=== PATIENT | female | born 1940 ===

== ENCOUNTER 2017-11-16 21:51 | Observation (INO) | payer MEDICARE, MEDICAID ==
[2017-11-16 22:05] VITALS: BMI 26.2
--- NOTE | 2017-11-16 22:09 | ED PDOC ---
Arrival/HPI - General Time Seen by Provider: 11/16/17 22:01 Historian: Patient, Family - History of Present Illness Narrative History of Present Illness (Text): 11/16/17 22:09 Desire Lay is a 76 year old female, whose past medical historoy includes thrombocytopenia, who presents to the Emergency department brought in by EMS accompanied by daughter complaining of chest pain. As per daughter, patient has been experiencing left-sided chest pain radiating to her left arm with associated palpitations. Daughter notes patient recently finished a course of prednisolone for her thrombocytopenia. Patient denies any fever, chills, shortness of breath, nausea, vomiting, diarrhea, urinary symptoms, back pain, neck pain, headache, dizziness, or any other complaints. Symptom Onset: Gradual Symptom Course: Unchanged Activities at Onset: Light Context: Home Past Medical History - Provider Review Nursing Documentation Reviewed: Yes - Infectious Disease Hx of Infectious Diseases: None - Past Medical History Past Medical History: Unable to Obtain - Cardiac Hx Cardiac Disorders: No - Pulmonary Hx Respiratory Disorders: No - Neurological Hx Neurological Disorder: No - HEENT Hx HEENT Disorder: No - Endocrine/Metabolic Hx Endocrine Disorders: No - Hematological/Oncological Hx Blood Disorders: No - Integumentary Hx Dermatological Disorder: No - Musculoskeletal/Rheumatological Hx Musculoskeletal Disorders: No Hx Falls: No - Gastrointestinal Hx Gastrointestinal Disorders: No - Genitourinary/Gynecological Hx Genitourinary Disorders: No - Psychiatric Hx Psychophysiologic Disorder: No Hx Substance Use: No - Past Surgical History Past Surgical History: Unable to Obtain - Surgical History Hx Orthopedic Surgery: Yes - Anesthesia Hx Anesthesia: Yes Hx Anesthesia Reactions: No Hx Malignant Hyperthermia: No - Suicidal Assessment Feels Threatened In Home Enviroment: No Family/Social History - Physician Review Nursing Documentation Reviewed: Yes Family/Social History: Unknown Family HX Smoking Status: Never Smoked Hx Alcohol Use: No Hx Substance Use: No Allergies/Home Meds Allergies/Adverse Reactions: Allergies amoxicillin Allergy (Verified 11/16/17 22:13) SHORTNESS OF BREATH ciprofloxacin Allergy (Verified 11/16/17 22:13) SHORTNESS OF BREATH Penicillins Allergy (Verified 11/16/17 22:13) SHORTNESS OF BREATH Home Medications: Home Meds Medication Instructions Recorded Confirmed No Known Home Med 11/16/17 11/16/17 Review of Systems - Physician Review All systems were reviewed & negative as marked: Yes - Review of Systems Constitutional: Normal. absent: Fevers Eyes: Normal ENT: Normal Respiratory: Normal. absent: SOB Cardiovascular: Chest Pain, Palpitations Gastrointestinal: Normal. absent: Abdominal Pain, Diarrhea, Nausea, Vomiting Genitourinary Female: Normal. absent: Dysuria, Frequency, Hematuria, Urine Output Changes Musculoskeletal: Normal. absent: Back Pain, Neck Pain Skin: Normal. absent: Rash Neurological: Normal. absent: Headache, Dizziness Endocrine: Normal Hemo/Lymphatic: Normal Psychiatric: Normal Physical Exam Vital Signs Reviewed: Yes Vital Signs Temp Pulse Resp BP Pulse Ox 11/16/17 23:36 98 H 108/53 L 11/16/17 23:23 137 H 142/88 11/16/17 21:53 98.5 F 96 H 16 136/88 98 Temperature: Afebrile Blood Pressure: Normal Pulse: Regular Respiratory Rate: Normal Appearance: Positive for: Well-Appearing, Non-Toxic, Comfortable Pain Distress: None Mental Status: Positive for: Alert and Oriented X 3 - Systems Exam Head: Present: Atraumatic, Normocephalic Pupils: Present: PERRL Extroacular Muscles: Present: EOMI Conjunctiva: Present: Normal Mouth: Present: Moist Mucous Membranes Neck: Present: Normal Range of Motion Respiratory/Chest: Present: Clear to Auscultation, Good Air Exchange. No: Respiratory Distress, Accessory Muscle Use Cardiovascular: Present: Regular Rate and Rhythm, Normal S1, S2. No: Murmurs Abdomen: Present: Normal Bowel Sounds. No: Tenderness, Distention, Peritoneal Signs Back: Present: Normal Inspection Upper Extremity: Present: Normal Inspection. No: Cyanosis, Edema Lower Extremity: Present: Normal Inspection. No: Edema Neurological: Present: GCS=15, CN II-XII Intact, Speech Normal Skin: Present: Warm, Dry, Normal Color. No: Rashes Psychiatric: Present: Alert, Oriented x 3, Normal Insight, Normal Concentration Medical Decision Making ED Course and Treatment: 11/16/17 22:09 Impression: 76 year old female brought in for chest pain radiating to left arm and palpitations. Plan: -- EKG -- Chest X-ray -- Labs, cardiac enzymes -- Reassess and disposition Prior Visits: Notes and results from previous visits were reviewed. On 08/10/2015, pt was seen in the Emergency department for abdominal pain. Pt was d/c home. Progress Notes: Reviewed EKG, NSR at 98 bpm. NSR at [address] bpm[address] Non-specific ST/T wave changes, 11/16/17 22:59 Pt noted to be in a fib, Cardizem ordered. 11/16/17 23:33 CXR reviewed, shows no acute processes. 11/17/17 00:[address] Carter, who is aware and agrees with plan. Accepts pt in to her service. Pt will be admitted to Telemetry for new onset atrial fibrillation and chest pain. Requests Dr. Moreland on consult. No anti-coagulation at this time, secondary to pt's thrombocytopenia. 11/17/17 00:58 Reviewed repeat EKG, NSR at [address]-segment elevations or depressions, no T-wave inversions, normal intervals. - Lab Interpretations Lab Results: 11/16/17 22:19 11/16/17 22:19 Lab Results 11/16/17 22:19: PT 10.9, INR 1.00, APTT 28.3 11/16/17 22:19: Sodium 142, Potassium 4.2, Chloride 107, Carbon Dioxide 27, Anion Gap 13, BUN 18, Creatinine 0.9, Est GFR ( Amer) > 60, Est GFR (Non- Af Amer) > 60, Random Glucose 146 H, Calcium 9.5, Total Bilirubin 0.3, AST 34, ALT 36, Alkaline Phosphatase 104, Lactate Dehydrogenase 462, Total Creatine Kinase 49, Troponin I < 0.01, Total Protein 7.4, Albumin 3.8, Globulin 3.6, Albumin/Globulin Ratio 1.1 11/16/17 22:19: WBC 5.7, RBC 3.55, Hgb 11.3 L, Hct 35.1 L, MCV 98.9, MCH 31.8, MCHC 32.2, RDW 14.1, Plt Count 24 L*, MPV 10.2, Gran % 42.5 L, Lymph % (Auto) 51.5 H, Prentiss % (Auto) 5.5, Eos % (Auto) 0.5 L, Baso % (Auto) 0.0, Gran # 2.40, Lymph # 2.9, Prentiss # 0.3, Eos # 0.0, Baso # 0.00 I have reviewed the lab results: Yes - RAD Interpretation Radiology Orders: 11/16/17 22:21 CHEST PORTABLE [RAD] Stat Service Or Work Dispatcher: ED Physician - EKG Interpretation Interpreted by ED Physician: Yes Type: 12 lead EKG - Medication Orders Current Medication Orders: diltiaZEM IVPB 100mg in NS (Cardizem 100mg In Ns) 100 mls @ 5 mls/hr IV .Q20H PRN; Protocol; 5 MG/HR PRN Reason: TITRATE PER MD ORDER Last Admin: 11/16/17 23:36 Dose: 5 mls/hr eMAR Start Stop Document 11/16/17 23:36 AD (Rec: 11/16/17 23:37 AD [id number]) Intravenous Solution Start Date 11/16/17 Start Time 23:36 JAN Pulse and Blood Pressure Document 11/16/17 23:36 AD (Rec: 11/16/17 23:37 AD [id number]) Pulse Pulse Rate (60-90 beats/min) 98 Blood Pressure Blood Pressure (100/60-150/90 mm Hg) 108/53 Discontinued Medications Diltiazem HCl (Cardizem) 10 mg IVP ONCE ONE Stop: 11/16/17 22:59 Last Admin: 11/16/17 23:23 Dose: 10 mg IVP Administration Document 11/16/17 23:23 AD (Rec: 11/16/17 23:24 AD [id number]) Charges for Administration # of IVP Administrations 1 MAR Pulse and Blood Pressure Document 11/16/17 23:23 AD (Rec: 11/16/17 23:24 AD [id number]) Pulse Pulse Rate (60-90 beats/min) 137 Blood Pressure Blood Pressure (100/60-150/90 mm Hg) 142/88 - Scribe Statement The provider has reviewed the documentation as recorded by the Enrico Barrera Provider Scribe Attestation: All medical record entries made by the Sajanibalfredo were at my direction and personally dictated by me. I have reviewed the chart and agree that the record accurately reflects my personal performance of the history, physical exam, medical decision making, and the department course for this patient. I have also personally directed, reviewed, and agree with the discharge instructions and disposition. Disposition/Present on Arrival - Present on Arrival Any Indicators Present on Arrival: No History of DVT/PE: No History of Uncontrolled Diabetes: No Urinary Catheter: No History of Decub. Ulcer: No History Surgical Site Infection Following: None - Disposition Have Diagnosis and Disposition been Completed?: Yes Diagnosis: New onset atrial fibrillation, Chest pain Disposition: HOSPITALIZED Disposition Time: 00:34 Patient Plan: Admission Patient Problems: Current Active Problems Problem Status Onset Chest pain Acute New onset atrial fibrillation Acute Condition: STABLE
[2017-11-16 22:51] LABS: EOS % 0.5 % (1.5-5.0); GRAN % 42.5 % (50.0-68.0); HEMATOCRIT 35.1 % (36.0-48.0); LYMPH # 2.9 (1.2-3.4); LYMPH % 51.5 % (22.0-35.0); MEAN CELL VOLUME 98.9 fl (80.0-105.0); MEAN CORPUSCULAR HEMOGLOBIN 31.8 pg (25.0-35.0); MEAN CORPUSCULAR HGB CONC 32.2 g/dl (31.0-37.0); MEAN PLATELET VOLUME 10.2 fl (7.0-11.0); MONO # 0.3 (0.1-0.6); MONO % 5.5 % (1.0-6.0); RED CELL DISTRIBUTION WIDTH 14.1 % (11.5-14.5); WHITE BLOOD COUNT 5.7 10^3/ul (4.5-11.0)
[2017-11-16 22:55] LABS: ALB/GLOB RATIO 1.1 (1.1-1.8); ALKALINE PHOSPHATASE 104 U/L (38-126); ALT/SGPT 36 U/L (7-56); AST/SGOT 34 U/L (14-36); BILIRUBIN,TOTAL 0.3 mg/dL (0.2-1.3); BLOOD UREA NITROGEN 18 mg/dL (7-21); CALCIUM 9.5 mg/dL (8.4-10.5); CARBON DIOXIDE 27 mmol/L (21-33); CHLORIDE 107 mmol/L (98-107); GFR AFRICAN-AMERICAN > 60; GLUCOSE,RANDOM 146 mg/dL (70-110); POTASSIUM 4.2 mmol/L (3.6-5.0); SODIUM 142 mmol/L (132-148); TOTAL PROTEIN 7.4 g/dL (5.8-8.3)
[2017-11-16 22:58] LABS: PARTIAL THROMBOPLASTIN TIME 28.3 Seconds (25.1-36.5)
[2017-11-16] MEDS ORDERED: diltiaZEM IVPB 100mg in NS 100 ML IV PRN (22:59)
[2017-11-16 23:07] LABS: TROPONIN I < 0.01 ng/mL
[2017-11-16 23:08] LABS: PLATELET COUNT 24 10^3/uL (120.0-450.0)
--- NOTE | 2017-11-17 08:28 | RAD ---
HISTORY: pain COMPARISON: Comparison was made with prior study dated 08/10/2015 FINDINGS: LUNGS: No active pulmonary disease. PLEURA: No significant pleural effusion identified, no pneumothorax apparent. CARDIOVASCULAR: Normal. OSSEOUS STRUCTURES: No significant abnormalities. VISUALIZED UPPER ABDOMEN: Normal. OTHER FINDINGS: None. IMPRESSION: No active disease.
--- NOTE | 2017-11-17 11:56 | CARD ---
APPROVED REPORT EKG Measurement Heart [id number] <Conclusion> Atrial fibrillation with rapid ventricular response, new Nonspecific ST and T wave abnormality
[2017-11-17] MEDS ORDERED: Iohexol 350 MG/100 ML VIAL ONE (12:56)
--- NOTE | 2017-11-17 12:58 | CON ---
DATE: 11/17/2017 CONSULT SERVICE: Cardiology. CONSULTING PHYSICIAN: Marina Moreland MD REASON FOR CONSULTATION: Atrial fibrillation and neck pain. BRIEF CLINICAL HISTORY: This is a 76-year-old female with a past medical history of possibly spinal stenosis, back problem, history of back surgery, and history of severe thrombocytopenia for many years brought by the family because of the patient was having palpitation, denies any chest pain. The patient was found to be in AFib, converted to normal sinus. Now, the patient is in normal sinus. PAST MEDICAL HISTORY: Significant for abdominal pain off and on, severe thrombocytopenia from 2013, history of GI bleed, history of bloody diarrhea in the past, history of hypokalemia, history of, as mentioned, severe thrombocytopenia. Previous cardiac workup as follows; the patient had echo in 2013 that showed an ejection fraction of 55%, trace mitral regurgitation, tricuspid regurgitation and RV systolic pressure 38. PAST SURGICAL HISTORY: History is significant for back problem, history of metal plate in the back. Last echo as mentioned 10/24/2014 that showed ejection fraction of 55%, trace mitral regurgitation, mild tricuspid regurgitation and RV systolic pressure 38. REVIEW OF SYSTEMS: As per HPI. CURRENT MEDICATION: At home, no known medication at home, takes only p.r.n. Tylenol. ALLERGIES: TO AMOXICILLIN, CIPROFLOXACIN, AND TO PENICILLIN. PHYSICAL EXAMINATION: As follows: VITAL SIGNS: Temperature afebrile, heart rate 72, and blood pressure 105/60. HEENT: PERRLA. Extraocular muscles are intact. NECK: Supple. No carotid bruits. No thyromegaly. CHEST: Clear to auscultation. HEART: S1 and S2 regular. ABDOMEN: Soft. EXTREMITIES: Clubbing and cyanosis negative. LABORATORY DATA: WBC 5.7, hemoglobin 11.7, hematocrit 35.1, and platelet count 24. Sodium 140, potassium 4.2, chloride 107, carbon dioxide 27, anion gap of 13, BUN 18, and creatinine 0.9, and troponin is 0.01, negative. EKG: AFib with rapid ventricular rate, repeat EKG converted to normal sinus. IMPRESSION: Paroxysmal atrial fibrillation converted to normal sinus, severe thrombocytopenia which is present since 10/25/2014, platelet count was 46. I discussed with the patient's daughter and son, Tomas, in detail about the patient condition. The patient's family is completely aware of the severe condition of thrombocytopenia, being seen by Hematology at [facility] and was told medical treatment, no aggressive treatment and was told to monitor closely. The patient admitted with a palpitation, converted to normal sinus, though the patient complained lot of pain in the neck. RECOMMENDATION: So far no evidence of [place], we will get echo to assess LV function and also get a stress test. We will put low dose of beta-kevin, lipid profile, TSH and hemoglobin A1c. The patient discussed about going on the stress test, the patient preferred to go tomorrow because of lot of neck pain. We will schedule for tomorrow stress. We will keep n.p.o. after 12 midnight for a stress test in the morning. Marina Moreland MD
--- NOTE | 2017-11-17 16:20 | CT ---
PROCEDURE: CT Abdomen and Pelvis with contrast HISTORY: L side pain COMPARISON: None. TECHNIQUE: Contrast dose: 100 ML OMNIPAQUE 350 Radiation dose: Total exam DLP = 252.43 mGy-cm. This CT exam was performed using one or more of the following dose reduction techniques: Automated exposure control, adjustment of the mA and/or kV according to patient size, and/or use of iterative reconstruction technique. FINDINGS: LOWER THORAX: Unremarkable. LIVER: Unremarkable. No gross lesion or ductal dilatation. GALLBLADDER AND BILE DUCTS: Unremarkable. PANCREAS: Unremarkable. No gross lesion or ductal dilatation. SPLEEN: Normal size. Stable 1.6 cm rounded low-density lesion within the medial aspect of the spleen. Likely epidermoid cyst, hemangioma or lymphangioma. ADRENALS: Unremarkable. No mass. KIDNEYS AND URETERS: Unremarkable. No hydronephrosis. No solid mass. VASCULATURE: Unremarkable. No aortic aneurysm. BOWEL: Unremarkable. No obstruction. No gross mural thickening. APPENDIX: Normal appendix. PERITONEUM: Unremarkable. No free fluid. No free air. LYMPH NODES: Unremarkable. No enlarged lymph nodes. BLADDER: Unremarkable. REPRODUCTIVE: Status post hysterectomy BONES: There is increasing central compression deformity of the L1 and L2 vertebrae with new Schmorl's node of the superior L2 vertebra and increasing compression deformity of the superior L1 vertebral endplate. Stable mild anterior wedge compression deformity of the T9 vertebra. New mild inferior endplate Schmorl's node of the T10 vertebra. Stable grade 1 retrolisthesis at L2-3. No spondylolysis. OTHER FINDINGS: None. IMPRESSION: No acute abnormality. Stable cystic lesion of the spleen. Increasing central compression deformity of L1 and L2 vertebrae. New Schmorl's node T10 vertebra.
--- NOTE | 2017-11-17 21:15 | HP ---
HISTORY OF PRESENT ILLNESS: The patient is a 76-year-old who came to emergency room because of feeling dizzy. She has shortness of breath. She was having chest discomfort, it is going on for sometime, but got worse last night, so she came to emergency room for further evaluation. She complain of chest pain radiating from the left to her left arm. She was complaining of shortness of breath. She also complain of abdominal pain that is cramping. She denies any fever or chills. No history of cough or congestion. She does have abdominal pain. PAST MEDICAL HISTORY: Significant for hypertension and thrombocytopenia. ALLERGIES: SHE IS ALLERGIC TO AMOXICILLIN AND CIPROFLOXACIN. MEDICATIONS AT HOME: She states she only take Tylenol at home. SOCIAL HISTORY: She lives with her daughter. Denies smoking or drinking. She used to be smoker in the past, mostly one pack a day. PHYSICAL EXAMINATION: GENERAL: She is awake, alert, oriented, and communicative. VITAL SIGNS: She is afebrile, pulse 73, respirations 19, and blood pressure 99/50. LUNGS: Bilateral fair airflow. No rhonchi or crackle. HEART: S1 and S2 audible. ABDOMEN: Soft, left upper quadrant discomfort. No rebound or guarding. NEUROLOGIC: She is awake, alert, oriented, and communicative. LABORATORY DATA: WBC 5.7, hemoglobin 11.3, hematocrit 35.1, and platelets . PT 10.9 and INR 1.0. Chemistry; sodium 142, potassium 4.2, chloride 107, CO2 of 27, BUN 18, creatinine 0.9, and blood sugar of 146. Her EKG shows atrial fibrillation with rapid ventricular response. ASSESSMENT: 1, New onset atrial fibrillation. 2. History of thrombocytopenia. 3. Abdominal pain, etiology unclear. 4. Questionable hypertension. PLAN: She has been started on beta-kevin. She is schedule to have stress test done tomorrow and also we will order for CT scan of the abdomen and pelvis with p.o. contrast and the patient will get echocardiogram in a.m. We will follow up the patient in a.m. and out of bed to chair. Shabana Carter MD
[2017-11-18 01:04] VITALS: TEMP 98.1; O2SAT 97
[2017-11-18 05:54] LABS: EOS % 0.7 % (1.5-5.0); GRAN % 38.9 % (50.0-68.0); HEMATOCRIT 32.8 % (36.0-48.0); LYMPH # 3.1 (1.2-3.4); LYMPH % 53.9 % (22.0-35.0); MEAN CELL VOLUME 98.2 fl (80.0-105.0); MEAN CORPUSCULAR HEMOGLOBIN 32.3 pg (25.0-35.0); MEAN CORPUSCULAR HGB CONC 32.9 g/dl (31.0-37.0); MEAN PLATELET VOLUME 11.1 fl (7.0-11.0); MONO # 0.4 (0.1-0.6); MONO % 6.5 % (1.0-6.0); RED CELL DISTRIBUTION WIDTH 14.4 % (11.5-14.5); WHITE BLOOD COUNT 5.7 10^3/ul (4.5-11.0)
[2017-11-18 06:10] LABS: PLATELET COUNT 23 10^3/uL (120.0-450.0)
[2017-11-18 06:36] VITALS: BP 108/62; RESP 62
[2017-11-18 06:57] LABS: ALKALINE PHOSPHATASE 95 U/L (38-126); ALT/SGPT 37 U/L (7-56); AST/SGOT 27 U/L (14-36); BILIRUBIN,TOTAL 0.4 mg/dL (0.2-1.3); BLOOD UREA NITROGEN 14 mg/dL (7-21); CALCIUM 9.6 mg/dL (8.4-10.5); CARBON DIOXIDE 26 mmol/L (21-33); CHLORIDE 106 mmol/L (98-107); CHOLESTEROL 203 mg/dL (130-200); GFR AFRICAN-AMERICAN > 60; GLUCOSE,RANDOM 98 mg/dL (70-110); MAGNESIUM 1.7 mg/dL (1.7-2.2); PHOSPHOROUS 3.9 mg/dL (2.5-4.5); POTASSIUM 4.3 mmol/L (3.6-5.0); SODIUM 140 mmol/L (132-148); TOTAL PROTEIN 7.1 g/dL (5.8-8.3)
[2017-11-18] MEDS ORDERED: Aminophylline 25 mg/ml Inj ONE (08:56)
--- NOTE | 2017-11-18 13:26 | PN ---
DATE: 11/18/2017 REASON FOR CONSULTATION AND FOLLOWUP: Atrial fibrillation, neck pain, and chest pain with underlying coronary artery disease, cardiac evaluation. SUBJECTIVE: The patient denies any chest pain, shortness of breath, or any palpitation. Lying on the bed. Seen in noninvasive lab. Awaiting to go for stress test. PHYSICAL EXAMINATION: As follows: VITAL SIGNS: Temperature is afebrile, heart rate is 62, and blood pressure is 108/62. HEENT: PERRLA. Extraocular muscles are intact. NECK: Supple. No carotid bruits or thyromegaly. CHEST: Clear to auscultation. HEART: S1 and S2, regular. ABDOMEN Soft. EXTREMITIES: Clubbing and cyanosis negative. LABORATORY DATA: Blood workup as follows: WBC of 5.7, hemoglobin of 10.8, hematocrit of 32.8, and platelet count of 23. Chemistry shows sodium of 140, potassium of 4.3, chloride of 106, carbon dioxide of 26, anion gap of 13, BUN of 14, and creatinine of 0.9. TSH is 2.14. Triglycerides of 121, total cholesterol of 203, LDL of 129, and HDL of 52. DIAGNOSTIC DATA: EKG shows atrial fibrillation with controlled rate. Admitted with rapid ventricular rate, now rate is well controlled. IMPRESSION AND RECOMMENDATIONS: Thrombocytopenia from 2013, history of gastrointestinal bleed, and history of bloody diarrhea in the past. Previous cardiac workup shows ejection fraction of 55%, trace mitral regurgitation, trace tricuspid regurgitation and right ventricular systolic pressure of 38. Admitted with neck pain, shortness of breath, questionable history of the chest pain. Discussed with son and daughter, both were at the bedside and I agree for the stress test, we will schedule for a stress test today and echocardiography today. We will continue low-dose beta-kevin, the patient is not on anticoagulation because of severe thrombocytopenia, platelet count is 22, which is contraindicative to the anticoagulation because the patient can dye from a spontaneous bleeding even with the low platelet count and also cannot tolerate anticoagulation. We will continue beta-kevin as heart rate is tolerated, a stress test and echocardiography. Further recommendation will be made after the hospital course. We will follow with you. The patient has a history of spine surgery and metal plate in the back. Thank you Dr. Carter, for providing me the opportunity in taking care of the patient, Desire Lay. Marina Moreland MD [facility] # [id number]
[2017-11-18 15:27] VITALS: PULSE 69
--- NOTE | 2017-11-18 18:49 | CARD ---
APPROVED REPORT EXAM: Two-dimensional and M-mode echocardiogram with Doppler and color Doppler. INDICATION Chest Pain PAF/LVFX 2D DIMENSIONS Left Atrium (2D)3.5 (1.6-4.0cm)IVSd0.9 (0.7-1.1cm) LVDd3.3 (3.9-5.9cm)PWd0.9 (0.7-1.1cm) LVDs2.3 (2.5-4.0cm)FS (%) 31.0 % LVEF (%)60.0 (>50%) M-Mode DIMENSIONS Aortic Root2.80 (2.2-3.7cm)Aortic Cusp Exc.1.60 (1.5-2.0cm) Aortic Valve AoV Peak Slblfblk124.0cm/Neolle Peak GR.5mmHg Mitral Valve MV E Vllhifqm62.0cm/sMV A Srhivuvj28.7cm/sE/A ratio0.8 TDI Lateral E' Peak V10.90cm/sMedial E' Peak V7.90cm/sE/Lateral E'5.4 E/Medial E'7.5 Pulmonary Valve PV Peak Yktytygu14.6cm/sPV Peak Grad.2mmHg Tricuspid Valve TR Peak Pwzyxtqm492lk/sRAP EZHBVFNI91teNkRC Peak Gr.32mmHg [id number] LEFT VENTRICLE The left ventricle is normal size. There is normal left ventricular wall thickness. The left ventricular function is normal.EF-60-65% There is normal LV segmental wall motion. Transmitral Doppler flow pattern is Grade III-reversible restrictive diastolic dysfunction. No left ventricle thrombus noted on this study. There is no ventricular septal defect visualized. There is no left ventricular aneurysm. There is no mass noted in the left ventricle. RIGHT VENTRICLE The right ventricle is normal size. There is normal right ventricular wall thickness. The right ventricular systolic function is normal. ATRIA The left atrium size is normal. The right atrium size is normal. The interatrial septum is intact with no evidence for an atrial septal defect. AORTIC VALVE The aortic valve is thickened but opens well. There is trace aortic regurgitation. There is no aortic valvular stenosis. There is no aortic valvular vegetation. MITRAL VALVE The mitral valve is thickened but opens well. Mitral regurgitation is trace to mild. There is no mitral valve stenosis. There is no evidence of mitral valve prolapse. TRICUSPID VALVE The tricuspid valve leaflets are thickened , but open well. There is moderate tricuspid regurgitation.RVSP_42 mmof h g. There is no tricuspid valve stenosis. There is no tricuspid valve prolapse or vegetation. PULMONIC VALVE The pulmonic valve is not well visualized. There is no pulmonic valvular regurgitation. There is no pulmonic valvular stenosis. GREAT VESSELS The aortic root is normal in size. The ascending aorta is normal in size. The pulmonary artery is normal. The IVC is normal in size and collapses >50% with inspiration. PERICARDIAL EFFUSION There is no pleural effusion. There is no pericardial effusion. <Conclusion> Normal chamber Size. EF-60-65 There is trace aortic regurgitation. Mitral regurgitation is trace to mild. There is moderate tricuspid regurgitation.RVSP_42 mmof h g. The IVC is normal in size and collapses >50% with inspiration. There is no pericardial effusion.
--- NOTE | 2017-11-18 20:09 | CARD ---
APPROVED REPORT Protocol: LEXISCAN Test Type: Lexiscan Sestamibi Stress Test Attending Physician: Dr. Marina Leavitt Referring Physician: Dr. Shabana Carter Test Indications: Chest Pain Height:4 ft 9 in Weight:113lbs Medications: Lopressor Medical History: 76 y/o female with a history of atrial fibrillation, osteoporosis Target HR: 144 bpm Resting ECG: RSR. Resting Heart Rate: 67 bpm Resting Blood Pressure: 112/70mmHg Submaximum (85%): 122 bpm PROCEDURE Pharmacologic stress testing was performed using 0.4mg per 5ml of regadenoson given intravenously over 7-10 seconds. Reversal agent aminophyline 100 mg, given intravenously for Other. POST EXERCISE Reason for Termination: Protocol completed Target HR: No Max HR: 66 bpm 66% of Maximum Predicted HR: 144 bpm Exercise duration: 00:31 min:sec, 0 Stage Exercise capacity: 1.0METs Max Blood Pressure: 118/70mmHg Blood Pressure response to exercise: normal resting BP - appropriate response Heart Rate response to exercise: appropriate Chest Pain: No, none Angina index: 0 Arrhythmia: No, none ST Change: No, none Deviation: 0 mm INTERPRETATION Stress EKG Conclusion: IV LEXISCAN NUCLEAR STRESS TEST NEGATIVE FOR CHEST PAIN AND NEGATIVE FOR ST-T CHANGES. NUCLEAR SCAN REPORT PENDING. Signed by Marina Leavitt Electronically Approved: 11/18/2017 10:49:30 EXAM: Myocardial Perfusion REST/STRESS Stress Test Type: Pharmacologic Imaging Protocol Rest Spect myocardial perfusion imaging was performed in supine position 45 minutes following the injection of 10.6 mCi of Tc-99 Myoview. At peak stress, the patient was injected intravenously with 30.7mCi of Tc-99 tetrofosmin after an infusion time of 0 minutes and 10 seconds. Gated Stress Spect was performed 60 minutes after intravenous Tc-99 Myoview injection. The images were gated to evaluate regional wall motion and calculate ventricular ejection fraction.Images were reconstructed using backfilter projection method in short horizontal and verticle long axis. Spect slices were generated. LV Perfusion The quality of the study is good. The left ventricle is normal in size. The right ventricle is unremarkable. The lung uptake is within normal limits. The distribution of tracer reveals normal uptake pattern throughout the LV myocardium on the stress study. The rest myocardial perfusion study shows no significant change. Wall Motion Wall motion study shows good contractility of the left ventricle. LVEF = 81%. Conclusion 1. Normal SPECT myocardial perfusion study. 2. Normal gated wall motion of the left ventricle.
--- NOTE | 2017-11-19 03:47 | DS ---
HISTORY OF PRESENT ILLNESS: The patient is a 76-year-old, seen and examined. No nausea or vomiting. No diarrhea. No chest pain. No shortness of breath. Eating and tolerating. She was in brief episode of atrial fibrillation and has been in sinus rhythm since then. She has been beta-kevin doing well with that. PHYSICAL EXAMINATION: GENERAL: She is awake, alert, oriented, and communicative. VITAL SIGNS: She is afebrile. Pulse is 62, respirations are 20, and blood pressure is 108/62. LUNGS: Bilateral good airflow. No rhonchi or crackle. HEART: S1 and S2, audible. ABDOMEN: Soft and nontender. No rebound and no guarding. NEUROLOGIC: The patient is awake, alert, oriented, and communicative. LABORATORY DATA: WBC is 5.7, hemoglobin is 10.8, hematocrit is 32.8, and platelets of 23. Chemistry: Sodium of 140, potassium of 4.3, chloride of 106, CO2 of 26, BUN of 14, creatinine of 0.9, and blood sugar of 152. LFTs are within normal limit. Stress test is pending. ASSESSMENT AND PLAN 1. Brief episode of paroxysmal atrial fibrillation. 2. History of hypertension. 3. Thrombocytopenia. 4. History of gastrointestinal bleed in the remote past that is why the patient has not been started on anticoagulant. PLAN: I will discussed with Dr. Moreland because of her high risk age and being thrombocytopenic. She is not on anticoagulant. We will might discharge her on metoprolol 12.5 mg b.i.d. If it is okay with Cardiology and the patient was advised to follow up with her PMD. The patient's family was also told that the patient has small cystic lesion in the spleen and that warranted follow up CT scan in 6 months to reassess the size of that lesion. If it is increasing in size this need to be resected. They understand that and they will follow with you. Shabana Carter MD
== END 2017-11-18 17:51 | disposition home or self-care (01) ==
LOC: ED 21:51 → ERH 11-17 00:31 → INTOOBSV 11-17 00:31 → ERH 11-17 01:29 → 2RSO 11-17 03:11
PROVIDERS: ADMIT Internal Medicine; ATTEND Internal Medicine
DX: I48.0 Paroxysmal atrial fibrillation (principal); D69.6 Thrombocytopenia, unspecified; I10 Essential (primary) hypertension; Z87.891 Personal history of nicotine dependence; Z88.1 Allergy status to other antibiotic agents; Z88.0 Allergy status to penicillin; R40.2412 Glasgow coma scale score 13-15, at arrival to emergency department; R10.9 Unspecified abdominal pain; I08.1 Rheumatic disorders of both mitral and tricuspid valves
CPT/HCPCS: 36415; 71010; 74177; 78452; 80053; 80061; 82550; 82948; 83036; 83615; 83735; 84100; 84443; 84484; 85025; 85610; 85730; 93005; 93017; 93306; 96374; 99285; A9502; G0378; Q9967

== ENCOUNTER 2017-11-28 21:46 | Inpatient (IN) | payer MEDICARE, MEDICAID ==
--- NOTE | 2017-11-28 22:17 | ED PDOC ---
Arrival/HPI - General Chief Complaint: Dizziness/Lightheaded Time Seen by Provider: 11/28/17 21:53 Historian: Patient, Family - History of Present Illness Narrative History of Present Illness (Text): 11/28/17 22:17 Desire Lay is a 76 year old female, whose past medical history includes hypertension and thrombocytopenia, who presents to the Emergency department brought in by EMS accompanied by daughter complaining of chest discomfort today. As per daughters, patient has been experiencing mid-sternal chest discomfort with associated persistent dizziness and palpitations. Daughter notes patient has experienced similar symptoms in the past and was recently admitted on 11/17/17. Patient denies any fever, chills, shortness of breath, nausea, vomiting, diarrhea, back pain, neck pain, headache, or any other complaints. Symptom Onset: Gradual Symptom Course: Unchanged Activities at Onset: Light Context: Home Past Medical History - Provider Review Nursing Documentation Reviewed: Yes - Infectious Disease Hx of Infectious Diseases: None - Past Medical History Past Medical History: Unable to Obtain - Cardiac Hx Cardiac Disorders: No Hx Atrial Fibrillation: Yes Hx Hypertension: Yes - Pulmonary Hx Respiratory Disorders: No - Neurological Hx Neurological Disorder: No - HEENT Hx HEENT Disorder: No - Renal Hx Renal Disorder: No - Endocrine/Metabolic Hx Endocrine Disorders: No - Hematological/Oncological Hx Blood Disorders: No Other/Comment: thrombocytopenia - Integumentary Hx Dermatological Disorder: No - Musculoskeletal/Rheumatological Hx Arthritis: Yes - Gastrointestinal Hx Gastrointestinal Disorders: No - Genitourinary/Gynecological Hx Genitourinary Disorders: No - Psychiatric Hx Psychophysiologic Disorder: No Hx Substance Use: No - Past Surgical History Past Surgical History: Unable to Obtain - Surgical History Hx Orthopedic Surgery: Yes - Anesthesia Hx Anesthesia: Yes Hx Anesthesia Reactions: No Hx Malignant Hyperthermia: No - Suicidal Assessment Feels Threatened In Home Enviroment: No Family/Social History - Physician Review Nursing Documentation Reviewed: Yes Family/Social History: Unknown Family HX Smoking Status: Never Smoked Hx Alcohol Use: No Hx Substance Use: No Allergies/Home Meds Allergies/Adverse Reactions: Allergies amoxicillin Allergy (Verified 11/16/17 22:13) SHORTNESS OF BREATH ciprofloxacin Allergy (Verified 11/16/17 22:13) SHORTNESS OF BREATH Penicillins Allergy (Verified 11/16/17 22:13) SHORTNESS OF BREATH Home Medications: Home Meds Medication Instructions Recorded Confirmed Metoprolol Tartrate [Lopressor] 12.5 mg PO DAILY 11/28/17 11/28/17 Review of Systems - Physician Review All systems were reviewed & negative as marked: Yes - Review of Systems Constitutional: Normal. absent: Fevers Eyes: Normal ENT: Normal Respiratory: Normal. absent: SOB, Cough, Sputum Cardiovascular: Chest Pain, Palpitations Gastrointestinal: Normal. absent: Abdominal Pain, Diarrhea, Nausea, Vomiting Genitourinary Female: Normal. absent: Dysuria, Frequency, Hematuria Musculoskeletal: Normal. absent: Back Pain, Neck Pain Skin: Normal. absent: Rash Neurological: Dizziness. absent: Headache Endocrine: Normal Hemo/Lymphatic: Normal Psychiatric: Normal Physical Exam Vital Signs Reviewed: Yes Vital Signs Temp Pulse Resp BP Pulse Ox 11/28/17 23:46 68 18 119/74 100 11/28/17 21:46 98.3 F 76 18 132/52 L 98 Temperature: Afebrile Blood Pressure: Normal Pulse: Regular Respiratory Rate: Normal Appearance: Positive for: Well-Appearing, Non-Toxic, Comfortable Pain Distress: None Mental Status: Positive for: Alert and Oriented X 3 Finger Stick Blood Glucose: 128 - Systems Exam Head: Present: Atraumatic, Normocephalic Pupils: Present: PERRL Extroacular Muscles: Present: EOMI Conjunctiva: Present: Normal Mouth: Present: Moist Mucous Membranes Neck: Present: Normal Range of Motion Respiratory/Chest: Present: Clear to Auscultation, Good Air Exchange. No: Respiratory Distress, Accessory Muscle Use Cardiovascular: Present: Regular Rate and Rhythm, Normal S1, S2. No: Murmurs Abdomen: Present: Normal Bowel Sounds. No: Tenderness, Distention, Peritoneal Signs Back: Present: Normal Inspection Upper Extremity: Present: Normal Inspection. No: Cyanosis, Edema Lower Extremity: Present: Normal Inspection. No: Edema Neurological: Present: GCS=15, CN II-XII Intact, Speech Normal Skin: Present: Warm, Dry, Normal Color. No: Rashes Psychiatric: Present: Alert, Oriented x 3, Normal Insight, Normal Concentration Medical Decision Making ED Course and Treatment: 11/28/17 22:17 Impression: 76 year old female complaining of chest pain, dizziness, and palpitations today. Plan: -- CT Head w/o contrast -- EKG -- Chest X-ray -- Labs, cardiac enzymes -- Reassess and disposition Prior Visits: Notes and results from previous visits were reviewed. On 11/16/2017, pt was seen in the Emergency department for left-sided chest pain and palpitations. Pt was admitted to the hospital for further evaluation. Progress Notes: EKG reviewed, NSR at [address]-segment elevations or depressions, no T-wave inversions, normal intervals. 11/28/17 23:30 Reviewed radiology, Chest X-ray shows no acute processes. CT Head shows: Hardware along the inferior occipital region extending into cervical spine. Upper cervical spine deformity incompletely imaged. Mild frontal atrophy. No intracranial hemorrhage or edema. Mild mucosal thickening right sphenoid sinus. IMPRESSION: Partial opacification right sphenoid sinus that could be chronic versus representing early developing mild acute sinusitis. 11/28/17 23:[address] Leo, covering for Dr. Carter, who is aware and agrees with plan. Accepts pt in to her service. Pt will go to Telemetry observation for chest pain, palpitations, and dizziness. - Lab Interpretations Lab Results: 11/28/17 22:17 11/28/17 22:17 Lab Results 11/28/17 22:17: WBC 5.8, RBC 3.36 L, Hgb 10.8 L, Hct 32.9 L, MCV 97.9, MCH 32.1 , MCHC 32.8, RDW 14.0, Plt Count 22 L*, MPV 10.3 11/28/17 22:17: Sodium 140, Potassium 3.9, Chloride 102, Carbon Dioxide 28, Anion Gap 14, BUN 17, Creatinine 0.8, Est GFR ( Amer) > 60, Est GFR (Non- Af Amer) > 60, Random Glucose 137 H, Calcium 9.9, Total Bilirubin 0.2, AST 31, ALT 30, Alkaline Phosphatase 101, Lactate Dehydrogenase 457, Total Creatine Kinase 49, Troponin I 0.08 D, Total Protein 7.6, Albumin 4.1, Globulin 3.6, Albumin/Globulin Ratio 1.1 11/28/17 22:17: PT 11.3, INR 1.04, APTT 28.2 I have reviewed the lab results: Yes - RAD Interpretation Radiology Orders: 11/28/17 22:18 HEAD W/O CONTRAST [CT] Stat 11/28/17 22:19 CHEST PORTABLE [RAD] Stat Health Educator: ED Physician, Radiologist - EKG Interpretation Interpreted by ED Physician: Yes Type: 12 lead EKG - Scribe Statement The provider has reviewed the documentation as recorded by the Sajanibalfredo Barrera Provider Scribe Attestation: All medical record entries made by the Scribe were at my direction and personally dictated by me. I have reviewed the chart and agree that the record accurately reflects my personal performance of the history, physical exam, medical decision making, and the department course for this patient. I have also personally directed, reviewed, and agree with the discharge instructions and disposition. Disposition/Present on Arrival - Present on Arrival Any Indicators Present on Arrival: No History of DVT/PE: No History of Uncontrolled Diabetes: No Urinary Catheter: No History of Decub. Ulcer: No History Surgical Site Infection Following: None - Disposition Have Diagnosis and Disposition been Completed?: Yes Diagnosis: Chest pain, Dizziness Disposition: HOSPITALIZED Disposition Time: 01:22 Patient Plan: Observation Condition: STABLE Discharge Instructions (ExitCare): Chest Pain (ED) Referrals: Jasbir Mosley, [Primary Care Provider] - Follow up with primary Forms: [employer] (Bulgarian)
[2017-11-28 22:29] LABS: HEMOGLOBIN 10.8 g/dL (12.0-16.0); MEAN CELL VOLUME 97.9 fl (80.0-105.0); MEAN CORPUSCULAR HEMOGLOBIN 32.1 pg (25.0-35.0); MEAN CORPUSCULAR HGB CONC 32.8 g/dl (31.0-37.0); MEAN PLATELET VOLUME 10.3 fl (7.0-11.0); RBC 3.36 10^6/uL (3.5-6.1); WHITE BLOOD COUNT 5.8 10^3/ul (4.5-11.0)
[2017-11-28 22:35] LABS: PLATELET COUNT 22 10^3/uL (120.0-450.0)
[2017-11-28 22:52] LABS: TROPONIN I 0.08 ng/mL
[2017-11-28 23:02] LABS: INR 1.04 (0.93-1.08); PARTIAL THROMBOPLASTIN TIME 28.2 Seconds (25.1-36.5); PROTHROMBIN TIME 11.3 SECONDS (9.4-12.5)
[2017-11-28 23:06] LABS: ALBUMIN 4.1 g/dL (3.0-4.8); BLOOD UREA NITROGEN 17 mg/dL (7-21); CALCIUM 9.9 mg/dL (8.4-10.5); GFR AFRICAN-AMERICAN > 60; GFR NON-AFRICAN AMERICAN > 60
[2017-11-28 23:07] LABS: ALB/GLOB RATIO 1.1 (1.1-1.8); ALT/SGPT 30 U/L (7-56); AST/SGOT 31 U/L (14-36)
--- NOTE | 2017-11-28 23:23 | CT ---
EXAM: CT Head Without Intravenous Contrast EXAM DATE/TIME: 11/28/2017 10:18 PM CLINICAL HISTORY: 76 years old, female; Signs and symptoms; Dizziness; Additional info: Dizzy TECHNIQUE: Axial computed tomography images of the head/brain without intravenous contrast. All CT scans at this facility use one or more dose reduction techniques, viz.: automated exposure control; ma/kV adjustment per patient size (including targeted exams where dose is matched to indication; i.e. head); or iterative reconstruction technique. COMPARISON: No relevant prior studies available. FINDINGS: Hardware along the inferior occipital region extending into cervical spine. Upper cervical spine deformity incompletely imaged. Mild frontal atrophy. No intracranial hemorrhage or edema. Mild mucosal thickening right sphenoid sinus. IMPRESSION: Partial opacification right sphenoid sinus that could be chronic versus representing early developing mild acute sinusitis.
[2017-11-29 04:21] LABS: BASO # 0.01 K/mm3 (0.0-2.0); BASO % 0.2 % (0.0-3.0); EOS % 0.6 % (1.5-5.0); GRAN # 1.76 (1.4-6.5); GRAN % 34.5 % (50.0-68.0); LYMPH # 2.9 (1.2-3.4); LYMPH % 56.9 % (22.0-35.0); MEAN CELL VOLUME 97.8 fl (80.0-105.0); MEAN CORPUSCULAR HEMOGLOBIN 31.8 pg (25.0-35.0); MEAN CORPUSCULAR HGB CONC 32.6 g/dl (31.0-37.0); MONO # 0.4 (0.1-0.6); MONO % 7.8 % (1.0-6.0); RBC 3.14 10^6/uL (3.5-6.1); RED CELL DISTRIBUTION WIDTH 14.1 % (11.5-14.5); WHITE BLOOD COUNT 5.1 10^3/ul (4.5-11.0)
[2017-11-29 04:28] LABS: PLATELET COUNT 19 10^3/uL (120.0-450.0)
[2017-11-29 04:30] LABS: BLOOD UREA NITROGEN 15 mg/dL (7-21); CALCIUM 9.5 mg/dL (8.4-10.5); GFR AFRICAN-AMERICAN > 60; GFR NON-AFRICAN AMERICAN > 60; MAGNESIUM 1.5 mg/dL (1.7-2.2)
[2017-11-29] MEDS ORDERED: Magnesium Sulfate 1 gm in D5W 1 GM/100 ML BAG IVPB ONE (04:37)
[2017-11-29 04:39] LABS: TROPONIN I 0.06 ng/mL
--- NOTE | 2017-11-29 08:53 | HP ---
HISTORY OF PRESENT ILLNESS: Mrs. Lay is 76-year-old female admitted to the hospital with chest discomfort. She has history of anemia and thrombocytopenia; platelet count has declined significantly to 19,000 today. She denies any radiation of pain to arm. No nausea. No vomiting. No epigastric pain. No headache. No dizziness. No episodes of bleeding from any site. CAT scan of the head is unremarkable done in the ED. She also has chronic anemia, hemoglobin has been steadily declining for past few years since 2014. She has not required any blood transfusion. She has history of hypertension, blood pressure controlled with current medications. PAST MEDICAL HISTORY: Hypertension, anemia, thrombocytopenia, and osteoarthritis. PAST SURGICAL HISTORY: Orthopedic surgery. FAMILY HISTORY: Noncontributory. PERSONAL HISTORY: Never smoked. No history of alcohol abuse. SOCIAL HISTORY: Lives at home with daughter. ALLERGIES: AMOXICILLIN, CIPROFLOXACIN, AND PENICILLIN. HOME MEDICATIONS: Metoprolol 12.5 mg p.o. daily. REVIEW OF SYSTEMS: As per HPI. The 12-point rest of systems is reviewed and negative. PHYSICAL EXAMINATION: GENERAL: Comfortable in bed in no acute distress. VITAL SIGNS: Temperature 98.3, heart rate 76 per minute, respiratory rate 18 per minute, blood pressure 130/50, and pulse oximetry is 98% room air. HEENT: Pallor positive. NECK: Supple. No lymphadenopathy. CHEST: Air entry present and equal bilateral. No added sounds. CARDIOVASCULAR: S1 and S2 normal. No murmur. No gallop. ABDOMEN: Soft and nontender. No hepatosplenomegaly. EXTREMITIES: No edema. SKIN: No petechiae. No rash. PSYCHIATRIC: Alert and oriented x3. No focal sensory motor deficit. LABORATORY DATA AND IMAGING STUDIES: CAT scan of the head, no intracranial abnormality and chronic sinus disease. White count 5.8, hemoglobin 10.8, hematocrit 32.9, and platelet 22,000. Sodium 140, potassium 3.9, BUN 17, creatinine 0.8, glucose 137, and magnesium 1.5. Troponin 0.08. ASSESSMENT: 1. Chest pain. 2. Thrombocytopenia. 3. Anemia. 4. Hypomagnesemia. PLAN: She will be admitted to telemetry monitoring. We will draw serial troponins; 2 sets of troponin are negative. We will draw another set in 6 hours. Very likely anemia, thrombocytopenia, platelet count, and hemoglobin have declined significantly over past few years. Platelet count recent repeated is 19,000, very likely she has MDS. She will need bone marrow aspiration biopsy to establish the diagnosis. We will send iron studies, B12, and folate level. We will continue Lopressor for hypertension and monitor blood pressure. Annie Leo MD SHANNAN
[2017-11-29 09:09] LABS: BLOOD UREA NITROGEN 14 mg/dL (7-21); CALCIUM 9.4 mg/dL (8.4-10.5); GFR AFRICAN-AMERICAN > 60; GFR NON-AFRICAN AMERICAN > 60
[2017-11-29 09:15] LABS: BASO # 0.01 K/mm3 (0.0-2.0); BASO % 0.2 % (0.0-3.0); EOS % 0.7 % (1.5-5.0); GRAN # 2.05 (1.4-6.5); GRAN % 45.1 % (50.0-68.0); HEMOGLOBIN 10.2 g/dL (12.0-16.0); LYMPH # 2.2 (1.2-3.4); LYMPH % 47.6 % (22.0-35.0); MEAN CELL VOLUME 98.2 fl (80.0-105.0); MEAN CORPUSCULAR HEMOGLOBIN 31.2 pg (25.0-35.0); MEAN CORPUSCULAR HGB CONC 31.8 g/dl (31.0-37.0); MEAN PLATELET VOLUME 11.3 fl (7.0-11.0); MONO # 0.3 (0.1-0.6); MONO % 6.4 % (1.0-6.0); RBC 3.27 10^6/uL (3.5-6.1); WHITE BLOOD COUNT 4.5 10^3/ul (4.5-11.0)
[2017-11-29 09:20] LABS: PLATELET COUNT 21 10^3/uL (120.0-450.0)
[2017-11-29 09:21] LABS: TROPONIN I 0.05 ng/mL
[2017-11-29 11:12] LABS: IRON 97 ug/dL (45-180)
[2017-11-29 11:22] LABS: % IRON SATURATION 33 % (20-55); TOTAL IRON BINDING CAPACITY 295 ug/dL (265-497)
--- NOTE | 2017-11-29 14:23 | CON ---
DATE: 11/29/2017 CHIEF COMPLAINT: Dizziness. HISTORY OF PRESENT ILLNESS: This is a 76-year-old woman with a past medical history of hypertension, history of anemia, chronic thrombocytopenia, and osteoarthritis, who came with decline in platelet count significantly to 19,000, was consulted for dizziness. She says when she takes the blood pressure pill, she gets lightheaded and feels like she is going to fall back but otherwise no spinning sensation of the room. She denies any headache, any change in sense of vision, taste, or smell. No focal weakness of the extremities. She moves all extremities. No paresthesia of the extremities. Sometimes when she gets panicked, she gets palpitations and she gets lightheadedness. Otherwise, no acute events overnight. Her blood pressures are stable, a little bit on the lower side of 103/63. CAT scan of the head showed no acute intracranial abnormalities. PAST MEDICAL HISTORY: She has hypertension, anemia, thrombocytopenia, and osteoarthritis. PAST SURGICAL HISTORY: Orthopedic surgery. FAMILY HISTORY: Noncontributory. PERSONAL HISTORY: No illicit drug use, smoking or EtOH abuse. ALLERGIES: AMOXICILLIN, CIPROFLOXACIN, AND PENICILLIN. HOME MEDICATIONS: Reviewed by nursing reconciliation sheet. PHYSICAL EXAMINATION: VITAL SIGNS: Temperature 98, pulse rate 72, blood pressure 103/60, respiratory rate 18, oxygen saturation 96% by room air. GENERAL: The patient is seen up in bed, in no acute distress. HEENT: Atraumatic and normocephalic. PERRLA. Extraocular muscles intact. NECK: Supple. No JVD. No adenopathy noted. LUNGS: Clear to auscultation. No adventitious sounds. HEART: S1 and S2 normal rate and rhythm. No murmurs, rubs or gallops. ABDOMEN: Soft, nontender, nondistended. Bowel sounds are present. EXTREMITIES: No clubbing. No cyanosis. Peripheral pulses 2+ felt bilaterally. NEURO: The patient is alert, oriented to person, place, month and year. Speech is fluent without any errors. Cranial nerves II through XII are intact. Motor exam, moves all extremities equally. Toes are downgoing bilaterally. Sensation to light touch, pinprick, proprioception, vibration intact. DTRs are 2+ throughout. Coordination: [id number] intact. Gait is deferred for now. LABORATORY DATA: WBC 4.5, hemoglobin 10.2, hematocrit 32.1, platelet count of 19. Sodium is 138, potassium is 4.2, chloride 104, carbon dioxide 26, BUN of 14, creatinine 0.8, random glucose 115. ASSESSMENT AND PLAN: This is a 76-year-old woman with history of chronic thrombocytopenia, hypertension, osteoarthritis, who presented with platelet count of 19 and some mild dizziness and chest tightness. She mentions that she gets dizzy after she takes her blood pressure pill and also gets panicked and gets anxiety episodes and has palpitations. At this time, there is no focal or neurologic deficit. Her CAT scan of the head showed no acute intracranial abnormality. Her blood pressure systolic and diastolic on lower side for height and weight. I feel like that she gets dizziness from a transient cerebral hypoperfusion from taking her blood pressure pills along with mild anxiety affect. 1. At this time, hold her metoprolol for now and keep her systolic blood pressure between 120s or 130s. 2. Out of bed to chair. 3. Holter monitor. 4. Carotid Doppler. 5. Possible myelodysplastic syndrome, follow up with Hematology. Thank you for this consult. Atilio Braun MD
--- NOTE | 2017-11-29 15:35 | CARD ---
APPROVED REPORT EKG Measurement Heart [id number] <Conclusion> Normal sinus rhythm Normal ECG
--- NOTE | 2017-11-29 15:38 | CARD ---
APPROVED REPORT EKG Measurement Heart [id number] <Conclusion> Normal sinus rhythm Normal ECG
--- NOTE | 2017-11-29 16:12 | RAD ---
HISTORY: fever COMPARISON: Comparison chest 11/16/2017. Comparison also made with CT chest dated 08/10/2015. FINDINGS: LUNGS: Mild biapical pleural thickening and probable -fibrotic/scarring changes in both lung apices. PLEURA: No significant pleural effusion identified, no pneumothorax apparent. CARDIOVASCULAR: Normal. OSSEOUS STRUCTURES: Re- demonstrated are inferior margins of bilateral cervical spine fixation hardware. VISUALIZED UPPER ABDOMEN: Normal. OTHER FINDINGS: None. IMPRESSION: Biapical pleural thickening with mild upper lobe scarring/ fibrotic changes.
[2017-11-29 21:47] LABS: FERRITIN 65.7 ng/mL
[2017-11-29 22:17] LABS: FOLATE 17.3 ng/mL
[2017-11-30 12:32] LABS: BASO # 0.01 K/mm3 (0.0-2.0); BASO % 0.2 % (0.0-3.0); EOS % 0.7 % (1.5-5.0); GRAN # 2.21 (1.4-6.5); HEMOGLOBIN 10.2 g/dL (12.0-16.0); LYMPH # 2.8 (1.2-3.4); LYMPH % 51.1 % (22.0-35.0); MEAN CELL VOLUME 98.8 fl (80.0-105.0); MEAN CORPUSCULAR HEMOGLOBIN 31.7 pg (25.0-35.0); MEAN CORPUSCULAR HGB CONC 32.1 g/dl (31.0-37.0); MEAN PLATELET VOLUME 10.4 fl (7.0-11.0); MONO # 0.4 (0.1-0.6); RBC 3.22 10^6/uL (3.5-6.1); WHITE BLOOD COUNT 5.5 10^3/ul (4.5-11.0)
[2017-11-30 12:38] LABS: PLATELET COUNT 22 10^3/uL (120.0-450.0)
[2017-11-30 12:44] LABS: BLOOD UREA NITROGEN 16 mg/dL (7-21); CALCIUM 9.6 mg/dL (8.4-10.5); GFR AFRICAN-AMERICAN > 60; GFR NON-AFRICAN AMERICAN > 60
--- NOTE | 2017-11-30 18:02 | CON ---
DATE: 11/30/2017 REASON FOR CONSULTATION: Atrial flutter, admitted with dizziness and cardiac evaluation. BRIEF CLINICAL HISTORY: This 76-year-old female with past medical history significant for spinal stenosis, back problems, history of back surgery, history of severe thrombocytopenia for many years, brought by the family because of patient states that there is some palpitation in the chest, severe dizziness, and some chest discomfort. The patient was found to be in the atrial flutter at a rate of 220 to telemetry, converted to normal sinus. Now, the patient is in normal sinus. PAST MEDICAL HISTORY: Significant for abdominal pain off and on, severe thrombocytopenia since 2013, history of GI bleed, history of bloody diarrhea in the past, hypokalemia, and severe thrombocytopenia with platelet count of 21. RECENT CARDIAC WORKUP: As follows; the patient had his stress test on 11/18/2017, that shows normal SPECT myocardial perfusion study with ejection fraction reported 81% dated 11/18/2017. The patient had echocardiography on 11/17/2017, trace aortic regurgitation, trace to mild mitral regurgitation, moderate tricuspid regurgitation with RV systolic pressure of 42. EKG showed normal sinus, but telemetry strip shows atrial flutter at rate of 200. SOCIAL HISTORY: Denies any history of alcohol abuse. CURRENT MEDICATIONS: At home, metoprolol tartrate 12.5 mg b.i.d. possibly. ALLERGIES: AMOXICILLIN, CIPROFLOXACIN, AND PENICILLIN. REVIEW OF SYSTEMS: As per HPI. PHYSICAL EXAMINATION: VITAL SIGNS: Temperature 99, heart rate 79, and blood pressure 128/65. HEENT: PERRLA. Intact. NECK: Supple. No carotid bruits or thyromegaly. CHEST: Clear to auscultation. HEART: S1 and S2 regular. ABDOMEN: Soft. EXTREMITIES: Clubbing or cyanosis negative. LABORATORY DATA: Blood workup shows WBC 4.1, hemoglobin 10.2, hematocrit 32.1, and platelet count 21. IMPRESSION: Dizziness, hypertension, severe thrombocytopenia, gastrointestinal bleed in the past, back surgery, paroxysmal atrial fibrillation, documented thrombocytopenia since 2013, cardiac workup previously twice noninvasive in 2013, and most recently 10 days ago was negative, though the patient had paroxysmal atrial fibrillation, trace to mild mitral regurgitation, trace to mild aortic stenosis, moderate tricuspid regurgitation, recent stress test on 11/18/2017, negative ejection fraction 70%. RECOMMENDATIONS: Not a candidate for anticoagulation because severe thrombocytopenia, recent platelet count of 21. Recommend increase beta kevin to 25 b.i.d., monitor in Telemetry, repeat Holter, supplement electrolytes, keep potassium around 4, keep hemoglobin 2 and above, troponin 0.08, 0.06 undetermined range possibly secondary to atrial flutter. We will follow with you. We will get a Holter monitor. Further recommendation during hospital course. We will increase metoprolol to 25 mg b.i.d. with a holding parameters and we will follow with you. We will repeat TSH level if not done within the last 1 week to 10 days on admission. Old chart reviewed. The patient has hemoglobin A1c on 11/18/2017 at 6.4, and the patient's TSH 2.14 on 11/18/2017 and also the patient's lipid profile on 11/18/2017; triglyceride 121, cholesterol 103, LDL 129, and HDL 52. Plan is to increase metoprolol 25 mg b.i.d., put 10 mg of Lipitor, not a candidate for anticoagulation with a severe thrombocytopenia. We will get TSH and lipid again in the morning. I will put a Holter monitor. We will also do the bilateral carotid duplex. If the patient's rate is not well controlled on beta kevin, may consider catheter based ablation, but again the patient's severe thrombocytopenia that would be a little bit risk for preprocedure complication. We will try to treat it medically. Thank you Dr. Leo for providing us the opportunity in taking care of Desire Lay. Marina Moreland MD
--- NOTE | 2017-11-30 18:47 | CP.PCM.PN ---
Subjective - Date & Time of Evaluation Date of Evaluation: 11/30/17 Time of Evaluation: 12:00 - Subjective Subjective: 11/30/2017 HISTORY OF PRESENT ILLNESS: Mrs. Lay is 76-year-old female admitted to the hospital with chest discomfort. She has history of anemia and thrombocytopenia; platelet count has declined significantly to 19,000 today. She denies any radiation of pain to arm. No nausea. No vomiting. No epigastric pain. No headache. No dizziness. No episodes of bleeding from any site. CAT scan of the head is unremarkable done in the ED. She also has chronic anemia, hemoglobin has been steadily declining for past few years since 2013. She has not required any blood transfusion. She has history of hypertension, blood pressure controlled with current medications. No bleeding from any site. PAST MEDICAL HISTORY: Hypertension, anemia, thrombocytopenia, and osteoarthritis. PAST SURGICAL HISTORY: Orthopedic surgery. FAMILY HISTORY: Noncontributory. PERSONAL HISTORY: Never smoked. No history of alcohol abuse. SOCIAL HISTORY: Lives at home with daughter. ALLERGIES: AMOXICILLIN, CIPROFLOXACIN, AND PENICILLIN. HOME MEDICATIONS: Metoprolol 12.5 mg p.o. daily. REVIEW OF SYSTEMS: As per HPI. The 12-point rest of systems is reviewed and negative. PHYSICAL EXAMINATION: GENERAL: Comfortable in bed in no acute distress. VITAL SIGNS: reviewed.. HEENT: Pallor positive. NECK: Supple. No lymphadenopathy. CHEST: Air entry present and equal bilateral. No added sounds. CARDIOVASCULAR: S1 and S2 normal. No murmur. No gallop. ABDOMEN: Soft and nontender. No hepatosplenomegaly. EXTREMITIES: No edema. SKIN: No petechiae. No rash. PSYCHIATRIC: Alert and oriented x3. No focal sensory motor deficit. LABORATORY DATA AND IMAGING STUDIES: CAT scan of the head, no intracranial abnormality and chronic sinus disease. White count 5.8, hemoglobin 10.8, hematocrit 32.9, and platelet 22,000. Sodium 140, potassium 3.9, BUN 17, creatinine 0.8, glucose 137, and magnesium 1.5. Troponin 0.08. ASSESSMENT: 1. Chest pain. 2. Thrombocytopenia. 3. Anemia. 4. Hypomagnesemia. 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 Discussed at length with the family bedside. She need bone marrow aspiration, biopsy for evaluation. Family agreed for that. Procedure scheduled for bedside tomorrow. ACS ruled out. CBC, BMP am ordered. Family had lot of questions, all answered to their satisfaction. Annie Leo MD Objective - Vital Signs/Intake and Output Vital Signs (last 24 hours): Temp Pulse Resp BP Pulse Ox 97.9 F 65 19 111/65 96 11/30/17 18:00 11/30/17 18:16 11/30/17 18:00 11/30/17 18:16 11/30/17 06:00 Intake and Output: 11/30/17 11/30/17 06:59 18:59 Intake Total 300 540 Balance 300 540 - Medications Medications: Current Medications Atorvastatin Calcium (Lipitor) 20 mg PO DIN [facility] Last Admin: 11/30/17 18:16 Dose: 20 mg Lidocaine HCl (Lidocaine 1% (20ml)) 0 ml IJ ONCE ONE Stop: 12/01/17 07:01 Metoprolol Tartrate (Lopressor) 25 mg PO BID [facility] Last Admin: 11/30/17 18:16 Dose: 25 mg - Labs Labs: 11/30/17 12:20 11/30/17 12:20 PT 11.3 SECONDS (9.4-12.5) 11/28/17 22:17 INR 1.04 (0.93-1.08) 11/28/17 22:17 APTT 28.2 Seconds (25.1-36.5) 11/28/17 22:17
[2017-12-01 06:18] LABS: BASO # 0.01 K/mm3 (0.0-2.0); BASO % 0.2 % (0.0-3.0); EOS % 0.7 % (1.5-5.0); GRAN # 2.73 (1.4-6.5); GRAN % 47.3 % (50.0-68.0); HEMOGLOBIN 10.3 g/dL (12.0-16.0); LYMPH # 2.6 (1.2-3.4); MEAN CELL VOLUME 97.9 fl (80.0-105.0); MEAN CORPUSCULAR HEMOGLOBIN 31.5 pg (25.0-35.0); MEAN CORPUSCULAR HGB CONC 32.2 g/dl (31.0-37.0); MONO # 0.4 (0.1-0.6); MONO % 6.8 % (1.0-6.0); RBC 3.27 10^6/uL (3.5-6.1); WHITE BLOOD COUNT 5.8 10^3/ul (4.5-11.0)
[2017-12-01 06:34] LABS: PLATELET COUNT 19 10^3/uL (120.0-450.0)
[2017-12-01 06:35] LABS: BLOOD UREA NITROGEN 17 mg/dL (7-21); CALCIUM 9.8 mg/dL (8.4-10.5); GFR AFRICAN-AMERICAN > 60; GFR NON-AFRICAN AMERICAN > 60
[2017-12-01] MEDS ORDERED: Lidocaine 1% Inj (20ml) IJ ONE (07:00)
--- NOTE | 2017-12-01 13:17 | PN ---
DATE: 12/01/2017 REASON FOR CONSULTATION AND FOLLOWUP: Atrial flutter, admitted with dizziness and cardiac evaluation. SUBJECTIVE: She denies any chest pain, but complain of pain in the left leg, son is at the bedside. Denies any chest pain or palpitation today. OBJECTIVE/PHYSICAL EXAMINATION: As follows: GENERAL: Not in apparent distress, lying flat. VITAL SIGNS: Temperature is afebrile, heart rate is 60, and blood pressure is 104/48. HEENT: PERRLA, intact. NECK: Supple. No carotid bruits or thyromegaly. CHEST: Clear to auscultation. HEART: S1 and S2 regular. ABDOMEN: Soft. EXTREMITIES: Clubbing and cyanosis negative. LABORATORY DATA: Blood workup as follows: WBC of 5.8, hemoglobin of 10.7, hematocrit of 32.0, and platelet count of 19. Chemistry showed sodium of 130, potassium of 4.0, chloride of 104, carbon dioxide of 26, anion gap of 17, and BUN of 0.9. IMPRESSION: Paroxysmal atrial fibrillation, negative stress test, severe thrombocytopenia since 2013, not a candidate for long-term anticoagulation, complained of pain in the leg and no significant swelling noted. The patient had a stress test on 11/18/2017, reported ejection fraction of 81% and no reversible ischemia. The patient had echocardiography on 11/17/2017, trace aortic regurgitation, trace to mild mitral regurgitation, moderate tricuspid regurgitation with right ventricular systolic pressure of 42. A little bump in the troponin is indeterminate and most likely secondary to tachycardia. RECOMMENDATIONS: We will wait for the Holter monitor to continue, interim continue, and continue metoprolol 25 mg b.i.d. We will monitor Holter again, not candidate for long-term anticoagulation, discussed with the son. We also get lower extremity Duplex to rule out any DVT. The patient is not on DVT prophylaxis because of severe thrombocytopenia. Will monitor the lab. Marina Moreland MD
--- NOTE | 2017-12-01 18:31 | US ---
PROCEDURE: Left upper extremity venous ultrasound HISTORY: Arm pain and swelling. Evaluate for deep venous thrombosis. PHYSICIAN(S): Mejia Renee MD. FINDINGS: The visualized leftinternal jugular vein is small but otherwise normal and compressible. No evidence of obstruction or thrombus is seen. The visualized segments of the left subclavian vein are patent with normal waveforms. No sonographic evidence of obstruction or thrombosis is seen. The visualized deep venous system of the proximal leftupper extremity is sonographically normal and compressible. IMPRESSION: 1. No sonographic evidence for deep venous thrombosis in the visualized segments of the left upper extremity.
--- NOTE | 2017-12-01 18:32 | US ---
HISTORY: Leg pain and swelling. Evaluate for DVT PHYSICIAN(S): Mejia Renee MD. TECHNIQUE: Duplex sonography and color-flow Doppler with graded compression were used to evaluate the deep venous systems of both lower extremities. FINDINGS: The visualized deep venous systems of both lower extremities are sonographically normal and compressible. Normal wave forms and augmentation are seen. There is no sonographic evidence for deep venous thrombosis in the visualized segments of both lower extremities. IMPRESSION: No sonographic evidence for deep venous thrombosis in the visualized segments of both lower extremities.
--- NOTE | 2017-12-01 18:42 | US ---
PROCEDURE: Bilateral carotid artery duplex ultrasound HISTORY: Carotid stenosis PHYSICIAN(S): Mejia Renee MD. TECHNIQUE: Duplex sonography and color-flow Doppler were used to evaluate the carotid bifurcations and limited segments of the vertebral arteries bilaterally. The exam is somewhat limited by tortuous vessels FINDINGS: There is mild smooth heterogeneous plaque noted at the carotid bifurcations bilaterally. The peak systolic velocity in the proximal right internal carotid artery is 85 cm/sec. This corresponds to a 20 to 39% proximal right ICA stenosis. Normal systolic velocities are noted in the proximal right external carotid artery. There is antegrade flow in the right vertebral artery. The peak systolic velocity in the proximal left internal carotid artery is 80 cm/sec. This corresponds to a 20 to 39% proximal left ICA stenosis. Normal systolic velocities are noted in the proximal left external carotid artery. There is antegrade flow in the dominant left vertebral artery. IMPRESSION: 1. Bilateral 20-39% proximal ICA stenoses. 2. Antegrade flow in both vertebral arteries.
--- NOTE | 2017-12-01 21:46 | CP.PCM.PN ---
Subjective - Date & Time of Evaluation Date of Evaluation: 12/01/17 Time of Evaluation: 17:00 - Subjective Subjective: SUBJECTIVE : Comfortable, no distress. B/L carotid doppler did not show significant stenosis. B/L lower ext doppler negative for DVT. She is on holter monitor as per cardiology. Anemia, thrombocytopenia. Plt count stable at 20, no bleeding. PAST MEDICAL HISTORY: Hypertension, anemia, thrombocytopenia, and osteoarthritis. PAST SURGICAL HISTORY: Orthopedic surgery. FAMILY HISTORY: Noncontributory. PERSONAL HISTORY: Never smoked. No history of alcohol abuse. SOCIAL HISTORY: Lives at home with daughter. ALLERGIES: AMOXICILLIN, CIPROFLOXACIN, AND PENICILLIN. HOME MEDICATIONS: Metoprolol 12.5 mg p.o. daily. REVIEW OF SYSTEMS: As per HPI. The 12-point rest of systems is reviewed and negative. PHYSICAL EXAMINATION: GENERAL: Comfortable in bed in no acute distress. VITAL SIGNS: reviewed.. HEENT: Pallor positive. NECK: Supple. No lymphadenopathy. CHEST: Air entry present and equal bilateral. No added sounds. CARDIOVASCULAR: S1 and S2 normal. No murmur. No gallop. ABDOMEN: Soft and nontender. No hepatosplenomegaly. EXTREMITIES: No edema. SKIN: No petechiae. No rash. PSYCHIATRIC: Alert and oriented x3. No focal sensory motor deficit. LABORATORY DATA AND IMAGING STUDIES: CAT scan of the head, no intracranial abnormality and chronic sinus disease. White count 5.8, hemoglobin 10.8, hematocrit 32.9, and platelet 22,000. Sodium 140, potassium 3.9, BUN 17, creatinine 0.8, glucose 137, and magnesium 1.5. Troponin 0.08. ASSESSMENT: 1. Chest pain. 2. Thrombocytopenia. 3. Anemia. 4. Hypomagnesemia. 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 Discussed at length with the family bedside. She need bone marrow aspiration, biopsy for evaluation. Family agreed for that. Procedure scheduled for bedside tomorrow. On holter monitor as per cardiology. carotid doppler negative for stenosis. Annie Leo MD Objective - Vital Signs/Intake and Output Vital Signs (last 24 hours): Temp Pulse Resp BP Pulse Ox 98.2 F 78 18 108/76 96 12/01/17 17:47 12/01/17 18:49 12/01/17 17:47 12/01/17 18:49 12/01/17 06:00 Intake and Output: 12/01/17 12/02/17 18:59 06:59 Intake Total 300 Output Total 600 Balance -300 - Medications Medications: Current Medications Acetaminophen (Tylenol 325mg Tab) 650 mg PO Q6H PRN PRN Reason: Pain, Mild (1-3) Last Admin: 12/01/17 12:56 Dose: 650 mg Atorvastatin Calcium (Lipitor) 20 mg PO DIN [facility] Last Admin: 12/01/17 17:50 Dose: 20 mg Metoprolol Tartrate (Lopressor) 25 mg PO BID [facility] Last Admin: 12/01/17 18:49 Dose: 25 mg - Labs Labs: 12/01/17 05:30 12/01/17 05:30 PT 11.3 SECONDS (9.4-12.5) 11/28/17 22:17 INR 1.04 (0.93-1.08) 11/28/17 22:17 APTT 28.2 Seconds (25.1-36.5) 11/28/17 22:17
[2017-12-02 06:24] LABS: BASO # 0.01 K/mm3 (0.0-2.0); BASO % 0.2 % (0.0-3.0); EOS % 0.6 % (1.5-5.0); GRAN # 2.81 (1.4-6.5); GRAN % 58.9 % (50.0-68.0); LYMPH # 1.7 (1.2-3.4); LYMPH % 34.9 % (22.0-35.0); MEAN CORPUSCULAR HEMOGLOBIN 31.5 pg (25.0-35.0); MEAN CORPUSCULAR HGB CONC 32.2 g/dl (31.0-37.0); MEAN PLATELET VOLUME 10.1 fl (7.0-11.0); MONO # 0.3 (0.1-0.6); MONO % 5.4 % (1.0-6.0); RBC 3.49 10^6/uL (3.5-6.1); RED CELL DISTRIBUTION WIDTH 13.9 % (11.5-14.5); WHITE BLOOD COUNT 4.8 10^3/ul (4.5-11.0)
[2017-12-02 06:52] LABS: BLOOD UREA NITROGEN 18 mg/dL (7-21); CALCIUM 9.8 mg/dL (8.4-10.5); GFR AFRICAN-AMERICAN > 60; GFR NON-AFRICAN AMERICAN > 60
[2017-12-02] MEDS ORDERED: Vancomycin 1 g Inj IVPB STA (08:28)
[2017-12-02] MEDS ORDERED: Meropenem IV 1 gm in NS 50 ML IVPB SCH ×2 (08:30→10:00)
[2017-12-02 08:39] LABS: PLATELET COUNT 20 10^3/uL (120.0-450.0)
--- NOTE | 2017-12-02 09:18 | PN ---
DATE: 12/02/2017 SUBJECTIVE: The patient has no complaints of any chest pain. No headache or dizziness. PHYSICAL EXAMINATION: VITAL SIGNS: Temperature is 98, pulse 62, blood pressure 104/54, respirations 19. GENERAL: The patient is lying in bed, flat, comfortable. HEENT: No oral lesion. Anicteric sclerae. Moist mucosa. NECK: No JVD, adenopathy, or thyromegaly. CARDIOVASCULAR: S1 and S2, regular. No murmurs, rubs, or gallops. LUNGS: Clear to auscultation bilaterally. No wheeze, rales, or rhonchi. ABDOMEN: Bowel sounds are positive, soft, nontender and nondistended. EXTREMITIES: No cyanosis, clubbing or edema. LABORATORY DATA: Reviewed. ASSESSMENT: 1. Chest pain. 2. Thrombocytopenia. 3. Hypomagnesemia. 4. Anemia. PLAN: The patient is currently comfortable. The patient is being followed by Dr. Moreland for chest pain. The patient is on Lipitor for dyslipidemia and she is going to continue with metoprolol. The patient is on Tylenol. A solid culture monitor has been placed. The patient has a upper extremity ultrasound that was done that showed no evidence of DVT. The patient is on Lipitor for dyslipidemia. Lane Hutchins MD
--- NOTE | 2017-12-02 09:55 | RAD ---
HISTORY: fever COMPARISON: 11/28/2017 FINDINGS: LUNGS: No evidence of pneumonia PLEURA: No significant pleural effusion identified, no pneumothorax apparent. CARDIOVASCULAR: The heart is normal in size. Aortic tortuosity. OSSEOUS STRUCTURES: No significant abnormalities. VISUALIZED UPPER ABDOMEN: Normal. OTHER FINDINGS: None. IMPRESSION: No active disease.
[2017-12-02] MEDS: POLYETHYLENE GLYCOL 3350 17 GM/Dose PACKET PO SCH ×2 (10:05→18:34)
[2017-12-02 11:36] LABS: PH,URINE 6.5 (4.7-8.0); URINE BILIRUBIN NEGATIVE (NEGATIVE); URINE BLOOD SMALL (NEGATIVE); URINE GLUCOSE (UA) NEGATIVE (NEGATIVE); URINE LEUKOCYTE ESTERASE LARGE Leu/uL (NEGATIVE); URINE NITRATE NEGATIVE (NEGATIVE); URINE PROTEIN 30 mg/dL (<30 mg/dL); URINE UROBILINOGEN 0.2 E.U./dL (<1 E.U./dL)
[2017-12-02 11:37] LABS: URINE APPEARANCE TURBID (CLEAR); URINE COLOR YELLOW (YELLOW)
[2017-12-02 11:40] LABS: URINE BACTERIA MANY (NEG); URINE RBC 0 - 2 /hpf (0-2); URINE WBC TNTC /hpf (0-6)
--- NOTE | 2017-12-02 13:17 | CP.PCM.CON ---
History of Present Illness - History of Present Illness History of Present Illness: 76 year old female with PMH of HTN, chronic thrombocytopenia, atrial fibrillation was initially brought in by family members because of increased heart rate and chest discomfort. The patient is currently being worked for [employer] and is in the hospital for a day now. This morning the patient developed fever and Infectious diseases consult is requested to further evaluate and manage. The patient is complaining of some dry cough. She has no chest pain currently, no headache, no sore throat, no abdominal pain, no dysphagia, no diarrhea, no dysuria, no blurring of vision, no rhinorrhea. Review of Systems - Review of Systems All systems: reviewed and no additional remarkable complaints except (as per HPI ) Past Patient History - Infectious Disease Hx of Infectious Diseases: None - Past Social History Smoking Status: Never Smoked - CARDIAC Hx Cardiac Disorders: No Hx Atrial Fibrillation: Yes Hx Hypertension: Yes - PULMONARY Hx Respiratory Disorders: No - NEUROLOGICAL Hx Neurological Disorder: No - HEENT Hx HEENT Problems: No - RENAL Hx Chronic Kidney Disease: No - ENDOCRINE/METABOLIC Hx Endocrine Disorders: No - HEMATOLOGICAL/ONCOLOGICAL Hx Blood Disorders: No Other/Comment: thrombocytopenia - INTEGUMENTARY Hx Dermatological Problems: No - MUSCULOSKELETAL/RHEUMATOLOGICAL Hx Falls: No - GASTROINTESTINAL Hx Gastrointestinal Disorders: No - GENITOURINARY/GYNECOLOGICAL Hx Genitourinary Disorders: No - PSYCHIATRIC Hx Psychophysiologic Disorder: No Hx Substance Use: No - SURGICAL HISTORY Hx Orthopedic Surgery: Yes - ANESTHESIA Hx Anesthesia: Yes Hx Anesthesia Reactions: No Hx Malignant Hyperthermia: No Meds Allergies/Adverse Reactions: Allergies Allergy/AdvReac Type Severity Reaction Status Date / Time amoxicillin Allergy SHORTNESS Verified 11/16/17 22:13 OF BREATH ciprofloxacin Allergy SHORTNESS Verified 11/16/17 22:13 OF BREATH Penicillins Allergy SHORTNESS Verified 11/16/17 22:13 OF BREATH - Medications Medications: Current Medications Acetaminophen (Tylenol 325mg Tab) 650 mg PO Q4H PRN PRN Reason: Pain, Mild (1-3) Last Admin: 12/02/17 08:45 Dose: 650 mg Atorvastatin Calcium (Lipitor) 20 mg PO DIN [facility] Last Admin: 12/01/17 17:50 Dose: 20 mg Meropenem (Merrem Iv 1 Gm Premix) 50 mls @ 100 mls/hr IVPB Q8H [facility] PRN Reason: Protocol Vancomycin HCl 1.25 gm/ Sodium (Chloride) 250 mls @ 167 mls/hr IVPB STAT STA Stop: 12/02/17 10:07 Metoprolol Tartrate (Lopressor) 25 mg PO BID [facility] Last Admin: 12/01/17 18:49 Dose: 25 mg Polyethylene Glycol (Miralax) 17 gm PO BID [facility] Physical Exam - Constitutional Appears: Non-toxic - Head Exam Head Exam: NORMAL INSPECTION - ENT Exam ENT Exam: Mucous Membranes Moist - Neck Exam Neck exam: Negative for: Meningismus - Respiratory Exam Respiratory Exam: Decreased Breath Sounds - Cardiovascular Exam Cardiovascular Exam: +S1, +S2 - GI/Abdominal Exam GI & Abdominal Exam: Soft. absent: Tenderness Results - Vital Signs Recent Vital Signs: Last Vital Signs Temp 103 F H 12/02/17 08:45 Pulse 94 H 12/02/17 06:00 Resp 19 12/02/17 06:00 BP 142/62 12/02/17 06:00 Pulse Ox 95 12/02/17 06:00 - Labs Result Diagrams: 12/02/17 06:00 12/02/17 06:00 Labs: Laboratory Results - last 24 hr 12/02/17 12/02/17 12/02/17 06:00 06:00 08:30 WBC 4.8 RBC 3.49 L Hgb 11.0 L Hct 34.2 L MCV 98.0 MCH 31.5 MCHC 32.2 RDW 13.9 Plt Count 20 L* MPV 10.1 Gran % 58.9 Lymph % (Auto) 34.9 Garza % (Auto) 5.4 Eos % (Auto) 0.6 L Baso % (Auto) 0.2 Gran # 2.81 Lymph # 1.7 Garza # 0.3 Eos # 0.0 Baso # 0.01 Sodium 140 Potassium 4.3 Chloride 102 Carbon Dioxide 26 Anion Gap 16 BUN 18 Creatinine 0.9 Est GFR ( Amer) > 60 Est GFR (Non-Af Amer) > 60 Random Glucose 107 Lactic Acid 1.4 Calcium 9.8 Assessment & Plan - Assessment and Plan (Free Text) Plan: Assessment Systemic Inflammatory Response Syndrome, R/O sepsis from respiratory tract infection, R/O bacteremia HTN chronic thrombocytopenia atrial fibrillation Plan Started the patient on Vancomycin and Azactam pending blood, urine cx, PCT, rapid Influenza test, CXR will monitor clinically discussed with family members
--- NOTE | 2017-12-02 13:28 | PN ---
DATE: 12/02/2017 REASON FOR CONSULTATION AND FOLLOWUP: Atrial flutter, admitted with dizziness. cardiac evaluation, fever, and cough. SUBJECTIVE: The patient had fever last night and feel pain in the left leg and left arm. Coughing. OBJECTIVE: GENERAL: In mild distress. T-max 103, fever. VITAL SIGNS: As follows, temperature 103, heart rate 94, and blood pressure 142/62. HEENT: PERRLA intact. NECK: Supple. No carotid bruits or thyromegaly. CHEST: Clear to auscultation. HEART: S1 and S2 regular. ABDOMEN: Soft. EXTREMITIES: Clubbing and cyanosis negative. LABORATORY DATA: Blood workup as follows: WBC , hemoglobin 11, hematocrit 34.2, and platelet count 20. Chemistry showed sodium 140, potassium 4.3, chloride 102, carbon dioxide 26, anion gap 16, BUN 18, and creatinine 0.9. IMPRESSION: Fever, rule out early pneumonia, supraventricular tachycardia, severe thrombocytopenia, complaining of pain in the left leg, yesterday underwent lower extremity duplex scan. No sonographic evidence of deep vein thrombosis. The patient is not on anticoagulation, not on deep vein thrombosis prophylaxis because of severe thrombocytopenia, platelet runs 18-20 since 2013. The patient had a stress test on 11/20/2017, reported ejection fraction 81%. No reversible ischemia. The patient did echocardiography on 11/17/2017, trace aortic regurgitation, mitral regurgitation, moderate tricuspid regurgitation with right ventricular systolic pressure of 42. Little bump in the troponin is indeterminate and most likely secondary to tachycardia and supraventricular tachycardia two to three times. In the last 48 hours, patient had no further arrhythmia noted. Hemodynamically, the patient is stable, but today the patient had fever and chills. We will do the blood cultures, we will send the blood cultures, stat urine culture, chest x-ray. We will start antibiotic. We will follow with you. Discontinue Telemetry. Thank you Dr. Hutchins for providing us the opportunity in taking care of the patient, Desire Lay. Discussed with broad-spectrum antibiotic, blood culture. In the interim, continue metoprolol. Discussed with the son and daughter. We will start also Cardizem. The patient can tolerate. Blood pressure is elevated. Discontinue Telemetry. No arrhythmia noted since last 48 hours. We will follow with you. Marina Moreland MD
[2017-12-02] MEDS: guaiFENesin 200 mg/10 ml Syrup UD PO PRN ×2 (14:20→21:24)
[2017-12-02] MEDS: Aztreonam 1 Gm in NS 100mL 100 ML IVPB SCH ×2 (15:00→21:53)
--- NOTE | 2017-12-03 01:25 | CP.PCM.PN ---
Subjective - Date & Time of Evaluation Date of Evaluation: 12/03/17 Time of Evaluation: 18:00 - Subjective Subjective: 12/02/2017 SUBJECTIVE : Tor[place] fever today. Still having episodes of bradycardia. Comfortable, no distress. B/L carotid doppler did not show significant stenosis. B/L lower ext doppler negative for DVT. Bllod counts stable. PAST MEDICAL HISTORY: Hypertension, anemia, thrombocytopenia, and osteoarthritis. PAST SURGICAL HISTORY: Orthopedic surgery. FAMILY HISTORY: Noncontributory. PERSONAL HISTORY: Never smoked. No history of alcohol abuse. SOCIAL HISTORY: Lives at home with daughter. ALLERGIES: AMOXICILLIN, CIPROFLOXACIN, AND PENICILLIN. HOME MEDICATIONS: Metoprolol 12.5 mg p.o. daily. REVIEW OF SYSTEMS: As per HPI. The 12-point rest of systems is reviewed and negative. PHYSICAL EXAMINATION: GENERAL: Comfortable in bed in no acute distress. VITAL SIGNS: reviewed.. HEENT: Pallor positive. NECK: Supple. No lymphadenopathy. CHEST: Air entry present and equal bilateral. No added sounds. CARDIOVASCULAR: S1 and S2 normal. No murmur. No gallop. ABDOMEN: Soft and nontender. No hepatosplenomegaly. EXTREMITIES: No edema. SKIN: No petechiae. No rash. PSYCHIATRIC: Alert and oriented x3. No focal sensory motor deficit. LABORATORY DATA AND IMAGING STUDIES: CAT scan of the head, no intracranial abnormality and chronic sinus disease. White count 5.8, hemoglobin 10.8, hematocrit 32.9, and platelet 22,000. Sodium 140, potassium 3.9, BUN 17, creatinine 0.8, glucose 137, and magnesium 1.5. Troponin 0.08. ASSESSMENT: 1. Chest pain. 2. Thrombocytopenia. 3. Anemia. 4. Hypomagnesemia. 5. Fever PLAN: fever , new onset , on IV antibiotics. cultures pending. 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 I will defer bone marrow as she is unstable cardiac lee and spiked fever. Blood counts stable now. Platelet count stable around 20k, no bleeding. Annie Leo MD Objective - Vital Signs/Intake and Output Vital Signs (last 24 hours): Temp Pulse Resp BP Pulse Ox 99.5 F 67 20 100/55 L 95 12/02/17 22:25 12/02/17 21:25 12/02/17 17:36 12/02/17 21:25 12/02/17 06:00 - Medications Medications: Current Medications Acetaminophen (Tylenol 325mg Tab) 650 mg PO Q4H PRN PRN Reason: Pain, Mild (1-3) Last Admin: 12/02/17 21:25 Dose: 650 mg Atorvastatin Calcium (Lipitor) 20 mg PO DIN [facility] Last Admin: 12/02/17 17:33 Dose: 20 mg Diltiazem HCl (Cardizem) 30 mg PO QID [facility] Last Admin: 12/02/17 21:25 Dose: 30 mg Guaifenesin (Robitussin) 200 mg PO Q6H PRN PRN Reason: Cough and congestion Last Admin: 12/02/17 21:24 Dose: 200 mg Aztreonam (Azactam 1 Gm) 100 mls @ 100 mls/hr IVPB Q8 [facility] PRN Reason: Protocol Stop: 12/09/17 14:01 Last Admin: 12/02/17 21:53 Dose: 100 mls/hr Metoprolol Tartrate (Lopressor) 25 mg PO BID [facility] Last Admin: 12/02/17 18:32 Dose: 25 mg Polyethylene Glycol (Miralax) 17 gm PO BID [facility] Last Admin: 12/02/17 18:34 Dose: 17 gm - Labs Labs: 12/02/17 06:00 12/02/17 06:00 PT 11.3 SECONDS (9.4-12.5) 11/28/17 22:17 INR 1.04 (0.93-1.08) 11/28/17 22:17 APTT 28.2 Seconds (25.1-36.5) 11/28/17 22:17
[2017-12-03] MEDS: Aztreonam 1 Gm in NS 100mL 100 ML IVPB SCH ×3 (05:03→21:26)
[2017-12-03] MEDS: guaiFENesin 200 mg/10 ml Syrup UD PO PRN ×2 (05:06→13:51)
[2017-12-03] MEDS: POLYETHYLENE GLYCOL 3350 17 GM/Dose PACKET PO SCH ×2 (10:04→17:06)
--- NOTE | 2017-12-03 12:56 | CP.PCM.PN ---
Subjective - Date & Time of Evaluation Date of Evaluation: 12/03/17 Time of Evaluation: 11:20 - Subjective Subjective: Comfortable in bed, still with cough but less, no abdominal pain, no fevers overnight. Objective - Vital Signs/Intake and Output Vital Signs (last 24 hours): Temp Pulse Resp BP Pulse Ox 97.9 F 64 22 104/56 L 95 12/03/17 08:24 12/03/17 08:24 12/03/17 08:24 12/03/17 08:24 12/03/17 08:24 - Medications Medications: Current Medications Acetaminophen (Tylenol 325mg Tab) 650 mg PO Q4H PRN PRN Reason: Pain, Mild (1-3) Last Admin: 12/02/17 21:25 Dose: 650 mg Atorvastatin Calcium (Lipitor) 20 mg PO DIN [facility] Last Admin: 12/02/17 17:33 Dose: 20 mg Diltiazem HCl (Cardizem) 30 mg PO QID [facility] Last Admin: 12/02/17 21:25 Dose: 30 mg Guaifenesin (Robitussin) 200 mg PO Q6H PRN PRN Reason: Cough and congestion Last Admin: 12/03/17 05:06 Dose: 200 mg Aztreonam (Azactam 1 Gm) 100 mls @ 100 mls/hr IVPB Q8 [facility] PRN Reason: Protocol Stop: 12/09/17 14:01 Last Admin: 12/03/17 05:03 Dose: 100 mls/hr Metoprolol Tartrate (Lopressor) 25 mg PO BID [facility] Last Admin: 12/02/17 18:32 Dose: 25 mg Polyethylene Glycol (Miralax) 17 gm PO BID [facility] Last Admin: 12/02/17 18:34 Dose: 17 gm - Labs Labs: 12/02/17 06:00 12/02/17 06:00 PT 11.3 SECONDS (9.4-12.5) 11/28/17 22:17 INR 1.04 (0.93-1.08) 11/28/17 22:17 APTT 28.2 Seconds (25.1-36.5) 11/28/17 22:17 - Constitutional Appears: Non-toxic - Head Exam Head Exam: NORMAL INSPECTION - ENT Exam ENT Exam: Mucous Membranes Moist - Neck Exam Neck Exam: absent: Lymphadenopathy, Meningismus - Respiratory Exam Respiratory Exam: Decreased Breath Sounds - Cardiovascular Exam Cardiovascular Exam: +S1, +S2 - GI/Abdominal Exam GI & Abdominal Exam: Soft. absent: Tenderness Assessment and Plan - Assessment and Plan (Free Text) Plan: Assessment Systemic Inflammatory Response Syndrome, R/O sepsis from respiratory tract infection and UTI HTN chronic thrombocytopenia atrial fibrillation Plan continue Vancomycin and Azactam day 2; blood cx are negative, follow up urine cx ; reviewed CXR which did not show infiltrates will continue to monitor clinically
--- NOTE | 2017-12-03 13:33 | PN ---
DATE: 12/03/2017 SUBJECTIVE: The patient has no complaints of any chest pain or shortness of breath. PHYSICAL EXAMINATION: VITAL SIGNS: Temperature is 97.9, pulse of 64, blood pressure is 104/56, respirations 22. GENERAL: The patient is lying in bed, flat, comfortable. HEENT: No oral lesion. Anicteric sclerae. Moist mucosa. NECK: No JVD, adenopathy, or thyromegaly. CARDIOVASCULAR: S1 and S2, regular. No murmurs, rubs, or gallops. LUNGS: Clear to auscultation bilaterally. No wheeze, rales, or rhonchi. ABDOMEN: Bowel sounds are positive, soft, nontender and nondistended. EXTREMITIES: no cyanosis, clubbing or edema. LABORATORY DATA: White count is 4.8, hemoglobin is 11, platelet count is 20, creatinine is 0.9. ASSESSMENT: 1. Chest pain. 2. Thrombocytopenia. 3. Hypomagnesemia. 4. Anemia, not otherwise specified. 5. PENICILLIN ALLERGY AND CIPRO ALLERGY. 6. Fever, new. PLAN: The patient is currently comfortable. She is on aztreonam for antibiotics. Blood cultures have been negative. The patient has severe thrombocytopenia. She is going to continue on metoprolol. She is on Lipitor for dyslipidemia. Patient is on a heart-healthy diet. Patient is being seen by Hematology, Dr. Leo. Patient had a low-grade temperature of 103 yesterday. We will wait further input from ID regarding the patient's fever. Blood cultures have been ordered as well as urine cultures. We will repeat blood work tomorrow. We will get physical therapy to evaluate the patient and see if the patient qualifies for TCU. Lane Hutchins MD
--- NOTE | 2017-12-03 22:56 | PN ---
DATE: 12/03/2017 REASON FOR CONSULTATION: Atrial flutter, admitted with dizziness, cardiac evaluation. SUBJECTIVE: Now, the patient is in normal sinus, cough, fever. The patient's family is at the bedside. Denies any chest pain, shortness of breath or any palpitation. PHYSICAL EXAMINATION: GENERAL: The patient is in no apparent distress. VITAL SIGNS: Temperature 99.8. heart rate 62, blood pressure 108/59. HEENT: PERRLA intact. NECK: Supple. No carotid bruits or thyromegaly. CHEST: Clear to auscultation. HEART: S1 and S2, regular. ABDOMEN: Soft. EXTREMITIES: Clubbing and cyanosis negative. LABORATORY DATA: Blood workup as follow: WBC 4.8, hemoglobin 11, hematocrit 34.4, and platelet count 20. Chemistry shows sodium 140, potassium 4.3, chloride 102, carbon dioxide 26, anion gap 16, BUN 18, and creatinine 0.9. IMPRESSION: Severe thrombocytopenia from 2013, paroxysmal atrial fibrillation, converted to normal sinus, since she had no further activity, no further arrhythmia noted. Duplex lower extremity, no evidence of deep venous thrombosis noted. Platelet of 18,000-20,000 since 2013. Last stress test on 11/20/2017 reported normal, no reversible ischemia. The patient's echocardiogram on 11/17/2017, trace aortic regurgitation, trace mitral and mild tricuspid regurgitation, right ventricular systolic pressure of 42. On admission, little bump in the troponin, most likely from the tachycardia. Last 48 hours, no further arrhythmia noted. Hemodynamically stable. Chest x-ray did not show any active disease, we will discontinue telemetry. Repeat chest x-ray in the morning, PA and lateral. We will get also magnesium and phosphorous level in the morning. Thank you Dr. Hutchins for providing us this opportunity in taking care of the patient, Alireza. Marina Moreland MD
[2017-12-04] MEDS: Aztreonam 1 Gm in NS 100mL 100 ML IVPB SCH ×3 (05:54→22:22)
[2017-12-04 06:19] LABS: MEAN CELL VOLUME 97.8 fl (80.0-105.0); MEAN CORPUSCULAR HEMOGLOBIN 31.6 pg (25.0-35.0); MEAN CORPUSCULAR HGB CONC 32.4 g/dl (31.0-37.0); MEAN PLATELET VOLUME 10.6 fl (7.0-11.0); RBC 3.16 10^6/uL (3.5-6.1); RED CELL DISTRIBUTION WIDTH 14.3 % (11.5-14.5); WHITE BLOOD COUNT 4.1 10^3/ul (4.5-11.0)
[2017-12-04 06:29] LABS: PLATELET COUNT 17 10^3/uL (120.0-450.0)
[2017-12-04 07:43] LABS: ALBUMIN 3.7 g/dL (3.0-4.8); ALT/SGPT 33 U/L (7-56); AST/SGOT 46 U/L (14-36); BLOOD UREA NITROGEN 16 mg/dL (7-21); CALCIUM 8.8 mg/dL (8.4-10.5); GFR AFRICAN-AMERICAN > 60; GFR NON-AFRICAN AMERICAN > 60; MAGNESIUM 1.8 mg/dL (1.7-2.2)
--- NOTE | 2017-12-04 09:50 | RAD ---
HISTORY: F/U pneumonia and compare COMPARISON: 12/02/2017 TECHNIQUE: Chest PA and lateral FINDINGS: LUNGS: No active pulmonary disease. PLEURA: No significant pleural effusion identified. No pneumothorax apparent. CARDIOVASCULAR: Normal. OSSEOUS STRUCTURES: No significant abnormalities. VISUALIZED UPPER ABDOMEN: Normal. OTHER FINDINGS: None. IMPRESSION: No active disease.
[2017-12-04] MEDS: POLYETHYLENE GLYCOL 3350 17 GM/Dose PACKET PO SCH ×2 (10:40→18:00)
--- NOTE | 2017-12-04 11:08 | PN ---
DATE: SUBJECTIVE: The patient has no complaints of any headache, dizziness. No nausea, no vomiting. PHYSICAL EXAMINATION: VITAL SIGNS: Temperature is 99.8, pulse 66, blood pressure 130/60, respirations 20. GENERAL: The patient is lying in bed, flat, comfortable. HEENT: No oral lesion. Anicteric sclerae. Moist mucosa. NECK: No JVD, adenopathy, or thyromegaly. CARDIOVASCULAR: S1 and S2, regular. No murmurs, rubs, or gallops. LUNGS: Clear to auscultation bilaterally. No wheeze, rales, or rhonchi. ABDOMEN: Bowel sounds are positive, soft, nontender and nondistended. EXTREMITIES: No cyanosis, clubbing or edema. LABS: White count of 4.1, hemoglobin 10.0, platelet count is 17. Creatinine is 0.9. ASSESSMENT: 1. Chest pain, resolved. 2. Constipation. 3. Thrombocytopenia. 4. Hypomagnesemia, improved. 5. Penicillin allergy. 6. Anemia, not otherwise specified. 7. Fever/thirst. PLAN: The patient is going to be on vancomycin and Azactam. The patient's blood cultures are negative. Urine cultures are negative. She is waiting for bone marrow biopsy to be done. The patient is being followed by Dr. Moreland, is also being followed by Dr. Momin for the fever. I will get GI evaluation for the patient's constipation. Lane Hutchins MD
[2017-12-04] MEDS ORDERED: Amikacin 500 MG in Dextrose 5% In Water 100 ML IVPB ONE (11:45)
--- NOTE | 2017-12-04 12:38 | CP.PCM.PN ---
Subjective - Date & Time of Evaluation Date of Evaluation: 12/04/17 Time of Evaluation: 11:25 - Subjective Subjective: Patient still having fevers, still with cough, but slowly improving, not in distress, no diarrhea. Objective - Vital Signs/Intake and Output Vital Signs (last 24 hours): Temp Pulse Resp BP Pulse Ox 102.2 F H 83 19 125/69 93 L 12/04/17 09:02 12/04/17 10:39 12/04/17 09:02 12/04/17 10:39 12/04/17 09:02 Intake and Output: 12/04/17 12/04/17 06:59 18:59 Intake Total 240 Balance 240 - Medications Medications: Current Medications Acetaminophen (Tylenol 325mg Tab) 650 mg PO Q4H PRN PRN Reason: Pain, Mild (1-3) Last Admin: 12/04/17 06:28 Dose: 650 mg Atorvastatin Calcium (Lipitor) 20 mg PO DIN [facility] Last Admin: 12/03/17 17:06 Dose: 20 mg Diltiazem HCl (Cardizem) 30 mg PO QID [facility] Last Admin: 12/04/17 10:39 Dose: 30 mg Guaifenesin (Robitussin) 200 mg PO Q6H PRN PRN Reason: Cough and congestion Last Admin: 12/03/17 13:51 Dose: 200 mg Aztreonam (Azactam 1 Gm) 100 mls @ 100 mls/hr IVPB Q8 [facility] PRN Reason: Protocol Stop: 12/09/17 14:01 Last Admin: 12/04/17 05:54 Dose: 100 mls/hr Amikacin Sulfate 500 mg/ (Dextrose) 102 mls @ 204 mls/hr IVPB ONCE ONE PRN Reason: Protocol Stop: 12/04/17 12:14 Metoprolol Tartrate (Lopressor) 25 mg PO BID [facility] Last Admin: 12/04/17 10:39 Dose: 25 mg Polyethylene Glycol (Miralax) 17 gm PO BID [facility] Last Admin: 12/04/17 10:40 Dose: 17 gm - Labs Labs: 12/04/17 06:00 12/04/17 06:00 PT 11.3 SECONDS (9.4-12.5) 11/28/17 22:17 INR 1.04 (0.93-1.08) 11/28/17 22:17 APTT 28.2 Seconds (25.1-36.5) 11/28/17 22:17 - Constitutional Appears: Non-toxic - Head Exam Head Exam: NORMAL INSPECTION - ENT Exam ENT Exam: Mucous Membranes Moist - Neck Exam Neck Exam: absent: Lymphadenopathy, Meningismus - Respiratory Exam Respiratory Exam: Decreased Breath Sounds - Cardiovascular Exam Cardiovascular Exam: +S1, +S2 - GI/Abdominal Exam GI & Abdominal Exam: Soft. absent: Tenderness Assessment and Plan - Assessment and Plan (Free Text) Plan: Assessment Systemic Inflammatory Response Syndrome, R/O sepsis from respiratory tract infection and UTI HTN chronic thrombocytopenia atrial fibrillation Plan continue Azactam day 3; blood cx are negative, urine cx showing E. coli - will give a dose of IV Amikacin and repeat blood and urine cx; reviewed CXR which did not show infiltrates will add Doxycycline will continue to monitor clinically
--- NOTE | 2017-12-04 15:05 | CT ---
PROCEDURE: CT Chest, Abdomen and Pelvis without intravenous contrast HISTORY: fevers COMPARISON: Comparison is made with previous CT of the abdomen and pelvis with contrast dated 11/17/2017 CT of the chest abdomen and pelvis dated 08/10/2015 TECHNIQUE: Axial and reformatted coronal and sagittal CT images of the chest abdomen and pelvis were obtained without IV or oral contrast administration. Radiation dose: Total exam DLP = 510.20 mGy-cm. This CT exam was performed using one or more of the following dose reduction techniques: Automated exposure control, adjustment of the mA and/or kV according to patient size, and/or use of iterative reconstruction technique. FINDINGS: CT CHEST WITHOUT CONTRAST: LUNGS: Again noted are bilateral lung apices opacities associated with mild bronchiectasis without significant interval change since the previous exam likely represent scar tissue. . No evidence of pneumonia or mass lesion in the lungs. MEDIASTINUM: Unremarkable. Normal caliber aorta and pulmonary arterial trunk. Normal size heart. LYMPH NODES: Prominent precarinal lymph node measures 1.6 centimeter in the transverse diameter is again noted. No evidence of mediastinal lymphadenopathy otherwise. PLEURA: Unremarkable. No pneumothorax. No pleural fluid. BONES: Again noted is diffuse osteopenia. There are age indeterminate mild compression deformity at T9 and T10 vertebral bodies. OTHER FINDINGS: None. CT ABDOMEN AND PELVIS: LIVER: Diffuse low-attenuation of the liver is again noted suggestive of hepatic steatosis. GALLBLADDER AND BILE DUCTS: The gallbladder is mildly distended without CT evidence of acute cholecystitis. PANCREAS: Unremarkable. No gross lesion or ductal dilatation. SPLEEN: Again noted is low-attenuation lesion at the inferior aspect of the spleen measures 1.9 centimeter. ADRENALS: Unremarkable. No mass. KIDNEYS AND URETERS: Unremarkable. No hydronephrosis. No solid mass. VASCULATURE: Unremarkable. No aortic aneurysm. BOWEL: Unremarkable. No obstruction. No gross mural thickening. APPENDIX: No evidence of appendicitis. PERITONEUM: Unremarkable. No free fluid. No free air. LYMPH NODES: Unremarkable. No enlarged lymph nodes. BLADDER: Unremarkable. REPRODUCTIVE: The patient is status post hysterectomy. BONES: Diffuse osteopenia noted. Mild compression deformity associated with large Schmorl nodes noted at L1 and L2. Mild compression deformity of L4 is also noted. OTHER FINDINGS: None. IMPRESSION: No evidence of acute pathology in the chest abdomen and pelvis. Diffuse moderate osteopenia associated with mild compression deformity at the lower thoracic and in the lumbar spine. Otherwise no significant interval change noted compared to the previous exams.
[2017-12-04] MEDS ORDERED: Sodium Chloride 0.9% 1,000 ML IV STA (15:50)
[2017-12-04 16:15] LABS: VENOUS BLOOD GAS BASE EXCESS 1.1 mmol/L (0.0-2.0); VENOUS BLOOD GAS PO2 63 mm/Hg (30-55); VENOUS BLOOD PH 7.44 (7.32-7.43)
--- NOTE | 2017-12-04 17:31 | CP.PCM.CON ---
<Rona Zayas - Last Filed: 12/04/17 17:28> History of Present Illness - History of Present Illness History of Present Illness: Seen and examined at bedside earlier today, daughters at bedside, patient mainly speak Ghanaian. Request for GI consult this for constipation. HPI: This is a 76-year-old female with a past medical history of hypertension, thrombocytopenia, anemia, and peptic ulcer disease is Ghanaian-speaking and history obtained from patient's daughters who were at bedside. The patient was brought to the emergency room with complaints of chest discomfort. She had a CAT scan of the head which was negative for bleed or infarct. According to patient's family the patient has not had a bowel movement since admission. They report that the patient prior to admission had no difficulty in bowel movements, never required use of laxatives. They feel that the patient has not been active and still may contributing to her constipation. This patient was recently discharged on November 18, 2017 for atrial fibrillation, the patient on admission had complaints of shortness of breath, chest pain, the patient was found to be in rapid atrial fibrillation. As per the family the patient had noted a few weeks ago blood on tissue. And denies any further episodes of melena or bright red blood per rectum. The patient did have an endoscopy and colonoscopy with Dr. Perez at [facility] about 5 years ago or more was found to have hemorrhoids and duodenum they do not recall colon polyps. Her endoscopy was okay but she did have a history of peptic ulcer disease in the past. The patient denies any nausea, vomiting, or abdominal pain. Denies any episodes of dyspepsia. In review of the patient's chart she had a CT scan done in October 2017 and that reported a cystic lesion in the spleen and follow-up CT scan was recommended in 6 months time. Patient denies any weight loss or loss of appetite or any difficulty swallowing. The patient is noted to have fevers, she went for a chest x-ray today which was negative. The patient was given a Fleet enema last night and reported to have a small bowel movement. No reports of melena or bright red blood. Past medical history: Hypertension, anemia, thrombocytopenia: According to the daughters the patient does follow [facility] in [place] they are unsure of the doctor's name, osteoarthritis, peptic ulcer disease. Surgical history: Orthopedic surgery, hysterectomy Family history: Noncontributory Allergies: Amoxicillin, ciprofloxacin and penicillin Social history: Denies smoking, EtOH or drug use, lives at home with daughter Medications: Reviewed as per MAR ROS: Systems reviewed with positive finding see HPI Past Patient History - Infectious Disease Hx of Infectious Diseases: None - Past Social History Smoking Status: Never Smoked - CARDIAC Hx Cardiac Disorders: No Hx Atrial Fibrillation: Yes Hx Hypertension: Yes - PULMONARY Hx Respiratory Disorders: No - NEUROLOGICAL Hx Neurological Disorder: No - HEENT Hx HEENT Problems: No - RENAL Hx Chronic Kidney Disease: No - ENDOCRINE/METABOLIC Hx Endocrine Disorders: No - HEMATOLOGICAL/ONCOLOGICAL Hx Blood Disorders: No Other/Comment: thrombocytopenia - INTEGUMENTARY Hx Dermatological Problems: No - MUSCULOSKELETAL/RHEUMATOLOGICAL Hx Falls: No - GASTROINTESTINAL Hx Gastrointestinal Disorders: No - GENITOURINARY/GYNECOLOGICAL Hx Genitourinary Disorders: No - PSYCHIATRIC Hx Psychophysiologic Disorder: No Hx Substance Use: No - SURGICAL HISTORY Hx Orthopedic Surgery: Yes - ANESTHESIA Hx Anesthesia: Yes Hx Anesthesia Reactions: No Hx Malignant Hyperthermia: No Meds Allergies/Adverse Reactions: Allergies Allergy/AdvReac Type Severity Reaction Status Date / Time amoxicillin Allergy SHORTNESS Verified 11/16/17 22:13 OF BREATH ciprofloxacin Allergy SHORTNESS Verified 11/16/17 22:13 OF BREATH Penicillins Allergy SHORTNESS Verified 11/16/17 22:13 OF BREATH - Medications Medications: Current Medications Acetaminophen (Tylenol 325mg Tab) 650 mg PO Q4H PRN PRN Reason: Pain, Mild (1-3) Last Admin: 12/04/17 06:28 Dose: 650 mg Atorvastatin Calcium (Lipitor) 20 mg PO DIN [facility] Last Admin: 12/03/17 17:06 Dose: 20 mg Diltiazem HCl (Cardizem) 30 mg PO QID [facility] Last Admin: 12/04/17 10:39 Dose: 30 mg Doxycycline Hyclate (Doryx) 100 mg PO Q12 [facility] PRN Reason: Protocol Guaifenesin (Robitussin) 200 mg PO Q6H PRN PRN Reason: Cough and congestion Last Admin: 12/03/17 13:51 Dose: 200 mg Aztreonam (Azactam 1 Gm) 100 mls @ 100 mls/hr IVPB Q8 [facility] PRN Reason: Protocol Stop: 12/09/17 14:01 Last Admin: 12/04/17 05:54 Dose: 100 mls/hr Metoprolol Tartrate (Lopressor) 25 mg PO BID [facility] Last Admin: 12/04/17 10:39 Dose: 25 mg Polyethylene Glycol (Miralax) 17 gm PO BID [facility] Last Admin: 12/04/17 10:40 Dose: 17 gm Physical Exam - Constitutional Appears: No Acute Distress - Head Exam Head Exam: NORMOCEPHALIC - Eye Exam Eye Exam: Normal appearance. absent: Scleral icterus - ENT Exam ENT Exam: Mucous Membranes Moist - Neck Exam Neck exam: Positive for: Normal Inspection - Respiratory Exam Respiratory Exam: Decreased Breath Sounds, NORMAL BREATHING PATTERN. absent: Respiratory Distress - Cardiovascular Exam Cardiovascular Exam: +S1, +S2 - GI/Abdominal Exam GI & Abdominal Exam: Normal Bowel Sounds, Soft. absent: Guarding, Organomegaly , Rebound, Tenderness - Rectal Exam Rectal Exam: absent: Bloody Stool Additional comments: attempted rectal exam but patient losing stool from rectum, noted brown pasty stool - Extremities Exam Extremities exam: Positive for: pedal pulses present. Negative for: calf tenderness, pedal edema - Neurological Exam Neurological exam: Alert, Oriented x3 (Elizabeth) - Skin Skin Exam: Dry, Warm Results - Vital Signs Recent Vital Signs: Last Vital Signs Temp 102.2 F H 12/04/17 09:02 Pulse 83 12/04/17 10:39 Resp 19 12/04/17 09:02 BP 125/69 12/04/17 10:39 Pulse Ox 93 L 12/04/17 09:02 - Labs Result Diagrams: 12/04/17 06:00 12/04/17 06:00 Labs: Laboratory Results - last 24 hr 12/04/17 12/04/17 06:00 06:00 WBC 4.1 L RBC 3.16 L Hgb 10.0 L Hct 30.9 L MCV 97.8 MCH 31.6 MCHC 32.4 RDW 14.3 Plt Count 17 L* MPV 10.6 Sodium 137 Potassium 4.0 Chloride 102 Carbon Dioxide 25 Anion Gap 14 BUN 16 Creatinine 0.9 Est GFR ( Amer) > 60 Est GFR (Non-Af Amer) > 60 Random Glucose 105 Calcium 8.8 Phosphorus 3.0 Magnesium 1.8 Total Bilirubin 0.4 AST 46 H D ALT 33 Alkaline Phosphatase 77 Total Protein 7.3 Albumin 3.7 Globulin 3.6 Albumin/Globulin Ratio 1.0 L Assessment & Plan - Assessment and Plan (Free Text) Assessment: Assessment: Constipation Fever UTI, positive Escherichia coli Splenic cystic lesion Thrombocytopenia, Hypertension Anemia History of peptic ulcer disease Plan: Continue bowel regimen and MiraLAX twice a day Patient on IV antibiotics as per ID Pending bone marrow biopsy Monitor H&H heart healthy diet follow-up CT scan of abdomen chest and pelvis Thank you for this consult and for allowing us to participate in your patient's care, further recommendations based on clinical course. Seen and discussed with Dr. Baca. <Hina Baca V - Last Filed: 12/05/17 00:20> Meds - Medications Medications: Current Medications Acetaminophen (Tylenol 325mg Tab) 650 mg PO Q4H PRN PRN Reason: Pain, Mild (1-3) Last Admin: 12/04/17 13:47 Dose: 650 mg Atorvastatin Calcium (Lipitor) 20 mg PO DIN [facility] Last Admin: 12/04/17 18:03 Dose: 20 mg Diltiazem HCl (Cardizem) 30 mg PO QID [facility] Last Admin: 12/04/17 22:20 Dose: 30 mg Doxycycline Hyclate (Doryx) 100 mg PO Q12 [facility] PRN Reason: Protocol Last Admin: 12/04/17 22:20 Dose: 100 mg Guaifenesin (Robitussin) 200 mg PO Q6H PRN PRN Reason: Cough and congestion Last Admin: 12/03/17 13:51 Dose: 200 mg Aztreonam (Azactam 1 Gm) 100 mls @ 100 mls/hr IVPB Q8 [facility] PRN Reason: Protocol Stop: 12/09/17 14:01 Last Admin: 12/04/17 22:22 Dose: 100 mls/hr Metoprolol Tartrate (Lopressor) 25 mg PO BID [facility] Last Admin: 12/04/17 18:03 Dose: 25 mg Polyethylene Glycol (Miralax) 17 gm PO BID [facility] Last Admin: 12/04/17 18:00 Dose: Not Given Results - Vital Signs Recent Vital Signs: Last Vital Signs Temp 97.6 F 12/04/17 16:00 Pulse 86 12/04/17 22:20 Resp 16 12/04/17 16:00 BP 144/77 12/04/17 22:20 Pulse Ox 94 L 12/04/17 16:00 - Labs Result Diagrams: 12/04/17 06:00 12/04/17 06:00 Labs: Laboratory Results - last 24 hr 12/04/17 12/04/17 12/04/17 06:00 06:00 13:00 WBC 4.1 L RBC 3.16 L Hgb 10.0 L Hct 30.9 L MCV 97.8 MCH 31.6 MCHC 32.4 RDW 14.3 Plt Count 17 L* MPV 10.6 pO2 VBG pH VBG pCO2 VBG HCO3 VBG Total CO2 VBG O2 Sat (Calc) VBG Base Excess VBG Potassium Glucose Lactate FiO2 Sodium 137 Potassium 4.0 Chloride 102 Carbon Dioxide 25 Anion Gap 14 BUN 16 Creatinine 0.9 Est GFR ( Amer) > 60 Est GFR (Non-Af Amer) > 60 Random Glucose 105 Lactic Acid Calcium 8.8 Phosphorus 3.0 Magnesium 1.8 Total Bilirubin 0.4 AST 46 H D ALT 33 Alkaline Phosphatase 77 Total Protein 7.3 Albumin 3.7 Globulin 3.6 Albumin/Globulin Ratio 1.0 L Procalcitonin 0.16 L Venous Blood Potassium Urine Color Urine Appearance Urine pH Ur Specific Dieterich Urine Protein Urine Glucose (UA) Urine Ketones Urine Blood Urine Nitrate Urine Bilirubin Urine Urobilinogen Ur Leukocyte Esterase Urine RBC Urine WBC Ur Epithelial Cells Urine Bacteria 12/04/17 12/04/17 12/04/17 16:10 16:10 17:10 WBC RBC Hgb Hct MCV MCH MCHC RDW Plt Count MPV pO2 63 H VBG pH 7.44 H VBG pCO2 37.0 L VBG HCO3 25.1 VBG Total CO2 26.2 VBG O2 Sat (Calc) 96.5 H VBG Base Excess 1.1 VBG Potassium 4.0 Glucose 160 H Lactate 1.1 FiO2 21.0 Sodium 133.0 Potassium Chloride 103.0 Carbon Dioxide Anion Gap BUN Creatinine Est GFR ( Amer) Est GFR (Non-Af Amer) Random Glucose Lactic Acid 1.0 Calcium Phosphorus Magnesium Total Bilirubin AST ALT Alkaline Phosphatase Total Protein Albumin Globulin Albumin/Globulin Ratio Procalcitonin Venous Blood Potassium 4.0 Urine Color Yellow Urine Appearance Sl cloudy Urine pH 6.0 Ur Specific Dieterich 1.020 Urine Protein Trace H Urine Glucose (UA) Negative Urine Ketones Negative Urine Blood Small H Urine Nitrate Negative Urine Bilirubin Negative Urine Urobilinogen 0.2 Ur Leukocyte Esterase Negative Urine RBC 1 - 3 Urine WBC 0 - 2 Ur Epithelial Cells 1 - 3 Urine Bacteria Few Attending/Attestation - Attestation I have personally seen and examined this patient.: Yes I have fully participated in the care of the patient.: Yes I have reviewed all pertinent clinical information: Yes Notes (Text): aThis is an addendum to GI progress report dictated by Rona Zayas APN.The patient was seen and examined earlier. Medical records, lab studies, imagings were reviewed. Last 24 hours events reviewed. Agreed with the above treatment plan as outlined in Rona Zayas APN's notes the with the addition of the following This is an addendum to GI progress report dictated by Rona Zayas APN.The patient was seen and examined earlier. Medical records, lab studies, imagings were reviewed. Last 24 hours events reviewed. Agreed with the above treatment plan as outlined in Rona Zayas APN's notes the with the addition of the following on examination abdomen soft no masses continue antibiotics as per ID The patient's constipation and urosepsis Follow-up the CT scan 12/05/17 00:18
[2017-12-04 19:46] LABS: URINE BILIRUBIN NEGATIVE (NEGATIVE); URINE BLOOD SMALL (NEGATIVE); URINE GLUCOSE (UA) NEGATIVE (NEGATIVE); URINE LEUKOCYTE ESTERASE NEGATIVE Leu/uL (NEGATIVE); URINE NITRATE NEGATIVE (NEGATIVE); URINE PROTEIN TRACE mg/dL (<30 mg/dL); URINE UROBILINOGEN 0.2 E.U./dL (<1 E.U./dL)
[2017-12-04 19:58] LABS: URINE APPEARANCE SL CLOUDY (CLEAR); URINE COLOR YELLOW (YELLOW)
[2017-12-04 20:29] LABS: URINE WBC 0 - 2 /hpf (0-6)
[2017-12-04 20:30] LABS: URINE BACTERIA FEW (NEG)
[2017-12-05] MEDS: Aztreonam 1 Gm in NS 100mL 100 ML IVPB SCH ×3 (05:27→23:00)
[2017-12-05 08:32] LABS: ALBUMIN 3.4 g/dL (3.0-4.8); ALT/SGPT 42 U/L (7-56); AST/SGOT 52 U/L (14-36); BLOOD UREA NITROGEN 16 mg/dL (7-21); CALCIUM 8.4 mg/dL (8.4-10.5); GFR AFRICAN-AMERICAN > 60; GFR NON-AFRICAN AMERICAN > 60
[2017-12-05 08:33] LABS: HEMOGLOBIN 9.5 g/dL (12.0-16.0); MEAN CORPUSCULAR HEMOGLOBIN 31.7 pg (25.0-35.0); MEAN CORPUSCULAR HGB CONC 32.3 g/dl (31.0-37.0); MEAN PLATELET VOLUME 11.6 fl (7.0-11.0); RED CELL DISTRIBUTION WIDTH 14.2 % (11.5-14.5); WHITE BLOOD COUNT 4.8 10^3/ul (4.5-11.0)
[2017-12-05 08:40] LABS: PLATELET COUNT 14 10^3/uL (120.0-450.0)
[2017-12-05] MEDS: POLYETHYLENE GLYCOL 3350 17 GM/Dose PACKET PO SCH ×2 (09:46→18:38)
--- NOTE | 2017-12-05 10:21 | PN ---
DATE: 12/05/2017 SUBJECTIVE: The patient has no complaints of any chest pain, no shortness of breath and no headache. PHYSICAL EXAMINATION: VITAL SIGNS: Temperature is 97.9, pulse of 79, blood pressure is 120/64, and respirations of 18. GENERAL: The patient is lying in bed, flat, comfortable. HEENT: No oral lesion. Anicteric sclerae. Moist mucosa. NECK: No JVD, adenopathy, or thyromegaly. CARDIOVASCULAR: S1 and S2, regular. No murmurs, rubs, or gallops. LUNGS: Clear to auscultation bilaterally. No wheeze, rales, or rhonchi. ABDOMEN: Bowel sounds are positive, soft, nontender and nondistended. EXTREMITIES: no cyanosis, clubbing or edema. LABORATORY DATA: White count of 4.1, hemoglobin is 10, and creatinine is 0.9. DIAGNOSTIC DATA: CT of the chest, abdomen and pelvis done shows no evidence of acute pathology in the chest, abdomen and pelvis. There is diffuse moderate osteopenia associated with mild compression deformities. ASSESSMENT: 1. Chest pain, resolved. 2. Constipation. 3. Thrombocytopenia. 4. Anemia. 5. Hypomagnesemia, improved. 6. PENICILLIN ALLERGY. 7. Fever. 8. Atrial flutter. 9. Urinary tract infection secondary to Escherichia coli. PLAN: The patient is currently comfortable. The patient is being followed by Hematology/Oncology and GI. The patient is on Cardizem for her atrial flutter. The patient is receiving Lipitor for dyslipidemia. She is on Miralax for constipation. She is on her Robitussin. The patient is on Tylenol as needed. She is on aztreonam for antibiotics because of the fever. The patient does have urinary tract infection with Escherichia coli. Lane Hutchins MD
--- NOTE | 2017-12-05 12:55 | CP.PCM.PN ---
Subjective - Date & Time of Evaluation Date of Evaluation: 12/05/17 Time of Evaluation: 11:50 - Subjective Subjective: Still feels weak, cough is a bit improved, had fever yesterday. Objective - Vital Signs/Intake and Output Vital Signs (last 24 hours): Temp Pulse Resp BP Pulse Ox 97.9 F 79 18 120/64 94 L 12/05/17 06:00 12/05/17 06:00 12/05/17 06:00 12/05/17 06:00 12/05/17 06:00 Intake and Output: 12/05/17 12/05/17 06:59 18:59 Intake Total 1200 Output Total 4 Balance 1196 - Medications Medications: Current Medications Acetaminophen (Tylenol 325mg Tab) 650 mg PO Q4H PRN PRN Reason: Pain, Mild (1-3) Last Admin: 12/05/17 09:49 Dose: 650 mg Atorvastatin Calcium (Lipitor) 20 mg PO DIN [facility] Last Admin: 12/04/17 18:03 Dose: 20 mg Diltiazem HCl (Cardizem) 30 mg PO QID [facility] Last Admin: 12/05/17 09:46 Dose: 30 mg Doxycycline Hyclate (Doryx) 100 mg PO Q12 [facility] PRN Reason: Protocol Last Admin: 12/05/17 09:46 Dose: 100 mg Guaifenesin (Robitussin) 200 mg PO Q6H PRN PRN Reason: Cough and congestion Last Admin: 12/03/17 13:51 Dose: 200 mg Aztreonam (Azactam 1 Gm) 100 mls @ 100 mls/hr IVPB Q8 [facility] PRN Reason: Protocol Stop: 12/09/17 14:01 Last Admin: 12/05/17 05:27 Dose: 100 mls/hr Metoprolol Tartrate (Lopressor) 25 mg PO BID [facility] Last Admin: 12/05/17 09:46 Dose: 25 mg Polyethylene Glycol (Miralax) 17 gm PO BID [facility] Last Admin: 12/05/17 09:46 Dose: 17 gm - Labs Labs: 12/05/17 07:50 12/05/17 07:50 PT 11.3 SECONDS (9.4-12.5) 11/28/17 22:17 INR 1.04 (0.93-1.08) 11/28/17 22:17 APTT 28.2 Seconds (25.1-36.5) 11/28/17 22:17 - Constitutional Appears: Chronically Ill - Head Exam Head Exam: NORMAL INSPECTION - Neck Exam Neck Exam: absent: Meningismus - Respiratory Exam Respiratory Exam: Decreased Breath Sounds - Cardiovascular Exam Cardiovascular Exam: +S1, +S2 - GI/Abdominal Exam GI & Abdominal Exam: Soft. absent: Tenderness Assessment and Plan - Assessment and Plan (Free Text) Plan: Assessment Systemic Inflammatory Response Syndrome, R/O sepsis from respiratory tract infection and UTI HTN chronic thrombocytopenia and anemia, R/O MDS atrial fibrillation Plan continue Azactam day 4 and added Doxycycline; blood cx are negative, urine cx showing E. coli - gave a dose of IV Amikacin and follow up repeat blood and urine cx; reviewed CXR which did not show infiltrates follow up plan for bone marrow biopsy will continue to monitor clinically
[2017-12-05] MEDS ORDERED: Sodium Chloride 0.9% 500 ML IV STA (15:52)
--- NOTE | 2017-12-05 16:43 | CP.PCM.PCO ---
Assessment and Plan - Assessment and Plan (Free Text) Assessment: Spoke to daughter Ms. Hunt. Informed regarding her health status. Will transfuse PRBC for Hb less stacie 8gm/dl, Plt less than 15k or bleeding. Further work up for pancytopenia when stable.
--- NOTE | 2017-12-05 19:06 | PN ---
DATE: 12/05/2017 REASON FOR CONSULTATION AND FOLLOWUP: Atrial flutter, admitted with dizziness. cardiac evaluation. SUBJECTIVE: The patient converted to normal sinus. No fever. Family is at the bedside, concerned about the patient's condition. OBJECTIVE: GENERAL: Not in apparent distress. VITAL SIGNS: As follows, temperature afebrile, heart rate 97, and blood pressure 126/88. HEENT: PERRLA intact. NECK: Supple. No carotid bruits or thyromegaly. CHEST: Clear to auscultation. HEART: S1 and S2 regular. ABDOMEN: Soft. EXTREMITIES: Clubbing and cyanosis negative. LABORATORY DATA: Blood workup as follows: WBC 4.8, hemoglobin 9.5, hematocrit 29.4, and platelet count 14. Chemistry showed sodium 130, potassium 3.9, chloride 109, carbon dioxide of 25, anion gap 14, BUN 16, and creatinine 0.8. Total protein 7.0, albumin 3.5, albumin globulin ratio 1. Urine culture grow a Escherichia coli. Blood cultures negative. IMPRESSION: Fever, chills, sepsis, possibly urinary tract infection, possible upper respiratory tract infection, severe thrombocytopenia since year 2013, paroxysmal atrial fibrillation converted to normal sinus, not a candidate for long-term anticoagulation, severe thrombocytopenia,high risk for bleeding, he will be put on anticoagulation. Platelet count is runs between 18 to 20,000 since 2013. Last stress test on 11/20/2017 reported normal, no reversible ischemia. The patient's echocardiogram on 11/17/2017, has trace aortic regurgitation, trace mitral regurgitation and mild tricuspid regurgitation, right ventricular systolic pressure of 42. On admission, bump in the troponin, most likely secondary to tachycardia and atrial fibrillation since then the patient has been stable. Repeat chest x-ray remains negative. CAT scan of the abdomen; no evidence of acute pathology noted. As mentioned last stress test on 11/18/2017, showed normal myocardial perfusion study. RECOMMENDATION: Continue broad spectrum antibiotics as per ID. Continue Cardizem CD 30 mg 4 times a day, continue metoprolol, rate is well controlled, blood pressure well controlled. We will change Cardizem to CD from tomorrow if the blood pressure is tolerated. We will follow with you. Thank you Dr. Hutchins for providing us the opportunity in taking care of the patient, Desire Lay. Repeat blood cultures remains negative. Marina Moreland MD [facility] # [id number]
[2017-12-05] MEDS ORDERED: Sodium Chloride 0.9% 1,000 ML IV STA (20:02)
--- NOTE | 2017-12-05 20:06 | CP.PCM.CON ---
Past Patient History - Infectious Disease Hx of Infectious Diseases: None - Past Social History Smoking Status: Never Smoked - CARDIAC Hx Cardiac Disorders: No Hx Atrial Fibrillation: Yes Hx Hypertension: Yes - PULMONARY Hx Respiratory Disorders: No - NEUROLOGICAL Hx Neurological Disorder: No - HEENT Hx HEENT Problems: No - RENAL Hx Chronic Kidney Disease: No - ENDOCRINE/METABOLIC Hx Endocrine Disorders: No - HEMATOLOGICAL/ONCOLOGICAL Hx Blood Disorders: No Other/Comment: thrombocytopenia - INTEGUMENTARY Hx Dermatological Problems: No - MUSCULOSKELETAL/RHEUMATOLOGICAL Hx Falls: No - GASTROINTESTINAL Hx Gastrointestinal Disorders: No - GENITOURINARY/GYNECOLOGICAL Hx Genitourinary Disorders: No - PSYCHIATRIC Hx Psychophysiologic Disorder: No Hx Substance Use: No - SURGICAL HISTORY Hx Orthopedic Surgery: Yes - ANESTHESIA Hx Anesthesia: Yes Hx Anesthesia Reactions: No Hx Malignant Hyperthermia: No Meds Allergies/Adverse Reactions: Allergies Allergy/AdvReac Type Severity Reaction Status Date / Time amoxicillin Allergy SHORTNESS Verified 11/16/17 22:13 OF BREATH ciprofloxacin Allergy SHORTNESS Verified 11/16/17 22:13 OF BREATH Penicillins Allergy SHORTNESS Verified 11/16/17 22:13 OF BREATH - Medications Medications: Current Medications Acetaminophen (Tylenol 325mg Tab) 650 mg PO Q4H PRN PRN Reason: Pain, Mild (1-3) Last Admin: 12/05/17 09:49 Dose: 650 mg Atorvastatin Calcium (Lipitor) 20 mg PO DIN [facility] Last Admin: 12/05/17 18:38 Dose: 20 mg Diltiazem HCl (Cardizem) 30 mg PO QID [facility] Stop: 12/05/17 23:59 Last Admin: 12/05/17 13:29 Dose: 30 mg Diltiazem HCl (Cardizem Cd) 120 mg PO DAILY [facility] Doxycycline Hyclate (Doryx) 100 mg PO Q12 [facility] PRN Reason: Protocol Last Admin: 12/05/17 09:46 Dose: 100 mg Guaifenesin (Robitussin) 200 mg PO Q6H PRN PRN Reason: Cough and congestion Last Admin: 12/03/17 13:51 Dose: 200 mg Aztreonam (Azactam 1 Gm) 100 mls @ 100 mls/hr IVPB Q8 [facility] PRN Reason: Protocol Stop: 12/09/17 14:01 Last Admin: 12/05/17 13:29 Dose: 100 mls/hr Sodium Chloride (Sodium Chloride 0.9%) 1,000 mls @ 999 mls/hr IV .Q1H1M [facility] Stop: 12/05/17 21:02 Metoprolol Tartrate (Lopressor) 25 mg PO BID [facility] Last Admin: 12/05/17 09:46 Dose: 25 mg Polyethylene Glycol (Miralax) 17 gm PO BID [facility] Last Admin: 12/05/17 18:38 Dose: 17 gm Results - Vital Signs Recent Vital Signs: Last Vital Signs Temp 97.5 F L 12/05/17 18:29 Pulse 59 L 12/05/17 18:29 Resp 20 12/05/17 18:29 BP 70/39 L 12/05/17 18:29 Pulse Ox 94 L 12/05/17 06:00 - Labs Result Diagrams: 12/06/17 01:45 12/05/17 07:50 Labs: Laboratory Results - last 24 hr 12/02/17 12/04/17 12/05/17 08:30 17:10 07:50 WBC 4.8 RBC 3.00 L Hgb 9.5 L Hct 29.4 L MCV 98.0 MCH 31.7 MCHC 32.3 RDW 14.2 Plt Count 14 L* MPV 11.6 H Sodium Potassium Chloride Carbon Dioxide Anion Gap BUN Creatinine Est GFR ( Amer) Est GFR (Non-Af Amer) Random Glucose Calcium Total Bilirubin AST ALT Alkaline Phosphatase Total Protein Albumin Globulin Albumin/Globulin Ratio Urine RBC 1 - 3 Urine WBC 0 - 2 Ur Epithelial Cells 1 - 3 Urine Bacteria Few Influenza Type A Ab 1:32 H Influenza Type B Ab <1:8 Blood Type Antibody Screen BBK History Checked 12/05/17 12/05/17 07:50 11:25 WBC RBC Hgb Hct MCV MCH MCHC RDW Plt Count MPV Sodium 136 Potassium 3.9 Chloride 101 Carbon Dioxide 25 Anion Gap 14 BUN 16 Creatinine 0.8 Est GFR ( Amer) > 60 Est GFR (Non-Af Amer) > 60 Random Glucose 95 Calcium 8.4 Total Bilirubin 0.4 AST 52 H ALT 42 Alkaline Phosphatase 75 Total Protein 7.0 Albumin 3.4 Globulin 3.5 Albumin/Globulin Ratio 1.0 L Urine RBC Urine WBC Ur Epithelial Cells Urine Bacteria Influenza Type A Ab Influenza Type B Ab Blood Type O POSITIVE Antibody Screen Negative BBK History Checked Patient has bt
[2017-12-06] MEDS: guaiFENesin 200 mg/10 ml Syrup UD PO PRN ×2 (02:10→11:05)
[2017-12-06 02:25] LABS: GRAN # 1.26 (1.4-6.5); GRAN % 42.3 % (50.0-68.0); LYMPH # 1.6 (1.2-3.4); LYMPH % 53.7 % (22.0-35.0); MEAN CELL VOLUME 99.2 fl (80.0-105.0); MEAN CORPUSCULAR HEMOGLOBIN 31.9 pg (25.0-35.0); MEAN CORPUSCULAR HGB CONC 32.1 g/dl (31.0-37.0); MEAN PLATELET VOLUME 9.4 fl (7.0-11.0); MONO # 0.1 (0.1-0.6); RBC 2.48 10^6/uL (3.5-6.1); RED CELL DISTRIBUTION WIDTH 14.7 % (11.5-14.5)
[2017-12-06 02:28] LABS: HEMOGLOBIN 7.9 g/dL (12.0-16.0)
--- NOTE | 2017-12-06 04:04 | CP.PCM.CON ---
History of Present Illness - History of Present Illness History of Present Illness: History of Present Illness: The patient is a 76 year old woman with a history of paroxysmal atrial fibrillation, moderate tricuspid regurgitation (RVSP=42mmHg), chronic anemia and chronically worsening thrombocytopenia (since 2013), admitted to [facility] for chest pain, dizziness and palpitations. Of note, her recent cardiac work-up completed last month (including a stress test) was essentially normal. Her current hospital course has been complicated by a-fib with RVR, UTI, dry cough and fevers. She was started on oral Cardiazem QID and Metoprolol by cardiology. She was also started on empiric IV antibiotics after which her fevers subsided (for past 30hrs). Once her acute cardiac and infectious issues fully resolve, a bone marrow biopsy is anticipated to investigate the underlying etiology of her chronic thrombocytopenia. Yesterday late afternoon, she suddenly became hypotensive (SBP=70s) and therefore an ICU evaluation was requested. She was given a total of 2L of NS IV boluses yesterday evening with moderate improvement of SBP into the upper 80s and low 90s. However, after receiving the IVF boluses, she became hypoxic on room air (O2 sat=84%), requiring 2L O2 via NC. Despite being hypontensive and hypoxic, she appears comfortable and in no acute distress at this time. Current Medications: Please refer to [facility] Allergies: PCN, Amoxicillin, Cipro Past Medical History: Per HPI Past Surgical History: Per HPI Family History: Non-contributory Social History: Remote history of intermittent tobacco use; Denies alcohol or illicit drug use Review of Systems: 14 bodily systems reviewed and found to be negative except as noted in the HPI Assessment and Plan: The patient is a 76 year old woman with a history of paroxysmal atrial fibrillation, moderate tricuspid regurgitation, chronic anemia and chronically worsening thrombocytopenia, now being upgraded to the ICU due to hypotension and hypoxia. 1. Hypotension: -ddx: Sepsis vs Bleeding vs Med Side Effect -given proximity of isolated hypotension to recent intake of Cardizem and Metoprolol, the latter appears to be the most likely etiology -however, will re-check procalcitonin, VBG and CBC to rule out alternative etiologies -recent CT-A/P done yesterday was normal -patient received 2L of NS IVF boluses this evening -will monitor BP closely in ICU -cardiology already on board and have held anti-hypertensive meds temporarily 2. Acute Hypoxia: -resolved with 2L O2 via NC -likely due to rapid IVF boluses given for treatment of hypotension -stat CXR shows evidence of new pulmonary congestion -because pressures are low-normal (SBP=80-90s), will hold off on giving Lasix -consider Lasix IV x1, once blood pressures normalize 3. Chronic Thrombocytopenia: -possibly due to MDS -hematology already on board -bone marrow biopsy planned once acute cardiac and infectious issues resolve -s/p 2units platelets transfused earlier today; will check post-transfusion CBC -per hematology, transfuse to keep platelets>14 or for acute bleeding 4. Chronic Anemia -hematology already on board -no signs of overt GI bleeding -per hematology, transfuse to keep Hgb>8.0 or for acute bleeding 5. Paroxysmal Atrial Fibrillation: -not on anticoagulation due to history of severe thrombocytopenia -cards on board and have temporarily held antihypertensive meds 6. UTI: -continue empiric IV antibiotics -lactic acid and procalcitonin also negative; however, will recheck both -ID already on board -patient afebrile since afternoon of 12/04/17 7. Upper Respiratory Infection: -all imaging thus far has been negative -lactic acid and procalcitonin also negative; however, will recheck both -ID already on board -continue empiric IV antibiotics -patient afebrile since afternoon of 12/04/17 -if fevers recur, then would consider empiric treatment with Tamiflu DVT PPx: SCDs GI PPx: Protonix Past Patient History - Infectious Disease Hx of Infectious Diseases: None - Past Social History Smoking Status: Never Smoked - CARDIAC Hx Cardiac Disorders: No Hx Atrial Fibrillation: Yes Hx Hypertension: Yes - PULMONARY Hx Respiratory Disorders: No - NEUROLOGICAL Hx Neurological Disorder: No - HEENT Hx HEENT Problems: No - RENAL Hx Chronic Kidney Disease: No - ENDOCRINE/METABOLIC Hx Endocrine Disorders: No - HEMATOLOGICAL/ONCOLOGICAL Hx Blood Disorders: No Other/Comment: thrombocytopenia - INTEGUMENTARY Hx Dermatological Problems: No - MUSCULOSKELETAL/RHEUMATOLOGICAL Hx Falls: No - GASTROINTESTINAL Hx Gastrointestinal Disorders: No - GENITOURINARY/GYNECOLOGICAL Hx Genitourinary Disorders: No - PSYCHIATRIC Hx Psychophysiologic Disorder: No Hx Substance Use: No - SURGICAL HISTORY Hx Orthopedic Surgery: Yes - ANESTHESIA Hx Anesthesia: Yes Hx Anesthesia Reactions: No Hx Malignant Hyperthermia: No Meds Allergies/Adverse Reactions: Allergies Allergy/AdvReac Type Severity Reaction Status Date / Time amoxicillin Allergy SHORTNESS Verified 11/16/17 22:13 OF BREATH ciprofloxacin Allergy SHORTNESS Verified 11/16/17 22:13 OF BREATH Penicillins Allergy SHORTNESS Verified 11/16/17 22:13 OF BREATH - Medications Medications: Current Medications Acetaminophen (Tylenol 325mg Tab) 650 mg PO Q4H PRN PRN Reason: Pain, Mild (1-3) Last Admin: 12/05/17 09:49 Dose: 650 mg Atorvastatin Calcium (Lipitor) 20 mg PO DIN [facility] Last Admin: 12/05/17 18:38 Dose: 20 mg Diltiazem HCl (Cardizem Cd) 120 mg PO DAILY [facility] Doxycycline Hyclate (Doryx) 100 mg PO Q12 [facility] PRN Reason: Protocol Last Admin: 12/05/17 23:07 Dose: 100 mg Guaifenesin (Robitussin) 200 mg PO Q6H PRN PRN Reason: Cough and congestion Last Admin: 12/06/17 02:10 Dose: 200 mg Aztreonam (Azactam 1 Gm) 100 mls @ 100 mls/hr IVPB Q8 [facility] PRN Reason: Protocol Stop: 12/09/17 14:01 Last Admin: 12/05/17 23:00 Dose: 100 mls/hr Metoprolol Tartrate (Lopressor) 25 mg PO BID [facility] Last Admin: 12/05/17 09:46 Dose: 25 mg Polyethylene Glycol (Miralax) 17 gm PO BID [facility] Last Admin: 12/05/17 18:38 Dose: 17 gm Results - Vital Signs Recent Vital Signs: Last Vital Signs Temp 98.2 F 12/06/17 00:00 Pulse 77 12/05/17 20:52 Resp 20 12/05/17 18:29 BP 101/50 L 12/05/17 20:52 Pulse Ox 95 12/05/17 21:00 - Labs Result Diagrams: 12/06/17 01:45 12/05/17 07:50 Labs: Laboratory Results - last 24 hr 12/02/17 12/05/17 12/05/17 08:30 07:50 07:50 WBC 4.8 RBC 3.00 L Hgb 9.5 L Hct 29.4 L MCV 98.0 MCH 31.7 MCHC 32.3 RDW 14.2 Plt Count 14 L* MPV 11.6 H Gran % Lymph % (Auto) Curry % (Auto) Eos % (Auto) Baso % (Auto) Gran # Lymph # Curry # Eos # Baso # Sodium 136 Potassium 3.9 Chloride 101 Carbon Dioxide 25 Anion Gap 14 BUN 16 Creatinine 0.8 Est GFR ( Amer) > 60 Est GFR (Non-Af Amer) > 60 POC Glucose (mg/dL) Random Glucose 95 Calcium 8.4 Total Bilirubin 0.4 AST 52 H ALT 42 Alkaline Phosphatase 75 Total Protein 7.0 Albumin 3.4 Globulin 3.5 Albumin/Globulin Ratio 1.0 L Influenza Type A Ab 1:32 H Influenza Type B Ab <1:8 Blood Type Antibody Screen BBK History Checked 12/05/17 12/06/17 12/06/17 11:25 01:30 01:45 WBC 3.0 L D RBC 2.48 L Hgb 7.9 L Hct 24.6 L MCV 99.2 MCH 31.9 MCHC 32.1 RDW 14.7 H Plt Count 63 L MPV 9.4 Gran % 42.3 L Lymph % (Auto) 53.7 H Curry % (Auto) 4.0 Eos % (Auto) 0.0 L Baso % (Auto) 0.0 Gran # 1.26 L Lymph # 1.6 Curry # 0.1 Eos # 0.0 Baso # 0.00 Sodium Potassium Chloride Carbon Dioxide Anion Gap BUN Creatinine Est GFR ( Amer) Est GFR (Non-Af Amer) POC Glucose (mg/dL) 104 Random Glucose Calcium Total Bilirubin AST ALT Alkaline Phosphatase Total Protein Albumin Globulin Albumin/Globulin Ratio Influenza Type A Ab Influenza Type B Ab Blood Type O POSITIVE Antibody Screen Negative BBK History Checked Patient has bt
[2017-12-06 05:06] LABS: BASO # 0.01 K/mm3 (0.0-2.0); BASO % 0.3 % (0.0-3.0); GRAN # 1.54 (1.4-6.5); GRAN % 44.9 % (50.0-68.0); LYMPH # 1.8 (1.2-3.4); LYMPH % 52.8 % (22.0-35.0); MEAN CELL VOLUME 99.2 fl (80.0-105.0); MEAN CORPUSCULAR HGB CONC 32.3 g/dl (31.0-37.0); MEAN PLATELET VOLUME 8.5 fl (7.0-11.0); MONO # 0.1 (0.1-0.6); RBC 2.5 10^6/uL (3.5-6.1); RED CELL DISTRIBUTION WIDTH 14.6 % (11.5-14.5); WHITE BLOOD COUNT 3.4 10^3/ul (4.5-11.0)
[2017-12-06 05:39] LABS: VENOUS BLOOD GAS PO2 27 mm/Hg (30-55); VENOUS BLOOD PH 7.27 (7.32-7.43)
[2017-12-06 05:58] LABS: ALB/GLOB RATIO 0.9 (1.1-1.8); ALBUMIN 2.9 g/dL (3.0-4.8); ALT/SGPT 103 U/L (7-56); AST/SGOT 155 U/L (14-36); BLOOD UREA NITROGEN 18 mg/dL (7-21); GFR AFRICAN-AMERICAN > 60; GFR NON-AFRICAN AMERICAN > 60; MAGNESIUM 1.7 mg/dL (1.7-2.2)
[2017-12-06] MEDS ORDERED: Potassium Phosphate 15 MMOLE in Dextrose 5% In Water 250 ML IVPB ONE (06:05)
[2017-12-06] MEDS: Aztreonam 1 Gm in NS 100mL 100 ML IVPB SCH ×3 (06:53→21:58)
--- NOTE | 2017-12-06 08:27 | RAD ---
HISTORY: evaluate for pulmonary vascular congestion COMPARISON: No prior. FINDINGS: LUNGS: Diffuse bilateral interstitial infiltrates/fibrosis. PLEURA: No significant pleural effusion identified, no pneumothorax apparent. CARDIOVASCULAR: Normal. Atherosclerotic aorta. OSSEOUS STRUCTURES: No significant abnormalities. VISUALIZED UPPER ABDOMEN: Normal. OTHER FINDINGS: None. IMPRESSION: Diffuse bilateral interstitial infiltrates/fibrosis.
[2017-12-06 08:29] LABS: B-TYPE NATRIURETIC PEPTIDE 2000 pg/mL (0-450)
--- NOTE | 2017-12-06 08:33 | RAD ---
PROCEDURE: CHEST RADIOGRAPH, 1 VIEW HISTORY: comparison of congestion from previous study COMPARISON: None available. FINDINGS: LUNGS: Diffuse bilateral interstitial infiltrates, right greater than left. PLEURA: No pneumothorax or pleural fluid seen. CARDIOVASCULAR: Normal. OSSEOUS STRUCTURES: No significant abnormalities. VISUALIZED UPPER ABDOMEN: Normal. OTHER FINDINGS: None. IMPRESSION: Diffuse bilateral interstitial infiltrates, right greater than left.
--- NOTE | 2017-12-06 08:34 | PN ---
DATE: SUBJECTIVE: The patient has no complaints of any chest pain or shortness of breath. She has headache. She was transferred to the ICU because of hypotension. She had improved with fluid boluses. Did speak to the carpet inspector finished on the case. OBJECTIVE: VITAL SIGNS: Overnight, temperature is 98.2, pulse is 77, blood pressure is 101/50, respirations are 20. GENERAL: The patient is lying in bed, flat, comfortable. HEENT: No oral lesion. Anicteric sclerae. Moist mucosa. NECK: No JVD, adenopathy, or thyromegaly. CARDIOVASCULAR: S1 and S2, regular. No murmurs, rubs, or gallops. LUNGS: Clear to auscultation bilaterally. No wheeze, rales, or rhonchi. ABDOMEN: Bowel sounds are positive, soft, nontender and nondistended. EXTREMITIES: no cyanosis, clubbing or edema. LABORATORY DATA: White count of 3.4, hemoglobin 8, platelets 52. Creatinine 0.8. ASSESSMENT: 1. Hypotension, improved. 2. Thrombocytopenia. 3. Constipation. 4. Anemia, most likely secondary to myelodysplastic syndrome. 5. Hypomagnesemia, improved. 6. PENICILLIN ALLERGY. 7. Atrial flutter. 8. Urinary tract infection secondary to Escherichia coli. PLAN: The patient is currently comfortable. One unit of transfusion has been ordered by Dr. Weems. The patient is currently on Lipitor for dyslipidemia. She is being followed by Dr. Moreland. The patient is on Tylenol p.r.n. Dr. Leo did speak to the patient's family. TCU evaluation has been . Lane Hutchins MD
[2017-12-06 08:52] LABS: ARTERIAL BLOOD GAS PCO2 28 mm/Hg (35-45); ARTERIAL BLOOD GAS PH 7.38 (7.35-7.45)
[2017-12-06 08:58] LABS: ARTERIAL BLOOD GAS O2 SAT 99.4 % (95-98); ARTERIAL BLOOD GAS TCO2 17.5 mmol.L (22-28)
[2017-12-06 09:00] LABS: ARTERIAL BLOOD GAS HCO3 16.6 mmol/L (21-28)
[2017-12-06] MEDS: POLYETHYLENE GLYCOL 3350 17 GM/Dose PACKET PO SCH ×2 (09:52→17:41)
[2017-12-06] MEDS ORDERED: diltiaZEM 120 mg/24 Hours CD Cap PO SCH (10:00)
--- NOTE | 2017-12-06 10:29 | CP.PCM.PN ---
Subjective - Date & Time of Evaluation Date of Evaluation: 12/06/17 Time of Evaluation: 09:50 - Subjective Subjective: Noted events overnight. Patient upgraded to ICU after bouts of fluid-responsive hypotension. Patient transfused platelets and being transfused pRBC. No fevers overnight. Objective - Vital Signs/Intake and Output Vital Signs (last 24 hours): Temp Pulse Resp BP Pulse Ox 98.2 F 77 20 101/50 L 95 12/06/17 00:00 12/05/17 20:52 12/05/17 18:29 12/05/17 20:52 12/05/17 21:00 - Medications Medications: Current Medications Acetaminophen (Tylenol 325mg Tab) 650 mg PO Q4H PRN PRN Reason: Pain, Mild (1-3) Last Admin: 12/05/17 09:49 Dose: 650 mg Atorvastatin Calcium (Lipitor) 20 mg PO DIN [facility] Last Admin: 12/05/17 18:38 Dose: 20 mg Diltiazem HCl (Cardizem Cd) 120 mg PO DAILY [facility] Doxycycline Hyclate (Doryx) 100 mg PO Q12 [facility] PRN Reason: Protocol Last Admin: 12/05/17 23:07 Dose: 100 mg Guaifenesin (Robitussin) 200 mg PO Q6H PRN PRN Reason: Cough and congestion Last Admin: 12/06/17 02:10 Dose: 200 mg Aztreonam (Azactam 1 Gm) 100 mls @ 100 mls/hr IVPB Q8 [facility] PRN Reason: Protocol Stop: 12/09/17 14:01 Last Admin: 12/06/17 06:53 Dose: 100 mls/hr Potassium Phosphate 15 mmole/ (Dextrose) 255 mls @ 42.5 mls/hr IVPB ONCE ONE Stop: 12/06/17 12:04 Last Admin: 12/06/17 06:54 Dose: 42.5 mls/hr Metoprolol Tartrate (Lopressor) 25 mg PO BID [facility] Oseltamivir Phosphate (Tamiflu Cap) 75 mg PO BID [facility] PRN Reason: Protocol Stop: 12/11/17 07:19 Polyethylene Glycol (Miralax) 17 gm PO BID [facility] Last Admin: 12/05/17 18:38 Dose: 17 gm - Labs Labs: 12/06/17 04:50 12/06/17 04:50 PT 11.3 SECONDS (9.4-12.5) 11/28/17 22:17 INR 1.04 (0.93-1.08) 11/28/17 22:17 APTT 28.2 Seconds (25.1-36.5) 11/28/17 22:17 - Constitutional Appears: Chronically Ill - Head Exam Head Exam: NORMAL INSPECTION - ENT Exam ENT Exam: Mucous Membranes Moist - Neck Exam Neck Exam: absent: Meningismus - Respiratory Exam Respiratory Exam: Decreased Breath Sounds - Cardiovascular Exam Cardiovascular Exam: +S1, +S2 - GI/Abdominal Exam GI & Abdominal Exam: Soft. absent: Tenderness Assessment and Plan - Assessment and Plan (Free Text) Plan: Assessment Systemic Inflammatory Response Syndrome, R/O sepsis from respiratory tract infection and UTI; new onset fluid-responsive hypotension, etiology to be determined HTN chronic thrombocytopenia and anemia, R/O MDS atrial fibrillation Plan continue Azactam day 5, Doxycycline day 2 and will add Vancomycin since her kidney is normal at the moment - will monitor; blood cx are negative, urine cx showing E. coli - follow up repeat blood and urine cx; reviewed CXR showing interstitial infiltrates probably edema; although rapid Influenza test is negative, because of Flu season, patient has been started on Tamiflu follow up plan for bone marrow biopsy will continue to monitor clinically
[2017-12-06] MEDS: Vancomycin 1gm in NS 250ml 1 GM/250 ML BAG IVPB SCH ×2 (11:05→23:00)
--- NOTE | 2017-12-06 12:55 | PN ---
DATE: REASON FOR CONSULTATION: Atrial flutter, admitted with dizziness, cardiac evaluation, last night became hypotensive, moved to ICU. SUBJECTIVE: The patient is in ICU 128, bed 4. Denies any chest pain, shortness of breath or any palpitation. Family, the daughter is at the beside. OBJECTIVE: GENERAL: Not in apparent distress. VITAL SIGNS: As follows; temperature afebrile, heart rate 78, and blood pressure 114/56. HEENT: PERRLA. Extraocular muscles intact. NECK: Supple. No carotid bruits or thyromegaly. CHEST: Clear to auscultation. HEART: S1 and S2 regular. ABDOMEN: Soft. EXTREMITIES: Clubbing and cyanosis negative. LABORATORY DATA: Blood workup as follows; WBC 3.5, hemoglobin 8, hematocrit 24.8, and platelet count 52. Sodium 140, potassium 3.8, chloride of 112, carbon dioxide 25, anion gap of 10, BUN 18, and creatinine 0.8. BNP 2000. IMPRESSION AND PLAN: A 76-year-old female with past medical history of chronic thrombocytopenia since 2013, runs between 18 to 20,000 platelet count. Has recently stress test 11/20/2017, reported normal. Last echo 11/17/2017, trace aortic regurgitation, mitral regurgitation and mild tricuspid regurgitation, right ventricular systolic pressure of 42. Admitted with dizziness, syncope, found to be one episode of atrial fibrillation/flutter,converted to normal sinus. The patient has not started anticoagulation because of severe thrombocytopenia. Platelet count in the range of 20. Yesterday, the patient became hypotensive. Platelet count was 4 and moved to ICU, 2 units of platelets were given, now the patient is fairly stable. The patient was on Cardizem CD 120 mg and metoprolol was held because of low blood pressure. The patient came in with coughing, initial impression was pneumonia, but the patient had upper respiratory tract infection, but no definite pneumonia are noted on chest x-ray, but urine culture grew Escherichia coli positive. The patient is being treated with IV antibiotic. Discussed in length yesterday twice with son before transferring to the ICU and this morning again in ICU discussed with the daughter. I explained the patient's overall condition, prognosis and all the comorbidities, family understood. Now the plan is to discontinue Cardizem because the family says every time she get the Cardizem, she does not feel good. We will start low dose of beta-kevin again at 12.5 b.i.d. to prevent go back into atrial fibrillation/flutter and monitor electrolytes, monitor blood pressure. If remain stable, possibly the patient can be transferred out to telemetry. Monitor hemoglobin and hematocrit. If the hemoglobin goes below 8, consider packed RBC transfusion. Thank you Dr. Hutchins for providing us the opportunity in taking of Desire Lay . No further cardiac workup is planned at this time. With holding parameter, we will restart metoprolol, hold for heart rate less than 60 and SBP less than 110. We will follow with you. Marina Moreland MD
--- NOTE | 2017-12-06 13:29 | CARD ---
APPROVED REPORT Reason for Test: PAF Hookup date: 2017-12-02 Scan date: 2017-12-04 Recording time: 23 HR 59 MIN Heart Rate Data Total Beats: [id number] Min HR: 36 BPM at 1:25AM Avg HR: 63 BPM Max HR: 92 BPM at 9:36AM Ventricular Ectopy Total VE Beats: 37 (0.0%) Couplets: 2 Events Single/Interp PVC: 3/30 Supraventricular Ectopy Total VE Beats: 241 (0.3%) Atrial Runs: 2 Beats: 37 Longest: 31 Fastest: 156 BPM Atrial Pairs: 1 Events Longest R-R: 1.8 sec at 1:42 AM Single PAC's: 202 Conclusion SINUS RHYTHM / SINUS BRADYCARDIA MINIMUM HR 36 BPM MAXIMUM HR 92 BPM VERY RARE APC'S, ISOLATED PAIRED, ABERRANT 2 SVE RUNS, LONGEST 31 BEATS, MAX RATE 156 BPM ISOLATED VPC'S, PAIRED, INTERPOLATED DIARY WAS NOT AVAILABLE.
[2017-12-06 20:22] LABS: HEMOGLOBIN 9.9 g/dL (12.0-16.0); MEAN CELL VOLUME 94.9 fl (80.0-105.0); MEAN CORPUSCULAR HEMOGLOBIN 31.3 pg (25.0-35.0); MEAN PLATELET VOLUME 9.3 fl (7.0-11.0); RBC 3.16 10^6/uL (3.5-6.1); RED CELL DISTRIBUTION WIDTH 16.1 % (11.5-14.5); WHITE BLOOD COUNT 3.9 10^3/ul (4.5-11.0)
--- NOTE | 2017-12-06 21:48 | PN ---
SUBJECTIVE: This patient was seen in the intensive care unit today. Previous events were noticed. He is on isolation for flu. ID note was reviewed. The patient is on liquid diet, tolerating, the family was at bedside. PHYSICAL EXAMINATION VITAL SIGNS: Temperature 99.2, pulse 81, blood pressure 139/64, respiration is 14. HEENT: Atraumatic, anicteric. NECK: Supple. HEART: S1 and S2 heard. LUNGS: Bilateral air entry present. ABDOMEN: Soft, there is no tenderness. EXTREMITIES: No cyanosis. No clubbing. LABORATORY DATA: Hemoglobin 8.0, hematocrit 24.8, WBC 3.4, platelets 52, the patient did receive platelets of 2 units and 1 unit of packed RBCs. Chemistry showed BNP over 2000, AST 155, ALT 103. IMPRESSION: Episode of hypotension now improved; has thrombocytopenia; history of constipation; sepsis, urosepsis, on antibiotics as per ID; presently, on isolation for flu; history of atrial fibrillation, atrial flutter before. Would recommend: 1. Continue the antibiotics as per ID. 2. Follow up of the hemoglobin and hematocrit. No obvious gastrointestinal bleeding noticed. 3. Elevated LFTs, probably secondary to hepatic congestion, follow up on that. We will slowly advance her diet as tolerated. Thank you very much for allowing us to participate in the care of the patient. Hina Baca MD [facility]
--- NOTE | 2017-12-06 22:39 | CON ---
DATE: 12/06/2017 HISTORY OF PRESENT ILLNESS: The patient is a 76-year-old lady with history of paroxysmal atrial fibrillation, chronic anemia, and chronic thrombocytopenia, who was admitted to [facility] (Former[facility] on 11/29/2017 for some chest pain, dizziness, palpitations. Of note, her cardiac workup completed last month was fairly normal. During the current hospital stay, she was found to have AFib with RVR, UTI and some fevers. She was treated for severe urosepsis and started on empiric IV antibiotics. She was also on metoprolol and Cardizem for AFib with RVR. In a couple days after started antibiotics, her fever subsided and sepsis resolved. However, thrombocytopenia persist. That was enough of a concern that Hematology Service was called and bone marrow biopsy was contemplated to rule out MDS. Yesterday, before the procedure was planned, the patient become hypotensive and ICU consult was called. Despite 2 liters of normal saline IV boluses, borderline hypotension persisted. The patient was transferred to ICU for overnight observation. Earlier today, the patient regained hemodynamic stability and has been hemodynamically stable for at least 5 to 6 hours with blood pressure ranging between 105 to 150 systolic. No fever, no chills, no sweats, no nausea, no vomiting, no diarrhea, no constipation. PAST MEDICAL HISTORY: AFib, tricuspid regurgitation, chronic anemia and thrombocytopenia. ALLERGIES: PENICILLIN, AMOXICILLIN, CIPRO. PAST SURGICAL HISTORY: None. FAMILY HISTORY: Noncontributory. SOCIAL HISTORY: The patient has remote history of intermittent tobacco use. Denies alcohol or illicit drug abuse. REVIEW OF SYSTEMS: Review of 12-organ system other than mentioned in history of present illness is negative. PHYSICAL EXAMINATION VITAL SIGNS: Blood pressure 154/86, heart rate 70, oxygen saturation 97% on 2 liters nasal cannula, respiratory rate varies between 25 and 30. HEENT: Head and neck atraumatic. LUNGS: Clear to auscultation bilaterally. HEART: Regular rate and rhythm. S1, S2 normal. ABDOMEN: Soft, nontender, nondistended. MUSCULOSKELETAL: No C/C/E. NEUROLOGIC: The patient moves all extremities spontaneously. SKIN: Moist. PSYCHIATRIC: The patient is alert and oriented x3. LABORATORY DATA: WBC 3.4, hemoglobin 8, platelet count 52. Chloride 112, carbon dioxide 25, BUN 18, creatinine 0.8, glucose 96, AST 155, ALT 103. ProBNP 2,000. MEDICATIONS: Tylenol p.r.n., Lipitor, aztreonam, Cardizem CD, doxycycline, Robitussin p.r.n., metoprolol, Tamiflu, and vancomycin. ASSESSMENT AND PLAN: This is a 76-year-old lady with transient hypotension, which was completely resolved after 2 liters of normal saline. She does not have end organ dysfunction that could be attributed to hypoperfusion state. She was mentating well. She does not have chest pain. Her heart rate is controlled. She does not have renal insufficiency. Her creatinine is within normal limits. At present time, she is hemodynamically stable. I agree with continuing antibiotics, judicious fluid management. She is pancytopenic, however, it is related to her underlying hematologic disease for which bone marrow biopsy was already planned. We would continue target euvolemia, euglycemia, normothermia and oxygen saturation more than 90%. Deep venous thrombosis and gastrointestinal prophylaxis. ccm time 40 min Brandon Lyon MD [facility]
[2017-12-07] MEDS: Aztreonam 1 Gm in NS 100mL 100 ML IVPB SCH ×3 (05:00→21:15)
--- NOTE | 2017-12-07 09:50 | PN ---
DATE: 12/04/2017 LOCATION: The patient is in room 368, bed 1. REASON FOR CONSULTATION: Atrial flutter admitted with dizziness, now the patient is in sinus rhythm. SUBJECTIVE: The patient denies any chest pain, shortness of breath, palpitation at present. PHYSICAL EXAMINATION VITAL SIGNS: Blood pressure 125/69, respirations 19, temperature 102.2 and pulse 83. HEENT: Head is normocephalic. Eyes: Pupils normal. Conjunctivae slightly pale. NECK: Carotids are equal. THORAX: AP diameter normal. LUNGS: No rales. CARDIOVASCULAR: S1 and S2. ABDOMEN: Soft and nontender. No organomegaly. Bowel sounds normal. EXTREMITIES: No clubbing. No cyanosis. LABORATORY DATA: WBC 4.1, hemoglobin 10.0, hematocrit 30.9 and platelets 17. Sodium 137, potassium 4.0, BUN 16, creatinine 0.9, calcium 8.8, phosphorus 3.0 and magnesium 1.8. Repeat chest x-ray had no significant abnormality. CAT scan of abdomen, pelvis and chest showed osteopenia. Otherwise no significant abnormality. DIAGNOSES: Severe thrombocytopenia since 2013, paroxysmal atrial fibrillation now converted to sinus rhythm, duplex lower extremity, no evidence of deep venous thrombosis. Last test done in 11/20/2017 was normal. Echocardiogram in 11/17/2017 trace aortic regurgitation, trace mitral regurgitation and mild tricuspid regurgitation, right ventricular systolic pressure 42 mmHg. On admission, very slight bump in the troponin most likely related to her tachycardia. PLAN: The patient already converted to sinus rhythm. The patient on Cardizem 30 mg p.o. q.i.d., Doryx 100 mg p.o. q.12 hours, Lipitor 20 mg daily and metoprolol 25 b.i.d. We will continue present therapy. We will follow with you. Marina Leavitt MD
--- NOTE | 2017-12-07 10:08 | PN ---
DATE: 12/05/2017 SUBJECTIVE: This patient was seen and evaluated today. The patient is tolerating the diet. No complaints of any abdominal pain. PHYSICAL EXAMINATION VITAL SIGNS: Temperature is 97, pulse is 79, blood pressure 120/64. HEENT: Atraumatic, anicteric. NECK: Supple. HEART: S1, S2 heard. LUNGS: Bilateral air entry present. ABDOMEN: Soft. No tenderness. EXTREMITIES: No cyanosis or clubbing. LABORATORY DATA: Hemoglobin 9.5, hematocrit 25.4. WBC 4.8, platelets 14,000, BUN 16, creatinine 0.8. The CT of the abdomen and pelvis was reviewed. The patient has moderate amount of stool present in the colon. Otherwise, no acute etiology. Urinalysis and urine cultures does show E. coli. Clinically, it is more suggestive of urosepsis. The patient is thrombocytopenic, awaiting for platelets infusion, being followed by the loading unit operator crimping. The patient has history of paroxysmal atrial fibrillation. The patient had mildly elevated troponin on admission. Continue the antibiotics as per ID. Hematological followup. The patient has been on MiraLax for constipation. Thank you very much for allowing us to participate in the care of the patient. Hina Baca MD
[2017-12-07] MEDS: POLYETHYLENE GLYCOL 3350 17 GM/Dose PACKET PO SCH ×2 (10:10→17:23)
[2017-12-07] MEDS: Vancomycin 1gm in NS 250ml 1 GM/250 ML BAG IVPB SCH ×2 (10:11→22:28)
--- NOTE | 2017-12-07 11:30 | CP.PCM.PN ---
Subjective - Date & Time of Evaluation Date of Evaluation: 12/07/17 Time of Evaluation: 10:40 - Subjective Subjective: Having some nausea and vomiting, no fevers overnight. Objective - Vital Signs/Intake and Output Vital Signs (last 24 hours): Temp Pulse Resp BP Pulse Ox 98.4 F 65 32 H 137/65 98 12/07/17 05:00 12/07/17 08:10 12/07/17 08:10 12/07/17 08:00 12/07/17 08:10 Intake and Output: 12/07/17 12/07/17 06:59 18:59 Intake Total 1160 Output Total 400 Balance 760 - Medications Medications: Current Medications Acetaminophen (Tylenol 325mg Tab) 650 mg PO Q4H PRN PRN Reason: Pain, Mild (1-3) Last Admin: 12/05/17 09:49 Dose: 650 mg Atorvastatin Calcium (Lipitor) 20 mg PO DIN [facility] Last Admin: 12/05/17 18:38 Dose: 20 mg Diltiazem HCl (Cardizem Cd) 120 mg PO DAILY [facility] Doxycycline Hyclate (Doryx) 100 mg PO Q12 BREANNE PRN Reason: Protocol Last Admin: 12/06/17 21:57 Dose: 100 mg Guaifenesin (Robitussin) 200 mg PO Q6H PRN PRN Reason: Cough and congestion Last Admin: 12/06/17 11:05 Dose: 200 mg Aztreonam (Azactam 1 Gm) 100 mls @ 100 mls/hr IVPB Q8 BREANNE PRN Reason: Protocol Stop: 12/09/17 14:01 Last Admin: 12/07/17 05:00 Dose: 100 mls/hr Vancomycin HCl (Vancomycin 1gm) 1 gm in 250 mls @ 167 mls/hr IVPB Q12H BREANNE PRN Reason: Protocol Last Admin: 12/06/17 23:00 Dose: 167 mls/hr Metoprolol Tartrate (Lopressor) 12.5 mg PO BID [facility] Last Admin: 12/06/17 17:36 Dose: 12.5 mg Oseltamivir Phosphate (Tamiflu Cap) 75 mg PO BID [facility] PRN Reason: Protocol Stop: 12/11/17 07:19 Last Admin: 12/06/17 17:36 Dose: 75 mg Polyethylene Glycol (Miralax) 17 gm PO BID [facility] Last Admin: 12/06/17 17:41 Dose: Not Given - Labs Labs: 12/06/17 20:15 12/06/17 04:50 PT 11.3 SECONDS (9.4-12.5) 11/28/17 22:17 INR 1.04 (0.93-1.08) 11/28/17 22:17 APTT 28.2 Seconds (25.1-36.5) 11/28/17 22:17 - Constitutional Appears: Chronically Ill - Head Exam Head Exam: NORMAL INSPECTION - ENT Exam ENT Exam: Mucous Membranes Moist - Neck Exam Neck Exam: absent: Meningismus - Respiratory Exam Respiratory Exam: Decreased Breath Sounds - Cardiovascular Exam Cardiovascular Exam: +S1, +S2 - GI/Abdominal Exam GI & Abdominal Exam: Soft. absent: Tenderness Assessment and Plan - Assessment and Plan (Free Text) Plan: Assessment Systemic Inflammatory Response Syndrome, R/O sepsis from respiratory tract infection and UTI; new onset fluid-responsive hypotension, etiology to be determined HTN chronic thrombocytopenia and anemia, R/O MDS atrial fibrillation Plan continue Azactam day 6, and Vancomycin day 2; will hold Doxycycline day 3 because of nausea; blood cx are negative, urine cx showing E. coli - follow up repeat blood and urine cx; reviewed CXR showing interstitial infiltrates probably edema; although rapid Influenza test is negative, the titers are elevated and also because of Flu season, patient has been started on Tamiflu follow up plan for bone marrow biopsy will continue to monitor clinically
--- NOTE | 2017-12-07 14:21 | PN ---
DATE: 12/07/2017 REASON FOR CONSULTATION AND FOLLOWUP: Atrial flutter, admit dizziness, cardiac evaluation, possible flu now. The patient is moved to ICU. SUBJECTIVE: The patient denies any chest pain, shortness of breath, or any palpitations. PHYSICAL EXAMINATION: GENERAL: Not in apparent distress. VITAL SIGNS: As follows: Temperature afebrile, heart rate 73 and blood pressure 139/63. HEENT: PERRLA. Extraocular muscles intact. NECK: Supple. No carotid bruits or thyromegaly. CHEST: Clear to auscultation. HEART: S1, S2, regular. ABDOMEN: Soft. EXTREMITIES: Clubbing and cyanosis negative. LABORATORY DATA: Blood workup as follows: WBC 8.9, hemoglobin 9.9, hematocrit 30, and platelet count of 38. Chemistry shows sodium 143, potassium 3.0, chloride 101, carbon dioxide 25, anion gap of 10, BUN 18, and creatinine 0.8. IMPRESSION: A 76-year-old female with past medical history significant for chronic thrombocytopenia since 2013, runs between 18 to 20,000 count. A recent stress test dated 11/18/2017 reported normal. Last echo dated 10/2017 showed trace aortic regurgitation, trace mitral regurgitation, mild tricuspid regurgitation, RV systolic pressure of 42. Admits to dizziness, syncope, one episode of flutter, cannot be anticoagulated because of severe thrombocytopenia, but the patient converted to normal sinus rhythm on beta-kevin. She was in the floor, became hypotensive, moved to ICU, antigen positive for flu. The patient is being treated for possible flu. The patient was Cardizem, held because of the low blood pressure, on beta-kevin. CVS status is stable. Continue broad-spectrum antibiotic. Continue treatment for flu. We will resume back 12.5 of metoprolol twice b.i.d. and as the blood pressure is tolerated, we did increase to 25 b.i.d. if the blood pressure is stable and once the blood pressure goes up, we can resume back Cardizem. Cardizem was discontinued because the patient becomes hypotensive because . We will follow with you. Thank you Dr. Hutchins, for providing us the opportunity in taking care of the patient, Desire Lay. Marina Moreland MD
--- NOTE | 2017-12-08 00:06 | PN ---
DATE: 12/07/2017 SUBJECTIVE: The patient was seen and evaluated earlier today. The patient's family was at bedside. She was on isolation for flu. The patient is nauseous, had vomited once. PHYSICAL EXAMINATION: VITAL SIGNS: Temperature 98.6, pulse 74, blood pressure 140/86, O2 saturation 97, respirations 23. HEENT: Atraumatic, anicteric. NECK: Supple. CARDIOPULMONARY: Heart S1, S2 heard. LUNGS: Bilateral air entry present. ABDOMEN: Soft. No tenderness. EXTREMITIES: No cyanosis, no clubbing. NEUROLOGIC: Alert, oriented. Moves all the extremities. LABORATORY DATA: Hemoglobin 9.9, hematocrit 30.0, WBC count 3.9, platelet count 38, and manual platelet count only 48. Chemistry shows AST 155, ALT 103. IMPRESSION: This is a 76 year old patient who is admitted with constipation, sepsis, urosepsis. The patient had a hypotensive episode, transferred to the unit. Drop in blood count, has been transfused a unit of packed red blood cells, hemoglobin stable. The patient is on isolation for Tamiflu. The patient has been on Tamiflu and also doxycycline, Azactam, and vancomycin. The patient is very nauseous, vomited, could be drug induced. The patient is off the proton pump inhibitors and also H2 blockers in view of the thrombocytopenia. RECOMMENDATIONS: 1. Continue the antibiotics as per ID. The patient was given Zofran. The another reasonable approach is to start the patient on Carafate; however, in view of the patient on doxycycline and other p.o. medications, Carafate has to be spaced out. 2. We will continue to closely follow up her care and suggest further management based on the clinical course. 3. We will discuss with Dr. Leo regarding thrombocytopenia in this patient. Thank you very much for allowing us to participate in the care of this patient. Hina Baca MD [facility]
--- NOTE | 2017-12-08 01:26 | PN ---
DATE: SUBJECTIVE: The patient is comfortable. She denies any chest pain. No shortness of breath. No headaches. No dizziness. PHYSICAL EXAMINATION: VITAL SIGNS: Temperature is 98.6, pulse is 66, blood pressure 140/86, and respirations 20. GENERAL: The patient is lying in bed, flat, comfortable. HEENT: No oral lesion. Anicteric sclerae. Moist mucosa. NECK: No JVD, adenopathy, or thyromegaly. CARDIOVASCULAR: S1 and S2, regular. No murmurs, rubs, or gallops. LUNGS: Clear to auscultation bilaterally. No wheeze, rales, or rhonchi. ABDOMEN: Bowel sounds are positive, soft, nontender and nondistended. EXTREMITIES: No cyanosis, clubbing or edema. LABORATORY DATA: Reviewed. ASSESSMENT: 1. Hypotension, resolved. 2. Thrombocytopenia. 3. Constipation. 4. 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 5. Hypomagnesemia, resolved. 6. PENICILLIN ALLERGY. 7. Atrial flutter. 8. Urinary tract infection secondary to Escherichia coli. PLAN: The patient is currently comfortable. She is on aztreonam for fever she was having. The patient is also on vancomycin. The patient is receiving Cardizem. She is going to continue with metoprolol. The patient was on IV fluids because of the low phosphorous and replaced. The patient is on a liquid diet. Overall, prognosis is guarded. Lane Hutchins MD
[2017-12-08] MEDS: Aztreonam 1 Gm in NS 100mL 100 ML IVPB SCH ×3 (04:59→23:44)
[2017-12-08 07:15] LABS: ALBUMIN 3.1 g/dL (3.0-4.8); ALT/SGPT 69 U/L (7-56); AST/SGOT 85 U/L (14-36); BLOOD UREA NITROGEN 10 mg/dL (7-21); CALCIUM 8.8 mg/dL (8.4-10.5); GFR AFRICAN-AMERICAN > 60; GFR NON-AFRICAN AMERICAN > 60
[2017-12-08 07:18] LABS: HEMOGLOBIN 9.8 g/dL (12.0-16.0); MEAN CELL VOLUME 94.7 fl (80.0-105.0); MEAN CORPUSCULAR HEMOGLOBIN 30.8 pg (25.0-35.0); MEAN CORPUSCULAR HGB CONC 32.6 g/dl (31.0-37.0); MEAN PLATELET VOLUME 10.2 fl (7.0-11.0); RBC 3.18 10^6/uL (3.5-6.1); RED CELL DISTRIBUTION WIDTH 15.5 % (11.5-14.5)
[2017-12-08 07:42] LABS: PLATELET COUNT 27 10^3/uL (120.0-450.0)
[2017-12-08] MEDS ORDERED: Potassium Chloride 20 mEq ER Tab PO ONE ×2 (07:53→15:00)
--- NOTE | 2017-12-08 08:04 | PN ---
DATE: 12/08/2017 SUBJECTIVE: The patient has no complaints of any chest pain. No shortness of breath. No headaches. PHYSICAL EXAMINATION: VITAL SIGNS: Temperature is 98.6, pulse of 66, blood pressure 140/86, respirations 23. GENERAL: The patient is lying in bed, flat, comfortable. HEENT: No oral lesion. Anicteric sclerae. Moist mucosa. NECK: No JVD, adenopathy, or thyromegaly. CARDIOVASCULAR: S1 and S2, regular. No murmurs, rubs, or gallops. LUNGS: Clear to auscultation bilaterally. No wheeze, rales, or rhonchi. ABDOMEN: Bowel sounds are positive, soft, nontender and nondistended. EXTREMITIES: no cyanosis, clubbing or edema. LABORATORY DATA: White count of 4.0, hemoglobin 9.8, platelet count is 27. ASSESSMENT: 1. Thrombocytopenia. 2. Hypotension, resolved. 3. Constipation. 4. Anemia secondary to myelodysplastic syndrome, most likely. 5. Hypomagnesemia. 6. Atrial flutter. 7. Urinary tract infection secondary to Escherichia coli. 8. Penicillin allergy. PLAN: The patient is currently comfortable. She had a repeat culture, which was negative. The patient has been going to need a bone marrow biopsy. I spoke with Dr. Leo. She is scheduled a bone marrow biopsy for tomorrow. The patient is on metoprolol. She is going to continue with Tamiflu. She is receiving vancomycin for antibiotic. She is on liquid diet. I will advance her diet to a heart-healthy diet. Lane Hutchins MD
[2017-12-08 08:29] LABS: MAGNESIUM 1.5 mg/dL (1.7-2.2)
[2017-12-08] MEDS ORDERED: Magnesium Sulfate 2 GM in Sodium Chloride 0.9% 100 ML IVPB ONE (09:05)
[2017-12-08] MEDS: guaiFENesin 200 mg/10 ml Syrup UD PO PRN (09:20)
[2017-12-08] MEDS: Vancomycin 1gm in NS 250ml 1 GM/250 ML BAG IVPB SCH ×2 (09:28→09:46)
[2017-12-08] MEDS: POLYETHYLENE GLYCOL 3350 17 GM/Dose PACKET PO SCH (09:28)
--- NOTE | 2017-12-08 10:51 | CP.PCM.PN ---
Subjective - Date & Time of Evaluation Date of Evaluation: 12/08/17 Time of Evaluation: 08:00 - Subjective Subjective: Patient has less nausea, no fevers overnight, not in distress, afebrile, breathing a little better. Still with poor appetite. Objective - Vital Signs/Intake and Output Vital Signs (last 24 hours): Temp Pulse Resp BP Pulse Ox 98.6 F 66 23 140/86 97 12/07/17 18:00 12/08/17 02:00 12/07/17 15:20 12/07/17 17:18 12/07/17 15:20 Intake and Output: 12/07/17 12/08/17 18:59 06:59 Intake Total 450 Output Total 1001 Balance -551 - Medications Medications: Current Medications Acetaminophen (Tylenol 325mg Tab) 650 mg PO Q4H PRN PRN Reason: Pain, Mild (1-3) Last Admin: 12/05/17 09:49 Dose: 650 mg Atorvastatin Calcium (Lipitor) 20 mg PO DIN [facility] Last Admin: 12/05/17 18:38 Dose: 20 mg Diltiazem HCl (Cardizem Cd) 120 mg PO DAILY [facility] Diltiazem HCl (Cardizem) 30 mg PO TID [facility] Last Admin: 12/07/17 17:18 Dose: 30 mg Doxycycline Hyclate (Doryx) 100 mg PO Q12 [facility]NE PRN Reason: Protocol Last Admin: 12/07/17 10:10 Dose: 100 mg Guaifenesin (Robitussin) 200 mg PO Q6H PRN PRN Reason: Cough and congestion Last Admin: 12/06/17 11:05 Dose: 200 mg Aztreonam (Azactam 1 Gm) 100 mls @ 100 mls/hr IVPB Q8 BREANNE PRN Reason: Protocol Stop: 12/09/17 14:01 Last Admin: 12/08/17 04:59 Dose: 100 mls/hr Vancomycin HCl (Vancomycin 1gm) 1 gm in 250 mls @ 167 mls/hr IVPB Q12H BREANNE PRN Reason: Protocol Last Admin: 12/07/17 22:28 Dose: 167 mls/hr Metoprolol Tartrate (Lopressor) 12.5 mg PO BID [facility] Last Admin: 12/07/17 17:18 Dose: 12.5 mg Oseltamivir Phosphate (Tamiflu Cap) 75 mg PO BID [facility] PRN Reason: Protocol Stop: 12/11/17 07:19 Last Admin: 12/07/17 17:22 Dose: 75 mg Polyethylene Glycol (Miralax) 17 gm PO BID [facility] Last Admin: 12/07/17 17:23 Dose: Not Given - Labs Labs: 12/06/17 20:15 12/06/17 04:50 PT 11.3 SECONDS (9.4-12.5) 11/28/17 22:17 INR 1.04 (0.93-1.08) 11/28/17 22:17 APTT 28.2 Seconds (25.1-36.5) 11/28/17 22:17 - Constitutional Appears: Chronically Ill - Head Exam Head Exam: NORMAL INSPECTION - ENT Exam ENT Exam: Mucous Membranes Moist - Neck Exam Neck Exam: absent: Lymphadenopathy, Meningismus - Respiratory Exam Respiratory Exam: Decreased Breath Sounds - Cardiovascular Exam Cardiovascular Exam: +S1, +S2 - GI/Abdominal Exam GI & Abdominal Exam: Soft. absent: Tenderness Assessment and Plan - Assessment and Plan (Free Text) Plan: Assessment Systemic Inflammatory Response Syndrome, R/O sepsis from respiratory tract infection and UTI; new onset fluid-responsive hypotension, multifactorial HTN chronic thrombocytopenia and anemia, R/O MDS atrial fibrillation Plan continue Azactam day 7, and Vancomycin day 3; will hold Doxycycline (S/P 3 days ) because of nausea; blood cx are negative, urine cx showing E. coli - follow up repeat blood and urine cx; reviewed CXR showing interstitial infiltrates probably edema; although rapid Influenza test is negative, the titers are elevated and also because of Flu season, patient has been started on Tamiflu ( day 3 of 5) follow up plan for bone marrow biopsy will continue to monitor clinically
--- NOTE | 2017-12-08 11:07 | CP.PCM.PN ---
<Rona Zayas - Last Filed: 12/08/17 11:05> Subjective - Date & Time of Evaluation Date of Evaluation: 12/08/17 Time of Evaluation: 10:00 - Subjective Subjective: S&E at bedside, chart reviewed. Had episode of loose stool x1 yesterday, no further episode yet today. no N/V or abdominal pain. No reports of overt GI bleeding. Objective - Vital Signs/Intake and Output Vital Signs (last 24 hours): Temp Pulse Resp BP Pulse Ox 98.6 F 64 16 125/67 100 12/07/17 18:00 12/08/17 09:26 12/08/17 09:10 12/08/17 09:26 12/08/17 09:10 - Medications Medications: Current Medications Acetaminophen (Tylenol 325mg Tab) 650 mg PO Q4H PRN PRN Reason: Pain, Mild (1-3) Last Admin: 12/05/17 09:49 Dose: 650 mg Atorvastatin Calcium (Lipitor) 20 mg PO DIN [facility] Last Admin: 12/05/17 18:38 Dose: 20 mg Diltiazem HCl (Cardizem Cd) 120 mg PO DAILY [facility] Diltiazem HCl (Cardizem) 30 mg PO TID [facility] Last Admin: 12/08/17 09:21 Dose: 30 mg Doxycycline Hyclate (Doryx) 100 mg PO Q12 BREANNE PRN Reason: Protocol Last Admin: 12/07/17 10:10 Dose: 100 mg Guaifenesin (Robitussin) 200 mg PO Q6H PRN PRN Reason: Cough and congestion Last Admin: 12/08/17 09:20 Dose: 200 mg Aztreonam (Azactam 1 Gm) 100 mls @ 100 mls/hr IVPB Q8 BREANNE PRN Reason: Protocol Stop: 12/09/17 14:01 Last Admin: 12/08/17 04:59 Dose: 100 mls/hr Vancomycin HCl (Vancomycin 1gm) 1 gm in 250 mls @ 167 mls/hr IVPB Q12H [facility]ANNE PRN Reason: Protocol Last Admin: 12/08/17 09:46 Dose: Not Given Metoprolol Tartrate (Lopressor) 12.5 mg PO BID [facility] Last Admin: 12/08/17 09:26 Dose: 12.5 mg Oseltamivir Phosphate (Tamiflu Cap) 75 mg PO BID [facility] PRN Reason: Protocol Stop: 12/11/17 07:19 Last Admin: 12/08/17 09:20 Dose: 75 mg Polyethylene Glycol (Miralax) 17 gm PO BID [facility] Last Admin: 12/08/17 09:28 Dose: Not Given Potassium Chloride (K-Dur 20 Meq Er Tab) 40 meq PO ONCE ONE Stop: 12/08/17 15:01 - Labs Labs: 12/08/17 06:30 12/08/17 06:30 PT 11.3 SECONDS (9.4-12.5) 11/28/17 22:17 INR 1.04 (0.93-1.08) 11/28/17 22:17 APTT 28.2 Seconds (25.1-36.5) 11/28/17 22:17 - Constitutional Appears: No Acute Distress - Eye Exam Eye Exam: Normal appearance. absent: Scleral icterus - ENT Exam ENT Exam: Mucous Membranes Moist - Respiratory Exam Respiratory Exam: Decreased Breath Sounds. absent: Respiratory Distress, NORMAL BREATHING PATTERN - Cardiovascular Exam Cardiovascular Exam: +S1, +S2 - GI/Abdominal Exam GI & Abdominal Exam: Soft, Normal Bowel Sounds. absent: Guarding, Tenderness, Rebound - Extremities Exam Extremities Exam: absent: Calf Tenderness - Neurological Exam Neurological Exam: Alert, Awake, Oriented x3 - Skin Skin Exam: Dry, Warm Assessment and Plan - Assessment and Plan (Free Text) Assessment: Assessment: S/P Hypotension Elevated LFT , improving Constipation Fever UTI, positive Escherichia coli Aflutter Splenic cystic lesion Thrombocytopenia, Hypertension Anemia History of peptic ulcer disease Plan: Hold Miralax for diarrhea stool cdiff IV antibiotics as per ID Plan for bone marrow biopsy tomorrow Monitor H&H heart healthy diet monitor LFT monitor for overt GI bleeding Seen and discussed with Dr. Baca. <Hina Baca V - Last Filed: 12/08/17 20:30> Objective - Vital Signs/Intake and Output Vital Signs (last 24 hours): Temp Pulse Resp BP Pulse Ox 97.9 F 79 25 H 111/61 100 12/08/17 08:00 12/08/17 17:33 12/08/17 11:00 12/08/17 17:33 12/08/17 11:00 Intake and Output: 12/08/17 12/09/17 18:59 06:59 Intake Total 750 Output Total 800 Balance -50 - Medications Medications: Current Medications Acetaminophen (Tylenol 325mg Tab) 650 mg PO Q4H PRN PRN Reason: Pain, Mild (1-3) Last Admin: 12/05/17 09:49 Dose: 650 mg Atorvastatin Calcium (Lipitor) 20 mg PO DIN [facility] Last Admin: 12/05/17 18:38 Dose: 20 mg Diltiazem HCl (Cardizem Cd) 120 mg PO DAILY [facility] Diltiazem HCl (Cardizem) 30 mg PO TID [facility] Last Admin: 12/08/17 17:33 Dose: 30 mg Doxycycline Hyclate (Doryx) 100 mg PO Q12 BREANNE PRN Reason: Protocol Last Admin: 12/07/17 10:10 Dose: 100 mg Guaifenesin (Robitussin) 200 mg PO Q6H PRN PRN Reason: Cough and congestion Last Admin: 12/08/17 09:20 Dose: 200 mg Aztreonam (Azactam 1 Gm) 100 mls @ 100 mls/hr IVPB Q8 [facility] PRN Reason: Protocol Stop: 12/09/17 14:01 Last Admin: 12/08/17 13:00 Dose: 100 mls/hr Vancomycin HCl (Vancomycin 1gm) 1 gm in 250 mls @ 167 mls/hr IVPB Q12H BREANNE PRN Reason: Protocol Last Admin: 12/08/17 09:46 Dose: Not Given Metoprolol Tartrate (Lopressor) 12.5 mg PO BID [facility] Last Admin: 12/08/17 17:33 Dose: 12.5 mg Oseltamivir Phosphate (Tamiflu Cap) 75 mg PO BID [facility] PRN Reason: Protocol Stop: 12/11/17 07:19 Last Admin: 12/08/17 17:32 Dose: 75 mg - Labs Labs: 12/08/17 06:30 12/08/17 06:30 PT 11.3 SECONDS (9.4-12.5) 11/28/17 22:17 INR 1.04 (0.93-1.08) 11/28/17 22:17 APTT 28.2 Seconds (25.1-36.5) 11/28/17 22:17 Attending/Attestation - Attestation I have personally seen and examined this patient.: Yes I have fully participated in the care of the patient.: Yes I have reviewed all pertinent clinical information, including history, physical exam and plan: Yes Notes (Text): This is an addendum to GI progress report dictated by Rona Zayas APN.The patient was seen and examined earlier. Medical records, lab studies, imagings were reviewed. Last 24 hours events reviewed. Agreed with the above treatment plan as outlined in Rona Zayas APN's notes the with the addition of the following Denies any abdominal pain Had an episode of loose bowel movement Physical examination abdomen soft no tenderness Had loose bowel movements will discontinue MiraLAX, stool for C. difficile Continue antibiotics as per ID Thrombocytopenia follow-up as per plant guard 12/08/17 20:29
--- NOTE | 2017-12-08 13:46 | PN ---
DATE: 12/08/2017 REASON FOR CONSULTATION: Followup atrial flutter, admitted with dizziness, converted to normal sinus, acute flu possibly thrombocytopenia, rule out MDS. SUBJECTIVE: The patient denies any chest pain, shortness of breath, or any palpitation. OBJECTIVE: GENERAL: Not in apparent distress. VITAL SIGNS: As follows, temperature afebrile, heart rate 66, blood pressure 144/86. HEENT: PERRLA intact. NECK: Supple. No carotid bruits or thyromegaly. CHEST: Clear to auscultation. HEART: S1 and S2 regular. ABDOMEN: Soft. EXTREMITIES: Clubbing and cyanosis negative. LABORATORY DATA: WBC 4, hemoglobin 9.8, hematocrit 30.1, and platelet count 27. Sodium 141, potassium 3.3, chloride 106, carbon dioxide of 29, anion gap 10, BUN 10, and creatinine 0.6, magnesium 1.5. IMPRESSION: Hypomagnesemia, hypokalemia, hypotension, resolved; severe thrombocytopenia since 2013, rule out myelodysplastic disorder syndrome. On admission, the patient was dizzy, one episode of atrial fibrillation, atrial flutter converted to normal sinus. Most recent stress test was negative for ischemia dated on 11/20/2017. Most recent echo shows trace mitral regurgitation, mild tricuspid regurgitation, right ventricular systolic pressure of 42, preserved left ventricular function. The patient was n the floor, got hypotensive, moved to ICU. Most likely, these symptoms happened secondary to possibly flu, is being treated for the flu. Cardizem was held because the patient dropped the blood pressure and hypotension resolved. History of severe thrombocytopenia since 2013, anemia, rule out myelodysplastic syndrome. RECOMMENDATIONS: Continue broad spectrum antibiotics as per ID. Resume back Cardizem p.o. 30 mg t.i.d. Cardizem CD on hold. Low-dose beta-kevin for bone marrow biopsy tomorrow. Discussed with the family. Discussed with daughter. The patient denies any chest pain, shortness of breath or any palpitation. Thank you Dr. Hutchins for providing us the opportunity in taking care of the patient, Desire Lay. Marina Moreland MD cc: Dr. Hutchins.
[2017-12-08 15:33] VITALS: BMI 25.5
[2017-12-08] MEDS ORDERED: Pneumococcal 23-Valent Vaccine IM ONE (15:33)
[2017-12-08] MEDS ORDERED: Influenza Vaccine 60 mcg/0.5 mL SYR (4YR UP) IM ONE (15:33)
[2017-12-09] MEDS: Vancomycin 1gm in NS 250ml 1 GM/250 ML BAG IVPB SCH ×2 (01:32→11:17)
[2017-12-09] MEDS: Aztreonam 1 Gm in NS 100mL 100 ML IVPB SCH ×2 (05:38→15:23)
[2017-12-09 08:14] VITALS: RESP 18; TEMP 98; O2SAT 99
--- NOTE | 2017-12-09 13:24 | PQF SEPSIS ---
This form is a permanent part of the medical record Dr. Franklin, Your documentation consistently notes SIRS r/o sepsis from upper respiratory infection and UTI. Please specify if sepsis was present on admission or at any time during admission, was it ruled out? Clarification of your documentation is requested to better reflect the severity of illness and intensity of treatment of your patient. Indicators present [x] Temp < 96.8 or > 100.4 [x] WBC count > 12,000/mm3 or <000/mm3 or 10% immature neutrophils [x] Heart Rate > 90 [x] Respiratory Rate > 20 [x] Fever or hypothermia [] Chills [] Positive blood cultures [x] Hypotension [] Metabolic acidosis (Elevated lactate level, anion gap or reduced blood pH) [] Acute confusion /Altered Mental Status [] Shock [] Other: [] Location in the medical record that reflects the above clinical findings: [] Treatment Provided: [] PHYSICIAN'S RESPONSE Based on your medical judgment of the clinical indicators outlined above, are you treating this patient for a known or suspected: [x] Sepsis / Septicemia Please specify organism if known [] [] SIRS (Systemic Inflammatory Response Syndrome) [] Severe Sepsis (Sepsis with Associated Organ Dysfunction) [] Fever of Unknown Origin [] Other, please indicate: [] [] If Unable to Determine, please check the box, sign and date. Present On Admission (POA) Indicator: [] Present at the time of admission [] Not present at the time of admission [] Clinically Undetermined In responding to this query, please exercise your independent professional judgment. The fact that a question is asked does not imply that any particular answer is desired or expected. Thank you for your clarification on this documentation. If you have any questions please call:[ ] * Thank you, [ ]Ronit Hartman [facility] #[id number] [place]
[2017-12-09] MEDS ORDERED: Potassium Chloride 20 mEq ER Tab PO ONE (14:20)
[2017-12-09 15:40] VITALS: BP 128/66; PULSE 49
--- NOTE | 2017-12-09 17:05 | CP.PCM.PN ---
Subjective - Date & Time of Evaluation Date of Evaluation: 12/09/17 Time of Evaluation: 11:45 - Subjective Subjective: Comfortable in bed, feeling better today, no more nausea, no diarrhea, breathing better, no fevers. Objective - Vital Signs/Intake and Output Vital Signs (last 24 hours): Temp Pulse Resp BP Pulse Ox 98 F 60 18 140/74 99 12/09/17 08:13 12/09/17 08:13 12/09/17 08:13 12/09/17 08:13 12/09/17 08:13 Intake and Output: 12/09/17 12/09/17 06:59 18:59 Intake Total 660 Output Total 200 Balance 460 - Medications Medications: Current Medications Acetaminophen (Tylenol 325mg Tab) 650 mg PO Q4H PRN PRN Reason: Pain, Mild (1-3) Last Admin: 12/05/17 09:49 Dose: 650 mg Atorvastatin Calcium (Lipitor) 20 mg PO DIN [facility] Last Admin: 12/05/17 18:38 Dose: 20 mg Diltiazem HCl (Cardizem Cd) 120 mg PO DAILY [facility] Diltiazem HCl (Cardizem) 30 mg PO TID [facility] Last Admin: 12/08/17 17:33 Dose: 30 mg Doxycycline Hyclate (Doryx) 100 mg PO Q12 [facility] PRN Reason: Protocol Last Admin: 12/07/17 10:10 Dose: 100 mg Guaifenesin (Robitussin) 200 mg PO Q6H PRN PRN Reason: Cough and congestion Last Admin: 12/08/17 09:20 Dose: 200 mg Aztreonam (Azactam 1 Gm) 100 mls @ 100 mls/hr IVPB Q8 [facility] PRN Reason: Protocol Stop: 12/09/17 14:01 Last Admin: 12/09/17 05:38 Dose: 100 mls/hr Vancomycin HCl (Vancomycin 1gm) 1 gm in 250 mls @ 167 mls/hr IVPB Q12H [facility]ANNE PRN Reason: Protocol Last Admin: 12/09/17 01:32 Dose: 167 mls/hr Metoprolol Tartrate (Lopressor) 12.5 mg PO BID [facility] Last Admin: 12/08/17 17:33 Dose: 12.5 mg Oseltamivir Phosphate (Tamiflu Cap) 75 mg PO BID [facility] PRN Reason: Protocol Stop: 12/11/17 07:19 Last Admin: 12/08/17 17:32 Dose: 75 mg - Labs Labs: 12/08/17 06:30 12/08/17 06:30 PT 11.3 SECONDS (9.4-12.5) 11/28/17 22:17 INR 1.04 (0.93-1.08) 11/28/17 22:17 APTT 28.2 Seconds (25.1-36.5) 11/28/17 22:17 - Constitutional Appears: Non-toxic - Head Exam Head Exam: NORMAL INSPECTION - ENT Exam ENT Exam: Mucous Membranes Moist - Neck Exam Neck Exam: absent: Lymphadenopathy, Meningismus - Respiratory Exam Respiratory Exam: Decreased Breath Sounds - Cardiovascular Exam Cardiovascular Exam: +S1, +S2 - GI/Abdominal Exam GI & Abdominal Exam: Soft. absent: Tenderness Assessment and Plan - Assessment and Plan (Free Text) Plan: Assessment Systemic Inflammatory Response Syndrome, R/O sepsis from respiratory tract infection and UTI; new onset fluid-responsive hypotension, multifactorial HTN chronic thrombocytopenia and anemia, R/O MDS atrial fibrillation Plan continue Azactam day 8, and Vancomycin day 4; will hold Doxycycline (S/P 3 days ) because of nausea; blood cx are negative, urine cx showing E. coli - follow up repeat blood and urine cx; reviewed CXR showing interstitial infiltrates probably edema; although rapid Influenza test is negative, the titers are elevated and also because of Flu season, patient has been started on Tamiflu ( day 4 of 5) follow up plan for bone marrow biopsy will continue to monitor clinically
--- NOTE | 2017-12-09 18:51 | CP.PCM.PN ---
Subjective - Date & Time of Evaluation Date of Evaluation: 12/09/17 Time of Evaluation: 11:45 - Subjective Subjective: Seen and examined at the bedside earlier today, chart reviewed. Daughter at the bedside. Patient denies further episodes of diarrhea, last BM was yesterday no reports of bleeding. Denies nausea, vomiting, or abdominal pain. Tolerating oral intake. No reports of shortness of breath chest pain fever or chills. Objective - Vital Signs/Intake and Output Vital Signs (last 24 hours): Temp Pulse Resp BP Pulse Ox 98 F 49 L 18 128/66 99 12/09/17 08:13 12/09/17 15:23 12/09/17 08:13 12/09/17 15:23 12/09/17 08:13 Intake and Output: 12/09/17 12/09/17 06:59 18:59 Intake Total 660 360 Output Total 200 1500 Balance 460 -1140 - Labs Labs: 12/08/17 06:30 12/08/17 06:30 PT 11.3 SECONDS (9.4-12.5) 11/28/17 22:17 INR 1.04 (0.93-1.08) 11/28/17 22:17 APTT 28.2 Seconds (25.1-36.5) 11/28/17 22:17 - Constitutional Appears: No Acute Distress - Eye Exam Eye Exam: Normal appearance (he). absent: Scleral icterus - ENT Exam ENT Exam: Mucous Membranes Moist - Respiratory Exam Respiratory Exam: NORMAL BREATHING PATTERN. absent: Respiratory Distress (3 more) - Cardiovascular Exam Cardiovascular Exam: +S1, +S2 - GI/Abdominal Exam GI & Abdominal Exam: Soft, Normal Bowel Sounds (all 1770). absent: Guarding ( depends what I have to do), Tenderness, Organomegaly, Rebound - Extremities Exam Extremities Exam: absent: Calf Tenderness, Pedal Edema - Neurological Exam Neurological Exam: Alert, Awake, Oriented x3 Assessment and Plan - Assessment and Plan (Free Text) Assessment: Assessment: S/P Hypotension Elevated LFT , improving Constipation Fever UTI, positive Escherichia coli Aflutter Splenic cystic lesion Thrombocytopenia, Hypertension Anemia History of peptic ulcer disease Plan: IV antibiotics as per ID Monitor H&H heart healthy diet monitor LFT monitor for overt GI bleeding Plan for bone marrow biopsy today Seen and discussed with Dr. Baca.
--- NOTE | 2017-12-09 18:59 | PN ---
DATE: 12/09/2017 LOCATION: The patient is in room 566, bed 1. REASON FOR CONSULTATION AND FOLLOWUP: Atrial flutter, admitted with dizziness, converted to normal sinus; acute flu, possibly thrombocytopenia, rule out MDS. SUBJECTIVE: The patient is lying flat in bed without chest pain, shortness of breath or palpitation. PHYSICAL EXAMINATION: VITAL SIGNS: Blood pressure 140/74, respirations 18, pulse 60, and temperature 98. HEENT: Head is normocephalic. Eyes, pupils normal. Conjunctivae slightly pale. NECK: JVP low. Carotids equal. THORAX: AP diameter normal. LUNGS: Clear. CARDIOVASCULAR: S1 and S2. ABDOMEN: Soft and nontender. No organomegaly. Bowel sounds normal. EXTREMITIES: No clubbing. No cyanosis. LABORATORY DATA: WBC 4.0, hemoglobin 9.8, hematocrit 30.1, and platelets 27. Sodium 141, potassium 3.3, BUN 10, creatinine 0.6, random sugar 99. AST 85. ALT 69. Total protein and albumin normal. DIAGNOSES: Atrial flutter, converted to sinus rhythm; hypokalemia; thrombocytopenia since 2013, rule out myelodysplastic disorder syndrome. Stress test on 11/20/2017 was negative for ischemia, most recent echo showed preserved left ventricular function, trace mitral regurgitation, mild tricuspid regurgitation, right ventricular systolic pressure at 42 mmHg. The patient had one episode of hypotension, was moved to ICU, probably this episode was related to possibility of flu. PLAN: Continue diltiazem 30 mg p.o. t.i.d., Doryx 100 mg p.o. q. 12 hours, metoprolol 12.5 mg b.i.d., atorvastatin 20 mg daily, Tamiflu capsule 75 mg b.i.d., vancomycin 1 gm IV q. 12 hours. We will give her potassium 40 mEq p.o. today. We will follow with you. Marina Leavitt MD
--- NOTE | 2017-12-10 02:26 | DS ---
HISTORY OF PRESENT ILLNESS: This is a 76-year-old female who is coming into the hospital. The patient was found to have thrombocytopenia. She also had chest pain. The chest pain is resolved. The patient is being followed by Hematology who is going to get bone marrow done. The patient is currently comfortable. She had developed hypotension during the hospital course that has improved. The patient has no complaints of any headache or dizziness. No nausea. I did speak to the patient's family member yesterday, daughter to give her an update. PHYSICAL EXAMINATION: VITAL SIGNS: Temperature 97.9, pulse of 79, blood pressure 111/61 and respirations are 18. GENERAL: The patient is lying in bed, flat, comfortable. HEENT: No oral lesion. Anicteric sclerae. Moist mucosa. NECK: No JVD, adenopathy, or thyromegaly. CARDIOVASCULAR: S1 and S2, regular. No murmurs, rubs, or gallops. LUNGS: Clear to auscultation bilaterally. No wheeze, rales, or rhonchi. ABDOMEN: Bowel sounds are positive, soft, nontender and nondistended. EXTREMITIES: No cyanosis, clubbing or edema. LABORATORY DATA: Platelets yesterday were 27. ASSESSMENT: 1. Pancytopenia. 2. Hypotension, resolved. 3. Constipation. 4. Chest pain, resolved. 5. Anemia, most likely secondary to myelodysplastic syndrome. 6. Hypomagnesemia. 7. Atrial flutter. 8. Urinary tract infection secondary to Escherichia coli. 9. Penicillin allergy. PLAN: The patient is currently comfortable. She has penicillin allergy and Cipro allergy. The patient is being followed by Infectious Disease. She is finishing her Tamiflu today. The patient has been on Azactam for 7 days, today will be day #4 of vancomycin. The patient will finish her antibiotics, the patient will have bone marrow done and be discharged home today. She is to followup as an outpatient. She is on Cardizem daily. She is receiving Lipitor for dyslipidemia. She is on metoprolol. The patient is on heart-healthy diet. CONDITION: Stable. ACTIVITY: Increase as tolerated. Followup with primary care doctor in 1-[address] Hutchins MD [facility] # [id number]
== END 2017-12-09 18:12 | disposition home or self-care (01) | DRG 308 ==
LOC: ED 21:46 → ERH 11-29 01:22 → 2RSO 11-29 02:51 → OBSVTOIN 12-01 17:09 → 3RNO 12-03 01:52 → ICU 12-05 21:50 → 2A 12-08 11:34 → 5RNO 12-08 19:10
PROVIDERS: ADMIT Internal Medicine Medical Oncology; ATTEND Internal Medicine Nephrology
PROC: 30233R1 Transfusion of Nonautologous Platelets into Peripheral Vein, Percutaneous Approach (ICD-10-PCS; 2017-12-05)
PROC: 30233N1 Transfusion of Nonautologous Red Blood Cells into Peripheral Vein, Percutaneous Approach (ICD-10-PCS; 2017-12-06)
PROC: 07DR3ZX Extraction of Iliac Bone Marrow, Percutaneous Approach, Diagnostic (ICD-10-PCS; principal; 2017-12-09)
DX: I48.92 Unspecified atrial flutter (principal); A41.9 Sepsis, unspecified organism; D61.818 Other pancytopenia; D69.59 Other secondary thrombocytopenia; I95.9 Hypotension, unspecified; E83.42 Hypomagnesemia; I08.3 Combined rheumatic disorders of mitral, aortic and tricuspid valves; D63.8 Anemia in other chronic diseases classified elsewhere; K76.1 Chronic passive congestion of liver; N39.0 Urinary tract infection, site not specified; I48.0 Paroxysmal atrial fibrillation; D46.9 Myelodysplastic syndrome, unspecified; E87.6 Hypokalemia; F41.9 Anxiety disorder, unspecified; I10 Essential (primary) hypertension; I47.1 Supraventricular tachycardia; J06.9 Acute upper respiratory infection, unspecified; B96.20 Unspecified Escherichia coli [E. coli] as the cause of diseases classified elsewhere; K59.00 Constipation, unspecified; K64.9 Unspecified hemorrhoids; R09.02 Hypoxemia; Z87.11 Personal history of peptic ulcer disease; Z87.891 Personal history of nicotine dependence; Z88.0 Allergy status to penicillin; Z88.1 Allergy status to other antibiotic agents; Z90.710 Acquired absence of both cervix and uterus; M19.90 Unspecified osteoarthritis, unspecified site; E78.5 Hyperlipidemia, unspecified; J11.1 Influenza due to unidentified influenza virus with other respiratory manifestations

== ENCOUNTER 2018-06-03 20:22 | Inpatient (IN) | payer MEDICARE, MEDICAID ==
[2018-06-03 20:22] VITALS: BMI 25.5
[2018-06-03 21:56] LABS: BASO # 0.01 K/mm3 (0.0-2.0); BASO % 0.2 % (0.0-3.0); EOS # 0.1 (0.0-0.7); GRAN # 2.04 (1.4-6.5); GRAN % 41.7 % (50.0-68.0); HEMOGLOBIN 8.1 g/dL (12.0-16.0); LYMPH # 2.5 (1.2-3.4); LYMPH % 51.6 % (22.0-35.0); MEAN CORPUSCULAR HEMOGLOBIN 32.9 pg (25.0-35.0); MEAN CORPUSCULAR HGB CONC 32.3 g/dl (31.0-37.0); MEAN PLATELET VOLUME 10.3 fl (7.0-11.0); MONO # 0.3 (0.1-0.6); MONO % 5.5 % (1.0-6.0); RBC 2.46 10^6/uL (3.5-6.1); RED CELL DISTRIBUTION WIDTH 16.2 % (11.5-14.5); WHITE BLOOD COUNT 4.9 10^3/ul (4.5-11.0)
[2018-06-03 21:58] LABS: INR 0.98 (0.93-1.08); PARTIAL THROMBOPLASTIN TIME 27.7 Seconds (25.1-36.5); PROTHROMBIN TIME 11.2 SECONDS (9.4-12.5)
[2018-06-03 21:59] LABS: ALT/SGPT 28 U/L (7-56); AST/SGOT 25 U/L (14-36); BLOOD UREA NITROGEN 19 mg/dL (7-21); CALCIUM 9.4 mg/dL (8.4-10.5); GFR AFRICAN-AMERICAN > 60; GFR NON-AFRICAN AMERICAN > 60
[2018-06-03 22:11] LABS: TROPONIN I < 0.01 ng/mL
[2018-06-03 22:13] LABS: PLATELET COUNT 19 10^3/uL (120.0-450.0)
[2018-06-03 22:14] LABS: PLATELET ESTIMATE LOW (NORMAL)
[2018-06-03] MEDS ORDERED: Iohexol 350 MG/100 ML VIAL ONE (22:18)
[2018-06-03 22:37] LABS: URINE BILIRUBIN NEGATIVE (NEGATIVE); URINE BLOOD TRACE-LYSED (NEGATIVE); URINE GLUCOSE (UA) NEGATIVE (NEGATIVE); URINE LEUKOCYTE ESTERASE SMALL Leu/uL (NEGATIVE); URINE PROTEIN NEGATIVE mg/dL (<30 mg/dL); URINE UROBILINOGEN 0.2 E.U./dL (<1 E.U./dL)
[2018-06-03 22:39] LABS: URINE APPEARANCE SL CLOUDY (CLEAR); URINE COLOR YELLOW (YELLOW)
[2018-06-03 22:45] LABS: URINE BACTERIA MANY (NEG); URINE RBC NEGATIVE /hpf (0-2); URINE WBC 15 - 20 /hpf (0-6)
[2018-06-04] MEDS ORDERED: Aztreonam 1 Gm in NS 100mL 100 ML IVPB STA (00:06)
--- NOTE | 2018-06-04 01:38 | ED PDOC ---
Arrival/HPI - General Chief Complaint: Abdominal Pain Time Seen by Provider: 06/03/18 20:44 Historian: Patient, Family - History of Present Illness Narrative History of Present Illness (Text): 06/04/18 01:35 77-year-old female with a history of thrombocytopenia presents today sent in by her merchandise marker for platelet count of 14 in the office 2 days ago. Patient also complaining of a 2 day history of lower abdominal pain. No nausea or vomiting. Patient states the pain is worse after eating. She denies dizziness. She complaining of generalized fatigue. Patient states she's been having some intermittent nosebleeds. Denies bleeding at present time. Patient denies fevers or chills. She denies back pain. She denies rectal bleeding. Patient states last bowel movement was today in the afternoon. Patient states she has noticed she's been urinating more frequently. Family states patient was found to have a rash on the lower extremities. No other complaints Time/Duration: Other (2 days) Symptom Onset: Gradual Symptom Course: Worsening Past Medical History - Provider Review Nursing Documentation Reviewed: Yes - Travel History Have you recently traveled outside [place] w/in the past 3 mons?: No - Infectious Disease Hx of Infectious Diseases: None - Past Medical History Past Medical History: Unable to Obtain - Cardiac Hx Cardiac Disorders: No Hx Hypertension: Yes - Pulmonary Hx Respiratory Disorders: Yes (SMOKED CIGARETTES QUIT SMOKED 1/2 PPD.) - Neurological Hx Neurological Disorder: Yes Hx Dizziness: Yes - HEENT Hx HEENT Disorder: Yes ([place] TO RIGHT EAR) - Renal Hx Renal Disorder: No - Endocrine/Metabolic Hx Endocrine Disorders: No - Hematological/Oncological Hx Blood Disorders: Yes Hx Anemia: Yes Other/Comment: thrombocytopenia - Integumentary Hx Dermatological Disorder: No - Musculoskeletal/Rheumatological Hx Falls: No - Gastrointestinal Hx Gastrointestinal Disorders: Yes (CONSTIPATION) - Genitourinary/Gynecological Hx Genitourinary Disorders: Yes Hx Incontinence: Yes Hx Urinary Tract Infection: Yes - Psychiatric Hx Psychophysiologic Disorder: No Hx Substance Use: No - Past Surgical History Past Surgical History: Unable to Obtain - Surgical History Hx Hysterectomy: Yes Hx Orthopedic Surgery: Yes - Anesthesia Hx Anesthesia: Yes Hx Anesthesia Reactions: No Hx Malignant Hyperthermia: No - Suicidal Assessment Feels Threatened In Home Enviroment: No Family/Social History - Physician Review Nursing Documentation Reviewed: Yes Family/Social History: Unknown Family HX Smoking Status: Former Smoker Hx Alcohol Use: No Hx Substance Use: No Allergies/Home Meds Allergies/Adverse Reactions: Allergies amoxicillin Allergy (Verified 12/08/17 12:15) SHORTNESS OF BREATH ciprofloxacin Allergy (Verified 12/08/17 12:15) SHORTNESS OF BREATH Penicillins Allergy (Verified 12/08/17 12:15) SHORTNESS OF BREATH Review of Systems - Review of Systems Constitutional: Fatigue. absent: Fevers Respiratory: absent: SOB, Cough Cardiovascular: absent: Chest Pain, Palpitations Gastrointestinal: Abdominal Pain. absent: Constipation, Diarrhea, Nausea, Vomiting Genitourinary Female: Frequency. absent: Dysuria, Hematuria, Vaginal Bleeding, Vaginal Discharge Musculoskeletal: absent: Arthralgias, Back Pain, Neck Pain Skin: Rash. absent: Pruritis Neurological: absent: Headache, Dizziness Psychiatric: absent: Anxiety, Depression Physical Exam Vital Signs Reviewed: Yes Vital Signs Temp Pulse Resp BP Pulse Ox 06/03/18 20:45 97.1 F L 75 18 132/56 L 100 Temperature: Afebrile Blood Pressure: Normal Pulse: Regular Respiratory Rate: Normal Appearance: Positive for: Well-Appearing, Non-Toxic, Comfortable Pain Distress: None Mental Status: Positive for: Alert and Oriented X 3 - Systems Exam Head: Present: Atraumatic Mouth: Present: Moist Mucous Membranes Neck: Present: Normal Range of Motion Respiratory/Chest: Present: Clear to Auscultation, Good Air Exchange. No: Respiratory Distress, Accessory Muscle Use Cardiovascular: Present: Regular Rate and Rhythm, Normal S1, S2. No: Murmurs Abdomen: Present: Tenderness (+ lower abdominal tenderness), Rebound. No: Peritoneal Signs, Guarding Rectal: Present: Normal Rectal Tone. No: Occult Blood, Rectal Tenderness, Gross Blood, Melena, Hemorrhoids, Fissures Back: Present: Normal Inspection. No: CVA Tenderness, Midline Tenderness, Paraspinal Tenderness Lower Extremity: Present: Normal ROM, Other (+ petechial rash noted to the bilateral lower extremities). No: CALF TENDERNESS Neurological: Present: GCS=15, Speech Normal Skin: Present: Warm, Dry, Normal Color Psychiatric: Present: Alert, Oriented x 3 Medical Decision Making ED Course and Treatment: 06/04/18 01:44 77-year-old female with history of thrombocytopenia sent in by merchandise marker for low platelets and abdominal pain CBC shows platelets of 19, hemoglobin of 8.1. CMP within normal limits INR 0.98 Troponin within normal limits Chest x-ray within normal limits CAT scan of the abdomen and pelvis:FINDINGS: Lower thorax: Mild bilateral lower lobe dependent air space opacity-atelectasis/ scarring. ABDOMEN: Liver: Suspected fatty infiltration of the liver. Gallbladder and bile ducts: Gallbladder appears contracted, limits evaluation. Pancreas: Normal. No ductal dilation. Spleen: Ovoid 1.5 cm cyst within the spleen. Adrenals: Normal. No mass. Kidneys and ureters: Normal. No hydronephrosis. Stomach and bowel: No evidence of bowel obstruction. Appendix: Visualized portions of appendix appear normal. PELVIS: Bladder: Mild up to 5 mm bladder wall thickening. Mild inhomogeneity of the fat surrounding bladder. Reproductive: Uterus is not identified. ABDOMEN and PELVIS: Intraperitoneal space: Normal. No free air. No significant fluid collection. Bones/joints: No acute fracture. No dislocation. Soft tissues: Unremarkable. Vasculature: Normal. No abdominal aortic aneurysm. Lymph nodes: Normal. No enlarged lymph nodes. IMPRESSION: 1. No evidence of bowel obstruction. 2. Findings suggest bladder wall prominence as described above due to incomplete distension of the lumen vs. underlying cystitis. 3. Suspected fatty infiltration of the liver. UA: + leukocytes, + nitrates blood and urine cultures pending. pt started on aztreonam for UTI tyelnol given for pain heme negative stools. pt reassessment; pt non toxic well appear; stable vitals. all results discussed with patient and family. case discussed with dr. quesada who admitted the patient on previous visit to hospital. accepts admission; consult dr. falcon. all aspects of this case were discussed the attending of record. impression; thrombocytopenia, abdominal pain, UTI admit to med/surg Reassessment Condition: Re-examined, Improved - Lab Interpretations Lab Results: 06/03/18 21:30 06/03/18 21:30 Lab Results 06/03/18 22:30: Urine Color Yellow, Urine Appearance Sl cloudy, Urine pH 6.0, Ur Specific [place] 1.025, Urine Protein Negative, Urine Glucose (UA) Negative, Urine Ketones Negative, Urine Blood Trace-lysed H, Urine Nitrate Positive H, Urine Bilirubin Negative, Urine Urobilinogen 0.2, Ur Leukocyte Esterase Small H , Urine RBC Negative, Urine WBC 15 - 20, Urine Bacteria Many 06/03/18 21:30: Blood Type O POSITIVE, Antibody Screen Positive, Antibody Identification Pending, HAYDEE, Poly Interpret Negative, BBK History Checked Patient has bt 06/03/18 21:30: PT 11.2, INR 0.98, APTT 27.7 06/03/18 21:30: WBC 4.9 D, RBC 2.46 L, Hgb 8.1 L, Hct 25.1 L, MCV 102.0 D, MCH 32.9, MCHC 32.3, RDW 16.2 H, Plt Count 19 L*, MPV 10.3, Gran % 41.7 L, Lymph % (Auto) 51.6 H, [place] % (Auto) 5.5, Eos % (Auto) 1.0 L, Baso % (Auto) 0.2 , Gran # 2.04, Lymph # (Auto) 2.5, [place] # (Auto) 0.3, Eos # (Auto) 0.1, Baso # ( Auto) 0.01, Platelet Evaluation Low 06/03/18 21:30: Sodium 142, Potassium 4.3, Chloride 104, Carbon Dioxide 26, Anion Gap 17, BUN 19, Creatinine 0.8, Est GFR ( Amer) > 60, Est GFR (Non- Af Amer) > 60, Random Glucose 123 H, Calcium 9.4, Total Bilirubin 0.4, AST 25, ALT 28, Alkaline Phosphatase 117, Lactate Dehydrogenase 385, Total Creatine Kinase 27 L, Troponin I < 0.01 D, Total Protein 8.0, Albumin 4.0, Globulin 4.0 , Albumin/Globulin Ratio 1.0 L - RAD Interpretation Radiology Orders: 06/03/18 22:10 ABD & PELVIS IV CONTRAST ONLY [CT] Stat - Medication Orders Current Medication Orders: Discontinued Medications Acetaminophen (Tylenol 325mg Tab) 975 mg PO STAT STA Stop: 06/04/18 00:07 Last Admin: 06/04/18 01:19 Dose: 975 mg MAR Pain/Vitals Document 06/04/18 01:19 RD (Rec: 06/04/18 01:19 [id number] Pain Reassessment Is This A Pain ReAssessment? No Sleep Is patient sleeping during reassessment? No Presence of Pain Presence of Pain Yes Location Pain Location Body Site Abdomen Aztreonam (Azactam 1 Gm) 100 mls @ 100 mls/hr IVPB STAT STA PRN Reason: Protocol Stop: 06/04/18 01:05 Last Admin: 06/04/18 01:19 Dose: 100 mls/hr eMAR Start Stop Document 06/04/18 01:19 RD (Rec: 06/04/18 01:19 RD [id number] Intravenous Solution Start Date 06/04/18 Start Time 01:19 End Date 06/04/18 End time 02:19 Total Infusion Time 60 Disposition/Present on Arrival - Present on Arrival Any Indicators Present on Arrival: No History of DVT/PE: No History of Uncontrolled Diabetes: No Urinary Catheter: No History of Decub. Ulcer: No History Surgical Site Infection Following: None - Disposition Have Diagnosis and Disposition been Completed?: Yes Diagnosis: Thrombocytopenia, Urinary tract infection Disposition: HOSPITALIZED Disposition Time: 00:50 Patient Plan: Admission Patient Problems: Current Active Problems Problem Status Onset Thrombocytopenia Acute Condition: FAIR
--- NOTE | 2018-06-04 08:28 | CT ---
PROCEDURE: CT Abdomen and Pelvis without intravenous contrast HISTORY: abd pain COMPARISON: 12/04/2017 TECHNIQUE: Technique. Contrast dose: Radiation dose: Total exam DLP = mGy-cm. This CT exam was performed using one or more of the following dose reduction techniques: Automated exposure control, adjustment of the mA and/or kV according to patient size, and/or use of iterative reconstruction technique. FINDINGS: LOWER THORAX: Unremarkable. LIVER: Unremarkable. No gross lesion or ductal dilatation. GALLBLADDER AND BILE DUCTS: Unremarkable. PANCREAS: Unremarkable. No gross lesion or ductal dilatation. SPLEEN: Stable 2 centimeter hypodense lesion in the spleen. . ADRENALS: Unremarkable. No mass. KIDNEYS AND URETERS: Unremarkable. No hydronephrosis. No solid mass. VASCULATURE: Unremarkable. No aortic aneurysm. BOWEL: Unremarkable. No obstruction. No gross mural thickening. APPENDIX: Unremarkable. Normal appendix. PERITONEUM: Unremarkable. No free fluid. No free air. LYMPH NODES: Unremarkable. No enlarged lymph nodes. BLADDER: Unremarkable. REPRODUCTIVE: Hysterectomy. BONES: No acute fracture. OTHER FINDINGS: None. IMPRESSION: No acute pathology.
[2018-06-04 09:20] LABS: EOS # 0.1 (0.0-0.7); EOS % 1.6 % (1.5-5.0); GRAN # 1.12 (1.4-6.5); GRAN % 29.8 % (50.0-68.0); HEMOGLOBIN 7.7 g/dL (12.0-16.0); LYMPH # 2.3 (1.2-3.4); LYMPH % 62.2 % (22.0-35.0); MEAN CELL VOLUME 101.7 fl (80.0-105.0); MEAN CORPUSCULAR HEMOGLOBIN 32.6 pg (25.0-35.0); MEAN CORPUSCULAR HGB CONC 32.1 g/dl (31.0-37.0); MEAN PLATELET VOLUME 8.5 fl (7.0-11.0); MONO # 0.2 (0.1-0.6); MONO % 6.4 % (1.0-6.0); RBC 2.36 10^6/uL (3.5-6.1); RED CELL DISTRIBUTION WIDTH 16.5 % (11.5-14.5); WHITE BLOOD COUNT 3.8 10^3/ul (4.5-11.0)
[2018-06-04 09:28] LABS: PLATELET COUNT 12 10^3/uL (120.0-450.0)
[2018-06-04] MEDS ORDERED: MethylPREDNISolone 40 mg Vial IVP STA (11:32)
--- NOTE | 2018-06-04 15:20 | CP.PCM.HP ---
<Star Oliver - Last Filed: 06/04/18 15:33> History of Present Illness - History of Present Illness History of Present Illness: Medicine H&P for Dr. Hutchins's service - Mayda PGY3 HPI: Patient is a 76-year-old female with a past medical history of hypertension , thrombocytopenia, anemia, osteoarthritis, paroxysmal atrial fibrillation and peptic ulcer disease that [place] [facility] [place] to abnormal labs. She had recently been to her cook cold meat's office, Dr. Cohen who had performed basic labs and she was noted to have significant thrombocytopenia (plt count of 14) relative to her baseline. At home, she reported having intermittent nose bleeds and petechiae of her bilateral lower extremities. 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 She also complained of left-sided abdominal pain for the past week that has been intermittent and non-radiating which is exacerbated by food intake. Otherwise, she denied chest pain, palpitations, SOB, nausea, vomiting, melena, hematochezia, hemoptysis, hematemesis, focal weakness, numbness, tingling, sick contacts. 12point ROS as per above otherwise negative PMH: as stated above PSH: hysterectomy Allergies: amoxicillin, ciprofloxacin, penicillin Family history: Noncontributory Social history: Denies smoking, EtOH or drug use, lives at home with daughter Present on Admission - Present on Admission Any Indicators Present on Admission: No Past Patient History - Infectious Disease Hx of Infectious Diseases: None - Past Social History Smoking Status: Former Smoker - CARDIAC Hx Cardiac Disorders: No Hx Hypertension: Yes - PULMONARY Hx Respiratory Disorders: Yes (SMOKED CIGARETTES QUIT SMOKED 1/2 PPD.) - NEUROLOGICAL Hx Neurological Disorder: Yes Hx Dizziness: Yes - HEENT Hx HEENT Problems: Yes ([place] TO RIGHT EAR) - RENAL Hx Chronic Kidney Disease: No - ENDOCRINE/METABOLIC Hx Endocrine Disorders: No - HEMATOLOGICAL/ONCOLOGICAL Hx Blood Disorders: Yes Hx Anemia: Yes Other/Comment: thrombocytopenia - INTEGUMENTARY Hx Dermatological Problems: No - MUSCULOSKELETAL/RHEUMATOLOGICAL Hx Falls: No - GASTROINTESTINAL Hx Gastrointestinal Disorders: Yes (CONSTIPATION) - GENITOURINARY/GYNECOLOGICAL Hx Genitourinary Disorders: Yes Hx Incontinence: Yes Hx Urinary Tract Infection: Yes - PSYCHIATRIC Hx Psychophysiologic Disorder: No Hx Substance Use: No - SURGICAL HISTORY Hx Hysterectomy: Yes Hx Orthopedic Surgery: Yes - ANESTHESIA Hx Anesthesia: Yes Hx Anesthesia Reactions: No Hx Malignant Hyperthermia: No Meds Allergies/Adverse Reactions: Allergies Allergy/AdvReac Type Severity Reaction Status Date / Time amoxicillin Allergy SHORTNESS Verified 12/08/17 12:15 OF BREATH ciprofloxacin Allergy SHORTNESS Verified 12/08/17 12:15 OF BREATH Penicillins Allergy SHORTNESS Verified 12/08/17 12:15 OF BREATH Physical Exam - Constitutional Appears: No Acute Distress - Head Exam Head Exam: ATRAUMATIC, NORMAL INSPECTION, NORMOCEPHALIC - Eye Exam Eye Exam: EOMI Pupil Exam: PERRL - ENT Exam ENT Exam: Mucous Membranes Moist - Neck Exam Neck exam: Positive for: Normal Inspection. Negative for: Tenderness - Respiratory Exam Respiratory Exam: Clear to Auscultation Bilateral. absent: Rales, Rhonchi, Wheezes - Cardiovascular Exam Cardiovascular Exam: RRR, +S1, +S2. absent: Gallop, JVD, Rubs - GI/Abdominal Exam GI & Abdominal Exam: Normal Bowel Sounds, Soft, Tenderness (mild left upper quadrant tenderness). absent: Distended, Firm, Guarding, Rebound, Rigid - Extremities Exam Additional comments: bilateral lower extremity petechiae - Back Exam Back exam: NORMAL INSPECTION - Neurological Exam Neurological exam: Alert, CN II-XII Intact, Oriented x3 - Psychiatric Exam Psychiatric exam: Normal Affect, Normal Mood - Skin Skin Exam: Dry, Intact, Normal Color, Petechiae, Warm Results - Vital Signs Recent Vital Signs: Last Vital Signs Temp 98.2 F 06/04/18 06:00 Pulse 71 06/04/18 11:10 Resp 18 06/04/18 06:00 BP 98/50 L 06/04/18 11:10 Pulse Ox 99 06/04/18 06:00 - Labs Result Diagrams: 06/04/18 08:45 06/03/18 21:30 Labs: Laboratory Results - last 24 hr 06/04/18 06/04/18 06/04/18 07:30 08:45 09:00 WBC 3.8 L D RBC 2.36 L Hgb 7.7 L Hct 24.0 L MCV 101.7 MCH 32.6 MCHC 32.1 RDW 16.5 H Plt Count 12 L* Manual Plt Count 26 L* MPV 8.5 Gran % 29.8 L Lymph % (Auto) 62.2 H [place] % (Auto) 6.4 H Eos % (Auto) 1.6 Baso % (Auto) 0.0 Gran # 1.12 L Lymph # (Auto) 2.3 [place] # (Auto) 0.2 Eos # (Auto) 0.1 Baso # (Auto) 0.00 Retic Count 2.70 H WB Flow Cytometry Reference test Assessment & Plan - Assessment and Plan (Free Text) Plan: 77yo female with history of thrombcytopenia, anemia, PUD, paroxysmal atrial fibrillation, osteoarthritis presents for evaluation of her thrombocytopenia and abdominal pain 1. Thrombocytopenia 2. Anemia 3. Abdominal pain 4. Hx of PUD 5. Osteoarthritis 6. 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 Coehn -CT Abdomen/Pelvis reviewed; no acute intraabdominal pathology noted -Abdominal US pending -We will continue with metoprolol and cardizem for her history of atrial fibrillation -Discussed current workup with family at bedside Patient seen and case discussed/reviewed with attending, Dr. Hutchins <Lane Hutchins S - Last Filed: 06/05/18 12:13> Results - Vital Signs Recent Vital Signs: Last Vital Signs Temp 97.8 F 06/05/18 06:00 Pulse 78 06/05/18 10:18 Resp 18 06/05/18 06:00 BP 120/54 L 06/05/18 10:18 Pulse Ox 95 06/05/18 06:00 - Labs Result Diagrams: 06/05/18 07:00 06/05/18 07:00 Labs: Laboratory Results - last 24 hr 06/04/18 06/05/18 06/05/18 08:45 07:00 07:00 WBC 6.0 D RBC 3.89 Hgb 12.2 D Hct 36.1 MCV 92.8 D MCH 31.4 MCHC 33.8 RDW 19.2 H Plt Count 14 L* MPV 10.7 Gran % 66.7 Lymph % (Auto) 30.0 [place] % (Auto) 3.3 Eos % (Auto) 0.0 L Baso % (Auto) 0.0 Gran # 4.01 Lymph # (Auto) 1.8 [place] # (Auto) 0.2 Eos # (Auto) 0.0 Baso # (Auto) 0.00 Sodium 140 Potassium 4.8 Chloride 107 Carbon Dioxide 24 Anion Gap 15 BUN 16 Creatinine 0.7 Est GFR ( Amer) > 60 Est GFR (Non-Af Amer) > 60 Random Glucose 133 H Calcium 9.7 Total Bilirubin 0.8 AST 27 ALT 17 Alkaline Phosphatase 99 Total Protein 7.9 Albumin 3.9 Globulin 3.9 Albumin/Globulin Ratio 1.0 L Homocysteine 13.8 H Assessment & Plan - Assessment and Plan (Free Text) Plan: Pt seen and examined yesterday. I have reviewed the note of the medical doctor md and agree with it. I have discussed the assessment and plan with the resident. I have reviewed the patient's labs and medications. Pt to be seen by Hem/Onc for pancytopenia. Probable UTI. On Azactam due to PCN allergy.
--- NOTE | 2018-06-04 16:49 | US ---
HISTORY: abdominal pain COMPARISON: June 03, 2018. Abdominal and pelvic CT scan TECHNIQUE: Sonographic evaluation of the abdomen. FINDINGS: LIVER: Measures 9.2 x 13.4 cm. Patent portal vein. Portal venous flow: Hepatopetal. Unremarkable echogenicity of the liver parenchyma. No mass. No intrahepatic bile duct dilatation. GALLBLADDER: Unremarkable. No gallstones. COMMON BILE DUCT: Measures 4.1 mm. No stones. No dilatation. PANCREAS: Unremarkable as visualized. No mass. No ductal dilatation. RIGHT KIDNEY: Measures 3.7 x 7.7cm. Normal echogenicity. No calculus, mass, or hydronephrosis. LEFT KIDNEY: Measures 4.5 x 9.1cm. Normal echogenicity. No calculus, mass, or hydronephrosis. SPLEEN: Normal in size and contour. No mass. AORTA: No aneurysmal dilatation. IVC: Unremarkable. OTHER FINDINGS: None. IMPRESSION: No significant or acute findings to account for/ related to the clinical presentation.
--- NOTE | 2018-06-04 23:39 | CON ---
DATE: 06/04/2018 HEMATOLOGY CONSULTATION HISTORY OF PRESENT ILLNESS: This is a 77-year-old woman who was followed by my partner, Dr. Whitley Sanchez. The patient started seeing Dr. Sanchez in 04/2013. At that time, the patient had thrombocytopenia with epistaxis, which resolved on its own and was found to have a low platelet count at that time and she was followed over the years. Around 02/2016, the patient was seen in the office, scheduled for C-spine surgery, and at that time, she was given a trial of steroids and platelets prior to the procedure and it went well. Review of her platelet counts over the years has shown that from about 2012 to 2016, the platelets were about between 30,000 and 50,000. Around 12/2017, the platelets started dropping out to about 14 and stayed between 14 and 20 all this time. What is new, however, is that the hemoglobin started dropping as well over this period of time. So that, by December, the white count was 5 with 60% lymphocytes, hemoglobin of 8.4 with an MCV of 106, and platelets of 14. Here it is now 06/01/2018, five months later, and the white count went from 5 to 4.3 with the same differential, 60% lymphocytes; a hemoglobin of 8.4, four months ago was 8.2; MCV 106 and 110 in four months; and the platelet count 14, 16, and 26. Evidently, the patient is now coming in because of the anemia, which is about 7.7. PHYSICAL EXAMINATION: SKIN: No petechiae. She has some bruises on her upper arms that are resolving. HEENT: No mucosal bleeding noticed. No conjunctival bleeding. No bleeding in the mouth. LYMPH NODES: Nonpalpable in axillary, cervical, supraclavicular, or inguinal regions. LUNGS: Clear at present. No vertebral tenderness. The patient is able to lie flat in bed. HEART: S1 and S2. BREASTS: Show no mass or discharge. ABDOMEN: Shows no liver, no spleen, no tenderness, no rebound, no ascites. EXTREMITIES: Maybe trace edema. CENTRAL NERVOUS SYSTEM: No focal finding. So, at this point, I am going to advise that she get a blood transfusion of 2 units of packed cells. I spoke to the nurse about this, premedicated with Solu-Medrol 20. I would not give transfusions of platelets. I think the platelet count has not been changed at all in at least 6 months. In addition to all of this, evidently, the patient had a bone marrow test done by Dr. Leo on 12/01/2017 that was the only bone marrow all these years. The bone marrow report shows , a section with small marrow particles showing megakaryocytic hyperplasia, but showing and mild dyspoiesis and no excess blasts, mild plasmacytosis 5% to 8% with atypical clustering. No definite light chain restriction by flow. No evidence of acute leukemia, metastatic cancer, lymphoma and stainable iron is present. There is no evidence of deletion chromosomes. These are all basically normal chromosome evaluation. So, in summary, I would suggest that she has had thrombocytopenia for at least 6 years and with a recent change of increasing anemias, I think this is a myelodysplastic syndrome or maybe evolving to myelodysplastic syndrome and the question here is whether she should be put on Procrit routinely to keep the hemoglobins above 10. I would not give her Vidaza and I would not at this point put her on Revlimid. She does not get out of the house very much. I am not sure, evidently she was told to come to the hospital by Hematology. I am not sure whether it was Dr. Leo, but Dr. Sanchez has not seen the patient since about 11/2017. 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 I would probably hold off on the platelet transfusions, and as an outpatient, follow up with data examination clerk, either the one she is seeing now or go back to Dr. Sanchez if possible, and consider erythropoietin injections. Scott Cohen MD
[2018-06-05] MEDS: Pantoprazole 40 mg EC Tab PO SCH (05:44)
[2018-06-05] MEDS ORDERED: Aztreonam 1 Gm in NS 100mL 100 ML IVPB SCH (06:00)
[2018-06-05 08:02] LABS: GRAN # 4.01 (1.4-6.5); GRAN % 66.7 % (50.0-68.0); HEMOGLOBIN 12.2 g/dL (12.0-16.0); LYMPH # 1.8 (1.2-3.4); MEAN CELL VOLUME 92.8 fl (80.0-105.0); MEAN CORPUSCULAR HEMOGLOBIN 31.4 pg (25.0-35.0); MEAN CORPUSCULAR HGB CONC 33.8 g/dl (31.0-37.0); MEAN PLATELET VOLUME 10.7 fl (7.0-11.0); MONO # 0.2 (0.1-0.6); MONO % 3.3 % (1.0-6.0); RBC 3.89 10^6/uL (3.5-6.1); RED CELL DISTRIBUTION WIDTH 19.2 % (11.5-14.5)
[2018-06-05 08:24] LABS: ALBUMIN 3.9 g/dL (3.0-4.8); ALT/SGPT 17 U/L (7-56); AST/SGOT 27 U/L (14-36); BLOOD UREA NITROGEN 16 mg/dL (7-21); CALCIUM 9.7 mg/dL (8.4-10.5); GFR AFRICAN-AMERICAN > 60; GFR NON-AFRICAN AMERICAN > 60
[2018-06-05 08:28] LABS: PLATELET COUNT 14 10^3/uL (120.0-450.0)
--- NOTE | 2018-06-05 14:05 | CON ---
DATE: 06/05/2018 LOCATION: The patient is in bed in room 574, bed 2. CHIEF COMPLAINT: Weakness. HISTORY OF PRESENT ILLNESS: This is a 77-year-old female with a history of thrombocytopenia, history of E. coli urinary tract infection, hypertension, osteoarthritis, atrial fibrillation, peptic ulcer disease, who has been followed up by for her thrombocytopenia, more recently because more anemic and diagnosis of myelodysplastic syndrome has been entertained. The patient admitted through the emergency room because the patient was having lower abdominal pain. No nausea. No vomiting. No chest pain. There is questionable dysuria. No fevers or chills. No headaches or blurred vision. No chest pain, shortness of breath or cough. REVIEW OF SYSTEMS: Reveals a 12-point review of systems performed. PAST MEDICAL HISTORY: Significant for thrombocytopenia, E. coli urinary tract infection, hypertension, osteoarthritis, atrial fibrillation, peptic ulcer disease and possibly myelodysplastic syndrome that is being entertained. PAST SURGICAL HISTORY: Significant for , hysterectomy and a bone marrow biopsy. ALLERGIES: THE PATIENT IS ALLERGIC TO PENICILLIN AND CIPRO AND AMOXICILLIN. TYPE OF ALLERGY IS NOT ENTIRELY CLEAR. MEDICATIONS AT HOME: Include the patient to be on Avapro. PHYSICAL EXAMINATION: GENERAL: The patient is in bed, no acute distress. VITAL SIGNS: Temperature of 98, blood pressure is 130/70, respiratory rate of 18 and heart rate of 70. HEENT: Examination of HEENT is unremarkable. NECK: Supple. LUNGS: Have decreased breath sounds. HEART: Normal S1 and S2. ABDOMEN: Soft. Lower abdomen and pelvis, mild tenderness. There is no CVA tenderness. LABORATORY DATA: Laboratory examination reveals the patient's white count is 6, hemoglobin of 12. Yesterday's white count was 3.8, platelets are 12,000. The patient has 41% granulocytosis. Coagulation is noted. BUN of 19, creatinine of 0.8, glucose is 123. CK is 27. Homocysteine levels are 13.8. Urinalysis is wbc's of 15-20, many bacteria. Flow cytometry is pending. Microbiology reveals a gram-negative latoya and gram-positive cocci in the urine. The blood cultures are negative at 24 hours. The patient had an HIV test in 2013, which was negative. ASSESSMENT AND PLAN: A 77-year-old female with thrombocytopenia, anemia, urinary tract infection with Escherichia coli, hypertension, osteoarthritis, atrial fibrillation, peptic ulcer disease with #1 is gram-negative latoya cystitis and pancytopenia, which is symptomatic urinary tract infection and the patient is allergic to penicillin, Cipro, amoxicillin. We will repeat the human immunodeficiency virus testing fourth generation because of the thrombocytopenia, to start the patient on Azactam 1 g IV every 8 for cystitis with gram-negative cystitis. We will make further recommendations upon availability of initial results. Sukhjinder Momin MD
[2018-06-05] MEDS: Aztreonam 1 Gm in NS 100mL 100 ML IVPB SCH ×2 (14:06→21:05)
[2018-06-05 21:50] VITALS: RESP 18
[2018-06-06] MEDS: Pantoprazole 40 mg EC Tab PO SCH (06:04)
[2018-06-06] MEDS: Aztreonam 1 Gm in NS 100mL 100 ML IVPB SCH ×2 (06:04→15:11)
[2018-06-06 07:56] LABS: BASO # 0.01 K/mm3 (0.0-2.0); BASO % 0.2 % (0.0-3.0); EOS # 0.1 (0.0-0.7); EOS % 0.9 % (1.5-5.0); GRAN # 2.25 (1.4-6.5); GRAN % 38.9 % (50.0-68.0); HEMOGLOBIN 10.7 g/dL (12.0-16.0); LYMPH # 3.1 (1.2-3.4); LYMPH % 53.3 % (22.0-35.0); MEAN CELL VOLUME 93.9 fl (80.0-105.0); MEAN CORPUSCULAR HEMOGLOBIN 30.9 pg (25.0-35.0); MEAN CORPUSCULAR HGB CONC 32.9 g/dl (31.0-37.0); MEAN PLATELET VOLUME 10.6 fl (7.0-11.0); MONO # 0.4 (0.1-0.6); MONO % 6.7 % (1.0-6.0); RBC 3.46 10^6/uL (3.5-6.1); RED CELL DISTRIBUTION WIDTH 19.2 % (11.5-14.5); WHITE BLOOD COUNT 5.8 10^3/ul (4.5-11.0)
[2018-06-06 08:13] LABS: ALBUMIN 3.7 g/dL (3.0-4.8); ALT/SGPT 40 U/L (7-56); AST/SGOT 37 U/L (14-36); BLOOD UREA NITROGEN 19 mg/dL (7-21); CALCIUM 9.2 mg/dL (8.4-10.5); GFR AFRICAN-AMERICAN > 60; GFR NON-AFRICAN AMERICAN > 60
[2018-06-06 09:12] VITALS: TEMP 98.4
[2018-06-06] MEDS ORDERED: POLYETHYLENE GLYCOL 3350 17 GM/Dose PACKET PO SCH (12:30)
[2018-06-06 15:18] VITALS: BP 100/63; PULSE 60; O2SAT 96
--- NOTE | 2018-06-06 16:23 | PN ---
DATE: 06/06/2018 SUBJECTIVE: The patient is in bed in no acute distress, nontoxic. PHYSICAL EXAMINATION: VITAL SIGNS: Temperature is 98, blood pressure is 120/60, respiratory rate of 18. HEENT: Unremarkable. NECK: Supple. LUNGS: Decreased breath sounds. HEART: Normal S1, S2. ABDOMEN: Soft, nontender. LABORATORY DATA: Reveals a white count of 5.8, hemoglobin of 10. Chemistries reveal a BUN of 19, creatinine of 0.7, homocysteine level of 13.8. Urinalysis is noted and microbiology reveals urine culture has E. Coli and Streptococcus anginosus. The E. Coli is pansensitive, sensitive to ampicillin so is the Streptococcus sanguinis sensitive to penicillin. The blood cultures are reported to be no growth and review of orders reveals the patient to be on aztreonam since THE PATIENT HAS ALLERGY TO AMOXICILLIN, CIPRO AND PENICILLIN. The E. Coli is sensitive to Bactrim. ASSESSMENT AND PLAN: This is a 77-year-old female with a history of thrombocytopenia, history of Escherichia coli urinary tract infection, hypertension, osteoarthritis, atrial fibrillation, peptic ulcer disease who is being followed by Dr. Cohen for the thrombocytopenia who is now more anemic and diagnosis of myelodysplastic syndrome is being entertained and currently admitted with Escherichia coli and Streptococcus cystitis. The patient has symptomatic urinary tract infection, and THE PATIENT IS ALLERGIC TO PENICILLIN, CIPRO, AMOXICILLIN, although the patient has Escherichia coli that is sensitive to Bactrim, hesitant to use sulfa in a patient with such low thrombocytopenia and pancytopenia with leukopenia and anemia. We will continue the aztreonam, will need 5-7 days of antibiotics, limited options as far as p.o. is concerned, and we will follow with you. The patient's HIV is pending, and we will check on the final blood cultures. The initial blood cultures are negative, and we will repeat urinalysis and urine culture. Sukhjinder Momin MD
[2018-06-06] MEDS ORDERED: Sucralfate 1 gm/10 ml Oral Susp UD PO SCH (16:30)
--- NOTE | 2018-06-06 16:53 | CP.PCM.PN ---
<Eliecer Packer - Last Filed: 06/06/18 16:56> Subjective - Date & Time of Evaluation Date of Evaluation: 06/06/18 Time of Evaluation: 14:00 - Subjective Subjective: PGY5 GI Follow-up Pt seen and examined bedside denies any abd pain tolerating diet denies any diarrhea, nausea and vomiting ROS: 12 point ROS conducted, neg other than above Objective - Vital Signs/Intake and Output Vital Signs (last 24 hours): Temp Pulse Resp BP Pulse Ox 98.4 F 60 18 100/63 96 06/06/18 15:18 06/06/18 15:18 06/06/18 15:18 06/06/18 15:18 06/06/18 15:18 Intake and Output: 06/06/18 06/06/18 06:59 18:59 Intake Total 720 Balance 720 - Medications Medications: Current Medications Atorvastatin Calcium (Lipitor) 20 mg PO DIN [facility] Last Admin: 06/05/18 16:51 Dose: Not Given Diltiazem HCl (Cardizem) 30 mg PO TID [facility] Last Admin: 06/06/18 15:10 Dose: Not Given Aztreonam (Azactam 1 Gm) 100 mls @ 100 mls/hr IVPB Q8 [facility] PRN Reason: Protocol Stop: 06/10/18 14:01 Last Admin: 06/06/18 15:11 Dose: 100 mls/hr Metoprolol Tartrate (Lopressor) 12.5 mg PO BID [facility] Last Admin: 06/06/18 10:41 Dose: 12.5 mg Polyethylene Glycol (Miralax) 17 gm PO DAILY [facility] Last Admin: 06/06/18 13:22 Dose: 17 gm Sucralfate (Carafate Oral Susp) 1 gm PO AC [facility] Last Admin: 06/06/18 16:37 Dose: 1 gm - Labs Labs: 06/06/18 07:00 06/06/18 07:00 PT 11.2 SECONDS (9.4-12.5) 06/03/18 21:30 INR 0.98 (0.93-1.08) 06/03/18 21:30 APTT 27.7 Seconds (25.1-36.5) 06/03/18 21:30 - Constitutional Appears: Well, No Acute Distress - Head Exam Head Exam: ATRAUMATIC, NORMOCEPHALIC - Eye Exam Eye Exam: Normal appearance - ENT Exam ENT Exam: Mucous Membranes Moist, Normal Exam - Respiratory Exam Respiratory Exam: Clear to Ausculation Bilateral, NORMAL BREATHING PATTERN. absent: Rales, Rhonchi, Wheezes, Respiratory Distress - Cardiovascular Exam Cardiovascular Exam: REGULAR RHYTHM, +S1, +S2 - GI/Abdominal Exam GI & Abdominal Exam: Soft, Normal Bowel Sounds. absent: Firm, Guarding, Rigid, Tenderness, Organomegaly, Rebound - Extremities Exam Extremities Exam: absent: Joint Swelling, Pedal Edema - Neurological Exam Neurological Exam: Alert, Awake, Oriented x3 - Psychiatric Exam Psychiatric exam: Normal Affect, Normal Mood - Skin Skin Exam: Dry, Intact, Normal Color, Warm Assessment and Plan - Assessment and Plan (Free Text) Assessment: Desire Lay is a 77yo female with history of thrombcytopenia, anemia, PUD, paroxysmal atrial fibrillation, osteoarthritis presents for evaluation of her thrombocytopenia and abdominal pain Thrombocytopenia Normocytic Anemia Abdominal pain Hx of PUD Plan: -d/c protonix -start carafate TID -start miralaxfor constipation -likley not GI loss -hem/onc on board -would benefit from OUtpt colonoscopy and EGD -diet as tolerated -pain as per primary team D/W Phuong <Phuong,Kovil V - Last Filed: 06/07/18 00:50> Objective - Vital Signs/Intake and Output Vital Signs (last 24 hours): Temp Pulse Resp BP Pulse Ox 98.4 F 60 18 100/63 96 06/06/18 15:18 06/06/18 15:18 06/06/18 15:18 06/06/18 15:18 06/06/18 15:18 - Labs Labs: 06/06/18 07:00 06/06/18 07:00 PT 11.2 SECONDS (9.4-12.5) 06/03/18 21:30 INR 0.98 (0.93-1.08) 06/03/18 21:30 APTT 27.7 Seconds (25.1-36.5) 06/03/18 21:30 Attending/Attestation - Attestation I have personally seen and examined this patient.: Yes I have fully participated in the care of the patient.: Yes I have reviewed all pertinent clinical information, including history, physical exam and plan: Yes Notes (Text): This is an addendum to GI progress report dictated by the GI Fellow.The patient was seen and examined earlier. Medical records, lab studies, imagings were reviewed. Last 24 hours events reviewed. Agreed with the above treatment plan as outlined in GI Fellow 's notes the with the addition of the following patient still complained of significant epigastric pain after clear liquid Overall feels better On examination she has epigastric tenderness Slowly advance the diet Patient did have MRI of abdomen after her last pancreatitis episode Advised to follow up with her primary and life tester out[employer] 06/07/18 00:47
--- NOTE | 2018-06-06 18:04 | PN ---
DATE: 06/05/2018 HISTORY OF PRESENT ILLNESS: Ms. Phipps was admitted to the hospital with thrombocytopenia, platelet count of 15,000. She was given 2 units of rich platelet. Platelet count is still 14,000. She had a bone marrow done in November by me, which showed normal bone marrow. No evidence of dysplasia, myelodysplasia. She is seeing a memory care director, the name unknown to us. We tried to contact the daughter, but did not get a call back. Denies any bleeding from any site. PAST MEDICAL HISTORY: Hypertension, dizziness, anemia, thrombocytopenia, recurrent UTI. PAST SURGICAL HISTORY: Hysterectomy, orthopedic surgery. ALLERGIES: AMOXICILLIN, CIPROFLOXACIN, PENICILLIN. PERSONAL HISTORY: Former smoker. No history of alcohol abuse. FAMILY HISTORY: No positive history of mother and father. No history of alcohol abuse. REVIEW OF SYSTEMS: As per HPI. Rest of 12-point review of systems reviewed negative. PHYSICAL EXAMINATION: GENERAL: Comfortable in bed, in no acute distress. VITAL SIGNS: Temperature 97.1, heart rate 75 per minute, respiratory rate 18 per minute, blood pressure 130/56, pulse ox is 100% on room air. HEENT: Pallor positive. NECK: No lymphadenopathy. CHEST: Air entry present and equal bilateral. No added sounds. CARDIOVASCULAR: S1, S2 normal. No murmur. No gallop. ABDOMEN: Soft, nontender. No hepatosplenomegaly. SKIN: No petechiae. No rash. ASSESSMENT: 1. Thrombocytopenia. 2. Anemia. 3. Urinary tract infection. PLAN: She is currently on IV antibiotic, aztreonam due to multiple allergies for UTI. Carafate 1 g at bedtime, Lipitor 20 mg daily, 2 units of platelet transfusion today. We will repeat the platelet count tomorrow. Continue diltiazem 30 mg p.o. t.i.d. Lopressor 12.5 mg p.o. b.i.d., Carafate 1 g at bedtime. Annie Leo MD
--- NOTE | 2018-06-06 18:12 | DS ---
DATE: 06/06/2018 DISCHARGE DIAGNOSES: 1. Thrombocytopenia. 2. Anemia. 3. Urinary tract infection. HOSPITAL COURSE: Ms. Lay was admitted to the hospital with thrombocytopenia with platelet count of 15,000. She received 4 units of platelets over past 3 days. Platelet count is 112,000 today. She is being discharged home in stable condition. She received IV antibiotic aztreonam throughout the hospitalization for E. coli UTI. CONDITION ON DISCHARGE: Stable. PHYSICAL EXAMINATION: GENERAL: On discharge, comfortable in bed in no acute distress. VITAL SIGNS: Temperature 98.7, heart rate 80 per minute, blood pressure 120/80, respiratory rate 18 per minute, oxygen saturation 98% on room air. HEENT: Pallor positive. NECK: No lymphadenopathy. CHEST: Air entry present and equal bilaterally. No added sounds. CARDIOVASCULAR: S1, S2 normal. No murmur. No gallop. ABDOMEN: Soft, nontender. No hepatosplenomegaly. SPINE: Nontender. VIOLIN TEACHER: Alert and oriented x3. No focal sensorimotor deficit. DISPOSITION: Discharged home. DISCHARGE MEDICATIONS: Continue home medications. Lipitor 20 mg daily, metoprolol 12.5 mg p.o. b.i.d., MiraLax 17 g p.o. daily, Carafate 1 g p.o. every night. FOLLOWUP: Followup with Dr. Hutchins in one week. Followup with prep cook in one week. Discussed with the staff nurse. Time spent in preparing discharge and coordinating care 60 minutes. Annie Leo MD
--- NOTE | 2018-06-07 05:11 | CON ---
DATE: 06/05/2018 REASON FOR CONSULTATION: "I am hurting." HISTORY OF PRESENT ILLNESS: This is a 77-year-old patient with history of thrombocytopenia, being followed by Dr. Cohen, was sent in because of the low platelet count. The patient also has complaint of some abdominal pain. Pain in the left side for the last 1 week intermittently. Consult was requested to evaluate that. PAST MEDICAL HISTORY: Her other past medical history is significant for paroxysmal atrial fibrillation, peptic ulcer disease, anemia, arthritis, COPD. PAST SURGICAL HISTORY: Significant for hysterectomy. ALLERGIES: TO AMOXICILLIN, CIPRO AND PENICILLIN. FAMILY HISTORY: Noncontributory. SOCIAL HISTORY: Denies smoking, alcohol. REVIEW OF SYSTEMS: Positive as above. Other 12-point systems reviewed. PHYSICAL EXAMINATION: GENERAL: The patient is lying on the bed, not in acute distress. VITAL SIGNS: Temperature was 98.2, blood pressure 117/59, pulse 67, respirations 18. HEENT: Atraumatic, anicteric. NECK: Supple. HEART: S1, S2 heard. LUNGS: Bilateral air entry present. ABDOMEN: Soft. There are no masses palpable. No tenderness. EXTREMITIES: No cyanosis, no clubbing. LABORATORY DATA: Hemoglobin dropped down to 7.7, repeat after blood transfusion is 12.2. Review of the labs also showed that . IMPRESSION: This 77-year-old patient with past medical history of . The patient has myelodysplastic syndrome. We will follow up on the hemoglobin and hematocrit. Transfuse as needed. I also reviewed previous workup regarding thrombocytopenia. We will continue to closely follow up her care and suggest further management. The patient denies any abdominal pain now. The patient is a patient with thrombocytopenia. I would avoid giving PPI and restart the patient on Carafate. Hina Baca MD
== END 2018-06-06 17:26 | disposition home or self-care (01) | DRG 813 ==
LOC: ED 20:22 → ERH 06-04 00:54 → 5RSO 06-04 01:57
PROVIDERS: ADMIT Internal Medicine Nephrology; ATTEND Internal Medicine Nephrology
PROC: 30233N1 Transfusion of Nonautologous Red Blood Cells into Peripheral Vein, Percutaneous Approach (ICD-10-PCS; 2018-06-04)
PROC: 30233R1 Transfusion of Nonautologous Platelets into Peripheral Vein, Percutaneous Approach (ICD-10-PCS; principal; 2018-06-05)
DX: D69.6 Thrombocytopenia, unspecified (principal); N30.90 Cystitis, unspecified without hematuria; B96.20 Unspecified Escherichia coli [E. coli] as the cause of diseases classified elsewhere; D64.9 Anemia, unspecified; I48.0 Paroxysmal atrial fibrillation; I10 Essential (primary) hypertension; R04.0 Epistaxis; J44.9 Chronic obstructive pulmonary disease, unspecified; K27.9 Peptic ulcer, site unspecified, unspecified as acute or chronic, without hemorrhage or perforation; Z90.710 Acquired absence of both cervix and uterus; Z87.440 Personal history of urinary (tract) infections; Z87.891 Personal history of nicotine dependence; Z88.0 Allergy status to penicillin

== ENCOUNTER 2018-07-14 16:41 | Inpatient (IN) | payer MEDICARE, MEDICAID ==
[2018-07-14 16:42] VITALS: BMI 25.5
--- NOTE | 2018-07-14 17:42 | ED PDOC ---
Arrival/HPI - General Chief Complaint: Abnormal Labs Time Seen by Provider: 07/14/18 16:52 Historian: Patient, Family (daughters, who translated for patient (M[place]ovan).) EM Caveat: Acuity of Condition - History of Present Illness Narrative History of Present Illness (Text): 07/14/18 17:30 A 77 y/o F w/ h/o thrombocytopenia, hypertension, dizziness, anemia, UTI, and incontinence, arrives to the emergency department after being directed by PMD to be evaluated for low platelets and hemoglobin. Patient is Moldovan-speaking and she is translated by her daughters. Per patient's daughter, the patient had her blood drawn 2 days prior and was discovered to have platelets level found to be 12 and Hemoglobin at 8. She reports having petechiae to the extremities with swelling ecchymosis to the upper arms. Patient reports also experiencing some dizziness, but denies any falls/traumas, epistaxis, abdominal pain, nausea , vomiting, vaginal bleeding/clots, chest pain, shortness of breath, palpitations, or any other complaints. Also, patient does not take any blood thinners, Aspirin, or any Plavix. She was sent to the ED for transfusion. PMD: Dr. Justice Huerta Specialist: Dr. Sanderson(hematology) 07/14/18 20:30 Past Medical History - Provider Review Nursing Documentation Reviewed: Yes - Infectious Disease Hx of Infectious Diseases: None - Past Medical History Past Medical History: Unable to Obtain - Cardiac Hx Hypertension: Yes - Pulmonary Hx Respiratory Disorders: Yes (SMOKED CIGARETTES QUIT SMOKED 1/2 PPD.) - Neurological Hx Neurological Disorder: Yes Hx Dizziness: Yes - HEENT Hx HEENT Disorder: Yes ([place] TO RIGHT EAR) - Renal Hx Renal Disorder: No - Endocrine/Metabolic Hx Endocrine Disorders: No - Hematological/Oncological Hx Blood Disorders: Yes Hx Anemia: Yes Other/Comment: thrombocytopenia - Integumentary Hx Dermatological Disorder: No - Musculoskeletal/Rheumatological Hx Falls: No - Gastrointestinal Hx Gastrointestinal Disorders: Yes (CONSTIPATION) - Genitourinary/Gynecological Hx Genitourinary Disorders: Yes Hx Incontinence: Yes Hx Urinary Tract Infection: Yes - Psychiatric Hx Psychophysiologic Disorder: No Hx Substance Use: No - Past Surgical History Past Surgical History: Unable to Obtain - Surgical History Hx Hysterectomy: Yes Hx Orthopedic Surgery: Yes - Anesthesia Hx Anesthesia: Yes Hx Anesthesia Reactions: No Hx Malignant Hyperthermia: No - Suicidal Assessment Feels Threatened In Home Enviroment: No Family/Social History - Physician Review Nursing Documentation Reviewed: Yes Family/Social History: No Known Family HX Smoking Status: Former Smoker Hx Alcohol Use: No Hx Substance Use: No Allergies/Home Meds Allergies/Adverse Reactions: Allergies amoxicillin Allergy (Verified 07/14/18 17:03) SHORTNESS OF BREATH ciprofloxacin Allergy (Verified 07/14/18 17:03) SHORTNESS OF BREATH Penicillins Allergy (Verified 07/14/18 17:03) SHORTNESS OF BREATH Home Medications: Home Meds Medication Instructions Recorded Confirmed Irbesartan [Avapro] 75 mg PO DAILY 06/04/18 06/04/18 Review of Systems - Physician Review All systems were reviewed & negative as marked: Yes - Review of Systems Constitutional: absent: Other (no falls/traumas) ENT: absent: Epistaxis Respiratory: absent: SOB Cardiovascular: absent: Chest Pain, Palpitations Gastrointestinal: absent: Abdominal Pain, Nausea, Vomiting Genitourinary Female: absent: Vaginal Bleeding Musculoskeletal: Other (petechiae and swelling to both arms and legs.) Physical Exam Vital Signs Reviewed: Yes Vital Signs Temp Pulse Resp BP Pulse Ox 07/14/18 19:48 79 18 134/54 L 98 07/14/18 17:12 140/57 L 07/14/18 17:04 98.2 F 74 18 99 07/14/18 17:03 98.2 F 74 18 99 Temperature: Afebrile Pulse: Regular Respiratory Rate: Normal Appearance: Positive for: Well-Appearing, Non-Toxic, Comfortable Pain Distress: None Mental Status: Positive for: Alert and Oriented X 3 - Systems Exam Head: Present: Atraumatic, Normocephalic Pupils: Present: PERRL Extroacular Muscles: Present: EOMI Conjunctiva: Present: Normal Mouth: Present: Moist Mucous Membranes Neck: Present: Normal Range of Motion Respiratory/Chest: Present: Clear to Auscultation, Good Air Exchange. No: Respiratory Distress, Accessory Muscle Use Cardiovascular: Present: Regular Rate and Rhythm, Normal S1, S2. No: Murmurs Abdomen: No: Tenderness, Distention, Peritoneal Signs Back: Present: Normal Inspection Upper Extremity: Present: Other (multiple ecchymosis noted bilaterally; petechiae bilaterally) Lower Extremity: Present: Other (petechiae in lower extremities b/l). No: Edema Neurological: Present: GCS=15, CN II-XII Intact, Speech Normal Skin: Present: Warm, Dry, Normal Color. No: Rashes Psychiatric: Present: Alert, Oriented x 3, Normal Insight, Normal Concentration Medical Decision Making ED Course and Treatment: 07/14/18 17:35 Impression: 77 year old female brought in for evaluation of platelets and hemoglobin level reading, with petechiae and swelling to both arms and legs as well. Differential Diagnosis included but are not limited to: ITP/TTP Myelodysplastic Syndrome Plan: -- EKG -- Chest X-ray -- Labs -- Urinalysis --Transfuse pRBCs & plts -- Reassess and disposition Prior Visits: Notes and results from previous visits were reviewed. Patient was last seen here in the emergency department on 06/04/2018 for lower abdominal pain. Progress Notes: 07/14/2018 18:45 Chest X-ray IMPRESSION: No active pulmonary disease. Dictator: Minnie Rios MD 07/14/18 19:11 Hgb noted to 7.2 w/ plts 12. Consent for transfusion products obtained from patient. Patient's family updated on findings and agree with plan for observation. Call to Dr. Calderon(hospitalist) placed. 07/14/18 19:[address] Calderon who requests hospitalist service to be paged. Call placed to Dr. Us. 07/14/18 19:[address] Us who requests call to be placed to Dr. Chavez since he last admitted the case. He states he will accept the case if Dr. Chavez refuses. Call placed to Dr. Chavez. 07/14/18 19:[address] Chavez who requests patient to be endorsed to the hospitalist service. Call back to Dr. Shi. 07/14/18 20:[address] Shi. Patient admitted to hospitalist. - Lab Interpretations Lab Results: 07/14/18 17:27 07/14/18 17:27 Lab Results 07/14/18 17:36: Blood Type O POSITIVE, Antibody Screen Positive, Antibody Identification Pending, BBK History Checked Patient has bt 07/14/18 17:27: Sodium 142, Potassium 4.1, Chloride 104, Carbon Dioxide 28, Anion Gap 15, BUN 16, Creatinine 0.8, Est GFR ( Amer) > 60, Est GFR (Non- Af Amer) > 60, Random Glucose 105, Calcium 9.1, Total Bilirubin 0.4, AST 30, ALT 27, Alkaline Phosphatase 107, Total Protein 8.3, Albumin 3.9, Globulin 4.4, Albumin/Globulin Ratio 0.9 L 07/14/18 17:27: PT 11.8, INR 1.03, APTT 27.8 07/14/18 17:27: WBC 4.2 L D, RBC 2.14 L, Hgb 7.2 L D, Hct 22.2 L, MCV 103.7 D, MCH 33.6, MCHC 32.4, RDW 17.6 H, Plt Count 13 L*, MPV 10.1, Gran % 27.5 L, Lymph % (Auto) 64.1 H, Nye % (Auto) 7.5 H, Eos % (Auto) 0.7 L, Baso % (Auto) 0.2, Gran # 1.14 L, Lymph # (Auto) 2.7, Nye # (Auto) 0.3, Eos # (Auto) 0.0, Baso # (Auto) 0.01 I have reviewed the lab results: Yes - RAD Interpretation Radiology Orders: 07/14/18 17:17 CHEST TWO VIEWS (PA/LAT) [RAD] Stat - Scribe Statement The provider has reviewed the documentation as recorded by the Scribe Ana Lilia Merida Provider Scribe Provider Scribe Attestation: All medical record entries made by the Scribe were at my direction and personally dictated by me. I have reviewed the chart and agree that the record accurately reflects my personal performance of the history, physical exam, medical decision making, and the department course for this patient. I have also personally directed, reviewed, and agree with the discharge instructions and disposition. Disposition/Present on Arrival - Present on Arrival Any Indicators Present on Arrival: No History of DVT/PE: No History of Uncontrolled Diabetes: No Urinary Catheter: No History of Decub. Ulcer: No History Surgical Site Infection Following: Orthopedic Procedures, Obstetrical/ Gynecological Surgery - Disposition Have Diagnosis and Disposition been Completed?: Yes Diagnosis: Anemia, Thrombocytopenia Disposition: HOSPITALIZED Disposition Time: 20:00 Patient Plan: Observation Patient Problems: Current Active Problems Problem Status Onset Thrombocytopenia Acute Anemia Acute Condition: STABLE Forms: brotips ([employer])
[2018-07-14 17:51] LABS: BASO # 0.01 K/mm3 (0.0-2.0); BASO % 0.2 % (0.0-3.0); EOS % 0.7 % (1.5-5.0); GRAN # 1.14 (1.4-6.5); GRAN % 27.5 % (50.0-68.0); HEMOGLOBIN 7.2 g/dL (12.0-16.0); LYMPH # 2.7 (1.2-3.4); LYMPH % 64.1 % (22.0-35.0); MEAN CELL VOLUME 103.7 fl (80.0-105.0); MEAN CORPUSCULAR HEMOGLOBIN 33.6 pg (25.0-35.0); MEAN CORPUSCULAR HGB CONC 32.4 g/dl (31.0-37.0); MEAN PLATELET VOLUME 10.1 fl (7.0-11.0); MONO # 0.3 (0.1-0.6); MONO % 7.5 % (1.0-6.0); RBC 2.14 10^6/uL (3.5-6.1); RED CELL DISTRIBUTION WIDTH 17.6 % (11.5-14.5); WHITE BLOOD COUNT 4.2 10^3/ul (4.5-11.0)
[2018-07-14 17:57] LABS: INR 1.03; PARTIAL THROMBOPLASTIN TIME 27.8 Seconds (25.1-36.5); PROTHROMBIN TIME 11.8 SECONDS (9.4-12.5)
[2018-07-14 18:03] LABS: PLATELET COUNT 13 10^3/uL (120.0-450.0)
[2018-07-14 18:07] LABS: ALB/GLOB RATIO 0.9 (1.1-1.8); ALBUMIN 3.9 g/dL (3.0-4.8); ALT/SGPT 27 U/L (7-56); AST/SGOT 30 U/L (14-36); BLOOD UREA NITROGEN 16 mg/dL (7-21); CALCIUM 9.1 mg/dL (8.4-10.5); GFR AFRICAN-AMERICAN > 60; GFR NON-AFRICAN AMERICAN > 60
--- NOTE | 2018-07-14 18:47 | RAD ---
HISTORY: COMPARISON: 12/06/2017 TECHNIQUE: Chest PA and lateral FINDINGS: LINES AND TUBES: None. LUNG AND PLEURA: The lungs are well inflated and clear. No pleural effusion or pneumothorax. HEART AND MEDIASTINUM: The heart is not enlarged. The hilar and mediastinal contours are within normal limits. SKELETAL STRUCTURES: The bony structures are within normal limits for the patient's age. VISUALIZED UPPER ABDOMEN: Normal. OTHER FINDINGS: None. IMPRESSION: No active pulmonary disease.
--- NOTE | 2018-07-14 18:48 | CARD ---
APPROVED REPORT Date of service: 07/14/2018 EKG Measurement Heart [id number] <Conclusion> Normal sinus rhythm Normal ECG
--- NOTE | 2018-07-14 21:06 | CP.PCM.HP ---
Addendum entered and electronically signed by Bev Chopra DO 07/15/18 02: 55: Bev Chopra, PGY-1, Internal Medicine History and Physical for Dr. Downing , not Dr. Us. Original Note: <Bev Chopra - Last Filed: 07/15/18 02:54> History of Present Illness - History of Present Illness History of Present Illness: Bev Chopra, PGY-1, Internal Medicine History and Physical for Dr. Us CC: abnormal labs, petechiae, bilateral upper extremity edema 77 year old female with past medical history of thrombocytopenia, dizziness, anemia, UTI, incontinence, osteoarthritis, paroxysmal atrial fibrillation, PVD presents for abnormal labs taken 9 days ago and results today, which showed platelets of 17 and Hgb of 8. Patient also complains of petechiae on bilateral lower extremities, dizziness for 1 week worse with laying back, bilateral upper extremity edema for 5 days, epistaxis 1 week ago. Patient denies chest pain, shortness of breath, heart palpitations, headache, dysuria, hematuria, blood in stool, constipation, diarrhea, nausea, vomiting, and abdominal pain. Patient has been admitted to the hospital previously for similar complaints. Patient has had a previous bone marrow biopsy which was negative for leukemia, lymphoma , and metastatic cancer. Patient is currently diagnosed with myelodysplastic syndrome as per heme/onc. 12 point ROS is negative except for what is mentioned above. 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 Solis Insurance: [employer] Present on Admission - Present on Admission Any Indicators Present on Admission: No History of DVT/PE: No History of Uncontrolled Diabetes: No Review of Systems - Constitutional Constitutional: absent: Anorexia, Chills, Fever, Headache - EENT Eyes: absent: Loss of Vision Ears: absent: Abnormal Hearing - Cardiovascular Cardiovascular: absent: Chest Pain, Dyspnea - Respiratory Respiratory: absent: Dyspnea, Hemoptysis - Gastrointestinal Gastrointestinal: absent: Abdominal Pain, Constipation, Diarrhea, Nausea, Vomiting - Genitourinary Genitourinary: absent: Dysuria, Hematuria - Musculoskeletal Musculoskeletal: absent: Numbness, Tingling - Neurological Neurological: Dizziness - Hematologic/Lymphatic Hematologic: Easy Bleeding, Easy Bruising, Other (petechiae bilateral lower extremity, edema bilateral upper extremity) Past Patient History - Infectious Disease Hx of Infectious Diseases: None - Past Social History Smoking Status: Former Smoker - CARDIAC Hx Hypertension: Yes - PULMONARY Hx Respiratory Disorders: Yes (SMOKED CIGARETTES QUIT SMOKED 1/2 PPD.) - NEUROLOGICAL Hx Neurological Disorder: Yes Hx Dizziness: Yes - HEENT Hx HEENT Problems: Yes (CABAZON TO RIGHT EAR) - RENAL Hx Chronic Kidney Disease: No - ENDOCRINE/METABOLIC Hx Endocrine Disorders: No - HEMATOLOGICAL/ONCOLOGICAL Hx Blood Disorders: Yes Hx Anemia: Yes Other/Comment: thrombocytopenia - INTEGUMENTARY Hx Dermatological Problems: No - MUSCULOSKELETAL/RHEUMATOLOGICAL Hx Falls: No - GASTROINTESTINAL Hx Gastrointestinal Disorders: Yes (CONSTIPATION) - GENITOURINARY/GYNECOLOGICAL Hx Genitourinary Disorders: Yes Hx Incontinence: Yes Hx Urinary Tract Infection: Yes - PSYCHIATRIC Hx Psychophysiologic Disorder: No Hx Substance Use: No - SURGICAL HISTORY Hx Hysterectomy: Yes Hx Orthopedic Surgery: Yes - ANESTHESIA Hx Anesthesia: Yes Hx Anesthesia Reactions: No Hx Malignant Hyperthermia: No Meds Allergies/Adverse Reactions: Allergies Allergy/AdvReac Type Severity Reaction Status Date / Time amoxicillin Allergy SHORTNESS Verified 07/14/18 17:03 OF BREATH ciprofloxacin Allergy SHORTNESS Verified 07/14/18 17:03 OF BREATH Penicillins Allergy SHORTNESS Verified 07/14/18 17:03 OF BREATH Physical Exam - Constitutional Appears: Well, Non-toxic - Head Exam Head Exam: ATRAUMATIC, NORMOCEPHALIC - Eye Exam Eye Exam: EOMI, PERRL - ENT Exam ENT Exam: Mucous Membranes Moist - Respiratory Exam Respiratory Exam: Clear to Auscultation Bilateral, NORMAL BREATHING PATTERN - Cardiovascular Exam Cardiovascular Exam: REGULAR RHYTHM, RRR - GI/Abdominal Exam GI & Abdominal Exam: Normal Bowel Sounds, Soft - Extremities Exam Additional comments: petechiae on bilateral lower extremities, edema on bilateral upper extremities, trace pitting edema of bilateral lower extremities - Neurological Exam Neurological exam: Alert, CN II-XII Intact, Normal Gait, Oriented x3 - Psychiatric Exam Psychiatric exam: Normal Affect, Normal Mood - Skin Skin Exam: Dry, Intact, Normal Color, Petechiae (bilateral lower extremities) Additional comments: bruising of left upper extremity Results - Vital Signs Recent Vital Signs: Last Vital Signs Temp 98.3 F 07/14/18 20:55 Pulse 70 07/14/18 20:55 Resp 18 07/14/18 20:55 BP 111/49 L 07/14/18 20:55 Pulse Ox 97 07/14/18 20:55 - Labs Result Diagrams: 07/14/18 17:27 07/14/18 17:27 Assessment & Plan - Assessment and Plan (Free Text) Assessment: 77 year old female with past medical history of thrombocytopenia, dizziness, anemia, UTI, incontinence, osteoarthritis, paroxysmal atrial fibrillation, PVD presents for abnormal labs taken 9 days ago and results today, which showed platelets of 17 and Hgb of 8. Iron deficiency anemia was already worked up and was normal, bone marrow biopsy was performed and showed no evidence of leukemia, lymphoma, metastatic cancer, but patient was diagnosed with MDS. Plan: Chronic Normocytic Anemia,, and Leukopenia 2/2 myelodysplastic syndrome vs. GI bleed -Per previous consult note by Dr. Cohen on admission from 05/2018, patient has presumed myelodysplastic syndrome for 6 years and was considered starting procrit on last admission, but no other medications. -Hgb: 7.2. Patient's baseline is around 10. -Patient has had chronic anemia with multiple previous transfusions. -Patient will be given IV benadryl 50, IV solumedrol 1 gm, and PO tylenol 650 mg in preparation for transfusion. -1 unit of leukoreduced PRBCs to be transfused. -Continue to monitor. Thrombocytopenia 2/2 myelodysplastic syndrome -Platelets 13 on admission. Baseline platelets is around the 14-20 since 12/2017. -PT/PTT are normal. -Patient will be given IV benadryl 50, IV solumedrol 1 gm, and PO tylenol 650 mg in preparation for transfusion. -2 unit of platelets to be transfused. -Continue to monitor -Hemo/Onc, Dr. Cohen consulted for further recommendations Leukopenia 2/2 MDS -WBC today is 4.2. WBC on last admission was 4.3. -Calculated ANC is more than 1000. Patient does not have neutropenia. -Continue to monitor. Bilateral Upper Extremity Edema 2/2 to Possible Upper Extremity Ultrasound -duplex bilateral upper extremity to rule out DVT DVT prophylaxis: SCD GI prophylaxis: pepcid 20 mg daily - Date & Time Date: 07/14/18 Time: 21:11 <Brandon Downing - Last Filed: 07/15/18 06:46> Results - Vital Signs Recent Vital Signs: Last Vital Signs Temp 97.7 F 07/15/18 03:54 Pulse 73 07/15/18 03:54 Resp 18 07/15/18 03:54 BP 145/72 07/15/18 03:54 Pulse Ox 97 07/14/18 20:55 - Labs Result Diagrams: 07/15/18 06:20 07/14/18 17:27 Labs: Laboratory Results - last 24 hr 07/15/18 07/15/18 07/15/18 06:20 06:20 06:20 WBC 1.9 L* D RBC 2.91 L Hgb 9.4 L D Hct 28.6 L MCV 98.3 D MCH 32.3 MCHC 32.9 RDW 20.3 H Plt Count 64 L MPV 10.1 Gran % 51.6 Lymph % (Auto) 44.8 H Navarro % (Auto) 3.6 Eos % (Auto) 0.0 L Baso % (Auto) 0.0 Gran # 1.00 L Lymph # (Auto) 0.9 L Navarro # (Auto) 0.1 Eos # (Auto) 0.0 Baso # (Auto) 0.00 PT 12.5 INR 1.09 APTT 28.6 Iron 246 H Attending/Attestation - Attestation I have personally seen and examined this patient.: Yes I have fully participated in the care of the patient.: Yes I have reviewed all pertinent clinical information: Yes Notes (Text): Chronic pancytopenia most likely secondary to MDS - transfuse 1PRBC and 2 bags of Platelets - avoid blood thinners - Hematology consult 07/15/18 06:44
[2018-07-14] MEDS ORDERED: DiphenhydrAMINE 50 mg/ml Inj IVP STA (22:30)
[2018-07-14] MEDS ORDERED: methylPREDNISolone 1 GM in Sodium Chloride 0.9% 250 ML IV ONE (22:30)
[2018-07-15 06:31] LABS: GRAN % 51.6 % (50.0-68.0); HEMOGLOBIN 9.4 g/dL (12.0-16.0); LYMPH # 0.9 (1.2-3.4); LYMPH % 44.8 % (22.0-35.0); MEAN CORPUSCULAR HEMOGLOBIN 32.3 pg (25.0-35.0); MEAN CORPUSCULAR HGB CONC 32.9 g/dl (31.0-37.0); MEAN PLATELET VOLUME 10.1 fl (7.0-11.0); MONO # 0.1 (0.1-0.6); MONO % 3.6 % (1.0-6.0); RBC 2.91 10^6/uL (3.5-6.1); RED CELL DISTRIBUTION WIDTH 20.3 % (11.5-14.5)
[2018-07-15 06:37] LABS: IRON 246 ug/dL (45-180)
[2018-07-15 06:38] LABS: INR 1.09; PARTIAL THROMBOPLASTIN TIME 28.6 Seconds (25.1-36.5); PROTHROMBIN TIME 12.5 SECONDS (9.4-12.5); WHITE BLOOD COUNT 1.9 10^3/ul (4.5-11.0)
[2018-07-15 06:39] LABS: MEAN CELL VOLUME 98.3 fl (80.0-105.0)
[2018-07-15 06:46] LABS: % IRON SATURATION 76 % (20-55); TOTAL IRON BINDING CAPACITY 323 ug/dL (265-497)
[2018-07-15 07:08] LABS: ALB/GLOB RATIO 0.9 (1.1-1.8); ALBUMIN 4.2 g/dL (3.0-4.8); ALT/SGPT 33 U/L (7-56); AST/SGOT 42 U/L (14-36); BLOOD UREA NITROGEN 17 mg/dL (7-21); CALCIUM 9.6 mg/dL (8.4-10.5); GFR AFRICAN-AMERICAN > 60; GFR NON-AFRICAN AMERICAN > 60
--- NOTE | 2018-07-15 11:11 | US ---
HISTORY: Arm pain and swelling. Evaluate for deep venous thrombosis. PHYSICIAN(S): Mejia Renee MD. FINDINGS: The visualized internal jugular veins are sonographically normal and compressible. No evidence of obstruction or thrombus this is seen. The visualized segments of the subclavian veins are patent with normal waveforms. No sonographic evidence of obstruction or thrombosis is seen. The visualized deep venous systems of both upper extremities proximally are sonographically normal and compressible. IMPRESSION: 1. No sonographic evidence for deep venous thrombosis in the visualized segments of both upper strategies.
[2018-07-15 12:48] LABS: FOLATE 16.3 ng/mL
--- NOTE | 2018-07-15 13:09 | CP.PCM.PN ---
<Clarence Stoo - Last Filed: 07/15/18 15:38> Subjective - Date & Time of Evaluation Date of Evaluation: 07/15/18 Time of Evaluation: 13:04 - Subjective Subjective: Internal Medicine Progress Note for Dr. Candy Soto PGY1 77F seen and evaluated at bedside this morning. No acute events overnight. Transfused 1 units and PRBCs and 2 units of platelets. Patient complains of lower extremity burning and itching. She is tolerating her diet. Patient is not ambulating since admission. Family is at bedside. Denies fever, chills, nausea, vomiting, diarrhea, shortness of breath, cough, chest pain, palpitations, abdominal pain, or urinary symptoms. Objective - Vital Signs/Intake and Output Vital Signs (last 24 hours): Temp Pulse Resp BP Pulse Ox 97.9 F 84 18 140/62 99 07/15/18 12:24 07/15/18 12:24 07/15/18 12:24 07/15/18 12:24 07/15/18 07:53 Intake and Output: 07/15/18 07/15/18 06:59 18:59 Intake Total 560 0 Balance 560 0 - Medications Medications: Current Medications Famotidine (Pepcid) 20 mg PO DAILY BREANNE Last Admin: 07/15/18 10:13 Dose: 20 mg - Labs Labs: 07/15/18 06:20 07/15/18 06:20 PT 12.5 SECONDS (9.4-12.5) 07/15/18 06:20 INR 1.09 07/15/18 06:20 APTT 28.6 Seconds (25.1-36.5) 07/15/18 06:20 - Constitutional Appears: Well, Non-toxic, No Acute Distress - Head Exam Head Exam: ATRAUMATIC, NORMAL INSPECTION, NORMOCEPHALIC - Eye Exam Eye Exam: EOMI, PERRL Additional comments: no conjunctival pallor - ENT Exam ENT Exam: Mucous Membranes Dry - Respiratory Exam Respiratory Exam: Clear to Ausculation Bilateral, NORMAL BREATHING PATTERN - Cardiovascular Exam Cardiovascular Exam: REGULAR RHYTHM, +S1, +S2. absent: Murmur - GI/Abdominal Exam GI & Abdominal Exam: Soft, Normal Bowel Sounds. absent: Tenderness - Extremities Exam Extremities Exam: absent: Pedal Edema, Tenderness - Neurological Exam Neurological Exam: Alert, Awake, Oriented x3 - Psychiatric Exam Psychiatric exam: Normal Affect, Normal Mood - Skin Skin Exam: Pallor (diffuse), Petechiae (bilateral lower extremity up to the knees) Assessment and Plan - Assessment and Plan (Free Text) Assessment: 77F, PMH of myelodysplastic syndrome, osteoarthritis, paroxysmal atrial fibrillation, peripheral vascular disease, sent to the ED by softball player with abnormal lab values (9 days prior) accompanied by new onset lower extremity petechiae. Plan: 1. Hx of Myelodysplastic Syndrome - Per previous consult note by Dr. Cohen on admission from 05/2018, patient has presumed myelodysplastic syndrome for 6 years and was considered starting procrit on last admission, but no other medications. - Heme/Onc, Dr. Cohen consulted, recommendations appreciated - Transfused 1u PRBCs, 2u Platelets - H/H 9.4/28.6 today after transfusion - Leukopenia at 1.2 - Manual platelet count 84, not thrombocytopenic - PT/PTT within normal limits - EKG normal sinus rhythm - CXR: no active pulmonary disease - Pending Direct Platelet AB, Direct Eli - PT: dependent with 24 hour care by family members, not a candidate for PT services - Pending UA - Continue to monitor 2. Upper Extremity Swelling, resolved - UE Duplex negative for DVT GI: Pepcid DVT: SCDs Diet: Heart Healthy Patient seen and case discussed with Dr. Ochoa Soto PGY1 <Candy Packer R - Last Filed: 07/16/18 16:51> Objective - Vital Signs/Intake and Output Vital Signs (last 24 hours): Temp Pulse Resp BP Pulse Ox 98 F 73 18 145/73 96 07/16/18 13:16 07/16/18 13:16 07/16/18 13:16 07/16/18 13:16 07/16/18 08:09 Intake and Output: 07/16/18 07/16/18 06:59 18:59 Intake Total 1140 325 Balance 1140 325 - Medications Medications: Current Medications Acetaminophen (Tylenol 325mg Tab) 325 mg PO Q6H PRN PRN Reason: Headache Last Admin: 07/15/18 18:31 Dose: 325 mg Famotidine (Pepcid) 20 mg PO DAILY BREANNE Last Admin: 07/16/18 10:04 Dose: 20 mg - Labs Labs: 07/16/18 05:30 PT 12.5 SECONDS (9.4-12.5) 07/15/18 06:20 INR 1.09 07/15/18 06:20 APTT 28.6 Seconds (25.1-36.5) 07/15/18 06:20 Attending/Attestation - Attestation I have personally seen and examined this patient.: Yes I have fully participated in the care of the patient.: Yes I have reviewed all pertinent clinical information, including history, physical exam and plan: Yes Notes (Text): Patient seen and examined by me at 11AM with resident 07/15/18. Case including HPI, physical exam, and assessment and plan discussed with resident. Agree with above with following additions/corrections. Patient is a 77 year old female with past medical history significant for thrombocytopenia, dizziness, anemia, UTI, incontinence, osteoarthritis, paroxysmal atrial fibrillation, peripheral vascular disease, and myelodysplastic syndrome that presented to the emergency room with abnormal labs , petechiae, and bilateral upper extremity edema. Patient states that she is feeling better. Patient's daughter at bedside. Case discussed with patient's daughter with patient's permission. Patient feels that her upper extremities are still swollen. Complains of some itching in her lower extremities. No nausea, vomiting, or abdominal pain. No headaches or dizziness. No chest pain or palpitations. No shortness of breath. No fevers or chills. No dysuria. Physical exam: General: Awake and alert sitting up in bed in no acute distress HEENT: Normocephalic atraumatic. Pupils equal reactive. Extraocular muscles intact. No scleral icterus. Oropharynx is pink and moist, no pharyngeal erythema or exudate appreciated. Neck is supple. Cardiovascular: Regular rhythm. Normal S1, S2. No murmurs, rubs, or gallops appreciated Pulmonary: Normal respiratory effort. No rhonchi, rales or wheezing appreciated. Gastrointestinal: Soft, nontender, nondistended, positive bowel sounds all 4 quadrants, no guarding. Musculoskeletal: Moves all extremities. No edema appreciated. Central nervous system: AAO 3. Dermatologic: Skin warm and dry. Positive petechiae noted on bilateral lower extremities Assessment and plan: Patient is a 77 year old female with past medical history significant for thrombocytopenia, dizziness, anemia, UTI, incontinence, osteoarthritis, paroxysmal atrial fibrillation, peripheral vascular disease, and myelodysplastic syndrome that presented to the emergency room with abnormal labs, petechiae, and bilateral upper extremity edema. 1. Pancytopenia. Likely secondary to MDS. Hematology/oncology consulted, recommendations appreciated. Patient transfused 2 units platelets and 1 unit packed red blood cells. H&H improved. With worsening leukopenia today. No signs of infection. We'll continue to monitor. Monitor CBC and transfuse as needed. 2. Upper extremity edema. None noted on exam. Bilateral upper extremity venous Dopplers negative for DVT. 3. Petechiae. Secondary to thrombocytopenia. Improving. Continue to monitor. 4. Osteoarthritis. Continue Tylenol as needed. 5. GI prophylaxis. Pepcid. Case was discussed in detail with the patient and patient's daughter at bedside regarding current diagnosis and treatment plan.
[2018-07-16 06:26] LABS: MEAN CELL VOLUME 99.2 fl (80.0-105.0); MEAN CORPUSCULAR HEMOGLOBIN 32.5 pg (25.0-35.0); MEAN CORPUSCULAR HGB CONC 32.8 g/dl (31.0-37.0); RBC 2.46 10^6/uL (3.5-6.1); RED CELL DISTRIBUTION WIDTH 21.4 % (11.5-14.5)
[2018-07-16 06:57] LABS: PLATELET COUNT 46 10^3/uL (120.0-450.0)
--- NOTE | 2018-07-16 12:21 | CON ---
Copied To: Scott Cohen MD Attending MD: Scott Cohen MD DATE: 07/16/2018 HEMATOLOGY EVALUATION This is a patient who has been followed in my office for several years with Dr. Whitley Sanchez for pancytopenia and myelodysplastic anemia. The patient was relatively stable for the last couple of years, but for the last few months, she has been having repeated admissions to the hospital for the severe anemia including this one. The son called Dr. Sanchez the day before she was admitted to the hospital at this time saying that she was weaker and was advised to go to the Emergency Room. The white count is 5. The platelet count goes up and down between 13, 64, 46. May be an element of clumping of the platelets here, but overall this has been relatively stable for the last couple of years. She has no petechiae. No bruise. No bleeding. I would not transfuse her with platelets the anemia. She came in with a 7.2 hemoglobin. This is now about 8 after the transfusions. For hemodynamic stability, she can get 1 or 2 more units of packed cells and after the hemoglobin is more stable, she would be able to be discharged. The iron levels are normal and the B12 is normal as well. So at this point, we would give her the transfusions. It is unclear whether we would be able to give her Procrit as an outpatient. We will have to figure that out with the visiting nurses, but for now, transfuse as necessary for hemodynamic stability and then, consider discharge when appropriate. Scott Cohen MD
--- NOTE | 2018-07-16 15:02 | CP.PCM.PN ---
<Emil Stephens - Last Filed: 07/16/18 15:30> Subjective - Date & Time of Evaluation Date of Evaluation: 07/16/18 Time of Evaluation: 07:30 - Subjective Subjective: Emil Stephens D.O PGY1 Internal Medicine Progress Note for Dr. Candy Packer 77F seen and evaluated at bedside. No acute events overnight. Transfused 1 units and PRBCs and 2 units of platelets. Patient repoted resolving lower extremity burning and itching. She is tolerating her diet. Patient had headache last night that resolved by one dose of Tylenol. Patient denies bleeding from nose, rectum, skin or any orifice. She denied fever, chills, nausea, vomiting, diarrhea, cough, CP, SOB, palpitations, abdominal pain, or urinary symptoms. Objective - Vital Signs/Intake and Output Vital Signs (last 24 hours): Temp Pulse Resp BP Pulse Ox 98 F 73 18 145/73 96 07/16/18 13:16 07/16/18 13:16 07/16/18 13:16 07/16/18 13:16 07/16/18 08:09 Intake and Output: 07/16/18 07/16/18 06:59 18:59 Intake Total 1140 325 Balance 1140 325 - Medications Medications: Current Medications Acetaminophen (Tylenol 325mg Tab) 325 mg PO Q6H PRN PRN Reason: Headache Last Admin: 07/15/18 18:31 Dose: 325 mg Famotidine (Pepcid) 20 mg PO DAILY BREANNE Last Admin: 07/16/18 10:04 Dose: 20 mg - Labs Labs: 07/16/18 05:30 PT 12.5 SECONDS (9.4-12.5) 07/15/18 06:20 INR 1.09 07/15/18 06:20 APTT 28.6 Seconds (25.1-36.5) 07/15/18 06:20 - Constitutional Appears: Well, No Acute Distress, Cachectic - Head Exam Head Exam: ATRAUMATIC, NORMAL INSPECTION, NORMOCEPHALIC - Eye Exam Eye Exam: EOMI, Normal appearance, PERRL Pupil Exam: NORMAL ACCOMODATION, PERRL - ENT Exam ENT Exam: Mucous Membranes Moist, Normal Exam - Neck Exam Neck Exam: Full ROM, Normal Inspection. absent: Lymphadenopathy - Respiratory Exam Respiratory Exam: Clear to Ausculation Bilateral, NORMAL BREATHING PATTERN - Cardiovascular Exam Cardiovascular Exam: REGULAR RHYTHM, +S1, +S2. absent: Murmur - GI/Abdominal Exam GI & Abdominal Exam: Soft, Normal Bowel Sounds. absent: Tenderness - Extremities Exam Additional comments: lower leg petechia. improved since last exam - Neurological Exam Neurological Exam: Alert, Awake, CN II-XII Intact, Oriented x3 - Psychiatric Exam Psychiatric exam: Normal Affect, Normal Mood - Skin Skin Exam: Dry, Intact, Rash Additional comments: lower leg petechiae. Assessment and Plan - Assessment and Plan (Free Text) Assessment: 77 y/o female with PMH of myelodysplastic syndrome, osteoarthritis, paroxysmal atrial fibrillation, peripheral vascular disease, sent to the ED by supervisor meter shop with abnormal lab values. She was found to have lower extremity petechiae. Plan: Hx of Myelodysplastic Syndrome - H/H 07/23.4 today - As per Heme/Onc Dr. Cohen recs: patient to receive 2 pRBC today 07/16 and can be discharged home once she is stable. - Manual platelet count 54. Platelet count has been low for years, no platelet transfusion at this time as per Dr Cohen - WB flow cytometry analysis:no evidence of blast population or lymphoproliferative disorder. Evidence of immuophenotye abnormal myloid maturation. - PT/PTT within normal limits - EKG normal sinus rhythm - PT: dependent with 24 hour care by family members, not a candidate for PT services - Continue to monitor DVT ppx SCDs GI ppx Pepcid Heart healthy diet Case reviewed and discussed with Dr Packer <Candy Packer R - Last Filed: 07/17/18 12:11> Objective - Vital Signs/Intake and Output Vital Signs (last 24 hours): Temp Pulse Resp BP Pulse Ox 98.0 F 73 20 161/88 H 96 07/17/18 06:00 07/17/18 06:00 07/17/18 06:00 07/17/18 06:00 07/17/18 06:00 Intake and Output: 07/17/18 07/17/18 06:59 18:59 Intake Total 1310 Balance 1310 - Labs Labs: 07/17/18 07:00 07/17/18 07:00 PT 12.5 SECONDS (9.4-12.5) 07/15/18 06:20 INR 1.09 07/15/18 06:20 APTT 28.6 Seconds (25.1-36.5) 07/15/18 06:20 Attending/Attestation - Attestation I have personally seen and examined this patient.: Yes I have fully participated in the care of the patient.: Yes I have reviewed all pertinent clinical information, including history, physical exam and plan: Yes Notes (Text): Patient seen and examined by me at 10AM with resident 07/16/18. Case including HPI, physical exam, and assessment and plan discussed with resident. Agree with above with following additions/corrections. Patient is a 77 year old female with past medical history significant for thrombocytopenia, dizziness, anemia, UTI, incontinence, osteoarthritis, paroxysmal atrial fibrillation, peripheral vascular disease, and myelodysplastic syndrome that presented to the emergency room with abnormal labs , petechiae, and bilateral upper extremity edema. Patient states that she is feeling ok. Complains of a slight headache. No change in vision. No signs of acute bleeding. States arms feel less swollen. Itching in her lower extremities improved. No nausea, vomiting, or abdominal pain. No headaches or dizziness. No chest pain or palpitations. No shortness of breath. No fevers or chills. No dysuria. Physical exam: General: Awake and alert sitting up in bed in no acute distress HEENT: Normocephalic atraumatic. Pupils equal reactive. Extraocular muscles intact. No scleral icterus. Oropharynx is pink and moist, no pharyngeal erythema or exudate appreciated. Neck is supple. Cardiovascular: Regular rhythm. Normal S1, S2. No murmurs, rubs, or gallops appreciated Pulmonary: Normal respiratory effort. No rhonchi, rales or wheezing appreciated. Gastrointestinal: Soft, nontender, nondistended, positive bowel sounds all 4 quadrants, no guarding. Musculoskeletal: Moves all extremities. No edema appreciated. Central nervous system: AAO 3. Dermatologic: Skin warm and dry. improving petechiae on bilateral lower extremities Assessment and Plan: Patient is a 77 year old female with past medical history significant for thrombocytopenia, dizziness, anemia, UTI, incontinence, osteoarthritis, paroxysmal atrial fibrillation, peripheral vascular disease, and myelodysplastic syndrome that presented to the emergency room with abnormal labs, petechiae, and bilateral upper extremity edema. 1. Pancytopenia. Likely secondary to MDS. Hematology/oncology following, recommendations appreciated. Patient transfused 2 units platelets and 1 unit packed red blood cells. H&H downtrended today. Discussed with Dr. Cohen hem/ onc. Transfuse 2 units PRBCs, no platelet transfusion needed per Dr. Cohen. Patient may be discharged after this with outpatient follow up in the office per Dr. Cohen. Leukopenia improved today. No signs of infection. Continue to monitor CBC. 2. Upper extremity edema. None noted on exam. Bilateral upper extremity venous Dopplers negative for DVT. 3. Petechiae. Secondary to thrombocytopenia. Continues to improve. Continue to monitor. 4. Osteoarthritis. Continue Tylenol as needed. 5. GI prophylaxis. Pepcid. Case was discussed in detail with the patient and regarding current diagnosis and treatment plan. Yakut speaking medical laboratory scientist present and translating.
[2018-07-17 00:47] LABS: HEMOGLOBIN 11.8 g/dL (12.0-16.0); MEAN CELL VOLUME 93.1 fl (80.0-105.0); MEAN CORPUSCULAR HEMOGLOBIN 31.4 pg (25.0-35.0); MEAN CORPUSCULAR HGB CONC 33.7 g/dl (31.0-37.0); MEAN PLATELET VOLUME 9.5 fl (7.0-11.0); RBC 3.76 10^6/uL (3.5-6.1); RED CELL DISTRIBUTION WIDTH 19.7 % (11.5-14.5); WHITE BLOOD COUNT 5.9 10^3/ul (4.5-11.0)
[2018-07-17 00:50] LABS: PLATELET COUNT 21 10^3/uL (120.0-450.0)
[2018-07-17 06:53] VITALS: BP 161/88; PULSE 73; RESP 20; TEMP 98; O2SAT 96
[2018-07-17 07:34] LABS: GRAN # 2.36 (1.4-6.5); GRAN % 39.6 % (50.0-68.0); HEMOGLOBIN 11.9 g/dL (12.0-16.0); LYMPH # 3.2 (1.2-3.4); LYMPH % 53.4 % (22.0-35.0); MEAN CORPUSCULAR HEMOGLOBIN 31.1 pg (25.0-35.0); MEAN CORPUSCULAR HGB CONC 33.1 g/dl (31.0-37.0); MONO # 0.4 (0.1-0.6); RBC 3.83 10^6/uL (3.5-6.1)
[2018-07-17 07:35] LABS: PLATELET COUNT 21 10^3/uL (120.0-450.0)
[2018-07-17 07:49] LABS: ALB/GLOB RATIO 0.9 (1.1-1.8); ALBUMIN 3.7 g/dL (3.0-4.8); ALT/SGPT 34 U/L (7-56); AST/SGOT 41 U/L (14-36); BLOOD UREA NITROGEN 25 mg/dL (7-21); GFR AFRICAN-AMERICAN > 60; GFR NON-AFRICAN AMERICAN > 60
[2018-07-17 09:11] LABS: PLATELET ESTIMATE LOW (NORMAL)
--- NOTE | 2018-07-17 11:39 | CP.PCM.DIS ---
<Emil Stephens - Last Filed: 07/17/18 12:46> Provider - Provider Date of Admission: 07/15/18 14:50 Attending physician: Candy Packer MD Primary care physician: Dr Justice Huerta Consults: Heme/onc Dr Cohen Time Spent in preparation of Discharge (in minutes): 45 Hospital Course - Lab Results Lab Results: Most Recent Lab Values WBC 6.0 10^3/ul (4.5-11.0) 07/17/18 07:00 RBC 3.83 10^6/uL (3.5-6.1) 07/17/18 07:00 Hgb 11.9 g/dL (12.0-16.0) L 07/17/18 07:00 Hct 36.0 % (36.0-48.0) 07/17/18 07:00 MCV 94.0 fl (80.0-105.0) 07/17/18 07:00 MCH 31.1 pg (25.0-35.0) 07/17/18 07:00 MCHC 33.1 g/dl (31.0-37.0) 07/17/18 07:00 RDW 20.0 % (11.5-14.5) H 07/17/18 07:00 Plt Count 21 10^3/uL (120.0-450.0) L* 07/17/18 07:00 Manual Plt Count 30 K/mm3 (120-450) L* 07/17/18 00:10 MPV 9.5 fl (7.0-11.0) 07/17/18 00:10 Gran % 39.6 % (50.0-68.0) L 07/17/18 07:00 Lymph % (Auto) 53.4 % (22.0-35.0) H 07/17/18 07:00 Storey % (Auto) 7.0 % (1.0-6.0) H 07/17/18 07:00 Eos % (Auto) 0.0 % (1.5-5.0) L 07/17/18 07:00 Baso % (Auto) 0.0 % (0.0-3.0) 07/17/18 07:00 Gran # 2.36 (1.4-6.5) 07/17/18 07:00 Lymph # (Auto) 3.2 (1.2-3.4) 07/17/18 07:00 Storey # (Auto) 0.4 (0.1-0.6) 07/17/18 07:00 Eos # (Auto) 0.0 (0.0-0.7) 07/17/18 07:00 Baso # (Auto) 0.00 K/mm3 (0.0-2.0) 07/17/18 07:00 Platelet Evaluation Low (NORMAL) 07/17/18 07:00 PT 12.5 SECONDS (9.4-12.5) 07/15/18 06:20 INR 1.09 07/15/18 06:20 APTT 28.6 Seconds (25.1-36.5) 07/15/18 06:20 Sodium 142 mmol/L (132-148) 07/17/18 07:00 Potassium 4.3 mmol/L (3.6-5.0) 07/17/18 07:00 Chloride 107 mmol/L (98-107) 07/17/18 07:00 Carbon Dioxide 26 mmol/L (21-33) 07/17/18 07:00 Anion Gap 14 (10-20) 07/17/18 07:00 BUN 25 mg/dL (7-21) H 07/17/18 07:00 Creatinine 0.7 mg/dl (0.7-1.2) 07/17/18 07:00 Est GFR ( Amer) > 60 07/17/18 07:00 Est GFR (Non-Af Amer) > 60 07/17/18 07:00 Random Glucose 107 mg/dL (70-110) 07/17/18 07:00 Calcium 9.0 mg/dL (8.4-10.5) 07/17/18 07:00 Phosphorus 3.0 mg/dL (2.5-4.5) 07/17/18 07:00 Magnesium 1.7 mg/dL (1.7-2.2) 07/15/18 06:20 Iron 246 ug/dL (45-180) H 07/15/18 06:20 TIBC 323 ug/dL (265-497) 07/15/18 06:20 % Saturation 76 % (20-55) H 07/15/18 06:20 Ferritin 420.0 ng/mL 07/15/18 06:20 Total Bilirubin 1.2 mg/dL (0.2-1.3) 07/17/18 07:00 AST 41 U/L (14-36) H 07/17/18 07:00 ALT 34 U/L (7-56) 07/17/18 07:00 Alkaline Phosphatase 81 U/L (38-126) 07/17/18 07:00 Total Protein 7.9 g/dL (5.8-8.3) 07/17/18 07:00 Albumin 3.7 g/dL (3.0-4.8) 07/17/18 07:00 Globulin 4.1 gm/dL 07/17/18 07:00 Albumin/Globulin Ratio 0.9 (1.1-1.8) L 07/17/18 07:00 Vitamin B12 468 pg/mL (239-931) 07/15/18 06:20 Folate 16.3 ng/mL 07/15/18 06:20 WB Flow Cytometry Reference test 07/15/18 08:41 Blood Type O POSITIVE 07/14/18 17:36 Antibody Screen Positive 07/14/18 17:36 Antibody Identification Anti Jka Anti S 07/14/18 17:36 Antibody Identification Anti Jka Anti S 07/14/18 17:36 HAYDEE, Poly Interpret Negative (NEGATIVE) 07/14/18 17:36 Crossmatch See Detail 07/14/18 17:36 BBK History Checked Patient has bt 07/14/18 17:36 - Hospital Course Hospital Course: On admission: 77 y/o female with PMH of myelodysplastic syndrome, osteoarthritis, paroxysmal atrial fibrillation, peripheral vascular disease, sent to the ED by bin piler with abnormal lab values accompanied by new onset lower extremity petechiae Hospital course: Patient has had chronic anemia with multiple previous transfusions. Hgb 7.2, Platelets 13, WBC 4.2, with ANP >1000. PT/PTT are normal. Patient was given IV benadryl 50, IV solumedrol 1 gm, and PO tylenol 650 mg in preparation for transfusion. transfused 1 units and PRBCs and 2 units of platelets. On 07/16/18 , H/H 8/24.4, manual platelet count 54As per Heme/Onc Dr. Cohen recommendations , patient received received 2 pRBC. WB flow cytometry analysis showed no evidence of blast population or lymphoproliferative disorder. Evidence of immuophenotype abnormal myloid maturation. Patient reported resolving lower extremity burning and itching. She was tolerating her diet. Patient denies bleeding from nose, rectum, skin or any orifice. She denied fever, chills, nausea, vomiting, diarrhea, cough, CP, SOB, palpitations, abdominal pain, or urinary symptoms. Patient had bilateral upper extremity edema, duplex bilateral upper extremity to rule out DVT, result was negative. Upon Discharge: Patient to follow up with your bin piler Dr. Cohen after discharge Patient to follow up with your primary medical doctor within 5-7 days upon discharge If symptoms reoccur, return to nearest emergency department Discharge planning was conducted with patient including outpatient follow up, medication reconciliation, and signs and symptoms to be aware of for return to emergency department. Patient was in understanding and able to recall instructions back to primary team. Patient was deemed to be medically optimized for discharge by consultants involved in her care as well as her primary medical team. For further details regarding hospital stay please refer to full chart. - Date & Time of H&P Date of H&P: 07/17/18 Time of H&P: 08:40 Discharge Exam - Head Exam Head Exam: ATRAUMATIC, NORMAL INSPECTION, NORMOCEPHALIC - Eye Exam Eye Exam: EOMI, Normal appearance, PERRL Pupil Exam: NORMAL ACCOMODATION, PERRL - ENT Exam ENT Exam: Mucous Membranes Moist, Normal Oropharynx - Neck Exam Neck exam: Normal Inspection - Respiratory Exam Respiratory Exam: Clear to PA & Lateral, NORMAL BREATHING PATTERN - Cardiovascular Exam Cardiovascular Exam: REGULAR RHYTHM, +S1, +S2 - GI/Abdominal Exam GI & Abdominal Exam: Normal Bowel Sounds - Rectal Exam Rectal Exam: Deferred - Extremities Exam Extremities exam: full ROM, normal capillary refill Additional comments: b/l diffuse lower limb petechaie up to knee level - Back Exam Back exam: NORMAL INSPECTION. absent: muscle spasm - Neurological Exam Neurological exam: Alert, CN II-XII Intact, Normal Gait, Oriented x3, Reflexes Normal - Psychiatric Exam Psychiatric exam: Normal Affect, Normal Mood - Skin Skin Exam: Dry, Rash Additional comments: b/l diffuse lower limb petechaie up to knee level Discharge Plan - Follow Up Plan Condition: STABLE Disposition: HOME/ ROUTINE Instructions: Immune Thrombocytopenia (ITP), Myelodysplastic Syndromes (DC), Myelodysplastic Syndromes (GEN) Additional Instructions: Please follow up with Dr. Cohen for your hemoglobin and platelet level within 3 days as an outpatient. Please follow up with your PMD, Dr. Huerta within 3 to 5 days. Please take all home medications as previously prescribed. Please return to the ED if symptoms reoccur. Referrals: Scott Cohen MD [Medical Doctor] - <Carlos Rowe - Last Filed: 07/17/18 15:36> Provider - Provider Date of Admission: 07/15/18 14:50 Attending physician: Breonna Horn MD Hospital Course - Lab Results Lab Results: Most Recent Lab Values WBC 6.0 10^3/ul (4.5-11.0) 07/17/18 07:00 RBC 3.83 10^6/uL (3.5-6.1) 07/17/18 07:00 Hgb 11.9 g/dL (12.0-16.0) L 07/17/18 07:00 Hct 36.0 % (36.0-48.0) 07/17/18 07:00 MCV 94.0 fl (80.0-105.0) 07/17/18 07:00 MCH 31.1 pg (25.0-35.0) 07/17/18 07:00 MCHC 33.1 g/dl (31.0-37.0) 07/17/18 07:00 RDW 20.0 % (11.5-14.5) H 07/17/18 07:00 Plt Count 21 10^3/uL (120.0-450.0) L* 07/17/18 07:00 Manual Plt Count 30 K/mm3 (120-450) L* 07/17/18 00:10 MPV 9.5 fl (7.0-11.0) 07/17/18 00:10 Gran % 39.6 % (50.0-68.0) L 07/17/18 07:00 Lymph % (Auto) 53.4 % (22.0-35.0) H 07/17/18 07:00 Storey % (Auto) 7.0 % (1.0-6.0) H 07/17/18 07:00 Eos % (Auto) 0.0 % (1.5-5.0) L 07/17/18 07:00 Baso % (Auto) 0.0 % (0.0-3.0) 07/17/18 07:00 Gran # 2.36 (1.4-6.5) 07/17/18 07:00 Lymph # (Auto) 3.2 (1.2-3.4) 07/17/18 07:00 Storey # (Auto) 0.4 (0.1-0.6) 07/17/18 07:00 Eos # (Auto) 0.0 (0.0-0.7) 07/17/18 07:00 Baso # (Auto) 0.00 K/mm3 (0.0-2.0) 07/17/18 07:00 Platelet Evaluation Low (NORMAL) 07/17/18 07:00 PT 12.5 SECONDS (9.4-12.5) 07/15/18 06:20 INR 1.09 07/15/18 06:20 APTT 28.6 Seconds (25.1-36.5) 07/15/18 06:20 Sodium 142 mmol/L (132-148) 07/17/18 07:00 Potassium 4.3 mmol/L (3.6-5.0) 07/17/18 07:00 Chloride 107 mmol/L (98-107) 07/17/18 07:00 Carbon Dioxide 26 mmol/L (21-33) 07/17/18 07:00 Anion Gap 14 (10-20) 07/17/18 07:00 BUN 25 mg/dL (7-21) H 07/17/18 07:00 Creatinine 0.7 mg/dl (0.7-1.2) 07/17/18 07:00 Est GFR ( Amer) > 60 07/17/18 07:00 Est GFR (Non-Af Amer) > 60 07/17/18 07:00 Random Glucose 107 mg/dL (70-110) 07/17/18 07:00 Calcium 9.0 mg/dL (8.4-10.5) 07/17/18 07:00 Phosphorus 3.0 mg/dL (2.5-4.5) 07/17/18 07:00 Magnesium 1.7 mg/dL (1.7-2.2) 07/15/18 06:20 Iron 246 ug/dL (45-180) H 07/15/18 06:20 TIBC 323 ug/dL (265-497) 07/15/18 06:20 % Saturation 76 % (20-55) H 07/15/18 06:20 Ferritin 420.0 ng/mL 07/15/18 06:20 Total Bilirubin 1.2 mg/dL (0.2-1.3) 07/17/18 07:00 AST 41 U/L (14-36) H 07/17/18 07:00 ALT 34 U/L (7-56) 07/17/18 07:00 Alkaline Phosphatase 81 U/L (38-126) 07/17/18 07:00 Total Protein 7.9 g/dL (5.8-8.3) 07/17/18 07:00 Albumin 3.7 g/dL (3.0-4.8) 07/17/18 07:00 Globulin 4.1 gm/dL 07/17/18 07:00 Albumin/Globulin Ratio 0.9 (1.1-1.8) L 07/17/18 07:00 Vitamin B12 468 pg/mL (239-931) 07/15/18 06:20 Folate 16.3 ng/mL 07/15/18 06:20 WB Flow Cytometry Reference test 07/15/18 08:41 Blood Type O POSITIVE 07/14/18 17:36 Antibody Screen Positive 07/14/18 17:36 Antibody Identification Anti Jka Anti S 07/14/18 17:36 Antibody Identification Anti Jka Anti S 07/14/18 17:36 HAYDEE, Poly Interpret Negative (NEGATIVE) 07/14/18 17:36 Crossmatch See Detail 07/14/18 17:36 BBK History Checked Patient has bt 07/14/18 17:36 Attending/Attestation - Attestation I have personally seen and examined this patient.: Yes I have fully participated in the care of the patient.: Yes I have reviewed all pertinent clinical information, including history, physical exam and plan: Yes Notes (Text): 07/17/18 15:33 Attending note ; Patient seen and examined with resident . Patient is a 77 year old female with past medical history significant for thrombocytopenia, dizziness, anemia, UTI, incontinence, osteoarthritis, paroxysmal atrial fibrillation, peripheral vascular disease, and myelodysplastic syndrome that presented to the emergency room with abnormal labs , petechiae, and bilateral upper extremity edema. 1. Pancytopenia. Likely secondary to MDS. Patient was seen and evaluated by her primary oncologist Dr. Cohen. Patient transfused 2 units platelets and 3 unit packed red blood cells. Currently hemoglobin is 11.9. Manual platelet count is 30. Petechiae resolved . No active bleeding . Platelet count is baseline . Denies any symptoms. 2. Bilateral upper extremity venous Dopplers negative for DVT. 3. Petechiae. Secondary to thrombocytopenia. resolved. 4. Osteoarthritis. Continue Tylenol as needed. Patient will be discharged home today. Case discussed with patient in detail with Senegalese-speaking nurse. Patient will follow up with PMD Dr.Lim Rendon.
== END 2018-07-17 11:30 | disposition home or self-care (01) | DRG 812 ==
LOC: ED 16:41 → ERH 20:03 → 3RNO 22:21 → OBSVTOIN 07-15 14:50
PROVIDERS: ADMIT Internal Medicine; ATTEND Internal Medicine
PROC: 6A550Z2 Pheresis of Platelets, Single (ICD-10-PCS; 2018-07-14)
PROC: 30233N1 Transfusion of Nonautologous Red Blood Cells into Peripheral Vein, Percutaneous Approach (ICD-10-PCS; principal; 2018-07-15)
PROC: 6A550Z2 Pheresis of Platelets, Single (ICD-10-PCS; 2018-07-15)
DX: D46.9 Myelodysplastic syndrome, unspecified (principal); D61.818 Other pancytopenia; D50.9 Iron deficiency anemia, unspecified; I10 Essential (primary) hypertension; I48.0 Paroxysmal atrial fibrillation; I73.9 Peripheral vascular disease, unspecified; M19.90 Unspecified osteoarthritis, unspecified site; Z87.440 Personal history of urinary (tract) infections; Z87.891 Personal history of nicotine dependence; Z90.710 Acquired absence of both cervix and uterus; Z82.49 Family history of ischemic heart disease and other diseases of the circulatory system

== ENCOUNTER 2018-09-14 17:21 | Observation (INO) | payer MEDICARE, MEDICAID ==
[2018-09-14 17:21] VITALS: BMI 26.0
--- NOTE | 2018-09-14 19:31 | ED PDOC ---
Arrival/HPI - General Chief Complaint: Weakness/Neurological Deficit Time Seen by Provider: 09/14/18 18:33 - History of Present Illness Narrative History of Present Illness (Text): 09/14/18 19:28 77 f with hx thrombocytopenia presents to the ED with chief complaint of generalized fatigue. Additional history provided by family members at bedside. Patient was sent to the ED by the patient's door frame builder for "low blood counts" and to "find out where she is losing blood". According to the patient and family the patient had a single episode of blood when being cleaned by home health aid this Thursday-it is unclear if it was bloody stool or bloody urine. No report of chest pain, no syncope, no dyspnea. Past Medical History - Infectious Disease Hx of Infectious Diseases: None - Past Medical History Past Medical History: Unable to Obtain - Cardiac Hx Cardiac Disorders: Yes Hx Hypertension: Yes - Pulmonary Hx Respiratory Disorders: Yes (SMOKED CIGARETTES QUIT SMOKED 1/2 PPD.) - Neurological Hx Neurological Disorder: Yes Hx Dizziness: Yes - HEENT Hx HEENT Disorder: Yes (CHEESH-NA TO RIGHT EAR) - Renal Hx Renal Disorder: No - Endocrine/Metabolic Hx Endocrine Disorders: No - Hematological/Oncological Hx Blood Disorders: Yes Hx Anemia: Yes Hx Blood Transfusions: No Other/Comment: thrombocytopenia - Integumentary Hx Dermatological Disorder: No - Musculoskeletal/Rheumatological Hx Musculoskeletal Disorders: No - Gastrointestinal Hx Gastrointestinal Disorders: Yes (CONSTIPATION) - Genitourinary/Gynecological Hx Genitourinary Disorders: Yes Hx Incontinence: Yes Hx Urinary Tract Infection: Yes - Psychiatric Hx Psychophysiologic Disorder: No Hx Substance Use: No - Past Surgical History Past Surgical History: Unable to Obtain - Surgical History Hx Hysterectomy: Yes Hx Orthopedic Surgery: Yes - Anesthesia Hx Anesthesia: Yes Hx Anesthesia Reactions: No Hx Malignant Hyperthermia: No - Suicidal Assessment Feels Threatened In Home Enviroment: No Family/Social History Family/Social History: No Known Family HX Smoking Status: Former Smoker Hx Alcohol Use: No Hx Substance Use: No Allergies/Home Meds Allergies/Adverse Reactions: Allergies amoxicillin Allergy (Verified 09/14/18 18:32) SHORTNESS OF BREATH ciprofloxacin Allergy (Verified 09/14/18 18:32) SHORTNESS OF BREATH Penicillins Allergy (Verified 09/14/18 18:32) SHORTNESS OF BREATH Home Medications: Home Meds Medication Instructions Recorded Confirmed Irbesartan [Avapro] 75 mg PO DAILY 06/04/18 09/03/18 Review of Systems - Physician Review All systems were reviewed & negative as marked: Yes - Review of Systems Constitutional: Fatigue Cardiovascular: absent: Chest Pain, Syncope, Other (dyspnea) Physical Exam Vital Signs Reviewed: Yes Vital Signs Temp Pulse Resp BP Pulse Ox 09/14/18 19:05 98.3 F 71 17 121/52 L 98 09/14/18 18:32 98.5 F 68 18 124/84 98 vitals WNL Temperature: Afebrile Blood Pressure: Normal Pulse: Regular Respiratory Rate: Normal Appearance: Positive for: Well-Appearing, Non-Toxic, Comfortable Pain Distress: Mild - Systems Exam Head: Present: Atraumatic, Normocephalic Pupils: Present: PERRL Extroacular Muscles: Present: EOMI Conjunctiva: Present: Normal Pharnyx: Present: Normal, Other (no petechiae in the mouth) Neck: Present: Normal Range of Motion Respiratory/Chest: Present: Clear to Auscultation, Good Air Exchange. No: Respiratory Distress, Accessory Muscle Use Abdomen: Present: Normal Bowel Sounds. No: Tenderness, Distention, Peritoneal Signs Lower Extremity: No: Edema, CALF TENDERNESS Neurological: Present: CN II-XII Intact, Speech Normal Skin: Present: Warm, Dry, Other (there is a spotty petechial rash in the bilateral lower extremities) Lymphatic: No: Cervical Adenopathy Psychiatric: Present: Alert, Oriented x 3, Normal Insight, Normal Concentration Medical Decision Making ED Course and Treatment: 09/14/18 19:33 patient seen for fatigue with suspected underlying anemia. will workup for blood dyscrasia and arrange for potential blood tranfusion. 09/14/18 21:05 admit accepted by hospitalist, dr. jerez. patient to be admitted for plt tranfusion, consent for blood obtained, patient remained stable throughout ED course. Disposition/Present on Arrival - Present on Arrival Any Indicators Present on Arrival: No History of DVT/PE: No History of Uncontrolled Diabetes: No Urinary Catheter: No History of Decub. Ulcer: No History Surgical Site Infection Following: None - Disposition Have Diagnosis and Disposition been Completed?: Yes Diagnosis: Thrombocytopenia Disposition: HOSPITALIZED Disposition Time: 21:06 Patient Plan: Admission Condition: STABLE Referrals: Justice Huerta Jr., MD [Primary Care Provider] - Follow up with primary Forms: [employer] (Khmer)
[2018-09-14 20:06] LABS: EOS % 0.7 % (1.5-5.0); GRAN # 1.32 (1.4-6.5); GRAN % 32.8 % (50.0-68.0); HEMOGLOBIN 9.8 g/dL (12.0-16.0); LYMPH # 2.4 (1.2-3.4); LYMPH % 60.3 % (22.0-35.0); MEAN CELL VOLUME 100.3 fl (80.0-105.0); MEAN CORPUSCULAR HGB CONC 32.9 g/dl (31.0-37.0); MONO # 0.3 (0.1-0.6); MONO % 6.2 % (1.0-6.0); RBC 2.97 10^6/uL (3.5-6.1); RED CELL DISTRIBUTION WIDTH 21.9 % (11.5-14.5)
[2018-09-14 20:16] LABS: PLATELET COUNT 10 10^3/uL (120.0-450.0)
[2018-09-14 20:18] LABS: ALB/GLOB RATIO 0.9 (1.1-1.8); ALT/SGPT 83 U/L (7-56); AST/SGOT 60 U/L (14-36); BLOOD UREA NITROGEN 20 mg/dL (7-21); CALCIUM 9.5 mg/dL (8.4-10.5); GFR NON-AFRICAN AMERICAN > 60
[2018-09-14 20:24] LABS: INR 1.02; PARTIAL THROMBOPLASTIN TIME 28.3 Seconds (25.1-36.5); PROTHROMBIN TIME 11.6 SECONDS (9.4-12.5)
--- NOTE | 2018-09-14 22:48 | CP.PCM.HP ---
<Alberto Escobedo - Last Filed: 09/15/18 04:09> History of Present Illness - History of Present Illness History of Present Illness: Alberto Escobedo, PGY-1 History and Physical for Hospitalist Service CC: Generalized Weakness HPI: Ms. 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 She had recently been to her malt liquors sales representative's office, Dr. Cohen who had performed basic labs and she was noted to have significant thrombocytopenia relative to her baseline. Patient was urged to come to ED for further evaluation. At home, she reported having one episode of thin bloody diarrhea with only a few drops noticed after passing the BM. Of note, she underwent a bone marrow biopsy in 11/2017 that revealed no acute leukemia, lymphoma or metastatic carcinoma but with a possibility of myelodysplasic syndrome. She also complained of easy bruising and left-sided abdominal pain for the past few weeks that has been intermittent and non- radiating. Otherwise, she denied chest pain, palpitations, SOB, nausea, vomiting, hemoptysis, hematemesis, hematuria, focal weakness, numbness, ting ling, headaches, dizziness, sick contacts. On previous admission in 07/17, patient transfused 2 units platelets and 3 unit packed red blood cells. PMH: hypertension, pancytopenia, myelodysplastic anemia, osteoarthritis, paroxysmal atrial fibrillation and peptic ulcer disease PSH: hysterectomy Allergies: amoxicillin, ciprofloxacin, penicillin Family history: Noncontributory Social history: Former smoker. Denies EtOH or drug use, lives at home with daughter Meds: Unknown, please confirm with Pharmacy in AM PCP: Dr. Huerta Hem: Dr. Cohen Present on Admission - Present on Admission Any Indicators Present on Admission: No Review of Systems - Review of Systems Review of Systems: 12 point ROS completed and negative except as described in HPI. Past Patient History - Infectious Disease Hx of Infectious Diseases: None - Past Social History Smoking Status: Former Smoker - CARDIAC Hx Cardiac Disorders: Yes Hx Hypertension: Yes - PULMONARY Hx Respiratory Disorders: Yes (SMOKED CIGARETTES QUIT SMOKED 1/2 PPD.) - NEUROLOGICAL Hx Neurological Disorder: Yes Hx Dizziness: Yes - HEENT Hx HEENT Problems: Yes (ATKA TO RIGHT EAR) - RENAL Hx Chronic Kidney Disease: No - ENDOCRINE/METABOLIC Hx Endocrine Disorders: No - HEMATOLOGICAL/ONCOLOGICAL Hx Blood Disorders: Yes Hx Anemia: Yes Hx Blood Transfusions: No Other/Comment: thrombocytopenia - INTEGUMENTARY Hx Dermatological Problems: No - MUSCULOSKELETAL/RHEUMATOLOGICAL Hx Musculoskeletal Disorders: No - GASTROINTESTINAL Hx Gastrointestinal Disorders: Yes (CONSTIPATION) - GENITOURINARY/GYNECOLOGICAL Hx Genitourinary Disorders: Yes Hx Incontinence: Yes Hx Urinary Tract Infection: Yes - PSYCHIATRIC Hx Psychophysiologic Disorder: No Hx Substance Use: No - SURGICAL HISTORY Hx Hysterectomy: Yes Hx Orthopedic Surgery: Yes - ANESTHESIA Hx Anesthesia: Yes Hx Anesthesia Reactions: No Hx Malignant Hyperthermia: No Meds Allergies/Adverse Reactions: Allergies Allergy/AdvReac Type Severity Reaction Status Date / Time amoxicillin Allergy SHORTNESS Verified 09/14/18 18:32 OF BREATH ciprofloxacin Allergy SHORTNESS Verified 09/14/18 18:32 OF BREATH Penicillins Allergy SHORTNESS Verified 09/14/18 18:32 OF BREATH Physical Exam - Constitutional Appears: Well, Non-toxic, No Acute Distress - Head Exam Head Exam: ATRAUMATIC, NORMOCEPHALIC - Eye Exam Eye Exam: EOMI, Normal appearance. absent: Scleral icterus Pupil Exam: PERRL - ENT Exam ENT Exam: Mucous Membranes Moist - Neck Exam Neck exam: Positive for: Full Rom - Respiratory Exam Respiratory Exam: Decreased Breath Sounds, Clear to Auscultation Bilateral, NORMAL BREATHING PATTERN. absent: Rales, Rhonchi, Wheezes - Cardiovascular Exam Cardiovascular Exam: RRR, +S1, +S2 - GI/Abdominal Exam GI & Abdominal Exam: Hypoactive Bowel Sounds, Soft, Tenderness (LUQ). absent: Guarding, Rebound - Back Exam Back exam: absent: CVA tenderness (L), CVA tenderness (R) - Neurological Exam Neurological exam: Alert, CN II-XII Intact, Oriented x3 - Psychiatric Exam Psychiatric exam: Normal Affect, Normal Mood - Skin Skin Exam: Dry, Intact, Petechiae (on anteror LEs bilaterally) Additional comments: Echymosies at various stages of healing in extremities Results - Vital Signs Recent Vital Signs: Last Vital Signs Temp 98.3 F 09/14/18 19:05 Pulse 71 09/14/18 19:05 Resp 17 09/14/18 19:05 BP 121/52 L 09/14/18 19:05 Pulse Ox 98 09/14/18 19:05 - Labs Result Diagrams: 09/14/18 19:59 09/14/18 19:59 Labs: Laboratory Results - last 24 hr 09/14/18 09/14/18 09/14/18 19:59 19:59 19:59 WBC 4.0 L D RBC 2.97 L Hgb 9.8 L D Hct 29.8 L MCV 100.3 D MCH 33.0 MCHC 32.9 RDW 21.9 H Plt Count 10 L* Gran % 32.8 L Lymph % (Auto) 60.3 H Mcintosh % (Auto) 6.2 H Eos % (Auto) 0.7 L Baso % (Auto) 0.0 Gran # 1.32 L Lymph # (Auto) 2.4 Mcintosh # (Auto) 0.3 Eos # (Auto) 0.0 Baso # (Auto) 0.00 PT 11.6 INR 1.02 APTT 28.3 Sodium 139 Potassium 4.4 Chloride 104 Carbon Dioxide 28 Anion Gap 12 BUN 20 Creatinine 0.7 Est GFR ( Amer) > 60 Est GFR (Non-Af Amer) > 60 Random Glucose 123 H Calcium 9.5 Magnesium 1.8 Total Bilirubin 0.7 AST 60 H D ALT 83 H Alkaline Phosphatase 128 H D Total Protein 8.4 H Albumin 4.0 Globulin 4.5 Albumin/Globulin Ratio 0.9 L Blood Type Antibody Screen Crossmatch BBK History Checked 09/14/18 20:30 WBC RBC Hgb Hct MCV MCH MCHC RDW Plt Count Gran % Lymph % (Auto) Mcintosh % (Auto) Eos % (Auto) Baso % (Auto) Gran # Lymph # (Auto) Mcintosh # (Auto) Eos # (Auto) Baso # (Auto) PT INR APTT Sodium Potassium Chloride Carbon Dioxide Anion Gap BUN Creatinine Est GFR ( Amer) Est GFR (Non-Af Amer) Random Glucose Calcium Magnesium Total Bilirubin AST ALT Alkaline Phosphatase Total Protein Albumin Globulin Albumin/Globulin Ratio Blood Type O POSITIVE Antibody Screen Negative Crossmatch See Detail BBK History Checked Patient has bt Assessment & Plan - Assessment and Plan (Free Text) Assessment: Assessment: 77 year old female with past medical history of hypertension, pancytopenia, myelodysplastic anemia, osteoarthritis, paroxysmal atrial fibrillation and peptic ulcer disease presents for abnormal labs and generalized fatigue. Previously, Fe deficiency anemia was worked up and was normal, bone marrow biopsy was performed and showed no evidence of leukemia, lymphoma, metastatic cancer, but patient was diagnosed with MDS. Plan: Pancytopenia likely 2/2 myelodysplastic syndrome vs. GI bleed -Per previous consult note by Dr. Cohen on admission from 06/2018, patient has presumed myelodysplastic syndrome for 6 years and was considered starting procrit on last admission -Hgb: 9.8, near baseline -Patient has had chronic anemia with multiple previous transfusions, most recently on admission 07/17 when received multiple transfusions of platelets and PRBCs - f/u Fe studies, Vit B12 and Folate, Vit D -Platelets 10 on admission. Baseline platelets is around the 14-20 since 12/2017. -PT/PTT are normal. -Patient will be given PO benadryl 25 mg in preparation for transfusion. -1 unit of platelets to be transfused. -WBC today is 4.0. WBC on last admission was 6.0 at its highest. -Calculated ANC is ~1300. Patient does not have neutropenia - Prednisone 60 mg daily -Vital signs q6h - f/u repeat EKG in AM -Continue to monitor all cell lines with f/u AM labs -Hemo/Onc, Dr. Coehn consulted for further recommendations Abdominal pain 2/2 splenomegaly 2/2 MDS vs pancreatitis - LUQ pain, r/o splenomegaly - f/u Lipase - f/u Complete Abd U/S HTN - C/w home Irbesartan with holding parameters Paroxysmal A. Fib - Currently not on medication - f/u repeat EKG in AM Chronic Constipation C/w home Miralax continue to monitor stools for blood DVT/GI prophylaxis: SCD, not candidate for pharm ppx due to risk of bleeding in setting of anemia and thrombocytopnia Pepcid 40 mg PO daily Patient seen, case discussed and plan approved by Dr. Butler. Alberto Escobedo, PGY-1 <Bhavna Butler - Last Filed: 09/15/18 06:53> Results - Vital Signs Recent Vital Signs: Last Vital Signs Temp 98.0 F 09/15/18 03:48 Pulse 91 H 09/15/18 03:48 Resp 20 09/15/18 03:48 BP 141/65 09/15/18 03:48 Pulse Ox 100 09/14/18 23:30 - Labs Result Diagrams: 09/14/18 19:59 09/14/18 19:59 Labs: Laboratory Results - last 24 hr 09/14/18 09/14/18 09/14/18 19:40 19:40 19:59 WBC 4.0 L D RBC 2.97 L Hgb 9.8 L D Hct 29.8 L MCV 100.3 D MCH 33.0 MCHC 32.9 RDW 21.9 H Plt Count 10 L* Gran % 32.8 L Lymph % (Auto) 60.3 H Mcintosh % (Auto) 6.2 H Eos % (Auto) 0.7 L Baso % (Auto) 0.0 Gran # 1.32 L Lymph # (Auto) 2.4 Mcintosh # (Auto) 0.3 Eos # (Auto) 0.0 Baso # (Auto) 0.00 PT INR APTT Sodium Potassium Chloride Carbon Dioxide Anion Gap BUN Creatinine Est GFR ( Amer) Est GFR (Non-Af Amer) Random Glucose Calcium Magnesium Iron 254 H TIBC 258 L % Saturation 98 H Total Bilirubin AST ALT Alkaline Phosphatase Total Protein Albumin Globulin Albumin/Globulin Ratio Lipase 45 Blood Type Antibody Screen Crossmatch BBK History Checked 09/14/18 09/14/18 09/14/18 19:59 19:59 20:30 WBC RBC Hgb Hct MCV MCH MCHC RDW Plt Count Gran % Lymph % (Auto) Mcintosh % (Auto) Eos % (Auto) Baso % (Auto) Gran # Lymph # (Auto) Mcintosh # (Auto) Eos # (Auto) Baso # (Auto) PT 11.6 INR 1.02 APTT 28.3 Sodium 139 Potassium 4.4 Chloride 104 Carbon Dioxide 28 Anion Gap 12 BUN 20 Creatinine 0.7 Est GFR ( Amer) > 60 Est GFR (Non-Af Amer) > 60 Random Glucose 123 H Calcium 9.5 Magnesium 1.8 Iron TIBC % Saturation Total Bilirubin 0.7 AST 60 H D ALT 83 H Alkaline Phosphatase 128 H D Total Protein 8.4 H Albumin 4.0 Globulin 4.5 Albumin/Globulin Ratio 0.9 L Lipase Blood Type O POSITIVE Antibody Screen Negative Crossmatch See Detail BBK History Checked Patient has bt Attending/Attestation - Attestation I have personally seen and examined this patient.: Yes I have fully participated in the care of the patient.: Yes I have reviewed all pertinent clinical information: Yes
[2018-09-15 00:14] LABS: IRON 254 ug/dL (45-180)
[2018-09-15 00:23] LABS: % IRON SATURATION 98 % (20-55); TOTAL IRON BINDING CAPACITY 258 ug/dL (265-497)
[2018-09-15 00:52] VITALS: RESP 20
[2018-09-15] MEDS ORDERED: Influenza Vaccine 60 mcg/0.5 mL SYR (4YR UP) IM ONE (01:12)
[2018-09-15] MEDS ORDERED: Pneumococcal 23-Valent Vaccine IM ONE (01:12)
[2018-09-15] MEDS ORDERED: POLYETHYLENE GLYCOL 3350 17 GM/Dose PACKET PO PRN (03:46)
[2018-09-15 07:23] LABS: GRAN # 1.69 (1.4-6.5); GRAN % 64.5 % (50.0-68.0); LYMPH # 0.9 (1.2-3.4); LYMPH % 33.2 % (22.0-35.0); MEAN CORPUSCULAR HEMOGLOBIN 33.5 pg (25.0-35.0); MEAN CORPUSCULAR HGB CONC 33.5 g/dl (31.0-37.0); MEAN PLATELET VOLUME 8.4 fl (7.0-11.0); MONO # 0.1 (0.1-0.6); MONO % 2.3 % (1.0-6.0); RBC 2.69 10^6/uL (3.5-6.1); RED CELL DISTRIBUTION WIDTH 21.5 % (11.5-14.5)
[2018-09-15 07:28] LABS: WHITE BLOOD COUNT 2.6 10^3/ul (4.5-11.0)
[2018-09-15 07:40] LABS: ALB/GLOB RATIO 0.9 (1.1-1.8); ALT/SGPT 73 U/L (7-56); AST/SGOT 57 U/L (14-36); BLOOD UREA NITROGEN 18 mg/dL (7-21); CALCIUM 9.6 mg/dL (8.4-10.5); GFR NON-AFRICAN AMERICAN > 60
[2018-09-15] MEDS ORDERED: IRBESARTAN 75 MG PO SCH (10:00)
--- NOTE | 2018-09-15 10:24 | CP.PCM.PN ---
Subjective - Date & Time of Evaluation Date of Evaluation: 09/15/18 Time of Evaluation: 10:24 - Subjective Subjective: Palathingal Objective - Vital Signs/Intake and Output Vital Signs (last 24 hours): Temp Pulse Resp BP Pulse Ox 98.0 F 86 20 123/61 100 09/15/18 03:48 09/15/18 09:06 09/15/18 03:48 09/15/18 09:06 09/14/18 23:30 Intake and Output: 09/15/18 09/15/18 06:59 18:59 Intake Total 615 Balance 615 - Medications Medications: Current Medications Losartan Potassium (Cozaar) 25 mg PO DAILY [facility] Last Admin: 09/15/18 09:06 Dose: 25 mg Polyethylene Glycol (Miralax) 17 gm PO DAILY PRN PRN Reason: Constipation Prednisone (Prednisone Tab) 60 mg PO DAILY [facility] Last Admin: 09/15/18 09:05 Dose: 60 mg - Labs Labs: 09/15/18 07:00 09/15/18 07:00 PT 11.6 SECONDS (9.4-12.5) 09/14/18 19:59 INR 1.02 09/14/18 19:59 APTT 28.3 Seconds (25.1-36.5) 09/14/18 19:59
--- NOTE | 2018-09-15 11:30 | CARD ---
APPROVED REPORT Date of service: 09/15/2018 EKG Measurement Heart [id number] <Conclusion> Normal sinus rhythm Nonspecific T wave abnormality Abnormal ECG
--- NOTE | 2018-09-15 11:47 | CARD ---
APPROVED REPORT Date of service: 09/14/2018 EKG Measurement Heart [id number] <Conclusion> Normal sinus rhythm Normal ECG
--- NOTE | 2018-09-15 12:28 | US ---
Date of service: 09/15/2018 HISTORY: LUQ pain, R/O splenomegally COMPARISON: 06/04/2018. TECHNIQUE: Sonographic evaluation of the abdomen. FINDINGS: LIVER: Measures 14.0 cm. Hepatopedal blood flow. Fatty infiltration manifest ultrasonographically as increased echogenicity of the liver parenchyma. No mass. No intrahepatic bile duct dilatation. GALLBLADDER: Unremarkable. No gallstones. COMMON BILE DUCT: Measures 6.9 mm. No stones. No dilatation. PANCREAS: Unremarkable as visualized. No mass. No ductal dilatation. RIGHT KIDNEY: Measures 4.2 x 9.4cm. Normal echogenicity. No calculus, mass, or hydronephrosis. LEFT KIDNEY: Measures 4.3 x 9.2cm. Normal echogenicity. No calculus, mass, or hydronephrosis. SPLEEN: Normal in size and contour. Incidental finding(s): Splenic cyst 1.4 x 1.8 cm. Similar finding identified previously. AORTA: No aneurysmal dilatation. IVC: Unremarkable. OTHER FINDINGS: None. IMPRESSION: No significant or acute findings to account for/ related to the clinical presentation. No significant interval change compared to the prior examination(s).
[2018-09-15 12:57] LABS: FOLATE 7.7 ng/mL
--- NOTE | 2018-09-15 15:52 | CP.PCM.DIS ---
<Natasha Thrasher - Last Filed: 09/15/18 15:54> Provider - Provider Date of Admission: 09/14/18 21:06 Attending physician: Carlos Rowe MD Primary care physician: Justice Huerta Jr, MD Consults: Hematology-Oncology: Dr. Cohen Time Spent in preparation of Discharge (in minutes): 45 Hospital Course - Lab Results Lab Results: Most Recent Lab Values WBC 2.6 10^3/ul (4.5-11.0) L* D 09/15/18 07:00 RBC 2.69 10^6/uL (3.5-6.1) L 09/15/18 07:00 Hgb 9.0 g/dL (12.0-16.0) L 09/15/18 07:00 Hct 26.9 % (36.0-48.0) L 09/15/18 07:00 MCV 100.0 fl (80.0-105.0) 09/15/18 07:00 MCH 33.5 pg (25.0-35.0) 09/15/18 07:00 MCHC 33.5 g/dl (31.0-37.0) 09/15/18 07:00 RDW 21.5 % (11.5-14.5) H 09/15/18 07:00 Plt Count 54 10^3/uL (120.0-450.0) L 09/15/18 07:00 MPV 8.4 fl (7.0-11.0) 09/15/18 07:00 Gran % 64.5 % (50.0-68.0) 09/15/18 07:00 Lymph % (Auto) 33.2 % (22.0-35.0) 09/15/18 07:00 [place] % (Auto) 2.3 % (1.0-6.0) 09/15/18 07:00 Eos % (Auto) 0.0 % (1.5-5.0) L 09/15/18 07:00 Baso % (Auto) 0.0 % (0.0-3.0) 09/15/18 07:00 Gran # 1.69 (1.4-6.5) 09/15/18 07:00 Lymph # (Auto) 0.9 (1.2-3.4) L 09/15/18 07:00 [place] # (Auto) 0.1 (0.1-0.6) 09/15/18 07:00 Eos # (Auto) 0.0 (0.0-0.7) 09/15/18 07:00 Baso # (Auto) 0.00 K/mm3 (0.0-2.0) 09/15/18 07:00 PT 11.6 SECONDS (9.4-12.5) 09/14/18 19:59 INR 1.02 09/14/18 19:59 APTT 28.3 Seconds (25.1-36.5) 09/14/18 19:59 Sodium 138 mmol/L (132-148) 09/15/18 07:00 Potassium 4.4 mmol/L (3.6-5.0) 09/15/18 07:00 Chloride 104 mmol/L (98-107) 09/15/18 07:00 Carbon Dioxide 27 mmol/L (21-33) 09/15/18 07:00 Anion Gap 12 (10-20) 09/15/18 07:00 BUN 18 mg/dL (7-21) 09/15/18 07:00 Creatinine 0.6 mg/dl (0.7-1.2) L 09/15/18 07:00 Est GFR ( Amer) > 60 09/15/18 07:00 Est GFR (Non-Af Amer) > 60 09/15/18 07:00 Random Glucose 157 mg/dL (70-110) H 09/15/18 07:00 Calcium 9.6 mg/dL (8.4-10.5) 09/15/18 07:00 Magnesium 1.8 mg/dL (1.7-2.2) 09/14/18 19:59 Iron 254 ug/dL (45-180) H 09/14/18 19:40 TIBC 258 ug/dL (265-497) L 09/14/18 19:40 % Saturation 98 % (20-55) H 09/14/18 19:40 Ferritin 2550.0 ng/mL 09/14/18 19:40 Total Bilirubin 0.6 mg/dL (0.2-1.3) 09/15/18 07:00 AST 57 U/L (14-36) H 09/15/18 07:00 ALT 73 U/L (7-56) H 09/15/18 07:00 Alkaline Phosphatase 110 U/L (38-126) 09/15/18 07:00 Total Protein 8.3 g/dL (5.8-8.3) 09/15/18 07:00 Albumin 4.0 g/dL (3.0-4.8) 09/15/18 07:00 Globulin 4.3 gm/dL 09/15/18 07:00 Albumin/Globulin Ratio 0.9 (1.1-1.8) L 09/15/18 07:00 Lipase 45 U/L (23-300) 09/14/18 19:40 Vitamin B12 344 pg/mL (239-931) 09/14/18 19:40 25-OH Vitamin D Total 17.9 NG/ML (30.0-100.0) L 09/14/18 19:40 Folate 7.7 ng/mL 09/14/18 19:40 Blood Type O POSITIVE 09/14/18 20:30 Antibody Screen Negative 09/14/18 20:30 Crossmatch See Detail 09/14/18 20:30 BBK History Checked Patient has bt 09/14/18 20:30 - Hospital Course Hospital Course: Upon Admission: Mrs. Lay is a 77-year-old female with a past medical history of hypertension, pancytopenia, myelodysplastic anemia, osteoarthritis, paroxysmal atrial fibrillation and peptic ulcer disease that presented to [facility] due to generalized weakness and referral from her [employer]. She had recently been to her [employer]'s office, Dr. Cohen who had performed basic labs and she was noted to have significant thrombocytopenia relative to her baseline. Patient was urged to come to ED for further evaluation. At home, she reported having one episode of thin bloody diarrhea with only a few drops noticed after passing the BM. Of note, she underwent a bone marrow biopsy in 11/2017 that revealed no acute leukemia, lymphoma or metastatic carcinoma but with a possibility of myelodysplasic syndrome. She also complained of easy bruising and left-sided abdominal pain for the past few weeks that has been intermittent and non-radiating. Otherwise, she denied chest pain, palpitations, SOB, nausea, vomiting, hemoptysis, hematemesis, hematuria, focal weakness, numbness, tingling, headaches, dizziness, sick contacts. On previous admission in 07/17, patient transfused 2 units platelets and 3 unit packed red blood cells. Hospital Course: Pt was found to have a platelet count of 10. She was transfused 1unit of platelets at 00:52. Post-transfusion CBC at 07:00 showed increased platelet count of 54. Pt had also underwent abdominal ultrasound to evaluate for signs of bleeding or splenomegaly. Abdominal ultrasound showed no acute findings, without signs of splenomegaly or bleeding. Pt was seen and evaluated by Dr. Cohen, partner of patients own [employer]. Dr. Cohen is aware of the patients condition, and requested the patient to be followed up in the outpatient setting with weekly CBCs. Upon Discharge: Pt was aware of her current condition and instructed to follow-up with her PMD and [employer]. Daughter at bedside was present and aware. Pt had low platelet count, however the count has been at or near her baseline due to her history of MDS. Her chief complaint of generalized fatigue had resolved. She had no signs of bleeding. Vital signs were stable and BMP were stable. She reported no acute complaints. 12 point ROS was negative. Discharge Exam - Head Exam Head Exam: ATRAUMATIC, NORMOCEPHALIC - Eye Exam Eye Exam: EOMI, Normal appearance - ENT Exam ENT Exam: Mucous Membranes Moist, Normal Exam - Neck Exam Neck exam: Normal Inspection - Respiratory Exam Respiratory Exam: NORMAL BREATHING PATTERN - Cardiovascular Exam Cardiovascular Exam: REGULAR RHYTHM, +S1, +S2 - GI/Abdominal Exam GI & Abdominal Exam: Normal Bowel Sounds, Unremarkable - Back Exam Back exam: NORMAL INSPECTION - Neurological Exam Neurological exam: Alert, Oriented x3 - Skin Skin Exam: Dry, Intact, Petechiae (b/l anterior tibial region), Warm Discharge Plan - Follow Up Plan Condition: STABLE Disposition: HOME/ ROUTINE Instructions: Immune Thrombocytopenia (ITP) (DC) Additional Instructions: Please follow-up with your primary care doctor, Dr. Huerta within 3-5 days of being discharged. Please follow-up with your [employer]-oncologist (blood doctor), Dr. Sanchez, within 1 week of being discharged. You will be getting weekly blood counts with your blood doctor. You should continue to take the medications that you have been taking at home as prescribed. If your symptoms return, please go to the nearest emergency room. Referrals: Scott Cohen MD [Medical Doctor] - Justice Huerta Jr., MD [Primary Care Provider] - <Carlos Rowe - Last Filed: 09/16/18 15:25> Provider - Provider Date of Admission: 09/14/18 21:06 Attending physician: Carlos Rowe MD Primary care physician: Justice Huerta Jr, MD Hospital Course - Lab Results Lab Results: Most Recent Lab Values WBC 2.6 10^3/ul (4.5-11.0) L* D 09/15/18 07:00 RBC 2.69 10^6/uL (3.5-6.1) L 09/15/18 07:00 Hgb 9.0 g/dL (12.0-16.0) L 09/15/18 07:00 Hct 26.9 % (36.0-48.0) L 09/15/18 07:00 MCV 100.0 fl (80.0-105.0) 09/15/18 07:00 MCH 33.5 pg (25.0-35.0) 09/15/18 07:00 MCHC 33.5 g/dl (31.0-37.0) 09/15/18 07:00 RDW 21.5 % (11.5-14.5) H 09/15/18 07:00 Plt Count 54 10^3/uL (120.0-450.0) L 09/15/18 07:00 MPV 8.4 fl (7.0-11.0) 09/15/18 07:00 Gran % 64.5 % (50.0-68.0) 09/15/18 07:00 Lymph % (Auto) 33.2 % (22.0-35.0) 09/15/18 07:00 [place] % (Auto) 2.3 % (1.0-6.0) 09/15/18 07:00 Eos % (Auto) 0.0 % (1.5-5.0) L 09/15/18 07:00 Baso % (Auto) 0.0 % (0.0-3.0) 09/15/18 07:00 Gran # 1.69 (1.4-6.5) 09/15/18 07:00 Lymph # (Auto) 0.9 (1.2-3.4) L 09/15/18 07:00 [place] # (Auto) 0.1 (0.1-0.6) 09/15/18 07:00 Eos # (Auto) 0.0 (0.0-0.7) 09/15/18 07:00 Baso # (Auto) 0.00 K/mm3 (0.0-2.0) 09/15/18 07:00 PT 11.6 SECONDS (9.4-12.5) 09/14/18 19:59 INR 1.02 09/14/18 19:59 APTT 28.3 Seconds (25.1-36.5) 09/14/18 19:59 Sodium 138 mmol/L (132-148) 09/15/18 07:00 Potassium 4.4 mmol/L (3.6-5.0) 09/15/18 07:00 Chloride 104 mmol/L (98-107) 09/15/18 07:00 Carbon Dioxide 27 mmol/L (21-33) 09/15/18 07:00 Anion Gap 12 (10-20) 09/15/18 07:00 BUN 18 mg/dL (7-21) 09/15/18 07:00 Creatinine 0.6 mg/dl (0.7-1.2) L 09/15/18 07:00 Est GFR ( Amer) > 60 09/15/18 07:00 Est GFR (Non-Af Amer) > 60 09/15/18 07:00 Random Glucose 157 mg/dL (70-110) H 09/15/18 07:00 Calcium 9.6 mg/dL (8.4-10.5) 09/15/18 07:00 Magnesium 1.8 mg/dL (1.7-2.2) 09/14/18 19:59 Iron 254 ug/dL (45-180) H 09/14/18 19:40 TIBC 258 ug/dL (265-497) L 09/14/18 19:40 % Saturation 98 % (20-55) H 09/14/18 19:40 Ferritin 2550.0 ng/mL 09/14/18 19:40 Total Bilirubin 0.6 mg/dL (0.2-1.3) 09/15/18 07:00 AST 57 U/L (14-36) H 09/15/18 07:00 ALT 73 U/L (7-56) H 09/15/18 07:00 Alkaline Phosphatase 110 U/L (38-126) 09/15/18 07:00 Total Protein 8.3 g/dL (5.8-8.3) 09/15/18 07:00 Albumin 4.0 g/dL (3.0-4.8) 09/15/18 07:00 Globulin 4.3 gm/dL 09/15/18 07:00 Albumin/Globulin Ratio 0.9 (1.1-1.8) L 09/15/18 07:00 Lipase 45 U/L (23-300) 09/14/18 19:40 Vitamin B12 344 pg/mL (239-931) 09/14/18 19:40 25-OH Vitamin D Total 17.9 NG/ML (30.0-100.0) L 09/14/18 19:40 Folate 7.7 ng/mL 09/14/18 19:40 Blood Type O POSITIVE 09/14/18 20:30 Antibody Screen Negative 09/14/18 20:30 Crossmatch See Detail 09/14/18 20:30 BBK History Checked Patient has bt 09/14/18 20:30 Attending/Attestation - Attestation I have personally seen and examined this patient.: Yes I have fully participated in the care of the patient.: Yes I have reviewed all pertinent clinical information, including history, physical exam and plan: Yes Notes (Text): 09/16/18 15:22 Attending note; Patient seen and examined with resident. Patient is alert and awake. Not in any acute distress. No bleeding noted. Patient's daughter and son-in-law by the bedside. Tolerating diet well. Patient is a 77-year-old female with a past medical history of hypertension, pancytopenia, myelodysplastic anemia, osteoarthritis, paroxysmal atrial f ibrillation and peptic ulcer disease that presented to [facility] due to generalized weakness and referral from her [employer]. Patient was found to have anemia and severe, thrombocytopenia. Status post platelet transfusion. Platelet improved from 10-54. Oncology evaluation appreciated. Hemoglobin is stable at 9.0. No active bleeding noted. No new petechiae or bruising. Patient will be discharged home today. Patient needs close follow-up with primary oncologist Dr.Palathingal. Needs weekly CBC. Patient was evaluated by Dr. Cohen. We will discharge patient home today. Follow-up with PMD Dr. Huerta. The diagnosis and follow-up plan discussed with patient and family in detail.
[2018-09-15 16:32] VITALS: BP 121/48; PULSE 97; TEMP 97.8; O2SAT 95
--- NOTE | 2018-09-15 23:33 | CON ---
DATE: 09/15/2018 HISTORY OF PRESENT ILLNESS: This is a 77-year-old woman with a myelodysplastic disorder causing a pancytopenia and she had another CBC as an outpatient and she was found to have a low hemoglobin, was told to come in to the hospital. Her white count yesterday was 4, it is now 2.6; hemoglobin 9.8, 9; the platelets 10,000, now 54,000. PHYSICAL EXAMINATION: GENERAL: The patient is alert. SKIN: No petechiae. No bruises. HEENT: Anicteric. NODES: None palpable in the axillary, cervical, supraclavicular or inguinal regions. LUNGS: Clear at present, able to lie flat in bed. HEART: S1 and S2. ABDOMEN: Shows no liver, no spleen, no tenderness, no ascites. EXTREMITIES: No edema. NITROGLYCERIN NEUTRALIZER: No focal finding. LABORATORY DATA: Laboratory findings showed iron saturation is 98%, ferritin 2500. . The vitamin B12 is 344, and this is . ASSESSMENT: At this point, we are not transfusing any platelets and she seems to be hematologically stable to be able to go home at this point and have a weekly CBC as an outpatient. Scott Cohen MD
== END 2018-09-15 18:48 | disposition home or self-care (01) ==
LOC: ED 17:21 → INTOOBSV 21:06 → ERH 21:06 → 3RNO 23:51
PROVIDERS: ADMIT Internal Medicine; ATTEND Internal Medicine
DX: D61.818 Other pancytopenia (principal); D46.9 Myelodysplastic syndrome, unspecified; I10 Essential (primary) hypertension; I48.0 Paroxysmal atrial fibrillation; M19.90 Unspecified osteoarthritis, unspecified site; K59.09 Other constipation; Z88.0 Allergy status to penicillin; Z87.11 Personal history of peptic ulcer disease; Z87.891 Personal history of nicotine dependence
CPT/HCPCS: 36415; 36430; 76700; 80053; 82306; 82607; 82728; 82746; 83540; 83550; 83690; 83735; 85025; 85610; 85730; 86850; 86900; 86920; 86921; 86922; 93005; 99285; G0378; P9037

== ENCOUNTER 2018-09-18 10:44 | Observation (INO) | payer MEDICARE, MEDICAID ==
[2018-09-18 10:44] VITALS: BMI 26.0
--- NOTE | 2018-09-18 11:11 | ED PDOC ---
Arrival/HPI - General Chief Complaint: ENT Problem Time Seen by Provider: 09/18/18 10:46 Historian: Patient, Family - History of Present Illness Narrative History of Present Illness (Text): 09/18/18 11:05 Patient is a 77 year old female whose past medical history includes hysterectomy, neck surgery, pancytopenia, and thrombocytopenia, who presents to the Emergency department with her daughter and son-in-law for nose bleed. Marilee ent is primarily [place] speaking and her daughter is translating for her. Per daughter, patient's nose started bleeding earlier this morning, and at some point resolved but family members aren't sure when. Patient complaining about feeling dizzy and left sided abdominal cramping. Per family, patient was recently diagnosed with leukemia and presented to the hospital for further blood work, but was found to have a low platelet count. She was subsequently given 1 unit of transfusion, and per patient was discharged from the hospital 2 days ago. However, review of records state that patient presented to the hospital on 09/14/18 for thrombocytopenia after her gauger chief() saw that her platelet count was low. She was subsequently hospitalized, given platelet transfusion and discharged on 09/16/18. Per hospitalist note patient had a bone marrow biopsy on 11/2017 that revealed no acute leukemia, lymphoma, or metastatic carcinoma. Patient's blood pressure this morning was 158/80, and notes feeling constipated. Patient also has a lower extremity rash. Of note her last meal was crackers this morning. She is a former smoker and doesn't drink EtOH. Patient denies fevers, chills, cough, shortness of breath, chest pain, dyspnea on exertion, nausea, vomiting, diarrhea, back pain, neck pain, headache, or any other complaint. PMD: Dr.Fidel Huerta Time/Duration: Other (This morning) Symptom Onset: Sudden Symptom Course: Resolved (nose bleed) Quality: Cramping (abdominal pain) Context: Home Past Medical History - Provider Review Nursing Documentation Reviewed: Yes - Infectious Disease Hx of Infectious Diseases: None - Past Medical History Past Medical History: Unable to Obtain - Cardiac Hx Cardiac Disorders: Yes Hx Hypertension: Yes - Pulmonary Hx Respiratory Disorders: Yes (SMOKED CIGARETTES QUIT SMOKED 1/2 PPD.) - Neurological Hx Neurological Disorder: Yes Hx Dizziness: Yes - HEENT Hx HEENT Disorder: Yes (SOBOBA TO RIGHT EAR) - Renal Hx Renal Disorder: No - Endocrine/Metabolic Hx Endocrine Disorders: No - Hematological/Oncological Hx Blood Disorders: Yes Hx Anemia: Yes Hx Blood Transfusions: Yes Hx Blood Transfusion Reaction: No Other/Comment: thrombocytopenia - Integumentary Hx Dermatological Disorder: No - Musculoskeletal/Rheumatological Hx Musculoskeletal Disorders: No - Gastrointestinal Hx Gastrointestinal Disorders: Yes (CONSTIPATION) - Genitourinary/Gynecological Hx Genitourinary Disorders: Yes Hx Incontinence: Yes Hx Urinary Tract Infection: Yes - Psychiatric Hx Psychophysiologic Disorder: No Hx Substance Use: No - Past Surgical History Past Surgical History: Unable to Obtain - Surgical History Hx Hysterectomy: Yes Hx Orthopedic Surgery: Yes - Anesthesia Hx Anesthesia: Yes Hx Anesthesia Reactions: No Hx Malignant Hyperthermia: No - Suicidal Assessment Feels Threatened In Home Enviroment: No Family/Social History - Physician Review Nursing Documentation Reviewed: Yes Family/Social History: No Known Family HX Smoking Status: Former Smoker Hx Alcohol Use: No Hx Substance Use: No Allergies/Home Meds Allergies/Adverse Reactions: Allergies amoxicillin Allergy (Verified 09/18/18 10:59) SHORTNESS OF BREATH ciprofloxacin Allergy (Verified 09/18/18 10:59) SHORTNESS OF BREATH Penicillins Allergy (Verified 09/18/18 10:59) SHORTNESS OF BREATH Home Medications: Home Meds Medication Instructions Recorded Confirmed Irbesartan [Avapro] 75 mg PO DAILY 06/04/18 09/18/18 Review of Systems - Physician Review All systems were reviewed & negative as marked: Yes - Review of Systems Constitutional: absent: Fevers, Night Sweats ENT: Epistaxis Respiratory: absent: SOB, Cough Cardiovascular: absent: Chest Pain, MCBRIDE Gastrointestinal: Abdominal Pain, Constipation. absent: Diarrhea, Nausea, Vomiting Genitourinary Female: absent: Urine Output Changes Musculoskeletal: absent: Back Pain, Neck Pain Neurological: Dizziness. absent: Headache Physical Exam Vital Signs Reviewed: Yes Vital Signs Temp Pulse Resp BP Pulse Ox 09/18/18 10:57 98.5 F 83 18 120/73 97 Temperature: Afebrile Blood Pressure: Normal Pulse: Regular Respiratory Rate: Normal Appearance: Positive for: Other (pale, chronically ill) Mental Status: Positive for: Alert and Oriented X 3 - Systems Exam Head: Present: Atraumatic, Normocephalic Pupils: Present: PERRL Extroacular Muscles: Present: EOMI Conjunctiva: Present: Normal Mouth: Present: Moist Mucous Membranes Neck: Present: Normal Range of Motion Respiratory/Chest: Present: Clear to Auscultation, Good Air Exchange. No: Respiratory Distress, Accessory Muscle Use Cardiovascular: Present: Regular Rate and Rhythm, Normal S1, S2. No: Murmurs Abdomen: Present: Tenderness (Mild generalized tenderness). No: Distention, Peritoneal Signs, Rebound, Guarding Back: Present: Normal Inspection Upper Extremity: Present: Normal Inspection. No: Cyanosis, Edema Lower Extremity: Present: Normal Inspection. No: Edema Neurological: Present: GCS=15, CN II-XII Intact, Speech Normal Skin: Present: Warm, Dry, Rashes (generalized petechial rash) Psychiatric: Present: Alert, Oriented x 3, Normal Insight, Normal Concentration Medical Decision Making ED Course and Treatment: 09/18/18 11:06 Impression: 77 year old female who presents to the Emergency department with family members complaining of earlier episode of nosebleed, and currently experiencing left sided abdominal cramping and dizziness. Plan: -- Abdominal and Pelvic CT without IV or PO contrast -- Chest X-ray -- EKG -- Labs -- Blood work -- Cardiac enzymes -- Urinalysis -- Reassess and disposition Prior Visits: Notes and results from previous visits were reviewed. Patient was last seen in the emergency department on 09/14/18 for thrombocytopenia and was hospitalized. Progress Notes: 09/18/18 11:56 Discussed case with , who is aware of and accepts patient under her service. 09/18/18 12:29 Spoke with , who states that CT scan was unremarkable. 09/18/18 12:50 EKG shows normal sinus rhythm rate approximately 75 with poor R-wave progression and no acute ST or T-wave changes. - Lab Interpretations I have reviewed the lab results: Yes - RAD Interpretation Radiology Orders: CT scan of the abdomen and pelvis is read by the radiologist is unremarkable. Chest one view as read by the radiologist shows no cardiomegaly infiltrate or effusion. Mcat Tutor: Radiologist - EKG Interpretation Interpreted by ED Physician: Yes Type: 12 lead EKG - Scribe Statement The provider has reviewed the documentation as recorded by the Scribe Scott Ribeiro Provider Scribe Attestation: All medical record entries made by the Scribe were at my direction and personally dictated by me. I have reviewed the chart and agree that the record accurately reflects my personal performance of the history, physical exam, medical decision making, and the department course for this patient. I have also personally directed, reviewed, and agree with the discharge instructions and disposition. Disposition/Present on Arrival - Present on Arrival Any Indicators Present on Arrival: No History of DVT/PE: No History of Uncontrolled Diabetes: No Urinary Catheter: No History of Decub. Ulcer: No History Surgical Site Infection Following: None - Disposition Have Diagnosis and Disposition been Completed?: Yes Diagnosis: Abdominal pain, Thrombocytopenia, Anemia Disposition: HOSPITALIZED Disposition Time: 12:26 Patient Plan: Observation Patient Problems: Current Active Problems Problem Status Onset Abdominal pain Acute Anemia Acute Thrombocytopenia Acute Condition: FAIR
[2018-09-18 11:40] LABS: EOS % 0.5 % (1.5-5.0); GRAN # 1.43 (1.4-6.5); GRAN % 33.1 % (50.0-68.0); HEMOGLOBIN 9.3 g/dL (12.0-16.0); LYMPH # 2.6 (1.2-3.4); LYMPH % 59.2 % (22.0-35.0); MEAN CELL VOLUME 102.2 fl (80.0-105.0); MEAN CORPUSCULAR HEMOGLOBIN 33.3 pg (25.0-35.0); MEAN CORPUSCULAR HGB CONC 32.6 g/dl (31.0-37.0); MEAN PLATELET VOLUME 10.7 fl (7.0-11.0); MONO # 0.3 (0.1-0.6); MONO % 7.2 % (1.0-6.0); RBC 2.79 10^6/uL (3.5-6.1); RED CELL DISTRIBUTION WIDTH 21.2 % (11.5-14.5); WHITE BLOOD COUNT 4.3 10^3/ul (4.5-11.0)
[2018-09-18 11:52] LABS: INR 1.04; PARTIAL THROMBOPLASTIN TIME 27.3 Seconds (25.1-36.5)
[2018-09-18 11:53] LABS: PLATELET COUNT 8 10^3/uL (120.0-450.0)
[2018-09-18 11:55] LABS: ALB/GLOB RATIO 0.9 (1.1-1.8); ALBUMIN 3.9 g/dL (3.0-4.8); ALT/SGPT 81 U/L (7-56); AMYLASE 82 U/L (35-125); AST/SGOT 53 U/L (14-36); BLOOD UREA NITROGEN 22 mg/dL (7-21); CALCIUM 9.6 mg/dL (8.4-10.5); GFR NON-AFRICAN AMERICAN > 60; LIPASE 41 U/L (23-300)
[2018-09-18 12:00] LABS: TROPONIN I < 0.01 ng/mL
--- NOTE | 2018-09-18 12:35 | CT ---
Date of service: 09/18/2018 PROCEDURE: CT Abdomen and Pelvis without intravenous contrast HISTORY: Unspecified pain History of thrombocytopenia. COMPARISON: None. TECHNIQUE: Unenhanced. Neither IV nor oral contrast administered Radiation dose: Total exam DLP = 509.66 mGy-cm. This CT exam was performed using one or more of the following dose reduction techniques: Automated exposure control, adjustment of the mA and/or kV according to patient size, and/or use of iterative reconstruction technique. FINDINGS: LOWER THORAX: Unremarkable. LIVER: Unremarkable. No gross lesion or ductal dilatation. GALLBLADDER AND BILE DUCTS: Unremarkable. PANCREAS: Unremarkable. No gross lesion or ductal dilatation. SPLEEN: Unremarkable. ADRENALS: Unremarkable. No mass. KIDNEYS AND URETERS: Unremarkable. No hydronephrosis. No solid mass. VASCULATURE: Unremarkable. No aortic aneurysm. No atherosclerotic calcification or mural plaque present. BOWEL: Unremarkable. No obstruction. No gross mural thickening. APPENDIX: Unremarkable. Normal appendix. PERITONEUM: Unremarkable. No free fluid. No free air. LYMPH NODES: Unremarkable. No enlarged lymph nodes. BLADDER: Unremarkable. REPRODUCTIVE: Prior hysterectomy. BONES: No acute fracture. Profound osteopenia. Stable upper lumbar compression fractures. Resume surgical defect in the left iliac bone also a stable finding. OTHER FINDINGS: None. IMPRESSION: No acute findings related to/accounting for the clinical presentation. Additional benign and/or incidental findings described above. No significant interval change compared to the prior examination(s).
--- NOTE | 2018-09-18 12:36 | RAD ---
Date of service: 09/18/2018 HISTORY: ap COMPARISON: 07/14/2018 FINDINGS: LUNGS: No active pulmonary disease. PLEURA: No significant pleural effusion identified, no pneumothorax apparent. CARDIOVASCULAR: Atherosclerotic calcifications identified primarily aortic arch. No radiographic findings to suggest acute or significant cardiovascular disease. OSSEOUS STRUCTURES: No significant abnormalities. VISUALIZED UPPER ABDOMEN: Normal. OTHER FINDINGS: None. IMPRESSION: No active disease. No significant interval change compared to the prior examination(s).
[2018-09-18 13:03] LABS: PH,URINE 6.5 (4.7-8.0); URINE BILIRUBIN NEGATIVE (NEGATIVE); URINE BLOOD TRACE-INTACT (NEGATIVE); URINE COLOR YELLOW (YELLOW); URINE GLUCOSE (UA) NEGATIVE (NEGATIVE); URINE LEUKOCYTE ESTERASE SMALL Leu/uL (NEGATIVE); URINE PROTEIN NEGATIVE mg/dL (<30 mg/dL); URINE UROBILINOGEN 0.2 E.U./dL (<1 E.U./dL)
[2018-09-18 13:04] LABS: URINE APPEARANCE CLOUDY (CLEAR)
[2018-09-18 13:21] LABS: URINE BACTERIA MANY (NEG); URINE RBC 0 - 2 /hpf (0-2)
--- NOTE | 2018-09-18 13:25 | CP.PCM.HP ---
<Marlene Castro - Last Filed: 09/18/18 14:45> History of Present Illness - History of Present Illness History of Present Illness: CC: Nosebleed, lightheadedness, abdominal cramp HPI: 77 year old female with a past medical history of hypertension,myelodysplastic anemia, osteoarthritis, paroxysmal atrial fibrillation and peptic ulcer disease that presents to the [facility] with complaints of a nosebleed that lasted 10 minutes, but stopped after applying pressure with a napkin, lightheadedness, diffuse abdominal cramping and higher than usual blood pressure 158/80 taken at home and did not take her home med. Pt is accompanied by family at bedside and aided with translating. Patient woke up this morning headed to use the restroom and without any provocation began to notice blood trickling from her nose at which time she used a napkin to apply pressure and sat down on account of becoming lightheaded. Once she sat down she began to experience diffuse abdominal cramping that has since resolved. Upon arrival to the ED, patient was found to have a low platelet count of 8. Patient was recently admitted to the hospital for pancytopenia/thrombocytopenia secondary to myleodysplastic anemia followed by Dr. Sanchez (Heme/onc) outpatient and is known to Dr. Cohen (Heme/onc) as well. Patient noted she was constipated however had a bowel movement last night. Patient denied bleeding from any other sites, but noted rashes on her extremities. Patients lightheadedness has improved as well as her abdominal cramps. Patient denies fevers, chills, cough, shortness of breath, chest pain, dyspnea on exertion, nausea, vomiting, diarrhea, back pain, neck pain, headache, or any other complaint. PMHx: hypertension, pancytopenia, myelodysplastic anemia, osteoarthritis, paroxysmal atrial fibrillation and peptic ulcer disease PSHx: hysterectomy Fam Hx: Noncontributory SHx: Former smoker. Denies EtOH or drug use, lives at home with daughter Home Meds: Irbesartan 75mg daily (only takes when pressures are high) Allergies: amoxicillin, ciprofloxacin, penicillin - shortness of breath PCP: Dr. Huerta Hem: Dr. Cohen/Dr. Guzman [facility] Pharmacy: [phone] Present on Admission - Present on Admission Any Indicators Present on Admission: No Review of Systems - Review of Systems Review of Systems: As Per HPI otherwise Negative Past Patient History - Infectious Disease Hx of Infectious Diseases: None - Past Social History Smoking Status: Former Smoker - CARDIAC Hx Cardiac Disorders: Yes Hx Hypertension: Yes - PULMONARY Hx Respiratory Disorders: Yes (SMOKED CIGARETTES QUIT SMOKED 1/2 PPD.) - NEUROLOGICAL Hx Neurological Disorder: Yes Hx Dizziness: Yes - HEENT Hx HEENT Problems: Yes ([place] TO RIGHT EAR) - RENAL Hx Chronic Kidney Disease: No - ENDOCRINE/METABOLIC Hx Endocrine Disorders: No - HEMATOLOGICAL/ONCOLOGICAL Hx Blood Disorders: Yes Hx Anemia: Yes Hx Blood Transfusions: Yes Hx Blood Transfusion Reaction: No Other/Comment: thrombocytopenia - INTEGUMENTARY Hx Dermatological Problems: No - MUSCULOSKELETAL/RHEUMATOLOGICAL Hx Musculoskeletal Disorders: No - GASTROINTESTINAL Hx Gastrointestinal Disorders: Yes (CONSTIPATION) - GENITOURINARY/GYNECOLOGICAL Hx Genitourinary Disorders: Yes Hx Incontinence: Yes Hx Urinary Tract Infection: Yes - PSYCHIATRIC Hx Psychophysiologic Disorder: No Hx Substance Use: No - SURGICAL HISTORY Hx Hysterectomy: Yes Hx Orthopedic Surgery: Yes - ANESTHESIA Hx Anesthesia: Yes Hx Anesthesia Reactions: No Hx Malignant Hyperthermia: No Meds Allergies/Adverse Reactions: Allergies Allergy/AdvReac Type Severity Reaction Status Date / Time amoxicillin Allergy SHORTNESS Verified 09/18/18 10:59 OF BREATH ciprofloxacin Allergy SHORTNESS Verified 09/18/18 10:59 OF BREATH Penicillins Allergy SHORTNESS Verified 09/18/18 10:59 OF BREATH Physical Exam - Constitutional Appears: No Acute Distress - Head Exam Head Exam: ATRAUMATIC, NORMAL INSPECTION, NORMOCEPHALIC - Eye Exam Eye Exam: EOMI, Normal appearance, PERRL Pupil Exam: NORMAL ACCOMODATION, PERRL - ENT Exam ENT Exam: Mucous Membranes Dry - Respiratory Exam Respiratory Exam: Clear to Auscultation Bilateral, NORMAL BREATHING PATTERN - Cardiovascular Exam Cardiovascular Exam: REGULAR RHYTHM, +S1, +S2 - GI/Abdominal Exam GI & Abdominal Exam: Normal Bowel Sounds, Soft. absent: Tenderness - Extremities Exam Extremities exam: Positive for: normal inspection Additional comments: petechiae - Neurological Exam Neurological exam: Alert, CN II-XII Intact, Normal Gait, Oriented x3, Reflexes Normal - Psychiatric Exam Psychiatric exam: Normal Affect, Normal Mood - Skin Skin Exam: Petechiae Results - Vital Signs Recent Vital Signs: Last Vital Signs Temp 98.5 F 09/18/18 10:57 Pulse 83 09/18/18 10:57 Resp 18 09/18/18 10:57 BP 120/73 09/18/18 10:57 Pulse Ox 97 09/18/18 10:57 - Labs Result Diagrams: 09/18/18 11:32 09/18/18 11:32 Labs: Laboratory Results - last 24 hr 09/18/18 09/18/18 09/18/18 11:32 11:32 11:32 WBC 4.3 L D RBC 2.79 L Hgb 9.3 L Hct 28.5 L MCV 102.2 MCH 33.3 MCHC 32.6 RDW 21.2 H Plt Count 8 L* MPV 10.7 Gran % 33.1 L Lymph % (Auto) 59.2 H [place] % (Auto) 7.2 H Eos % (Auto) 0.5 L Baso % (Auto) 0.0 Gran # 1.43 Lymph # (Auto) 2.6 [place] # (Auto) 0.3 Eos # (Auto) 0.0 Baso # (Auto) 0.00 PT 12.0 INR 1.04 APTT 27.3 Sodium 141 Potassium 4.3 Chloride 104 Carbon Dioxide 29 Anion Gap 12 BUN 22 H Creatinine 0.7 Est GFR ( Amer) > 60 Est GFR (Non-Af Amer) > 60 Random Glucose 115 H Calcium 9.6 Total Bilirubin 0.6 AST 53 H ALT 81 H Alkaline Phosphatase 108 Lactate Dehydrogenase 648 Total Creatine Kinase 27 L Troponin I < 0.01 Total Protein 8.1 Albumin 3.9 Globulin 4.2 Albumin/Globulin Ratio 0.9 L Amylase 82 Lipase 41 Urine Color Urine Appearance Urine pH Ur Specific [place] Urine Protein Urine Glucose (UA) Urine Ketones Urine Blood Urine Nitrate Urine Bilirubin Urine Urobilinogen Ur Leukocyte Esterase 09/18/18 12:44 WBC RBC Hgb Hct MCV MCH MCHC RDW Plt Count MPV Gran % Lymph % (Auto) [place] % (Auto) Eos % (Auto) Baso % (Auto) Gran # Lymph # (Auto) [place] # (Auto) Eos # (Auto) Baso # (Auto) PT INR APTT Sodium Potassium Chloride Carbon Dioxide Anion Gap BUN Creatinine Est GFR ( Amer) Est GFR (Non-Af Amer) Random Glucose Calcium Total Bilirubin AST ALT Alkaline Phosphatase Lactate Dehydrogenase Total Creatine Kinase Troponin I Total Protein Albumin Globulin Albumin/Globulin Ratio Amylase Lipase Urine Color Yellow Urine Appearance Cloudy Urine pH 6.5 Ur Specific [place] 1.020 Urine Protein Negative Urine Glucose (UA) Negative Urine Ketones Negative Urine Blood Trace-intact H Urine Nitrate Negative Urine Bilirubin Negative Urine Urobilinogen 0.2 Ur Leukocyte Esterase Small H Assessment & Plan - Assessment and Plan (Free Text) Assessment: 77 year old female with past medical history of hypertension, myelodysplastic anemia, osteoarthritis, paroxysmal atrial fibrillation and peptic ulcer disease presents for nosebleed in the setting of myleodysplastic anemia. Pt admitted with thrombocytopenia with a platelet count of 8, no active signs of bleeding, vitals are stable. Will transfuse 1 u platelets and follow up with Dr. Cohen's (Heme/onc) recommendations. 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 Cohen/[place] considering Procrit outpt, appreciate recs -Hgb: 9.3 baseline - transfused on last admission, unable to fu with PMD or Heme Onc after discharge -Platelets 8 on admission. Baseline 14-20 -PT/PTT are normal. - tylenol and benadryl prn -1 unit of platelets to be transfused. -Vital signs q6h -Continue to monitor all cell lines with f/u AM labs -Hemo/Onc, Dr. Cohen consulted for further recommendations Abdominal pain - Diffuse cramping pain - Recent Abd US negative, CT Abdomen Negative for any acute intrabdominal pathology HTN - Cozaar 25 mg Daily - continue to monitor Paroxysmal A. Fib - Currently not on medication - f/u repeat EKG in AM Chronic Constipation home Miralax continue to monitor stools for blood DVT/GI prophylaxis: SCD Pepcid 20 mg PO BID Patient seen, case discussed and plan approved by Dr. Rowe. Marlene Castro PGY3 <Carlos Rowe - Last Filed: 09/19/18 11:25> Results - Vital Signs Recent Vital Signs: Last Vital Signs Temp 98 F 09/19/18 07:38 Pulse 74 09/19/18 10:01 Resp 20 09/19/18 07:38 BP 102/52 L 09/19/18 10:01 Pulse Ox 96 09/19/18 07:38 - Labs Result Diagrams: 09/19/18 06:30 09/19/18 06:30 Labs: Laboratory Results - last 24 hr 09/18/18 09/18/1818 11:30 11:32 11:32 WBC 4.3 L D RBC 2.79 L Hgb 9.3 L Hct 28.5 L MCV 102.2 MCH 33.3 MCHC 32.6 RDW 21.2 H Plt Count 8 L* Manual Plt Count MPV 10.7 Gran % 33.1 L Lymph % (Auto) 59.2 H [place] % (Auto) 7.2 H Eos % (Auto) 0.5 L Baso % (Auto) 0.0 Gran # 1.43 Lymph # (Auto) 2.6 [place] # (Auto) 0.3 Eos # (Auto) 0.0 Baso # (Auto) 0.00 PT 12.0 INR 1.04 APTT 27.3 Sodium Potassium Chloride Carbon Dioxide Anion Gap BUN Creatinine Est GFR ( Amer) Est GFR (Non-Af Amer) Random Glucose Calcium Phosphorus 3.7 Magnesium 1.8 Total Bilirubin AST ALT Alkaline Phosphatase Lactate Dehydrogenase Total Creatine Kinase Troponin I Total Protein Albumin Globulin Albumin/Globulin Ratio Amylase Lipase Urine Color Urine Appearance Urine pH Ur Specific [place] Urine Protein Urine Glucose (UA) Urine Ketones Urine Blood Urine Nitrate Urine Bilirubin Urine Urobilinogen Ur Leukocyte Esterase Urine RBC Urine WBC Ur Epithelial Cells Urine Bacteria Blood Type Antibody Screen Crossmatch BBK History Checked 09/18/18 09/18/18 09/18/18 11:32 12:44 12:44 WBC RBC Hgb Hct MCV MCH MCHC RDW Plt Count Manual Plt Count MPV Gran % Lymph % (Auto) [place] % (Auto) Eos % (Auto) Baso % (Auto) Gran # Lymph # (Auto) [place] # (Auto) Eos # (Auto) Baso # (Auto) PT INR APTT Sodium 141 Potassium 4.3 Chloride 104 Carbon Dioxide 29 Anion Gap 12 BUN 22 H Creatinine 0.7 Est GFR ( Amer) > 60 Est GFR (Non-Af Amer) > 60 Random Glucose 115 H Calcium 9.6 Phosphorus Magnesium Total Bilirubin 0.6 AST 53 H ALT 81 H Alkaline Phosphatase 108 Lactate Dehydrogenase 648 Total Creatine Kinase 27 L Troponin I < 0.01 Total Protein 8.1 Albumin 3.9 Globulin 4.2 Albumin/Globulin Ratio 0.9 L Amylase 82 Lipase 41 Urine Color Yellow Urine Appearance Cloudy Urine pH 6.5 Ur Specific [place] 1.020 Urine Protein Negative Urine Glucose (UA) Negative Urine Ketones Negative Urine Blood Trace-intact H Urine Nitrate Negative Urine Bilirubin Negative Urine Urobilinogen 0.2 Ur Leukocyte Esterase Small H Urine RBC 0 - 2 Urine WBC 10 - 15 Ur Epithelial Cells 1 - 3 Urine Bacteria Many Blood Type O POSITIVE Antibody Screen Negative Crossmatch BBK History Checked Patient has bt 09/19/18 09/19/18 09/19/18 06:30 06:30 09:50 WBC 3.6 L RBC 2.57 L Hgb 8.6 L Hct 26.1 L MCV 101.6 MCH 33.5 MCHC 33.0 RDW 21.0 H Plt Count 21 L* Manual Plt Count 21 L* MPV 10.3 Gran % 28.2 L Lymph % (Auto) 65.7 H [place] % (Auto) 5.0 Eos % (Auto) 0.8 L Baso % (Auto) 0.3 Gran # 1.02 L Lymph # (Auto) 2.4 [place] # (Auto) 0.2 Eos # (Auto) 0.0 Baso # (Auto) 0.01 PT INR APTT Sodium 139 Potassium 4.4 Chloride 104 Carbon Dioxide 30 Anion Gap 10 BUN 19 Creatinine 0.7 Est GFR ( Amer) > 60 Est GFR (Non-Af Amer) > 60 Random Glucose 109 Calcium 9.4 Phosphorus Magnesium Total Bilirubin 0.6 AST 51 H ALT 74 H Alkaline Phosphatase 102 Lactate Dehydrogenase Total Creatine Kinase Troponin I Total Protein 7.6 Albumin 3.6 Globulin 4.0 Albumin/Globulin Ratio 0.9 L Amylase Lipase Urine Color Urine Appearance Urine pH Ur Specific [place] Urine Protein Urine Glucose (UA) Urine Ketones Urine Blood Urine Nitrate Urine Bilirubin Urine Urobilinogen Ur Leukocyte Esterase Urine RBC Urine WBC Ur Epithelial Cells Urine Bacteria Blood Type O POSITIVE Antibody Screen Negative Crossmatch See Detail BBK History Checked Patient has bt Attending/Attestation - Attestation I have personally seen and examined this patient.: Yes I have fully participated in the care of the patient.: Yes I have reviewed all pertinent clinical information: Yes Notes (Text): 09/19/18 11:23 Attending note; Patient seen and examined with resident in ER. Patient is alert and awake. Not in any acute distress. has minimal nose bleed at home. Patient's niece by the bedside. Currently no active bleeding. Denies any chest pain, shortness of breath. Initially complained of abdominal discomfort. Currently tolerating diet well. Patient is a 77-year-old female with a past medical history of hypertension, strange cytopenia, myelodysplastic anemia, osteoarthritis, paroxysmal atrial fibrillation and peptic ulcer disease that presented to [facility] [place] [facility] due to generalized weakness and referral from her phlebotomy technologist. Patient was found to have anemia and severe, thrombocytopenia. severe thrombocytopenia; platelet count is 8. 1 unit of platelet ordered. Oncology evaluation requested. Hemoglobin is stable at 9.3. No active bleeding noted. Patient needs close follow-up with primary oncologist . upon discharge Follow-up with PMD Dr. Huerta. The diagnosis and follow-up plan discussed with patient and family in detail. 09/19/18 11:25
[2018-09-18] MEDS ORDERED: Pneumococcal 23-Valent Vaccine IM ONE (14:10)
[2018-09-18] MEDS ORDERED: Influenza Vaccine 60 mcg/0.5 mL SYR (4YR UP) IM ONE (14:10)
[2018-09-18] MEDS: POLYETHYLENE GLYCOL 3350 17 GM/Dose PACKET PO SCH (14:54)
--- NOTE | 2018-09-18 15:12 | CARD ---
APPROVED REPORT Date of service: 09/18/2018 EKG Measurement Heart [id number] <Conclusion> Normal sinus rhythm Normal ECG
--- NOTE | 2018-09-18 16:08 | CP.PCM.DIS ---
<Marlene Castro - Last Filed: 09/18/18 16:03> Provider - Provider Date of Admission: 09/18/18 12:25 Attending physician: Carlos Rowe MD Consults: Dr. Cohen - Jose onc Time Spent in preparation of Discharge (in minutes): 45 Hospital Course - Lab Results Lab Results: Most Recent Lab Values WBC 4.3 10^3/ul (4.5-11.0) L D 09/18/18 11:32 RBC 2.79 10^6/uL (3.5-6.1) L 09/18/18 11:32 Hgb 9.3 g/dL (12.0-16.0) L 09/18/18 11:32 Hct 28.5 % (36.0-48.0) L 09/18/18 11:32 MCV 102.2 fl (80.0-105.0) 09/18/18 11:32 MCH 33.3 pg (25.0-35.0) 09/18/18 11:32 MCHC 32.6 g/dl (31.0-37.0) 09/18/18 11:32 RDW 21.2 % (11.5-14.5) H 09/18/18 11:32 Plt Count 8 10^3/uL (120.0-450.0) L* 09/18/18 11:32 MPV 10.7 fl (7.0-11.0) 09/18/18 11:32 Gran % 33.1 % (50.0-68.0) L 09/18/18 11:32 Lymph % (Auto) 59.2 % (22.0-35.0) H 09/18/18 11:32 [place] % (Auto) 7.2 % (1.0-6.0) H 09/18/18 11:32 Eos % (Auto) 0.5 % (1.5-5.0) L 09/18/18 11:32 Baso % (Auto) 0.0 % (0.0-3.0) 09/18/18 11:32 Gran # 1.43 (1.4-6.5) 09/18/18 11:32 Lymph # (Auto) 2.6 (1.2-3.4) 09/18/18 11:32 [place] # (Auto) 0.3 (0.1-0.6) 09/18/18 11:32 Eos # (Auto) 0.0 (0.0-0.7) 09/18/18 11:32 Baso # (Auto) 0.00 K/mm3 (0.0-2.0) 09/18/18 11:32 PT 12.0 SECONDS (9.4-12.5) 09/18/18 11:32 INR 1.04 09/18/18 11:32 APTT 27.3 Seconds (25.1-36.5) 09/18/18 11:32 Sodium 141 mmol/L (132-148) 09/18/18 11:32 Potassium 4.3 mmol/L (3.6-5.0) 09/18/18 11:32 Chloride 104 mmol/L (98-107) 09/18/18 11:32 Carbon Dioxide 29 mmol/L (21-33) 09/18/18 11:32 Anion Gap 12 (10-20) 09/18/18 11:32 BUN 22 mg/dL (7-21) H 09/18/18 11:32 Creatinine 0.7 mg/dl (0.7-1.2) 09/18/18 11:32 Est GFR ( Amer) > 60 09/18/18 11:32 Est GFR (Non-Af Amer) > 60 09/18/18 11:32 Random Glucose 115 mg/dL (70-110) H 09/18/18 11:32 Calcium 9.6 mg/dL (8.4-10.5) 09/18/18 11:32 Phosphorus 3.7 mg/dL (2.5-4.5) 09/18/18 11:30 Magnesium 1.8 mg/dL (1.7-2.2) 09/18/18 11:30 Total Bilirubin 0.6 mg/dL (0.2-1.3) 09/18/18 11:32 AST 53 U/L (14-36) H 09/18/18 11:32 ALT 81 U/L (7-56) H 09/18/18 11:32 Alkaline Phosphatase 108 U/L (38-126) 09/18/18 11:32 Lactate Dehydrogenase 648 U/L (333-699) 09/18/18 11:32 Total Creatine Kinase 27 U/L (35-230) L 09/18/18 11:32 Troponin I < 0.01 ng/mL 09/18/18 11:32 Total Protein 8.1 g/dL (5.8-8.3) 09/18/18 11:32 Albumin 3.9 g/dL (3.0-4.8) 09/18/18 11:32 Globulin 4.2 gm/dL 09/18/18 11:32 Albumin/Globulin Ratio 0.9 (1.1-1.8) L 09/18/18 11:32 Amylase 82 U/L (35-125) 09/18/18 11:32 Lipase 41 U/L (23-300) 09/18/18 11:32 Urine Color Yellow (YELLOW) 09/18/18 12:44 Urine Appearance Cloudy (CLEAR) 09/18/18 12:44 Urine pH 6.5 (4.7-8.0) 09/18/18 12:44 Ur Specific [place] 1.020 (1.005-1.035) 09/18/18 12:44 Urine Protein Negative mg/dL (<30 mg/dL) 09/18/18 12:44 Urine Glucose (UA) Negative mg/dL (NEGATIVE) 09/18/18 12:44 Urine Ketones Negative mg/dL (NEGATIVE) 09/18/18 12:44 Urine Blood Trace-intact (NEGATIVE) H 09/18/18 12:44 Urine Nitrate Negative (NEGATIVE) 09/18/18 12:44 Urine Bilirubin Negative (NEGATIVE) 09/18/18 12:44 Urine Urobilinogen 0.2 E.U./dL (<1 E.U./dL) 09/18/18 12:44 Ur Leukocyte Esterase Small [place]/uL (NEGATIVE) H 09/18/18 12:44 Urine RBC 0 - 2 /hpf (0-2) 09/18/18 12:44 Urine WBC 10 - 15 /hpf (0-6) 09/18/18 12:44 Ur Epithelial Cells 1 - 3 /hpf (0-5) 09/18/18 12:44 Urine Bacteria Many (NEG) 09/18/18 12:44 Blood Type O POSITIVE 09/18/18 12:44 Antibody Screen Negative 09/18/18 12:44 BBK History Checked Patient has bt 09/18/18 12:44 - Hospital Course Hospital Course: 77 year old female with a past medical history of hypertension,myelodysplastic anemia, osteoarthritis, paroxysmal atrial fibrillation and peptic ulcer disease that presents to the [facility] with complaints of a nosebleed that lasted 10 minutes, but stopped after applying pressure with a napkin, lightheadedness, diffuse abdominal cramping and higher than usual blood pressure 158/80 taken at home and did not take her home med. Pt is accompanied by family at bedside and aided with translating. Patient woke up this morning headed to use the restroom and without any provocation began to notice blood trickling from her nose at which time she used a napkin to apply pressure and sat down on account of becoming lightheaded. Once she sat down she began to experience diffuse abdominal cramping that has since resolved. Upon arrival to the ED, patient was found to have a low platelet count of 8. Patient was recently admitted to the hospital for pancytopenia/thrombocytopenia secondary to myleodysplastic anemia followed by Dr. Sanchez (Heme/onc) outpatient and is known to Dr. Cohen (Heme/onc) as well. Patient noted she was constipated however had a bowel movement last night. Patient denied bleeding from any other sites, but noted rashes on her extremities. Patients lightheadedness has improved as well as her abdominal cramps. Patient was admitted for nosebleed in the setting of myleodysplastic anemia. Pt admitted with thrombocytopenia with a platelet count of 8, no active signs of bleeding, vitals are stable. Will transfuse 1 u platelets and follow up with Dr. Cohen's (Heme/onc). As per Dr. Cohne, patient may be discharged s/p transfusion and follow up with him in the office on 09/23/18. Patient should continue with her home medications: Irbesartan and Miralax. Discharge Exam - Head Exam Head Exam: ATRAUMATIC, NORMAL INSPECTION, NORMOCEPHALIC - Eye Exam Eye Exam: EOMI, Normal appearance, PERRL Pupil Exam: NORMAL ACCOMODATION, PERRL - ENT Exam ENT Exam: Mucous Membranes Moist - Respiratory Exam Respiratory Exam: Clear to PA & Lateral, NORMAL BREATHING PATTERN, UNREMARKABLE - Cardiovascular Exam Cardiovascular Exam: REGULAR RHYTHM, +S1, +S2 - GI/Abdominal Exam GI & Abdominal Exam: Normal Bowel Sounds - Neurological Exam Neurological exam: Alert, CN II-XII Intact, Normal Gait, Oriented x3, Reflexes Normal - Psychiatric Exam Psychiatric exam: Normal Affect, Normal Mood - Skin Skin Exam: Petechiae Discharge Plan - Follow Up Plan Condition: FAIR Disposition: HOME/ ROUTINE Instructions: Acute Abdomen (Belly Pain), Adult (DC), Immune Thrombocytopenia (ITP) (DC), Bleeding Precautions, Myelodysplastic Syndromes (DC) Additional Instructions: Please follow-up with your primary care doctor, Dr. Huerta within 3-5 days of being discharged. Please follow-up with your building serviceman-oncologist (blood doctor), Dr. Sanchez,09/23/2018. You will be getting weekly blood counts with your blood doctor. You should continue to take the home medications that you have been taking at home as prescribed including Irbesartan 75 mg daily and Miralax. If your symptoms return, please go to the nearest emergency room. Referrals: Scott Cohen MD [Medical Doctor] - Justice Huerta Jr., MD [Family Provider] - Whitley Sanchez MD [Staff Provider] - <Carlos Rowe - Last Filed: 09/19/18 11:26> Provider - Provider Date of Admission: 09/18/18 12:25 Attending physician: Carlos Rowe MD Hospital Course - Lab Results Lab Results: Most Recent Lab Values WBC 3.6 10^3/ul (4.5-11.0) L 09/19/18 06:30 RBC 2.57 10^6/uL (3.5-6.1) L 09/19/18 06:30 Hgb 8.6 g/dL (12.0-16.0) L 09/19/18 06:30 Hct 26.1 % (36.0-48.0) L 09/19/18 06:30 MCV 101.6 fl (80.0-105.0) 09/19/18 06:30 MCH 33.5 pg (25.0-35.0) 09/19/18 06:30 MCHC 33.0 g/dl (31.0-37.0) 09/19/18 06:30 RDW 21.0 % (11.5-14.5) H 09/19/18 06:30 Plt Count 21 10^3/uL (120.0-450.0) L* 09/19/18 06:30 Manual Plt Count 21 K/mm3 (120-450) L* 09/19/18 06:30 MPV 10.3 fl (7.0-11.0) 09/19/18 06:30 Gran % 28.2 % (50.0-68.0) L 09/19/18 06:30 Lymph % (Auto) 65.7 % (22.0-35.0) H 09/19/18 06:30 [place] % (Auto) 5.0 % (1.0-6.0) 09/19/18 06:30 Eos % (Auto) 0.8 % (1.5-5.0) L 09/19/18 06:30 Baso % (Auto) 0.3 % (0.0-3.0) 09/19/18 06:30 Gran # 1.02 (1.4-6.5) L 09/19/18 06:30 Lymph # (Auto) 2.4 (1.2-3.4) 09/19/18 06:30 [place] # (Auto) 0.2 (0.1-0.6) 09/19/18 06:30 Eos # (Auto) 0.0 (0.0-0.7) 09/19/18 06:30 Baso # (Auto) 0.01 K/mm3 (0.0-2.0) 09/19/18 06:30 PT 12.0 SECONDS (9.4-12.5) 09/18/18 11:32 INR 1.04 09/18/18 11:32 APTT 27.3 Seconds (25.1-36.5) 09/18/18 11:32 Sodium 139 mmol/L (132-148) 09/19/18 06:30 Potassium 4.4 mmol/L (3.6-5.0) 09/19/18 06:30 Chloride 104 mmol/L (98-107) 09/19/18 06:30 Carbon Dioxide 30 mmol/L (21-33) 09/19/18 06:30 Anion Gap 10 (10-20) 09/19/18 06:30 BUN 19 mg/dL (7-21) 09/19/18 06:30 Creatinine 0.7 mg/dl (0.7-1.2) 09/19/18 06:30 Est GFR ( Amer) > 60 09/19/18 06:30 Est GFR (Non-Af Amer) > 60 09/19/18 06:30 Random Glucose 109 mg/dL (70-110) 09/19/18 06:30 Calcium 9.4 mg/dL (8.4-10.5) 09/19/18 06:30 Phosphorus 3.7 mg/dL (2.5-4.5) 09/18/18 11:30 Magnesium 1.8 mg/dL (1.7-2.2) 09/18/18 11:30 Total Bilirubin 0.6 mg/dL (0.2-1.3) 09/19/18 06:30 AST 51 U/L (14-36) H 09/19/18 06:30 ALT 74 U/L (7-56) H 09/19/18 06:30 Alkaline Phosphatase 102 U/L (38-126) 09/19/18 06:30 Lactate Dehydrogenase 648 U/L (333-699) 09/18/18 11:32 Total Creatine Kinase 27 U/L (35-230) L 09/18/18 11:32 Troponin I < 0.01 ng/mL 09/18/18 11:32 Total Protein 7.6 g/dL (5.8-8.3) 09/19/18 06:30 Albumin 3.6 g/dL (3.0-4.8) 09/19/18 06:30 Globulin 4.0 gm/dL 09/19/18 06:30 Albumin/Globulin Ratio 0.9 (1.1-1.8) L 09/19/18 06:30 Amylase 82 U/L (35-125) 09/18/18 11:32 Lipase 41 U/L (23-300) 09/18/18 11:32 Urine Color Yellow (YELLOW) 09/18/18 12:44 Urine Appearance Cloudy (CLEAR) 09/18/18 12:44 Urine pH 6.5 (4.7-8.0) 09/18/18 12:44 Ur Specific [place] 1.020 (1.005-1.035) 09/18/18 12:44 Urine Protein Negative mg/dL (<30 mg/dL) 09/18/18 12:44 Urine Glucose (UA) Negative mg/dL (NEGATIVE) 09/18/18 12:44 Urine Ketones Negative mg/dL (NEGATIVE) 09/18/18 12:44 Urine Blood Trace-intact (NEGATIVE) H 09/18/18 12:44 Urine Nitrate Negative (NEGATIVE) 09/18/18 12:44 Urine Bilirubin Negative (NEGATIVE) 09/18/18 12:44 Urine Urobilinogen 0.2 E.U./dL (<1 E.U./dL) 09/18/18 12:44 Ur Leukocyte Esterase [place]/uL (NEGATIVE) H 09/18/18 12:44 Urine RBC 0 - 2 /hpf (0-2) 09/18/18 12:44 Urine WBC 10 - 15 /hpf (0-6) 09/18/18 12:44 Ur Epithelial Cells 1 - 3 /hpf (0-5) 09/18/18 12:44 Urine Bacteria Many (NEG) 09/18/18 12:44 Blood Type O POSITIVE 09/19/18 09:50 Antibody Screen Negative 09/19/18 09:50 Crossmatch See Detail 09/19/18 09:50 BBK History Checked Patient has bt 09/19/18 09:50 Attending/Attestation - Attestation I have personally seen and examined this patient.: Yes I have fully participated in the care of the patient.: Yes I have reviewed all pertinent clinical information, including history, physical exam and plan: Yes Notes (Text): 09/19/18 11:25 Attending note; Patient seen and examined with resident. Patient is alert and awake. Not in any acute distress. has minimal nose bleed at home. Patient's niece by the bedside. Currently no active bleeding. Denies any chest pain, shortness of breath. Initially complained of abdominal discomfort. Currently tolerating diet well. Patient is a 77-year-old female with a past medical history of hypertension, pancytopenia, myelodysplastic anemia, osteoarthritis, paroxysmal atrial fibrillation and peptic ulcer disease that presented [place] [facility] due to generalized weakness and referral from her building serviceman. Patient was found to have anemia and severe, thrombocytopenia. severe thrombocytopenia; platelet count is 8. 1 unit of platelet trasfused. Case discussed with oncologist in detail. monitor CBC tomorrow. No active bleeding noted. Patient needs close follow-up with primary oncologist . upon discharge Follow-up with PMD Dr. Huerta. Possible discharge home tomorrow if clinically stable. The diagnosis and follow-up plan discussed with patient and family in detail.
[2018-09-19 06:53] LABS: BASO # 0.01 K/mm3 (0.0-2.0); BASO % 0.3 % (0.0-3.0); EOS % 0.8 % (1.5-5.0); GRAN # 1.02 (1.4-6.5); GRAN % 28.2 % (50.0-68.0); HEMOGLOBIN 8.6 g/dL (12.0-16.0); LYMPH # 2.4 (1.2-3.4); LYMPH % 65.7 % (22.0-35.0); MEAN CELL VOLUME 101.6 fl (80.0-105.0); MEAN CORPUSCULAR HEMOGLOBIN 33.5 pg (25.0-35.0); MEAN PLATELET VOLUME 10.3 fl (7.0-11.0); MONO # 0.2 (0.1-0.6); RBC 2.57 10^6/uL (3.5-6.1); WHITE BLOOD COUNT 3.6 10^3/ul (4.5-11.0)
[2018-09-19 06:57] LABS: PLATELET COUNT 21 10^3/uL (120.0-450.0)
[2018-09-19 07:00] LABS: ALB/GLOB RATIO 0.9 (1.1-1.8); ALBUMIN 3.6 g/dL (3.0-4.8); ALT/SGPT 74 U/L (7-56); AST/SGOT 51 U/L (14-36); BLOOD UREA NITROGEN 19 mg/dL (7-21); CALCIUM 9.4 mg/dL (8.4-10.5); GFR NON-AFRICAN AMERICAN > 60
[2018-09-19 08:32] LABS: PLATELET COUNT MANUAL 21 K/mm3 (120-450)
[2018-09-19] MEDS: POLYETHYLENE GLYCOL 3350 17 GM/Dose PACKET PO SCH (10:01)
--- NOTE | 2018-09-19 10:38 | CP.PCM.PN ---
Subjective - Date & Time of Evaluation Date of Evaluation: 09/19/18 Time of Evaluation: 10:34 - Subjective Subjective: INTERNAL MEDICINE PROGRESS NOTE FOR DR. NITO Thrasher PGY-1 Pt seen and examined at bedside this am. No acute events overnight. Pt tolerating diet. Does not ambulate at baseline. Denies mucosal bleeding. Objective - Vital Signs/Intake and Output Vital Signs (last 24 hours): Temp Pulse Resp BP Pulse Ox 98 F 74 20 102/52 L 96 09/19/18 07:38 09/19/18 10:01 09/19/18 07:38 09/19/18 10:01 09/19/18 07:38 Intake and Output: 09/19/18 09/19/18 06:59 18:59 Intake Total 0 Balance 0 - Medications Medications: Current Medications Acetaminophen (Tylenol 325mg Tab) 650 mg PO Q6H PRN PRN Reason: Fever >100.4 F Diphenhydramine HCl (Benadryl) 25 mg PO ONCE PRN PRN Reason: Allergy symptoms Famotidine (Pepcid) 20 mg PO 1000,2200 [facility] Last Admin: 09/19/18 10:01 Dose: 20 mg Losartan Potassium (Cozaar) 25 mg PO DAILY [facility] Last Admin: 09/19/18 10:01 Dose: 25 mg Nitrofurantoin Macrocrystals (Macrobid) 100 mg PO Q12 [facility]; Protocol Last Admin: 09/19/18 10:01 Dose: 100 mg Polyethylene Glycol (Miralax) 17 gm PO DAILY [facility] Last Admin: 09/19/18 10:01 Dose: 17 gm - Labs Labs: 09/19/18 06:30 09/19/18 06:30 PT 12.0 SECONDS (9.4-12.5) 09/18/18 11:32 INR 1.04 09/18/18 11:32 APTT 27.3 Seconds (25.1-36.5) 09/18/18 11:32 - Constitutional Appears: Well, Non-toxic, No Acute Distress - Head Exam Head Exam: NORMAL INSPECTION, NORMOCEPHALIC - Eye Exam Eye Exam: EOMI, Normal appearance - ENT Exam ENT Exam: Mucous Membranes Moist, Normal Exam - Neck Exam Neck Exam: Normal Inspection - Respiratory Exam Respiratory Exam: Clear to Ausculation Bilateral, NORMAL BREATHING PATTERN - Cardiovascular Exam Cardiovascular Exam: REGULAR RHYTHM, +S1, +S2 - GI/Abdominal Exam GI & Abdominal Exam: Soft. absent: Tenderness - Extremities Exam Additional comments: Petechiae - Back Exam Back Exam: NORMAL INSPECTION. absent: CVA tenderness (L), CVA tenderness (R) - Neurological Exam Neurological Exam: Alert, Awake, Oriented x3 - Psychiatric Exam Psychiatric exam: Normal Affect, Normal Mood - Skin Skin Exam: Dry, Intact, Warm Assessment and Plan - Assessment and Plan (Free Text) Assessment: 77 year old female with past medical history of hypertension, myelodysplastic anemia, osteoarthritis, paroxysmal atrial fibrillation and peptic ulcer disease presents for nosebleed in the setting of myleodysplastic anemia. Pt admitted with thrombocytopenia with a platelet count of 8, no active signs of bleeding, vitals are stable. Will transfuse 1 u pRBC and follow up with Dr. Cohen's (Heme/onc) recommendations. Plan: Pancytopenia 2/2 myelodysplastic syndrome 1 unit of pRBC to be transfused per Dr. Sanchez recs Hgb: 8.6 F/u flow cytometry Followed by Dr. Cohen/Laura considering Procrit outpt, appreciate recs transfused on last admission. Family at bedside agreed to f/u with Dr. Sanchez outpatient clinic platelets 8 on admission. Received 1u platelets. Currently 21 PT/PTT are normal. tylenol and benadryl prn Vital signs q6h Continue to monitor all cell lines with f/u AM labs Hemo/Onc, Dr. Sanchez consulted for further recommendations Abdominal pain Diffuse cramping pain Recent Abd US negative, CT Abdomen Negative for any acute intrabdominal pathology HTN Cozaar 25 mg Daily continue to monitor Paroxysmal A. Fib Currently not on medication f/u repeat EKG in AM Chronic Constipation home Miralax continue to monitor stools for blood DVT/GI prophylaxis: SCD Pepcid 20 mg PO BID Pt to evaluate for weakness Patient seen, case discussed and plan approved by Dr. Rowe.
[2018-09-19 15:38] VITALS: TEMP 98.6
[2018-09-19 15:47] VITALS: O2SAT 98
[2018-09-19 16:25] VITALS: BP 147/64; PULSE 68; RESP 18
== END 2018-09-19 17:08 | disposition home or self-care (01) ==
LOC: ED 10:44 → ERH 12:25 → 3RNO 15:08
PROVIDERS: ADMIT Internal Medicine; ATTEND Internal Medicine
DX: D61.818 Other pancytopenia (principal); D46.9 Myelodysplastic syndrome, unspecified; I48.0 Paroxysmal atrial fibrillation; I10 Essential (primary) hypertension; R04.0 Epistaxis; K59.09 Other constipation; R10.9 Unspecified abdominal pain; M19.90 Unspecified osteoarthritis, unspecified site; Z87.891 Personal history of nicotine dependence; Z87.11 Personal history of peptic ulcer disease
CPT/HCPCS: 36415; 36430; 71045; 74176; 80053; 81001; 82150; 82550; 83615; 83690; 83735; 84100; 84484; 85025; 85610; 85730; 86850; 86900; 86920; 86921; 86922; 87086; 87181; 93005; 97110; 97161; 99284; G0378; G8978; G8979; P9016; P9037

== ENCOUNTER 2018-11-09 15:18 | Observation (INO) | payer MEDICARE, MEDICAID ==
[2018-11-09 15:32] VITALS: BMI 22.7
--- NOTE | 2018-11-09 15:48 | ED PDOC ---
Arrival/HPI - General Chief Complaint: Abnormal Labs Historian: Patient - History of Present Illness Narrative History of Present Illness (Text): 11/09/18 15:41 77 y/o female, pmh including htn/myelodysplastic anemia/OA/parosymal a.fibb/pud, allergic to penicillin and cipro, biba for low hgb. Pt. had outpatient blood work by hematology/oncology Dr. Sanchez which noted the hgb is "low" so told the patient to come to the ER. Pt. stated that she feels well except chronic fatigue and tire, no coughing, no chest pain/shortness of breath/palpitation, no hematuria or abnormal skin bruising, no bloody stool, no other medical or psychological complaints. Past Medical History - Provider Review Nursing Documentation Reviewed: Yes - Infectious Disease Hx of Infectious Diseases: None - Past Medical History Past Medical History: Unable to Obtain - Cardiac Hx Cardiac Disorders: Yes Hx Hypertension: Yes - Pulmonary Hx Respiratory Disorders: Yes (SMOKED CIGARETTES QUIT SMOKED 1/2 PPD.) - Neurological Hx Neurological Disorder: Yes Hx Dizziness: Yes - HEENT Hx HEENT Disorder: Yes ([place] TO RIGHT EAR) - Renal Hx Renal Disorder: No - Endocrine/Metabolic Hx Endocrine Disorders: No - Hematological/Oncological Hx Blood Disorders: Yes Hx Anemia: Yes Hx Blood Transfusions: Yes Other/Comment: thrombocytopenia - Integumentary Hx Dermatological Disorder: No - Musculoskeletal/Rheumatological Hx Musculoskeletal Disorders: No - Gastrointestinal Hx Gastrointestinal Disorders: Yes (CONSTIPATION) - Genitourinary/Gynecological Hx Genitourinary Disorders: Yes Hx Incontinence: Yes Hx Urinary Tract Infection: Yes - Psychiatric Hx Psychophysiologic Disorder: No Hx Substance Use: No - Past Surgical History Past Surgical History: Unable to Obtain - Surgical History Hx Hysterectomy: Yes Hx Orthopedic Surgery: Yes - Anesthesia Hx Anesthesia: Yes Hx Anesthesia Reactions: No Hx Malignant Hyperthermia: No - Suicidal Assessment Feels Threatened In Home Enviroment: No Family/Social History - Physician Review Nursing Documentation Reviewed: Yes Family/Social History: Unknown Family HX Smoking Status: Former Smoker Hx Alcohol Use: No Hx Substance Use: No Allergies/Home Meds Allergies/Adverse Reactions: Allergies amoxicillin Allergy (Verified 11/09/18 15:56) SHORTNESS OF BREATH ciprofloxacin Allergy (Verified 11/09/18 15:56) SHORTNESS OF BREATH Penicillins Allergy (Verified 11/09/18 15:56) SHORTNESS OF BREATH Home Medications: Home Meds Medication Instructions Recorded Confirmed Irbesartan [Avapro] 75 mg PO DAILY 06/04/18 09/18/18 Review of Systems - Review of Systems Constitutional: Fatigue. absent: Fevers Eyes: absent: Vision Changes ENT: absent: Hearing Changes Respiratory: absent: SOB, Cough Cardiovascular: absent: Chest Pain Gastrointestinal: absent: Abdominal Pain, Diarrhea, Nausea, Vomiting Skin: absent: Rash, Pruritis Neurological: absent: Headache, Dizziness Psychiatric: absent: Anxiety, Depression Physical Exam - Systems Exam Head: Present: Atraumatic, Normocephalic Pupils: Present: PERRL Extroacular Muscles: Present: EOMI Conjunctiva: Present: Normal Mouth: Present: Moist Mucous Membranes Neck: Present: Normal Range of Motion Respiratory/Chest: Present: Clear to Auscultation, Good Air Exchange. No: Respiratory Distress, Accessory Muscle Use Cardiovascular: Present: Regular Rate and Rhythm, Normal S1, S2. No: Murmurs Abdomen: No: Tenderness, Distention, Peritoneal Signs Back: Present: Normal Inspection Upper Extremity: Present: Normal Inspection. No: Cyanosis, Edema Lower Extremity: Present: Normal Inspection. No: Edema Neurological: Present: GCS=15, CN II-XII Intact, Speech Normal Skin: Present: Warm, Dry, Normal Color. No: Rashes Psychiatric: Present: Alert, Oriented x 3, Normal Insight, Normal Concentration Medical Decision Making ED Course and Treatment: 11/09/18 15:51 -labs -ekg -cxr -observe and reassess 11/09/18 17:46 -Chest xray: No active disease. No significant interval change compared to the prior examination(s). -Labs are significant for pancytopenia with hgb 7.6 from 8.6 (chronic, no GI symptoms or stool discoloration), Plt 12 from 21 (not less than 10, will monitor), Mg 1.6 from 1.8 (mg 1gm IV ordered) -UA show +UTI, likely due to the leukopenia, IV azotam ordered as 1gm -Type and screen ordered with 1 unit of PRBC ordered, supportive care. -I spoke to the patient and family on the bedside which they awared of her medical condition as chronic and recurrent, agreed to be admitted. -I spoke to Dr. Rowe, hospitalist specimen accessioner, she would come to admit the patient. - Critical Care Critical Care Minutes: 30 minutes Critical Care Time: Unstable Narrative Critical Care (Text): 11/09/18 17:36 Blood transfusion and possible platete transfusion for pancytopenia due to the myelodysplastic anemia - RAD Interpretation Radiology Orders: Date of service: 11/09/2018 HISTORY: admission, anemia COMPARISON: 09/18/2018. FINDINGS: LUNGS: No active pulmonary disease. PLEURA: No significant pleural effusion identified, no pneumothorax apparent. CARDIOVASCULAR: No radiographic findings to suggest acute or significant cardiovascular disease. Atherosclerotic calcifications identified primarily aortic arch. OSSEOUS STRUCTURES: No significant abnormalities. Incompletely visualized cervical orthopedic hardware. VISUALIZED UPPER ABDOMEN: Normal. OTHER FINDINGS: None. IMPRESSION: No active disease. No significant interval change compared to the prior examination(s). Resident Services Director: Radiologist - EKG Interpretation EKG Interpretation (Text): 11/09/18 17:38 NSR @ 77 BPM, no ST elevation or depression, no T wave inversion. Interpreted by ED Physician: Yes Type: 12 lead EKG - PA / EDGE BASTER / Resident Statement MD/DO has reviewed & agrees with the documentation as recorded. Disposition/Present on Arrival - Present on Arrival Any Indicators Present on Arrival: No History of DVT/PE: No History of Uncontrolled Diabetes: No Urinary Catheter: No History of Decub. 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
--- NOTE | 2018-11-09 16:25 | RAD ---
Date of service: 11/09/2018 HISTORY: admission, anemia COMPARISON: 09/18/2018. FINDINGS: LUNGS: No active pulmonary disease. PLEURA: No significant pleural effusion identified, no pneumothorax apparent. CARDIOVASCULAR: No radiographic findings to suggest acute or significant cardiovascular disease. Atherosclerotic calcifications identified primarily aortic arch. OSSEOUS STRUCTURES: No significant abnormalities. Incompletely visualized cervical orthopedic hardware. VISUALIZED UPPER ABDOMEN: Normal. OTHER FINDINGS: None. IMPRESSION: No active disease. No significant interval change compared to the prior examination(s).
[2018-11-09 17:01] LABS: ALB/GLOB RATIO 0.9 (1.1-1.8); ALBUMIN 3.8 g/dL (3.0-4.8); ALT/SGPT 96 U/L (7-56); AST/SGOT 63 U/L (14-36); BLOOD UREA NITROGEN 11 mg/dL (7-21); CALCIUM 9.4 mg/dL (8.4-10.5); GFR NON-AFRICAN AMERICAN > 60
[2018-11-09 17:02] LABS: GRAN % 31.1 % (50.0-68.0); HEMOGLOBIN 7.6 g/dL (12.0-16.0); LYMPH # 2.4 (1.2-3.4); LYMPH % 62.7 % (22.0-35.0); MEAN CELL VOLUME 113.2 fl (80.0-105.0); MEAN CORPUSCULAR HEMOGLOBIN 35.8 pg (25.0-35.0); MEAN CORPUSCULAR HGB CONC 31.7 g/dl (31.0-37.0); MONO # 0.2 (0.1-0.6); MONO % 5.2 % (1.0-6.0); RBC 2.12 10^6/uL (3.5-6.1); RED CELL DISTRIBUTION WIDTH 16.3 % (11.5-14.5); WHITE BLOOD COUNT 3.9 10^3/uL (4.5-11.0)
[2018-11-09 17:06] LABS: INR 1.06; PARTIAL THROMBOPLASTIN TIME 29.5 Seconds (25.1-36.5); PROTHROMBIN TIME 12.1 SECONDS (9.4-12.5)
[2018-11-09 17:18] LABS: PLATELET COUNT 12 10^3/uL (120.0-450.0)
[2018-11-09] MEDS ORDERED: Magnesium Sulfate 1 gm in D5W 1 GM/100 ML BAG IVPB ONE ×2 (17:35→22:30)
[2018-11-09 17:36] LABS: URINE BILIRUBIN NEGATIVE (NEGATIVE); URINE BLOOD TRACE-LYSED (NEGATIVE); URINE GLUCOSE (UA) NEGATIVE (NEGATIVE); URINE LEUKOCYTE ESTERASE SMALL Leu/uL (NEGATIVE); URINE PROTEIN NEGATIVE mg/dL (<30 mg/dL); URINE UROBILINOGEN 0.2 E.U./dL (<1 E.U./dL)
[2018-11-09 17:37] LABS: URINE APPEARANCE TURBID (CLEAR); URINE COLOR YELLOW (YELLOW)
[2018-11-09 17:39] LABS: URINE BACTERIA FEW (NEG); URINE RBC NEGATIVE /hpf (0-2)
[2018-11-09] MEDS ORDERED: Aztreonam 1 Gm in NS 100mL 100 ML IVPB STA (17:42)
[2018-11-09 18:20] LABS: PLATELET ESTIMATE LOW (NORMAL)
--- NOTE | 2018-11-09 18:59 | CARD ---
APPROVED REPORT Date of service: 11/09/2018 EKG Measurement Heart [id number] <Conclusion> Normal sinus rhythm Normal ECG
--- NOTE | 2018-11-09 19:07 | CP.PCM.HP ---
<Gisell Boone - Last Filed: 11/09/18 23:30> History of Present Illness - History of Present Illness History of Present Illness: Gisell Boone, PGY-1 Medicine H&P Note for Dr. Rowe: Pt is a 77 yo F with pmhx of HTN, myelodysplastic anemia, OA, paroxysmal Afib, and PUD who presents to the ED after her heme/onc doctor Dr. Sanchez called her from the clinic for CBC results which showed low Hgb levels. Pt states that she is having L hip pain, but according to the family it is chronic arthritic pain. The family corroborates the pts story that the pt has no new complaints or changes recently. The pt is denying fevers, chills, lightheadedness, dizziness, weakness, chest pain, palpitations, SOB, cough, abd pain, n/v, c/d, dysuria or frequency. Pmhx: hypertension, pancytopenia, myelodysplastic anemia, osteoarthritis, paroxysmal atrial fibrillation and peptic ulcer disease Pshx: hysterectomy Meds: Irbesartan 75mg daily (only takes when pressures are high) All: amoxicillin, ciprofloxacin, penicillin - shortness of breath Fam Hx: Noncontributory Social: Former smoker. Denies EtOH or drug use, lives at home with daughter PMD: Dr. Huerta Hem: Dr. Cohen/Dr. Guzman [facility] [place] [facility]: [phone] Present on Admission - Present on Admission Any Indicators Present on Admission: No Review of Systems - Review of Systems Review of Systems: 12 point ROS reviewed and negative except for noted in HPI above. Past Patient History - Infectious Disease Hx of Infectious Diseases: None - Past Social History Smoking Status: Former Smoker - CARDIAC Hx Cardiac Disorders: Yes Hx Hypertension: Yes - PULMONARY Hx Respiratory Disorders: Yes (SMOKED CIGARETTES QUIT SMOKED 1/2 PPD.) - NEUROLOGICAL Hx Neurological Disorder: Yes Hx Dizziness: Yes - HEENT Hx HEENT Problems: Yes (PILOT POINT TO RIGHT EAR) - RENAL Hx Chronic Kidney Disease: No - ENDOCRINE/METABOLIC Hx Endocrine Disorders: No - HEMATOLOGICAL/ONCOLOGICAL Hx Blood Disorders: Yes Hx Anemia: Yes Hx Blood Transfusions: Yes Other/Comment: thrombocytopenia - INTEGUMENTARY Hx Dermatological Problems: No - MUSCULOSKELETAL/RHEUMATOLOGICAL Hx Musculoskeletal Disorders: No - GASTROINTESTINAL Hx Gastrointestinal Disorders: Yes (CONSTIPATION) - GENITOURINARY/GYNECOLOGICAL Hx Genitourinary Disorders: Yes Hx Incontinence: Yes Hx Urinary Tract Infection: Yes - PSYCHIATRIC Hx Psychophysiologic Disorder: No Hx Substance Use: No - SURGICAL HISTORY Hx Hysterectomy: Yes Hx Orthopedic Surgery: Yes - ANESTHESIA Hx Anesthesia: Yes Hx Anesthesia Reactions: No Hx Malignant Hyperthermia: No Meds Home Medications: Home Medication List Medication Instructions Recorded Confirmed Type Nitrofurantoin Macrocrystal 100 mg PO BID #10 capsule 11/11/18 Rx [Nitrofurantoin] Allergies/Adverse Reactions: Allergies Allergy/AdvReac Type Severity Reaction Status Date / Time amoxicillin Allergy SHORTNESS Verified 11/09/18 15:56 OF BREATH ciprofloxacin Allergy SHORTNESS Verified 11/09/18 15:56 OF BREATH Penicillins Allergy SHORTNESS Verified 11/09/18 15:56 OF BREATH Physical Exam - Constitutional Appears: Well, Non-toxic, No Acute Distress, Chronically Ill - Head Exam Head Exam: ATRAUMATIC, NORMAL INSPECTION, NORMOCEPHALIC - Eye Exam Eye Exam: EOMI, Normal appearance, PERRL - Respiratory Exam Respiratory Exam: Clear to Auscultation Bilateral, NORMAL BREATHING PATTERN. absent: Accessory Muscle Use, Decreased Breath Sounds, Rales, Rhonchi, Wheezes, Respiratory Distress, Stridor - Cardiovascular Exam Cardiovascular Exam: RRR, +S1, +S2. absent: Gallop, Rubs - GI/Abdominal Exam GI & Abdominal Exam: Normal Bowel Sounds, Soft. absent: Distended, Firm, Guarding, Tenderness - Extremities Exam Extremities exam: Positive for: normal capillary refill, normal inspection, pedal pulses present. Negative for: pedal edema - Back Exam Back exam: NORMAL INSPECTION. absent: CVA tenderness (L), CVA tenderness (R) - Neurological Exam Neurological exam: Alert, Oriented x3 - Psychiatric Exam Psychiatric exam: Normal Affect, Normal Mood - Skin Skin Exam: Dry, Normal Color, Warm Results - Vital Signs Recent Vital Signs: Last Vital Signs Temp 98.8 F 11/09/18 17:06 Pulse 75 11/09/18 17:06 Resp 18 11/09/18 17:06 BP 106/47 L 11/09/18 17:06 Pulse Ox 96 11/09/18 17:06 - Labs Result Diagrams: 11/09/18 16:36 11/09/18 16:36 Labs: Laboratory Results - last 24 hr 11/09/18 11/09/18 11/09/18 16:36 16:36 16:36 WBC 3.9 L RBC 2.12 L Hgb 7.6 L Hct 24.0 L MCV 113.2 H D MCH 35.8 H MCHC 31.7 RDW 16.3 H Plt Count 12 L* Manual Plt Count Gran % 31.1 L Lymph % (Auto) 62.7 H Chase % (Auto) 5.2 Eos % (Auto) 1.0 L Baso % (Auto) 0.0 Gran # 1.20 L Lymph # (Auto) 2.4 Chase # (Auto) 0.2 Eos # (Auto) 0.0 Baso # (Auto) 0.00 Platelet Evaluation Low PT INR APTT Sodium 139 Potassium 4.5 Chloride 105 Carbon Dioxide 29 Anion Gap 10 BUN 11 Creatinine 0.8 Est GFR ( Amer) > 60 Est GFR (Non-Af Amer) > 60 Random Glucose 147 H Calcium 9.4 Magnesium 1.6 L Total Bilirubin 0.5 AST 63 H D ALT 96 H Alkaline Phosphatase 120 Total Protein 8.2 Albumin 3.8 Globulin 4.4 Albumin/Globulin Ratio 0.9 L Urine Color Urine Appearance Urine pH Ur Specific [place] Urine Protein Urine Glucose (UA) Urine Ketones Urine Blood Urine Nitrate Urine Bilirubin Urine Urobilinogen Ur Leukocyte Esterase Urine RBC Urine WBC Ur Epithelial Cells Urine Bacteria Blood Type O POSITIVE Antibody Screen Negative Crossmatch See Detail BBK History Checked Patient has bt 11/09/18 11/09/18 11/09/18 16:36 16:36 17:00 WBC RBC Hgb Hct MCV MCH MCHC RDW Plt Count Manual Plt Count 14 L* Gran % Lymph % (Auto) Chase % (Auto) Eos % (Auto) Baso % (Auto) Gran # Lymph # (Auto) Chase # (Auto) Eos # (Auto) Baso # (Auto) Platelet Evaluation PT 12.1 INR 1.06 APTT 29.5 Sodium Potassium Chloride Carbon Dioxide Anion Gap BUN Creatinine Est GFR ( Amer) Est GFR (Non-Af Amer) Random Glucose Calcium Magnesium Total Bilirubin AST ALT Alkaline Phosphatase Total Protein Albumin Globulin Albumin/Globulin Ratio Urine Color Yellow Urine Appearance Turbid Urine pH 7.0 Ur Specific [place] 1.010 Urine Protein Negative Urine Glucose (UA) Negative Urine Ketones Negative Urine Blood Trace-lysed H Urine Nitrate Positive H Urine Bilirubin Negative Urine Urobilinogen 0.2 Ur Leukocyte Esterase Small H Urine RBC Negative Urine WBC 5 - 10 Ur Epithelial Cells 3 - 4 Urine Bacteria Few Blood Type Antibody Screen Crossmatch BBK History Checked Assessment & Plan - Assessment and Plan (Free Text) Assessment: Pt is a 77 yo F with pmhx of HTN, myelodysplastic anemia, OA, paroxysmal Afib, and PUD who presents to the ED after her heme/onc doctor Dr. Sanchez called her from the clinic for CBC results which showed low Hgb levels. Pt is asympto matic. Hgb is noted to be 7.6, Hematocrit 24.0, and platelets of 12 (manual platelets of 14). Plan: 1. Pancytopenia with existing hx of myelodysplastic anemia: - Pt is currently not under treatment for myelodysplastic anemia - Hgb noted to be 7.6 - Will transfuse 2 units PRBCs - Platelets 12 (14 on manual count) - Will follow up with AM labs - No need for neutropenic precaution at this time 2. Hx of HTN: - Pts BP is not elevated at this time, will hold home BP meds and continue to monitor 3. Paroxysmal Afib - Currently not on any medication - PT is NSR @ 77 in ED, will continue to monitor 4. Code status: - After extensive discussion with pt and family, pt decided to be made DNR/DNI during this admission. 5. PPX: DVT: SCDs GI: Pepcid 20 po BID Case seen and discussed with Dr. Soledad Boone DO Internal Medicine Resident PGY-1 <Carlos Rowe - Last Filed: 11/11/18 17:28> Results - Vital Signs Recent Vital Signs: Last Vital Signs Temp 99.9 F H 11/10/18 10:10 Pulse 80 11/10/18 10:10 Resp 22 11/10/18 10:10 BP 138/70 11/10/18 10:10 Pulse Ox 99 11/10/18 06:00 - Labs Result Diagrams: 11/10/18 06:00 11/10/18 06:30 Attending/Attestation - Attestation I have personally seen and examined this patient.: Yes I have fully participated in the care of the patient.: Yes I have reviewed all pertinent clinical information: Yes Notes (Text): 11/11/18 17:25 attending note; patient seen and examined with Resident in ER. Patient is alert and awake. Family by the bedside. Patient is a 77 year old female with pmhx of HTN, myelodysplastic anemia, OA and PUD who presents to the ED after her heme/onc doctor Dr. Sanchez called her from the clinic for CBC results which showed low Hgb levels. Patient is sent in for symptomatic anemia. 2 units of PRBC transfusion ordered. Patient has myelodysplastic syndrome; getting frequent blood transfusion. Failed outpatient treatment for MDS therapy. Thrombocytopenia; no active bleeding noted. No need for PRBC transfusion at this point as per hematology. Gait instability; patient is mostly bedbound. Patient's family wants conservative management. Upon discharge the patient will follow up with PMD Dr. Huerta. follow up with hematology oncology as outpatient. Prognosis is poor. 11/11/18 17:27
[2018-11-10 06:35] VITALS: O2SAT 99
[2018-11-10 06:45] LABS: EOS % 0.8 % (1.5-5.0); GRAN # 2.16 (1.4-6.5); HEMOGLOBIN 9.7 g/dL (12.0-16.0); LYMPH # 1.4 (1.2-3.4); LYMPH % 36.4 % (22.0-35.0); MEAN CORPUSCULAR HEMOGLOBIN 34.4 pg (25.0-35.0); MEAN CORPUSCULAR HGB CONC 32.8 g/dl (31.0-37.0); MONO # 0.2 (0.1-0.6); MONO % 5.8 % (1.0-6.0); RBC 2.82 10^6/uL (3.5-6.1); WHITE BLOOD COUNT 3.8 10^3/uL (4.5-11.0)
[2018-11-10 07:00] LABS: PLATELET COUNT 10 10^3/uL (120.0-450.0)
[2018-11-10 07:10] LABS: ALB/GLOB RATIO 0.9 (1.1-1.8); ALBUMIN 3.6 g/dL (3.0-4.8); ALT/SGPT 91 U/L (7-56); AST/SGOT 66 U/L (14-36); BLOOD UREA NITROGEN 13 mg/dL (7-21); CALCIUM 9.2 mg/dL (8.4-10.5); GFR NON-AFRICAN AMERICAN > 60
[2018-11-10 09:23] LABS: LYMPHOCYTE 31 % (22.0-35.0); MONOCYTE 7 % (1.0-6.0); NEUTROPHIL 62 % (50.0-70.0); NUCLEATED RED BLOOD CELL 4 %; PLATELET ESTIMATE LOW (NORMAL)
[2018-11-10 10:56] VITALS: BP 138/70; PULSE 80; RESP 22; TEMP 99.9
--- NOTE | 2018-11-10 21:14 | CP.PCM.DIS ---
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 Status: Acute (3) Thrombocytopenia Status: Acute Hospital Course - Lab Results Lab Results: Micro Results 11/09/18 17:58 Urine,Clean Catch Urine Culture - Preliminary Gram Negative Cam Most Recent Lab Values WBC 3.8 10^3/uL (4.5-11.0) L 11/10/18 06:00 RBC 2.82 10^6/uL (3.5-6.1) L 11/10/18 06:00 Hgb 9.7 g/dL (12.0-16.0) L D 11/10/18 06:00 Hct 29.6 % (36.0-48.0) L 11/10/18 06:00 MCV 105.0 fl (80.0-105.0) D 11/10/18 06:00 MCH 34.4 pg (25.0-35.0) 11/10/18 06:00 MCHC 32.8 g/dl (31.0-37.0) 11/10/18 06:00 RDW 22.0 % (11.5-14.5) H 11/10/18 06:00 Plt Count 10 10^3/uL (120.0-450.0) L* 11/10/18 06:00 Manual Plt Count 14 K/mm3 (120-450) L* 11/09/18 16:36 Gran % 57.0 % (50.0-68.0) 11/10/18 06:00 Lymph % (Auto) 36.4 % (22.0-35.0) H 11/10/18 06:00 Dukes % (Auto) 5.8 % (1.0-6.0) 11/10/18 06:00 Eos % (Auto) 0.8 % (1.5-5.0) L 11/10/18 06:00 Baso % (Auto) 0.0 % (0.0-3.0) 11/10/18 06:00 Gran # 2.16 (1.4-6.5) 11/10/18 06:00 Lymph # (Auto) 1.4 (1.2-3.4) 11/10/18 06:00 Dukes # (Auto) 0.2 (0.1-0.6) 11/10/18 06:00 Eos # (Auto) 0.0 (0.0-0.7) 11/10/18 06:00 Baso # (Auto) 0.00 K/mm3 (0.0-2.0) 11/10/18 06:00 Neutrophils % (Manual) 62 % (50.0-70.0) 11/10/18 06:00 Lymphocytes % (Manual) 31 % (22.0-35.0) 11/10/18 06:00 Monocytes % (Manual) 7 % (1.0-6.0) H 11/10/18 06:00 Nucleated RBC % 4 % 11/10/18 06:00 Platelet Evaluation Low (NORMAL) 11/10/18 06:00 PT 12.1 SECONDS (9.4-12.5) 11/09/18 16:36 INR 1.06 11/09/18 16:36 APTT 29.5 Seconds (25.1-36.5) 11/09/18 16:36 Sodium 138 mmol/L (132-148) 11/10/18 06:30 Potassium 4.6 mmol/L (3.6-5.0) 11/10/18 06:30 Chloride 106 mmol/L (98-107) 11/10/18 06:30 Carbon Dioxide 27 mmol/L (21-33) 11/10/18 06:30 Anion Gap 10 (10-20) 11/10/18 06:30 BUN 13 mg/dL (7-21) 11/10/18 06:30 Creatinine 0.7 mg/dl (0.7-1.2) 11/10/18 06:30 Est GFR ( Amer) > 60 11/10/18 06:30 Est GFR (Non-Af Amer) > 60 11/10/18 06:30 Random Glucose 112 mg/dL (70-110) H 11/10/18 06:30 Calcium 9.2 mg/dL (8.4-10.5) 11/10/18 06:30 Magnesium 1.6 mg/dL (1.7-2.2) L 11/09/18 16:36 Total Bilirubin 1.8 mg/dL (0.2-1.3) H 11/10/18 06:30 AST 66 U/L (14-36) H 11/10/18 06:30 ALT 91 U/L (7-56) H 11/10/18 06:30 Alkaline Phosphatase 115 U/L (38-126) 11/10/18 06:30 Total Protein 7.7 g/dL (5.8-8.3) 11/10/18 06:30 Albumin 3.6 g/dL (3.0-4.8) 11/10/18 06:30 Globulin 4.1 gm/dL 11/10/18 06:30 Albumin/Globulin Ratio 0.9 (1.1-1.8) L 11/10/18 06:30 Urine Color Yellow (YELLOW) 11/09/18 17:00 Urine Appearance Turbid (CLEAR) 11/09/18 17:00 Urine pH 7.0 (4.7-8.0) 11/09/18 17:00 Ur Specific [place] 1.010 (1.005-1.035) 11/09/18 17:00 Urine Protein Negative mg/dL (<30 mg/dL) 11/09/18 17:00 Urine Glucose (UA) Negative mg/dL (NEGATIVE) 11/09/18 17:00 Urine Ketones Negative mg/dL (NEGATIVE) 11/09/18 17:00 Urine Blood Trace-lysed (NEGATIVE) H 11/09/18 17:00 Urine Nitrate Positive (NEGATIVE) H 11/09/18 17:00 Urine Bilirubin Negative (NEGATIVE) 11/09/18 17:00 Urine Urobilinogen 0.2 E.U./dL (<1 E.U./dL) 11/09/18 17:00 Ur Leukocyte Esterase Small [place]/uL (NEGATIVE) H 11/09/18 17:00 Urine RBC Negative /hpf (0-2) 11/09/18 17:00 Urine WBC 5 - 10 /hpf (0-6) 11/09/18 17:00 Ur Epithelial Cells 3 - 4 /hpf (0-5) 11/09/18 17:00 Urine Bacteria Few (NEG) 11/09/18 17:00 Blood Type O POSITIVE 11/09/18 16:36 Antibody Screen Negative 11/09/18 16:36 Crossmatch See Detail 11/09/18 16:36 BBK History Checked Patient has bt 11/09/18 16:36 - Hospital Course Hospital Course: Hospital Course: The pt presented to the ED after her heme/onc doctor Dr. Sanchez, called her and informed her of having a low hgb level. Pt states that she is having the same chronic fatigue that she has been having in the past. She denied any acute event symptoms at the time of admission. Dr. Sanchez discussed the case with us and informed us that they are treating the pt conservatively since the pt had failed other medical management for her MDS. Dr. Sanchez stated that the family wanted to make the pt DNR/DNI. The pt in the ED was noted to have pancytopenia 2/2 her MDS. The pt had no overt signs of bleeding, she had no gum bleeding, no over bruising, and denies any hematemesis, hematuria, melena or hematochezia. The pts case was discussed with Dr. Sanchez further and the decision was made to transfuse the pt 2 units PRBCs but since the pt had no overt signs of bleed, would not be transfused platelets. The pt responded ap propriately to the transfusion and the pt then felt improving strength. The pt and family were informed of the medical plan for discharge and the they pt and family expressed understanding and agreement of the plan. All questions and concerns of the family were addressed prior to pts d/c. Pt was instructed to return to the ED if any new symtpoms started or if symptoms worsened. Discharge Exam - Head Exam Head Exam: ATRAUMATIC, NORMAL INSPECTION, NORMOCEPHALIC - Eye Exam Eye Exam: EOMI, Normal appearance, PERRL - Respiratory Exam Respiratory Exam: Clear to PA & Lateral, UNREMARKABLE. absent: Accessory Muscle Use, Chest Wall Tenderness, Rales, Rhonchi, Wheezes, Respiratory Distress, Stridor - Cardiovascular Exam Cardiovascular Exam: RRR, +S1, +S2. absent: Gallop, Rubs - GI/Abdominal Exam GI & Abdominal Exam: Normal Bowel Sounds, Soft, Unremarkable. absent: Tenderness - Back Exam Back exam: NORMAL INSPECTION. absent: CVA tenderness (L), CVA tenderness (R) - Neurological Exam Neurological exam: Alert, Oriented x3 - Psychiatric Exam Psychiatric exam: Normal Affect, Normal Mood - Skin Skin Exam: Dry, Normal Color, Warm Discharge Plan - Discharge Medications Prescriptions: Nitrofurantoin Macrocrystal [Nitrofurantoin] 100 mg PO BID #10 capsule - Follow Up Plan Condition: STABLE Disposition: HOME/ ROUTINE Instructions: Myelodysplastic Syndromes (MDS) Additional Instructions: Please follow up with your primary medical doctor in 3-5 days. 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 Your urinalysis was positive for possible urinary tract infection. If your urine culture is positive, we will call you with the results. If your symptoms worsen, please go to the nearest emergency department. Referrals: Justice Huerta Jr., MD [Primary Care Provider] - Whitley Sanchez MD [Staff Provider] - <Carlos Rowe - Last Filed: 11/11/18 17:29> Provider - Provider Date of Admission: 11/09/18 17:48 Attending physician: Carlos Rowe MD Primary care physician: Justice Huerta Jr, MD Consults: 11/10/18 02:32 Social Work Referral Routine Comment: admission assesment protocol Physician Instructions: Reason For Exam: Anali score 15 11/10/18 02:35 Nursing Referral for Palliative Care Routine Comment: Physician Instructions: Reason For Exam: admission assessment protocol Hospital Course - Lab Results Lab Results: Micro Results 11/09/18 17:58 Urine,Clean Catch Urine Culture - Final Klebsiella Pneumoniae Ssp Pneu Most Recent Lab Values WBC 3.8 10^3/uL (4.5-11.0) L 11/10/18 06:00 RBC 2.82 10^6/uL (3.5-6.1) L 11/10/18 06:00 Hgb 9.7 g/dL (12.0-16.0) L D 11/10/18 06:00 Hct 29.6 % (36.0-48.0) L 11/10/18 06:00 MCV 105.0 fl (80.0-105.0) D 11/10/18 06:00 MCH 34.4 pg (25.0-35.0) 11/10/18 06:00 MCHC 32.8 g/dl (31.0-37.0) 11/10/18 06:00 RDW 22.0 % (11.5-14.5) H 11/10/18 06:00 Plt Count 10 10^3/uL (120.0-450.0) L* 11/10/18 06:00 Manual Plt Count 14 K/mm3 (120-450) L* 11/09/18 16:36 Gran % 57.0 % (50.0-68.0) 11/10/18 06:00 Lymph % (Auto) 36.4 % (22.0-35.0) H 11/10/18 06:00 Dukes % (Auto) 5.8 % (1.0-6.0) 11/10/18 06:00 Eos % (Auto) 0.8 % (1.5-5.0) L 11/10/18 06:00 Baso % (Auto) 0.0 % (0.0-3.0) 11/10/18 06:00 Gran # 2.16 (1.4-6.5) 11/10/18 06:00 Lymph # (Auto) 1.4 (1.2-3.4) 11/10/18 06:00 Dukes # (Auto) 0.2 (0.1-0.6) 11/10/18 06:00 Eos # (Auto) 0.0 (0.0-0.7) 11/10/18 06:00 Baso # (Auto) 0.00 K/mm3 (0.0-2.0) 11/10/18 06:00 Neutrophils % (Manual) 62 % (50.0-70.0) 11/10/18 06:00 Lymphocytes % (Manual) 31 % (22.0-35.0) 11/10/18 06:00 Monocytes % (Manual) 7 % (1.0-6.0) H 11/10/18 06:00 Nucleated RBC % 4 % 11/10/18 06:00 Platelet Evaluation Low (NORMAL) 11/10/18 06:00 PT 12.1 SECONDS (9.4-12.5) 11/09/18 16:36 INR 1.06 11/09/18 16:36 APTT 29.5 Seconds (25.1-36.5) 11/09/18 16:36 Sodium 138 mmol/L (132-148) 11/10/18 06:30 Potassium 4.6 mmol/L (3.6-5.0) 11/10/18 06:30 Chloride 106 mmol/L (98-107) 11/10/18 06:30 Carbon Dioxide 27 mmol/L (21-33) 11/10/18 06:30 Anion Gap 10 (10-20) 11/10/18 06:30 BUN 13 mg/dL (7-21) 11/10/18 06:30 Creatinine 0.7 mg/dl (0.7-1.2) 11/10/18 06:30 Est GFR ( Amer) > 60 11/10/18 06:30 Est GFR (Non-Af Amer) > 60 11/10/18 06:30 Random Glucose 112 mg/dL (70-110) H 11/10/18 06:30 Calcium 9.2 mg/dL (8.4-10.5) 11/10/18 06:30 Magnesium 1.6 mg/dL (1.7-2.2) L 11/09/18 16:36 Total Bilirubin 1.8 mg/dL (0.2-1.3) H 11/10/18 06:30 AST 66 U/L (14-36) H 11/10/18 06:30 ALT 91 U/L (7-56) H 11/10/18 06:30 Alkaline Phosphatase 115 U/L (38-126) 11/10/18 06:30 Total Protein 7.7 g/dL (5.8-8.3) 11/10/18 06:30 Albumin 3.6 g/dL (3.0-4.8) 11/10/18 06:30 Globulin 4.1 gm/dL 11/10/18 06:30 Albumin/Globulin Ratio 0.9 (1.1-1.8) L 11/10/18 06:30 Urine Color Yellow (YELLOW) 11/09/18 17:00 Urine Appearance Turbid (CLEAR) 11/09/18 17:00 Urine pH 7.0 (4.7-8.0) 11/09/18 17:00 Ur Specific [place] 1.010 (1.005-1.035) 11/09/18 17:00 Urine Protein Negative mg/dL (<30 mg/dL) 11/09/18 17:00 Urine Glucose (UA) Negative mg/dL (NEGATIVE) 11/09/18 17:00 Urine Ketones Negative mg/dL (NEGATIVE) 11/09/18 17:00 Urine Blood Trace-lysed (NEGATIVE) H 11/09/18 17:00 Urine Nitrate Positive (NEGATIVE) H 11/09/18 17:00 Urine Bilirubin Negative (NEGATIVE) 11/09/18 17:00 Urine Urobilinogen 0.2 E.U./dL (<1 E.U./dL) 11/09/18 17:00 Ur Leukocyte Esterase Small [place]/uL (NEGATIVE) H 11/09/18 17:00 Urine RBC Negative /hpf (0-2) 11/09/18 17:00 Urine WBC 5 - 10 /hpf (0-6) 11/09/18 17:00 Ur Epithelial Cells 3 - 4 /hpf (0-5) 11/09/18 17:00 Urine Bacteria Few (NEG) 11/09/18 17:00 Blood Type O POSITIVE 11/09/18 16:36 Antibody Screen Negative 11/09/18 16:36 Crossmatch See Detail 11/09/18 16:36 BBK History Checked Patient has bt 11/09/18 16:36 Attending/Attestation - Attestation I have personally seen and examined this patient.: Yes I have fully participated in the care of the patient.: Yes I have reviewed all pertinent clinical information, including history, physical exam and plan: Yes Notes (Text): 11/11/18 17:28 attending note; patient seen and examined with Resident. Patient is alert and awake. Family by the bedside. Patient is a 77 year old female with pmhx of HTN, myelodysplastic anemia, OA an d PUD is admitted for symptomatic anemia. Status post 2 units PRBC transfusion. Patient has myelodysplastic syndrome; getting frequent blood transfusion. Failed outpatient treatment for MDS therapy. Thrombocytopenia; no active bleeding noted. No need for PRBC transfusion at this point as per hematology. Gait instability; patient is mostly bedbound. Patient's family wants conservative management. patient is DNI DNR. Upon discharge the patient will follow up with PMD Dr. Huerta. follow up with hematology oncology as outpatient. Prognosis is poor.
== END 2018-11-10 12:52 | disposition home or self-care (01) ==
LOC: ED 15:18 → ERH 17:48 → 2RNO 22:18
PROVIDERS: ADMIT Internal Medicine; ATTEND Internal Medicine
DX: D46.4 Refractory anemia, unspecified (principal); D46.9 Myelodysplastic syndrome, unspecified; D61.818 Other pancytopenia; D63.8 Anemia in other chronic diseases classified elsewhere; E83.42 Hypomagnesemia; N39.0 Urinary tract infection, site not specified; I10 Essential (primary) hypertension; I48.0 Paroxysmal atrial fibrillation; R26.9 Unspecified abnormalities of gait and mobility; Z66 Do not resuscitate; Z87.11 Personal history of peptic ulcer disease; Z87.440 Personal history of urinary (tract) infections; Z87.891 Personal history of nicotine dependence; Z88.0 Allergy status to penicillin; Z90.710 Acquired absence of both cervix and uterus; Z88.1 Allergy status to other antibiotic agents
CPT/HCPCS: 36415; 36430; 71045; 80053; 81001; 83735; 85025; 85610; 85730; 86850; 86900; 86920; 86921; 86922; 87086; 87181; 93005; 96365; 96367; 99285; G0378; J3475; P9016

== ENCOUNTER 2018-12-10 11:49 | Observation (INO) | payer MEDICARE, MEDICAID ==
--- NOTE | 2018-12-10 12:14 | ED PDOC ---
Arrival/HPI - General Chief Complaint: Abnormal Labs Time Seen by Provider: 12/10/18 11:56 Historian: Patient - History of Present Illness Narrative History of Present Illness (Text): 12/10/18 12:14 A 77 year old female, whose past medical history includes mild dysplastic syndrome, presents to the emergency department complaining of a low hemoglobin count and chronic fatigue since earlier today. Patient reports she was told to come to the ER by Dr. Sanchez due to her low hemoglobin. Patient notes she has a history of blood transfusions and states her last transfusion 4-5 weeks ago. As per family, the hemoglobin count was 7 one week ago. Patient denies any fever, chills, shortness of breath, chest pain, nausea, vomiting, headache, dizziness, or any other complaints. PMD: Dr. Huerta Hemotologist: Dr. Sanchez Time/Duration: Other (earlier today) Symptom Onset: Gradual Symptom Course: Unchanged Activities at Onset: Light Context: Home Past Medical History - Provider Review Nursing Documentation Reviewed: Yes - Infectious Disease Hx of Infectious Diseases: None - Past Medical History Past Medical History: Unable to Obtain - Cardiac Hx Cardiac Disorders: Yes Hx Cardiac Arrhythmia: Yes (Afib) Hx Hypertension: Yes - Pulmonary Hx Respiratory Disorders: Yes (ex smoker) Hx Bronchitis: Yes - Neurological Hx Neurological Disorder: Yes Hx Dizziness: Yes - HEENT Hx HEENT Disorder: Yes ([place] TO RIGHT EAR) - Renal Hx Renal Disorder: No - Endocrine/Metabolic Hx Endocrine Disorders: No - Hematological/Oncological Hx Blood Disorders: Yes Hx Anemia: Yes Other/Comment: thrombocytopenia - Integumentary Hx Dermatological Disorder: No - Musculoskeletal/Rheumatological Hx Falls: Yes - Gastrointestinal Hx Gastrointestinal Disorders: Yes (CONSTIPATION) - Genitourinary/Gynecological Hx Genitourinary Disorders: Yes Hx Incontinence: Yes Hx Urinary Tract Infection: Yes - Psychiatric Hx Psychophysiologic Disorder: Yes Hx Anxiety: Yes Hx Substance Use: No - Past Surgical History Past Surgical History: Unable to Obtain - Surgical History Hx Hysterectomy: Yes Hx Orthopedic Surgery: Yes - Anesthesia Hx Anesthesia: Yes Hx Anesthesia Reactions: No Hx Malignant Hyperthermia: No - Suicidal Assessment Feels Threatened In Home Enviroment: No Family/Social History - Physician Review Nursing Documentation Reviewed: Yes Family/Social History: No Known Family HX Smoking Status: Former Smoker Hx Alcohol Use: No Hx Substance Use: No Allergies/Home Meds Allergies/Adverse Reactions: Allergies amoxicillin Allergy (Verified 12/10/18 12:02) SHORTNESS OF BREATH ciprofloxacin Allergy (Verified 12/10/18 12:02) SHORTNESS OF BREATH Penicillins Allergy (Verified 12/10/18 12:02) SHORTNESS OF BREATH Review of Systems - Physician Review All systems were reviewed & negative as marked: Yes - Review of Systems Constitutional: Fatigue. absent: Fevers, Other (chills) Respiratory: absent: SOB Cardiovascular: absent: Chest Pain Gastrointestinal: absent: Nausea, Vomiting Neurological: absent: Headache, Dizziness Physical Exam Vital Signs Reviewed: Yes Vital Signs Temp Pulse Resp BP Pulse Ox 12/10/18 12:12 98 F 66 18 128/53 L 100 Temperature: Afebrile Blood Pressure: Hypotensive Pulse: Regular Respiratory Rate: Normal Appearance: Positive for: Well-Appearing, Non-Toxic Mental Status: Positive for: Alert and Oriented X 3 - Systems Exam Head: Present: Atraumatic, Normocephalic Pupils: Present: PERRL Extroacular Muscles: Present: EOMI Conjunctiva: Present: Other (slightly pale) Mouth: Present: Moist Mucous Membranes Neck: Present: Normal Range of Motion Respiratory/Chest: Present: Clear to Auscultation, Good Air Exchange. No: Respiratory Distress, Accessory Muscle Use Cardiovascular: Present: Regular Rate and Rhythm, Normal S1, S2. No: Murmurs Abdomen: Present: Distention (slightly distended). No: Tenderness, Peritoneal Signs Back: Present: Normal Inspection Upper Extremity: Present: Normal Inspection. No: Cyanosis, Edema Lower Extremity: Present: Normal Inspection. No: Edema Neurological: Present: GCS=15, CN II-XII Intact, Speech Normal Skin: Present: Warm, Pale, Other (ecchymosis to bilateral upper extremities) Psychiatric: Present: Alert, Oriented x 3, Normal Insight, Normal Concentration Medical Decision Making ED Course and Treatment: 12/10/18 12:15 Impression: 77 year old female presenting to the emergency room complaining of a low hemoglobin count and chronic fatigue. Plan: -- Type and screen -- CMP -- CBC -- COAGs -- Reassess and disposition Prior Visits: Notes and results from previous visits were reviewed. Progress Notes: - Scribe Statement The provider has reviewed the documentation as recorded by the Scribalfredo Wong All medical record entries made by the Scribe were at my direction and personally dictated by me. I have reviewed the chart and agree that the record accurately reflects my personal performance of the history, physical exam, medical decision making, and the department course for this patient. I have also personally directed, reviewed, and agree with the discharge instructions and disposition. Disposition/Present on Arrival - Present on Arrival Any Indicators Present on Arrival: No History of DVT/PE: No History of Uncontrolled Diabetes: No Urinary Catheter: No History of Decub. 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
[2018-12-10 13:09] LABS: EOS % 1.1 % (1.5-5.0); GRAN # 1.08 (1.4-6.5); GRAN % 30.3 % (50.0-68.0); HEMOGLOBIN 7.2 g/dL (12.0-16.0); LYMPH # 2.2 (1.2-3.4); LYMPH % 62.4 % (22.0-35.0); MEAN CELL VOLUME 112.5 fl (80.0-105.0); MONO # 0.2 (0.1-0.6); MONO % 6.2 % (1.0-6.0); RED CELL DISTRIBUTION WIDTH 16.1 % (11.5-14.5); WHITE BLOOD COUNT 3.6 10^3/uL (4.5-11.0)
[2018-12-10 13:11] LABS: INR 1.09; PARTIAL THROMBOPLASTIN TIME 29.1 Seconds (25.1-36.5); PROTHROMBIN TIME 12.5 SECONDS (9.4-12.5)
[2018-12-10 13:18] LABS: PLATELET COUNT 8 10^3/uL (120.0-450.0)
[2018-12-10 13:20] LABS: ALB/GLOB RATIO 0.8 (1.1-1.8); ALBUMIN 3.7 g/dL (3.0-4.8); ALT/SGPT 75 U/L (7-56); AST/SGOT 61 U/L (14-36); BLOOD UREA NITROGEN 16 mg/dL (7-21); CALCIUM 9.5 mg/dL (8.4-10.5); GFR NON-AFRICAN AMERICAN > 60
--- NOTE | 2018-12-10 14:58 | CP.PCM.HP ---
<Homero Lobo - Last Filed: 12/10/18 15:10> History of Present Illness - History of Present Illness History of Present Illness: 77 yo F with pmhx of HTN, myelodysplastic anemia, OA, paroxysmal Afib, and PUD who presents to the ED after her heme/onc doctor Dr. Sanchez called her from the clinic for CBC results which showed low Hgb levels. Patient and family members provide history. She has no signs of active bleeding or pain. She does have purpura on the lower extremities, but not in the oral cavity. Otherwise, she denies fever, chills, nausea, vomiting, diarrhea, hematuria, hematemesis, melena, or headache. A complete 12 point ROS is negative. Pmhx: hypertension, pancytopenia, myelodysplastic anemia, osteoarthritis, paroxysmal atrial fibrillation and peptic ulcer disease Pshx: hysterectomy Meds: Irbesartan 75mg daily (only takes when pressures are high) All: amoxicillin, ciprofloxacin, penicillin - shortness of breath Fam Hx: Noncontributory Social: Former smoker. Denies EtOH or drug use, lives at home with daughter PMD: Dr. Huerta Hem: Dr. Cohen/Dr. Guzman [facility]: [phone] Present on Admission - Present on Admission Any Indicators Present on Admission: No Review of Systems - Review of Systems All systems: reviewed and no additional remarkable complaints except (as per HPI) Past Patient History - Infectious Disease Hx of Infectious Diseases: None - Past Social History Smoking Status: Former Smoker - CARDIAC Hx Cardiac Disorders: Yes Hx Cardia Arrhythmia: Yes (Afib) Hx Hypertension: Yes - PULMONARY Hx Respiratory Disorders: Yes (ex smoker) Hx Bronchitis: Yes - NEUROLOGICAL Hx Neurological Disorder: Yes Hx Dizziness: Yes - HEENT Hx HEENT Problems: Yes ([place] TO RIGHT EAR) - RENAL Hx Chronic Kidney Disease: No - ENDOCRINE/METABOLIC Hx Endocrine Disorders: No - HEMATOLOGICAL/ONCOLOGICAL Hx Blood Disorders: Yes Hx Anemia: Yes Other/Comment: thrombocytopenia - INTEGUMENTARY Hx Dermatological Problems: No - MUSCULOSKELETAL/RHEUMATOLOGICAL Hx Falls: Yes - GASTROINTESTINAL Hx Gastrointestinal Disorders: Yes (CONSTIPATION) - GENITOURINARY/GYNECOLOGICAL Hx Genitourinary Disorders: Yes Hx Incontinence: Yes Hx Urinary Tract Infection: Yes - PSYCHIATRIC Hx Psychophysiologic Disorder: Yes Hx Anxiety: Yes Hx Substance Use: No - SURGICAL HISTORY Hx Hysterectomy: Yes Hx Orthopedic Surgery: Yes - ANESTHESIA Hx Anesthesia: Yes Hx Anesthesia Reactions: No Hx Malignant Hyperthermia: No Meds Allergies/Adverse Reactions: Allergies Allergy/AdvReac Type Severity Reaction Status Date / Time amoxicillin Allergy SHORTNESS Verified 12/10/18 12:02 OF BREATH ciprofloxacin Allergy SHORTNESS Verified 12/10/18 12:02 OF BREATH Penicillins Allergy SHORTNESS Verified 12/10/18 12:02 OF BREATH Physical Exam - Constitutional Appears: Non-toxic, No Acute Distress - Head Exam Head Exam: ATRAUMATIC, NORMOCEPHALIC - Eye Exam Eye Exam: EOMI, Normal appearance - ENT Exam ENT Exam: Mucous Membranes Moist, Normal Oropharynx - Neck Exam Neck exam: Positive for: Normal Inspection - Respiratory Exam Respiratory Exam: Clear to Auscultation Bilateral, NORMAL BREATHING PATTERN. absent: Accessory Muscle Use - Cardiovascular Exam Cardiovascular Exam: RRR, +S1, +S2 - GI/Abdominal Exam GI & Abdominal Exam: Normal Bowel Sounds, Soft - Extremities Exam Extremities exam: Negative for: calf tenderness Additional comments: palpable purpura - Neurological Exam Neurological exam: Alert, CN II-XII Intact, Oriented x3 Additional comments: contractured - Psychiatric Exam Psychiatric exam: Normal Affect, Normal Mood - Skin Skin Exam: Dry, Intact, Normal Color, Warm Results - Vital Signs Recent Vital Signs: Last Vital Signs Temp 98 F 12/10/18 12:12 Pulse 66 12/10/18 12:12 Resp 18 12/10/18 12:12 BP 128/53 L 12/10/18 12:12 Pulse Ox 100 12/10/18 12:12 - Labs Result Diagrams: 12/10/18 12:37 12/10/18 12:37 Labs: Laboratory Results - last 24 hr 12/10/18 12/10/18 12/10/18 12:37 12:37 12:37 WBC 3.6 L RBC 2.00 L Hgb 7.2 L D Hct 22.5 L MCV 112.5 H D MCH 36.0 H MCHC 32.0 RDW 16.1 H Plt Count 8 L* Gran % 30.3 L Lymph % (Auto) 62.4 H [place] % (Auto) 6.2 H Eos % (Auto) 1.1 L Baso % (Auto) 0.0 Gran # 1.08 L Lymph # (Auto) 2.2 [place] # (Auto) 0.2 Eos # (Auto) 0.0 Baso # (Auto) 0.00 PT 12.5 INR 1.09 APTT 29.1 Sodium 138 Potassium 4.3 Chloride 105 Carbon Dioxide 29 Anion Gap 8 L BUN 16 Creatinine 0.6 L Est GFR ( Amer) > 60 Est GFR (Non-Af Amer) > 60 Random Glucose 95 Calcium 9.5 Total Bilirubin 0.4 AST 61 H ALT 75 H Alkaline Phosphatase 122 Total Protein 8.1 Albumin 3.7 Globulin 4.4 Albumin/Globulin Ratio 0.8 L Blood Type Antibody Screen BBK History Checked 12/10/18 12:37 WBC RBC Hgb Hct MCV MCH MCHC RDW Plt Count Gran % Lymph % (Auto) [place] % (Auto) Eos % (Auto) Baso % (Auto) Gran # Lymph # (Auto) [place] # (Auto) Eos # (Auto) Baso # (Auto) PT INR APTT Sodium Potassium Chloride Carbon Dioxide Anion Gap BUN Creatinine Est GFR ( Amer) Est GFR (Non-Af Amer) Random Glucose Calcium Total Bilirubin AST ALT Alkaline Phosphatase Total Protein Albumin Globulin Albumin/Globulin Ratio Blood Type O POSITIVE Antibody Screen Negative BBK History Checked Patient has bt Assessment & Plan - Assessment and Plan (Free Text) Assessment: 77 year old female with a past medical history of MDS treated supportively with blood product administration, atrial fibrillation, cont ractures, and bed bound who was told to go to the ER due to her hemoglobin of 7.2. Platelets are chronically low, today they were 7. The ED ordered for PRBCs to be administered. Plan: 1) 1. Pancytopenia with existing hx of myelodysplastic anemia: - Pt is currently not under treatment for myelodysplastic anemia - Hgb noted to be 7.3 - Will transfuse 2 units PRBCs - Platelets 7 - Will follow up with AM labs 2. Hx of HTN: - Pts BP is not elevated at this time, will hold home BP meds and continue to monitor 3. Paroxysmal Afib - Currently not on any medication - PT is NSR ED 4. Code status: - After extensive discussion with pt and family, pt decided to be made DNR/DNI during this admission. Case reviewed and discussed with attending physician, Dr. Rowe - Date & Time Date: 12/10/18 Time: 15:13 <Carlos Rowe - Last Filed: 12/11/18 13:42> Results - Vital Signs Recent Vital Signs: Last Vital Signs Temp 98.0 F 12/11/18 05:35 Pulse 81 12/11/18 05:35 Resp 81 H 12/11/18 05:35 BP 134/48 L 12/11/18 05:35 Pulse Ox 97 12/10/18 22:00 - Labs Result Diagrams: 12/11/18 06:30 12/11/18 06:30 Labs: Laboratory Results - last 24 hr 12/10/18 12/10/18 12/11/18 12:37 21:45 06:30 WBC 3.5 L RBC 3.29 L Hgb 10.6 L D Hct 32.6 L MCV 99.1 D MCH 32.2 MCHC 32.5 RDW 22.1 H Plt Count 8 L* MPV 10.4 Gran % 23.5 L Lymph % (Auto) 69.5 H [place] % (Auto) 5.8 Eos % (Auto) 0.9 L Baso % (Auto) 0.3 Gran # 0.82 L Lymph # (Auto) 2.4 [place] # (Auto) 0.2 Eos # (Auto) 0.0 Baso # (Auto) 0.01 Platelet Evaluation Low Sodium Potassium Chloride Carbon Dioxide Anion Gap BUN Creatinine Est GFR ( Amer) Est GFR (Non-Af Amer) POC Glucose (mg/dL) 107 Random Glucose Calcium Blood Type O POSITIVE Antibody Screen Negative Crossmatch See Detail BBK History Checked Patient has bt 12/11/18 06:30 WBC RBC Hgb Hct MCV MCH MCHC RDW Plt Count MPV Gran % Lymph % (Auto) [place] % (Auto) Eos % (Auto) Baso % (Auto) Gran # Lymph # (Auto) [place] # (Auto) Eos # (Auto) Baso # (Auto) Platelet Evaluation Sodium 139 Potassium 4.3 Chloride 108 H Carbon Dioxide 27 Anion Gap 9 L BUN 15 Creatinine 0.7 Est GFR ( Amer) > 60 Est GFR (Non-Af Amer) > 60 POC Glucose (mg/dL) Random Glucose 99 Calcium 9.4 Blood Type Antibody Screen Crossmatch BBK History Checked Attending/Attestation - Attestation I have personally seen and examined this patient.: Yes I have fully participated in the care of the patient.: Yes I have reviewed all pertinent clinical information: Yes Notes (Text): 12/11/18 13:39 attending note; patient seen and examined with Resident in ER. Patient's son by the bedside. Denied any bleeding. Patient was advised by oncologist to get blood transfusion. Patient has chronic petechial changes in the leg. minimal bruise in the Right upper arm. Patient is alert and awake. Patient is a 77 year old female with pmhx of HTN, myelodysplastic anemia, OA and PUD who presents to the ED after her heme/onc doctor Dr. Sanchez called her from the clinic for CBC results which showed low Hgb levels. Patient is sent in for symptomatic anemia. 2 units of PRBC transfusion ordered. Patient has myelodysplastic syndrome; getting frequent blood transfusion. Failed outpatient treatment for MDS therapy. Thrombocytopenia; no active bleeding noted. No need for PRBC transfusion at this point as per hematology. Gait instability; patient is mostly bedbound. Patient and family family wants conservative management. Palliative care consult appreciated. Patient is DNI DNR. Upon discharge the patient will follow up with PMD Dr. Huerta. follow up with hematology oncology as outpatient to discuss further treatment plan.
--- NOTE | 2018-12-10 16:00 | CP.PCM.CON ---
History of Present Illness - History of Present Illness History of Present Illness: Palliative request per Dr Марина Hoover Reason: Goals of care/advance care planning 77 year old female with history of myelodysplastic syndrome who was sent to ED by director of advertising sales because of anemia and thrombocytopenia. She denies hematuria, GI bleeding,fever, chills, nausea, vomiting, diarrhea, headache, shortness of breath or chest pain. abs: Wbc 3.6, Hgb 7.2. Hct 22.5, MVC 112 Plt 8, NA 138, K 4.3. Bun 16, Hand Shoes Sewer 0.6, AST 61, ALT 75, Alk Phos 122. PMHx: HTN, MDS, A Fib, PUD pancytopenia s/p transfusions [facility]: Dr Guzman Social History: Former smoker,no alcohol drug use. Lives with daughter. Family History: Non contributory. Review of Systems: As per HPI, 10 point review negative Past Patient History - Infectious Disease Hx of Infectious Diseases: None - Past Social History Smoking Status: Former Smoker - CARDIAC Hx Cardiac Disorders: Yes Hx Cardia Arrhythmia: Yes (Afib) Hx Hypertension: Yes - PULMONARY Hx Respiratory Disorders: Yes (ex smoker) Hx Bronchitis: Yes - NEUROLOGICAL Hx Neurological Disorder: Yes Hx Dizziness: Yes - HEENT Hx HEENT Problems: Yes ([place] TO RIGHT EAR) - RENAL Hx Chronic Kidney Disease: No - ENDOCRINE/METABOLIC Hx Endocrine Disorders: No - HEMATOLOGICAL/ONCOLOGICAL Hx Blood Disorders: Yes Hx Anemia: Yes Other/Comment: thrombocytopenia - INTEGUMENTARY Hx Dermatological Problems: No - MUSCULOSKELETAL/RHEUMATOLOGICAL Hx Falls: Yes - GASTROINTESTINAL Hx Gastrointestinal Disorders: Yes (CONSTIPATION) - GENITOURINARY/GYNECOLOGICAL Hx Genitourinary Disorders: Yes Hx Incontinence: Yes Hx Urinary Tract Infection: Yes - PSYCHIATRIC Hx Psychophysiologic Disorder: Yes Hx Anxiety: Yes Hx Substance Use: No - SURGICAL HISTORY Hx Hysterectomy: Yes Hx Orthopedic Surgery: Yes - ANESTHESIA Hx Anesthesia: Yes Hx Anesthesia Reactions: No Hx Malignant Hyperthermia: No Meds Allergies/Adverse Reactions: Allergies Allergy/AdvReac Type Severity Reaction Status Date / Time amoxicillin Allergy SHORTNESS Verified 12/10/18 12:02 OF BREATH ciprofloxacin Allergy SHORTNESS Verified 12/10/18 12:02 OF BREATH Penicillins Allergy SHORTNESS Verified 12/10/18 12:02 OF BREATH Physical Exam - Constitutional Appears: No Acute Distress, Chronically Ill - Eye Exam Eye Exam: Normal appearance, PERRL - ENT Exam ENT Exam: Mucous Membranes Moist, Normal Oropharynx - Neck Exam Neck exam: Positive for: Normal Inspection - Respiratory Exam Respiratory Exam: Clear to Auscultation Bilateral, NORMAL BREATHING PATTERN - Cardiovascular Exam Cardiovascular Exam: Irregular Rhythm, +S1, +S2 - GI/Abdominal Exam GI & Abdominal Exam: Normal Bowel Sounds, Soft - Extremities Exam Extremities exam: Positive for: pedal edema - Neurological Exam Neurological exam: Alert, Oriented x3 - Skin Skin Exam: Dry, Pallor - Additional Findings Additional findings: Palliative performance scale rating, 30 % Results - Vital Signs Recent Vital Signs: Last Vital Signs Temp 98 F 12/10/18 12:12 Pulse 66 12/10/18 12:12 Resp 18 12/10/18 12:12 BP 128/53 L 12/10/18 12:12 Pulse Ox 100 12/10/18 12:12 - Labs Result Diagrams: 12/10/18 12:37 12/10/18 12:37 Labs: Laboratory Results - last 24 hr 12/10/18 12/10/18 12/10/18 12:37 12:37 12:37 WBC 3.6 L RBC 2.00 L Hgb 7.2 L D Hct 22.5 L MCV 112.5 H D MCH 36.0 H MCHC 32.0 RDW 16.1 H Plt Count 8 L* Gran % 30.3 L Lymph % (Auto) 62.4 H [place] % (Auto) 6.2 H Eos % (Auto) 1.1 L Baso % (Auto) 0.0 Gran # 1.08 L Lymph # (Auto) 2.2 [place] # (Auto) 0.2 Eos # (Auto) 0.0 Baso # (Auto) 0.00 PT 12.5 INR 1.09 APTT 29.1 Sodium 138 Potassium 4.3 Chloride 105 Carbon Dioxide 29 Anion Gap 8 L BUN 16 Creatinine 0.6 L Est GFR ( Amer) > 60 Est GFR (Non-Af Amer) > 60 Random Glucose 95 Calcium 9.5 Total Bilirubin 0.4 AST 61 H ALT 75 H Alkaline Phosphatase 122 Total Protein 8.1 Albumin 3.7 Globulin 4.4 Albumin/Globulin Ratio 0.8 L Blood Type Antibody Screen BBK History Checked 12/10/18 12:37 WBC RBC Hgb Hct MCV MCH MCHC RDW Plt Count Gran % Lymph % (Auto) [place] % (Auto) Eos % (Auto) Baso % (Auto) Gran # Lymph # (Auto) [place] # (Auto) Eos # (Auto) Baso # (Auto) PT INR APTT Sodium Potassium Chloride Carbon Dioxide Anion Gap BUN Creatinine Est GFR ( Amer) Est GFR (Non-Af Amer) Random Glucose Calcium Total Bilirubin AST ALT Alkaline Phosphatase Total Protein Albumin Globulin Albumin/Globulin Ratio Blood Type O POSITIVE Antibody Screen Negative BBK History Checked Patient has bt Assessment & Plan - Assessment and Plan (Free Text) Assessment: 77 year old female with history of MDS, A Fib, OA, PUD who is seen ED for anemia, thrombocytopenia. The patient is French speaking. Son and daughter at bedside. Family understands patients diagnosis. Patient is primarily house bound. She see's director of advertising sales every 2-3 months. The patient has refused treatment of MDS . Family contacts Hem/Onc when patient is symptomatic (ecchymosis, shortness of breath,bleeding, weakness). The patient has an out of hospital DNR/DNI. Family understands and is in agreement with her wishes. Encouraged to complete POLST Directive The patient/ family in agreement, POLST DNR/DNI competed. A copy is placed in chart Time sent in goals of care and advance care planning, 30 minutes Plan: Advance care planning; POLST DNR/DNI. Pancytopenia: Transfuse leuko reduced PRBC's as ordered. Monitor for signs of acute bleeding Follow up with [facility] out patient
--- NOTE | 2018-12-10 20:00 | CARD ---
APPROVED REPORT Date of service: 12/10/2018 EKG Measurement Heart [id number] <Conclusion> Normal sinus rhythm Normal ECG
[2018-12-10 22:08] VITALS: BMI 24.5
[2018-12-10] MEDS ORDERED: Pneumococcal 23-Valent Vaccine IM ONE (22:09)
[2018-12-10] MEDS ORDERED: Influenza Vaccine 60 mcg/0.5 mL SYR (4YR UP) IM ONE (22:09)
[2018-12-10 22:14] VITALS: O2SAT 97
[2018-12-11 03:59] VITALS: TEMP 98
[2018-12-11 05:36] VITALS: BP 134/48; PULSE 81; RESP 81
[2018-12-11 06:49] LABS: BASO # 0.01 K/mm3 (0.0-2.0); BASO % 0.3 % (0.0-3.0); EOS % 0.9 % (1.5-5.0); GRAN # 0.82 (1.4-6.5); GRAN % 23.5 % (50.0-68.0); HEMOGLOBIN 10.6 g/dL (12.0-16.0); LYMPH # 2.4 (1.2-3.4); LYMPH % 69.5 % (22.0-35.0); MEAN CELL VOLUME 99.1 fl (80.0-105.0); MEAN CORPUSCULAR HEMOGLOBIN 32.2 pg (25.0-35.0); MEAN CORPUSCULAR HGB CONC 32.5 g/dl (31.0-37.0); MEAN PLATELET VOLUME 10.4 fl (7.0-11.0); MONO # 0.2 (0.1-0.6); MONO % 5.8 % (1.0-6.0); RBC 3.29 10^6/uL (3.5-6.1); RED CELL DISTRIBUTION WIDTH 22.1 % (11.5-14.5); WHITE BLOOD COUNT 3.5 10^3/uL (4.5-11.0)
[2018-12-11 06:58] LABS: BLOOD UREA NITROGEN 15 mg/dL (7-21); CALCIUM 9.4 mg/dL (8.4-10.5); GFR NON-AFRICAN AMERICAN > 60
[2018-12-11 07:26] LABS: PLATELET COUNT 8 10^3/uL (120.0-450.0)
[2018-12-11 07:27] LABS: PLATELET ESTIMATE LOW (NORMAL)
--- NOTE | 2018-12-11 13:26 | CP.PCM.DIS ---
<Eduin Caballero - Last Filed: 12/11/18 13:10> Provider - Provider Date of Admission: 12/10/18 14:11 Attending physician: Marina Joe MD Primary care physician: Dr. 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 (2) Hypomagnesemia Status: Acute (3) Thrombocytopenia Status: Acute Hospital Course - Lab Results Lab Results: Most Recent Lab Values WBC 3.5 10^3/uL (4.5-11.0) L 12/11/18 06:30 RBC 3.29 10^6/uL (3.5-6.1) L 12/11/18 06:30 Hgb 10.6 g/dL (12.0-16.0) L D 12/11/18 06:30 Hct 32.6 % (36.0-48.0) L 12/11/18 06:30 MCV 99.1 fl (80.0-105.0) D 12/11/18 06:30 MCH 32.2 pg (25.0-35.0) 12/11/18 06:30 MCHC 32.5 g/dl (31.0-37.0) 12/11/18 06:30 RDW 22.1 % (11.5-14.5) H 12/11/18 06:30 Plt Count 8 10^3/uL (120.0-450.0) L* 12/11/18 06:30 MPV 10.4 fl (7.0-11.0) 12/11/18 06:30 Gran % 23.5 % (50.0-68.0) L 12/11/18 06:30 Lymph % (Auto) 69.5 % (22.0-35.0) H 12/11/18 06:30 [place] % (Auto) 5.8 % (1.0-6.0) 12/11/18 06:30 Eos % (Auto) 0.9 % (1.5-5.0) L 12/11/18 06:30 Baso % (Auto) 0.3 % (0.0-3.0) 12/11/18 06:30 Gran # 0.82 (1.4-6.5) L 12/11/18 06:30 Lymph # (Auto) 2.4 (1.2-3.4) 12/11/18 06:30 [place] # (Auto) 0.2 (0.1-0.6) 12/11/18 06:30 Eos # (Auto) 0.0 (0.0-0.7) 12/11/18 06:30 Baso # (Auto) 0.01 K/mm3 (0.0-2.0) 12/11/18 06:30 Platelet Evaluation Low (NORMAL) 12/11/18 06:30 PT 12.5 SECONDS (9.4-12.5) 12/10/18 12:37 INR 1.09 12/10/18 12:37 APTT 29.1 Seconds (25.1-36.5) 12/10/18 12:37 Sodium 139 mmol/L (132-148) 12/11/18 06:30 Potassium 4.3 mmol/L (3.6-5.0) 12/11/18 06:30 Chloride 108 mmol/L (98-107) H 12/11/18 06:30 Carbon Dioxide 27 mmol/L (21-33) 12/11/18 06:30 Anion Gap 9 (10-20) L 12/11/18 06:30 BUN 15 mg/dL (7-21) 12/11/18 06:30 Creatinine 0.7 mg/dl (0.7-1.2) 12/11/18 06:30 Est GFR ( Amer) > 60 12/11/18 06:30 Est GFR (Non-Af Amer) > 60 12/11/18 06:30 POC Glucose (mg/dL) 107 mg/dL (65-110) 12/10/18 21:45 Random Glucose 99 mg/dL (70-110) 12/11/18 06:30 Calcium 9.4 mg/dL (8.4-10.5) 12/11/18 06:30 Total Bilirubin 0.4 mg/dL (0.2-1.3) 12/10/18 12:37 AST 61 U/L (14-36) H 12/10/18 12:37 ALT 75 U/L (7-56) H 12/10/18 12:37 Alkaline Phosphatase 122 U/L (38-126) 12/10/18 12:37 Total Protein 8.1 g/dL (5.8-8.3) 12/10/18 12:37 Albumin 3.7 g/dL (3.0-4.8) 12/10/18 12:37 Globulin 4.4 gm/dL 12/10/18 12:37 Albumin/Globulin Ratio 0.8 (1.1-1.8) L 12/10/18 12:37 Blood Type O POSITIVE 12/10/18 12:37 Antibody Screen Negative 12/10/18 12:37 Crossmatch See Detail 12/10/18 12:37 BBK History Checked Patient has bt 12/10/18 12:37 - Hospital Course Hospital Course: PGY1 Discharge Summary and Hospital Course for Dr. Rowe Ms. Lay is a 78-year-old F with PMH of HTN, myelodysplastic (MD) anemia, OA, paroxysmal Afib, and PUD who presented to the ED after her heme/onc doctor Dr. Santiago called her from the clinic for CBC results which showed low Hgb levels. Patient and family members provided history. Patient has no signs of active bleeding or pain. Patient was positive for purpura on the lower extremities (chronic), but not in the oral cavity. Otherwise, Patient denied fever, chills, nausea, vomiting, diarrhea, hematuria, hematemesis, melena, or headache. Please see chart for detail. Patient was admitted for observation for signs of bleeding and for blood transfusions. Please see chart for details. Patient was transfused with PRBCs x2 units. Hemoglobin improved from 7.2 to 10.6. Platelets were found to be 8 on admission, however this is secondary to her disease (MD anemia) and is a chronic problem. was contacted and stated she will discuss further management with the family. Please see chart for detailed summary. On day of discharge, the Patient was medically stable and hemodynamically optimized for discharge to home. Patient wanted to go home. Patient was provided with detailed discharge instructions that were provided in detail both verbally and in writing to the level of the Patient's comprehension. Patient understands and agrees with all instructions. Please see chart for details. Discharge Medications: No new prescriptions provided to Patient upon discharge from hospital; see instructions below. Discharge Instructions Provided to Patient: Follow up with your primary care physician within 3-5 days upon discharge Follow up with your steam shovelman/oncologist within 1-2 weeks upon discharge Take medications as prescribed to you No new medications have been prescribed to you during your hospital course Patient seen and case discussed in detail with Dr Soledad Caballero PGY1 Discharge Exam - Additional Findings Additional findings: - Constitutional Appears: Non-toxic, No Acute Distress - Head Exam Head Exam: ATRAUMATIC, NORMOCEPHALIC - Eye Exam Eye Exam: EOMI, Normal appearance - ENT Exam ENT Exam: Mucous Membranes Moist, Normal Oropharynx - Neck Exam Neck exam: Positive for: Normal Inspection - Respiratory Exam Respiratory Exam: Clear to Auscultation Bilateral, NORMAL BREATHING PATTERN. absent: Accessory Muscle Use - Cardiovascular Exam Cardiovascular Exam: RRR, +S1, +S2 - GI/Abdominal Exam GI & Abdominal Exam: Normal Bowel Sounds, Soft - Extremities Exam Extremities exam: Negative for: calf tenderness Additional comments: palpable purpura, chronic - Neurological Exam Neurological exam: Alert, CN II-XII Intact, Oriented x3 - Psychiatric Exam Psychiatric exam: Normal Affect, Normal Mood - Skin Skin Exam: Dry, Intact, Normal Color, Warm Discharge Plan - Follow Up Plan Condition: FAIR Disposition: HOME/ ROUTINE Instructions: Myelodysplastic Syndromes (MDS) (DC), Bleeding Precautions, Low Magnesium Level (DC) Additional Instructions: Follow up with your primary care physician within 3-5 days upon discharge Follow up with your steam shovelman/oncologist within 1-2 weeks upon discharge Take medications as prescribed to you No new medications have been prescribed to you during your hospital course <Carlos Rowe - Last Filed: 12/11/18 13:43> Provider - Provider Date of Admission: 12/10/18 14:11 Attending physician: Marina Joe MD Consults: 12/10/18 14:12 Hematology Oncology Consult Routine Comment: Consulting Provider: Whitley Santiago Consulting Physician: Whitley Santiago Reason for Consult: pancytopenia 12/10/18 14:17 Consult [Physician Consult] Routine Comment: Consulting Provider: Angelina Coelho Consulting Physician: Angelina Coelho Reason for Consult: advance directive 12/10/18 21:47 Social Work Referral Routine Comment: d/c plan Physician Instructions: Reason For Exam: [place] Hospital Course - Lab Results Lab Results: Most Recent Lab Values WBC 3.5 10^3/uL (4.5-11.0) L 12/11/18 06:30 RBC 3.29 10^6/uL (3.5-6.1) L 12/11/18 06:30 Hgb 10.6 g/dL (12.0-16.0) L D 12/11/18 06:30 Hct 32.6 % (36.0-48.0) L 12/11/18 06:30 MCV 99.1 fl (80.0-105.0) D 12/11/18 06:30 MCH 32.2 pg (25.0-35.0) 12/11/18 06:30 MCHC 32.5 g/dl (31.0-37.0) 12/11/18 06:30 RDW 22.1 % (11.5-14.5) H 12/11/18 06:30 Plt Count 8 10^3/uL (120.0-450.0) L* 12/11/18 06:30 MPV 10.4 fl (7.0-11.0) 12/11/18 06:30 Gran % 23.5 % (50.0-68.0) L 12/11/18 06:30 Lymph % (Auto) 69.5 % (22.0-35.0) H 12/11/18 06:30 [place] % (Auto) 5.8 % (1.0-6.0) 12/11/18 06:30 Eos % (Auto) 0.9 % (1.5-5.0) L 12/11/18 06:30 Baso % (Auto) 0.3 % (0.0-3.0) 12/11/18 06:30 Gran # 0.82 (1.4-6.5) L 12/11/18 06:30 Lymph # (Auto) 2.4 (1.2-3.4) 12/11/18 06:30 [place] # (Auto) 0.2 (0.1-0.6) 12/11/18 06:30 Eos # (Auto) 0.0 (0.0-0.7) 12/11/18 06:30 Baso # (Auto) 0.01 K/mm3 (0.0-2.0) 12/11/18 06:30 Platelet Evaluation Low (NORMAL) 12/11/18 06:30 PT 12.5 SECONDS (9.4-12.5) 12/10/18 12:37 INR 1.09 12/10/18 12:37 APTT 29.1 Seconds (25.1-36.5) 12/10/18 12:37 Sodium 139 mmol/L (132-148) 12/11/18 06:30 Potassium 4.3 mmol/L (3.6-5.0) 12/11/18 06:30 Chloride 108 mmol/L (98-107) H 12/11/18 06:30 Carbon Dioxide 27 mmol/L (21-33) 12/11/18 06:30 Anion Gap 9 (10-20) L 12/11/18 06:30 BUN 15 mg/dL (7-21) 12/11/18 06:30 Creatinine 0.7 mg/dl (0.7-1.2) 12/11/18 06:30 Est GFR ( Amer) > 60 12/11/18 06:30 Est GFR (Non-Af Amer) > 60 12/11/18 06:30 POC Glucose (mg/dL) 107 mg/dL (65-110) 12/10/18 21:45 Random Glucose 99 mg/dL (70-110) 12/11/18 06:30 Calcium 9.4 mg/dL (8.4-10.5) 12/11/18 06:30 Total Bilirubin 0.4 mg/dL (0.2-1.3) 12/10/18 12:37 AST 61 U/L (14-36) H 12/10/18 12:37 ALT 75 U/L (7-56) H 12/10/18 12:37 Alkaline Phosphatase 122 U/L (38-126) 12/10/18 12:37 Total Protein 8.1 g/dL (5.8-8.3) 12/10/18 12:37 Albumin 3.7 g/dL (3.0-4.8) 12/10/18 12:37 Globulin 4.4 gm/dL 12/10/18 12:37 Albumin/Globulin Ratio 0.8 (1.1-1.8) L 12/10/18 12:37 Blood Type O POSITIVE 12/10/18 12:37 Antibody Screen Negative 12/10/18 12:37 Crossmatch See Detail 12/10/18 12:37 BBK History Checked Patient has bt 12/10/18 12:37 Attending/Attestation - Attestation I have personally seen and examined this patient.: Yes I have fully participated in the care of the patient.: Yes I have reviewed all pertinent clinical information, including history, physical exam and plan: Yes Notes (Text): 12/11/18 13:42 attending note; patient seen and examined with Resident. Patient's daughter by the bedside. Denied any bleeding. Patient is alert and awake. Denies any active bleeding. Patient is a 77 year old female with pmhx of HTN, myelodysplastic anemia, OA and PUD who presents to the ED after her heme/onc doctor Dr. Santiago called her from the clinic for CBC results which showed low Hgb levels. Status post 2 units PRBC transfusion. Hemoglobin is 10.6. Platelet is stable at 8. Patient has myelodysplastic syndrome; getting frequent blood transfusion. Failed outpatient treatment for MDS therapy. Thrombocytopenia; no active bleeding noted. No need for PRBC transfusion at this point as per hematology. Gait instability; patient is mostly bedbound. Patient and family family wants conservative management. Palliative care consult appreciated. Patient is DNI DNR. Upon discharge the patient will follow up with PMD Dr. Huerta. follow up with hematology oncology Dr. santiago as outpatient to discuss further treatment plan.
== END 2018-12-11 13:51 | disposition home or self-care (01) ==
LOC: ED 11:49 → ERH 14:11 → 5RNO 17:42 → 5RSO 12-11 06:57
PROVIDERS: ADMIT Internal Medicine; ATTEND Internal Medicine
DX: D46.4 Refractory anemia, unspecified (principal); D46.9 Myelodysplastic syndrome, unspecified; D63.8 Anemia in other chronic diseases classified elsewhere; D69.2 Other nonthrombocytopenic purpura; D69.6 Thrombocytopenia, unspecified; E83.42 Hypomagnesemia; I10 Essential (primary) hypertension; I48.0 Paroxysmal atrial fibrillation; Z87.11 Personal history of peptic ulcer disease; Z87.440 Personal history of urinary (tract) infections; Z87.891 Personal history of nicotine dependence; Z90.710 Acquired absence of both cervix and uterus; Z66 Do not resuscitate; Z88.1 Allergy status to other antibiotic agents; Z88.0 Allergy status to penicillin
CPT/HCPCS: 36415; 36430; 80048; 80053; 82948; 85025; 85610; 85730; 86850; 86900; 86920; 86921; 86922; 93005; 99283; G0378; P9016